=== PATIENT | male | born 1960 | race Caucasian/White ===

== ENCOUNTER 2018-07-07 14:57 | Inpatient (IN) | payer BC, OTHER ==
[2018-07-07] MEDS ORDERED: SUBLIMAZE IV PRN (15:10)
[2018-07-07] MEDS ORDERED: ARTIFICIAL TEARS OPHTH OINT OU PRN (15:10)
[2018-07-07] MEDS ORDERED: VASELINE LIP THERAPY TP PRN (15:10)
[2018-07-07] MEDS ORDERED: VERSED IV PRN (15:10)
[2018-07-07] MEDS ORDERED: NACL 0.9% 1000 ML 1,000 ML IV ONE ×2 (15:12→18:15)
[2018-07-07 15:22] LABS: Hematocrit 45.1 % (35.5-45.6); Hemoglobin 14.7 gm/dl (11.8-15.2); Mean Corpuscular HGB Conc 33 % (32-34); Mean Corpuscular Volume 91 fl (84-94); Platelet Count 214 K/mm3 (140-440); Red Blood Count 4.99 M/mm3 (3.65-5.03); Red Cell Distribution Width 14.7 % (13.2-15.2)
--- NOTE | 2018-07-07 15:24 | Emergency Department Report ---
HPI - General Time Seen by Provider: 07/07/18 15:07 - HPI HPI: 58-year-old -[place] male presents to the emergency department via EMS with the call of cardiac arrest. The patient was at [facility] and was witnessed suddenly going unconscious. He was talking and then he dropped to the ground and hit his head. EMS was called and found the patient to be pulseless in V. fib. He was given a 200 J shock and ACLS protocol was initiated. He received some epinephrine and chest compressions were done. They were unable to intubate him. At some point in route he had some return of spontaneous circulation and once again went into V. fib and received a 300 J shock and once again ACLS protocol was initiated. The patient received an amiodarone drip but no bolus. The patient once again had return of spontaneous circulation as they were pulling up to the emergency department. The patient has a pulse but is very altered and agitated. He is a poor historian secondary to his acute medical condition. In reviewing the patient's previous charts, he has a past medical history of HIV. ED Past Medical Hx - Past Medical History Hx Congestive Heart Failure: No Hx Diabetes: No Hx Renal Disease: Yes (CKD) Hx Seizures: No Hx Asthma: No Hx COPD: No Hx Dementia: No Hx HIV: Yes - Social History Smoking Status: Never Smoker - Medications Home Medications: Home Medications Medication Instructions Recorded Confirmed Last Taken Type Abacavir/Dolutegravir/Lamivudi 1 each PO DAILY 02/28/16 02/28/16 Unknown History [Triumeq Tablet] ED Review of Systems ROS: Stated complaint: TRAUMATIC ARREST Other details as noted in HPI Comment: Unobtainable due to pts medical conditions Physical Exam - Physical Exam Vital Signs: Vital Signs 07/07/18 15:08 Pulse Rate 112 H Blood Pressure 153/110 O2 Sat by Pulse 98 Oximetry Physical Exam: GENERAL: Patient is ill-appearing. HENT: Normocephalic. Atraumatic. Patient has moist mucous membranes. EYES: Pupils equal reactive to light bilaterally. NECK: Supple. Trachea is midline. CHEST/LUNGS: Clear to auscultation. There is no respiratory distress noted. HEART/CARDIOVASCULAR: Regular. There is moderate tachycardia. There is no murmur. ABDOMEN: Abdomen is soft, nontender. Patient has normal bowel sounds. There is no abdominal distention. SKIN: Skin is warm and dry. There is a posterior right scalp laceration that is about 3 cm in length. NEURO: The patient is awake but extremely confused and agitated. Unresponsive to any commands and unaware of his environment and situation. MUSCULOSKELETAL: There is no obvious deformity. There is no limitation range of motion. ED Course Vital Signs 07/07/18 15:08 Pulse Rate 112 H Blood Pressure 153/110 O2 Sat by Pulse 98 Oximetry - Consultations Consultation #1: I spoke with the day habilitation specialist, Dr Laird, who evaluated the EKGs that were sent to him and he does not feel that they represent STEMIs and does not need immediate cardiac catheterization. 07/07/18 15:22 - ABG Interpretation Ph: 7.199 PCO2: 60 PO2: 325 Bicarbonate: 23 Interpretation: respiratory acidosis - Central Line Placement Right Femoral Consent Obtained: emergent situation Time Out Performed: Yes Patient Placed on Monitor/Pulse Ox: Yes MD Prep: mask, gown, gloves Central Line Prep: Chlorhexidine scrub Ultrasound Used for Placement: Yes Central Line Lumen Inserted: triple Bloods Obtained for Lab: Yes Central Line Position: good blood return, all ports aspirated, flus, sutured in place with nyl Dressing Applied: Tegaderm, sterile gauze/tape Patient Tolerated Procedure: well Complications: none - Intubation Time Out Performed: No Sedative: Etomidate Mg Given: 20 Paralytic: Rocuronium Mg Given: 100 Laryngoscope: Dwight Size: 4 ET Tube Size: 7.5 Tube Secured Depth (cm): 24 Tube Secured Location: lips Tube Placement Confirmation: visualized tube passing t, equal breath sounds bilat, confirmation by capnometr Patient Tolerated Procedure: well Intubation Complications: none - Laceration /Wound Repair Posterior Head Wound Location: head (posterior scalp) Wound Length (cm): 3 Wound's Depth, Shape: superficial, linear Number of Sutures: 8 (bayron) Sterile Dressing Applied?: Yes ED Medical Decision Making - Lab Data Result diagrams: 07/07/18 14:45 07/07/18 14:45 - EKG Data -: EKG Interpreted by Me EKG shows normal: sinus rhythm, axis, intervals (prolonged QTc interval), QRS complexes, ST-T waves (T-wave inversions to the lateral leads with mild ST depression. Otherwise nonspecific ST-T waves) Rate: tachycardia (113 bpm) - EKG Data When compared to previous EKG there are: previous EKG unavailable Interpretation: other (sinus tachycardia, prolonged QTC, T-wave inversions to the lateral leads, nonspecific ST-T waves) - Radiology Data Radiology results: report reviewed, image reviewed interpreted by me: Chest x-ray does not show any acute process. There are no pleural effusions, obvious pneumonia and there is no pneumothorax.. ET tube is about 4 cm above the dany. CT of the head does not show any acute intracranial process including no ischemia, shift, mass, bleeding or skull fracture. CT of the cervical spine does not show any fracture, subluxation or any acute process. - Medical Decision Making This patient presented as a cardiac arrest which occurred twice but he also had recurrent spontaneous circulation twice. He appeared to be in V. fib, per EMS, and received 2 different defibrillations, epinephrine and amiodarone. Since being in the emergency department, he has a pulse but he is severely confused and very agitated and unable to follow any commands. With this recent history of cardiac arrest, head trauma, and his severe agitation, the patient was intubated. Chest x-ray shows appropriate placement of the ET tube but otherwise no acute process. EKG showed some ischemic changes with T-wave inversions in the lateral leads and some nonspecific ST-T waves but it was reviewed by cardiology and did not appear to meet STEMI criteria and requiring emergent cardiac catheterization. A stat CT scan of the head and cervical spine were done that did not show any bleed, shift, mass, ischemia, fracture, subluxation, or any other acute process. The patient's labs show some mild renal insufficiency, elevated troponin, lactic acidosis and elevated liver functions. After a few hours, the patient started having some hypertension despite IV fluid resuscitation so a central line was placed so pressors can be started. The posterior scalp laceration was repaired using bayron. The patient will be admitted to the ICU and was accepted for admission by the hospitalist, Dr. Walsh. Critical Care Time: Yes Critical care time in (mins) excluding proc time.: 45 Critical care attestation.: If time is entered above; I have spent that time in minutes in the direct care of this critically ill patient, excluding procedure time. Critical care time was spent on this patient and during his initial evaluation, multiple re- evaluations, ordering and interpretation of labs and imaging, discussion with the institutional nutrition consultant and hospitalist. This does not include the time spent doing the intubation, central line and stapling procedures. Critical Care Time: 45 minutes ED Disposition Clinical Impression: Cardiac arrest, Acute kidney injury, Transaminitis, Non-STEMI (non-ST elevated myocardial infarction) Hypotension Qualifiers: Hypotension type: unspecified hypotension type Qualified Code(s): I95.9 - Hypotension, unspecified Acute respiratory failure Qualifiers: Respiratory failure complication: unspecified whether with hypoxia or hypercapnia Qualified Code(s): J96.00 - Acute respiratory failure, unspecified whether with hypoxia or hypercapnia Disposition: 09 OP ADMIT IP TO THIS HOSP Is pt being admited?: Yes Condition: Serious Time of Disposition: 19:29
[2018-07-07 15:33] LABS: INR 1.16 (0.87-1.13)
[2018-07-07 15:34] LABS: Partial Thromboplastin Time 25.1 Sec. (24.2-36.6)
[2018-07-07 15:47] LABS: Albumin 3.5 g/dL (3.9-5); Calcium 8.6 mg/dL (8.4-10.2)
[2018-07-07 15:53] LABS: Smudge Cells 1+; Total Cells Counted 100
[2018-07-07 15:54] LABS: Ovalocytes 1+; Poikilocytosis Few
[2018-07-07] MEDS ORDERED: fentaNYL DRIP Premix 2,000 MCG/100 ML BAG IV SCH (16:00)
[2018-07-07] MEDS ORDERED: MIDAZOLAM 100 MG in NACL 0.9% 80 ML IV SCH (16:00)
--- NOTE | 2018-07-07 16:04 | XRay Report ---
PROCEDURE: XR CHEST 1V AP TECHNIQUE: Chest radiograph single view. HISTORY: ETT placement COMPARISONS: None . FINDINGS: Heart: Normal. Mediastinum/Vessels: Normal. Lungs/Pleural space: No infiltrate, effusion, or pneumothorax. Bony thorax: No acute osseous abnormality. Life support devices: Endotracheal tube tip projects 4.6 cm superior to the dany. IMPRESSION: Endotracheal tube tip projects 4.6 cm superior to the dany. This document is electronically signed by Ingris Tompkins MD., Jul 07 2018 04:02:43 PM ET
[2018-07-07 16:12] LABS: Chol/HDL Ratio 2.71 %
--- NOTE | 2018-07-07 16:25 | Cat Scan Report ---
PROCEDURE: CT cervical spine without contrast. TECHNIQUE: Computerized tomography of the cervical spine was performed from the skull base to T1 wit hout contrast material. CT DOSE LENGTH PRODUCT: 657.1 mGycm HISTORY: Patient fell, altered mental status. COMPARISONS: None. FINDINGS: The cervical vertebrae have normal height and alignment. There are no fractures. There is no subluxat ion. There is mild disc space narrowing at C3-4 and C6-7. The spinal canal appears widely patent. The facet joints appear satisfactory. The neural foramina are adequately patent. IMPRESSION: No evidence of acute cervical spine injury. This document is electronically signed by Ruperto Bird MD., Jul 07 2018 04:23:08 PM ET
--- NOTE | 2018-07-07 16:32 | Cat Scan Report ---
PROCEDURE: CT head without contrast. TECHNIQUE: Computerized tomography of the head was performed without contrast material. CT DOSE LENGTH PRODUCT: 996.8 mGycm HISTORY: Patient fell, altered mental status. COMPARISONS: None. FINDINGS: The ventricles are normal in size. The torres matter and white matter appear normal. There are no mass lesions. There is no intracranial hemorrhage. The calvarium appears intact. The mastoid air cells and paranasal sinuses are well aerated. IMPRESSION: Normal study. This document is electronically signed by Ruperto Bird MD., Jul 07 2018 04:30:51 PM ET
[2018-07-07] MEDS: KCL 10MEQ/100ML 10 MEQ/100 ML BAG IV SCH ×3 (16:33→20:23)
[2018-07-07] MEDS: CORDARONE 900 MG in D5W 482 ML IV SCH (16:33)
[2018-07-07] MEDS ORDERED: DIPRIVAN 10 MG/ML 1,000 MG/100 ML BOTTLE IV ONE ×2 (16:40→22:23)
[2018-07-07] MEDS ORDERED: HEPARIN 10,000 UNITS/10 ML IV ONE (16:49)
--- NOTE | 2018-07-07 16:52 | History and Physical Report ---
History of Present Illness Chief complaint: Unresponsive History of present illness: 58 YO Male with HIV complicated by Nephropathy presents to ED for evaluation. Pt experienced a sudden loss of consciousness while shopping at a local drugstore. Pt fell from a standing position and struck his head on the ground without breaking his fall. EMS was notified, and upon arrival the patient was found to have cardiac arrest. Pt treated IAW ACLS protocol with return of spontaneous circulation. Pt transported to [facility]. Pt seen and evaluated in ED and found to have Acute Hypoxemic Respiratory Failure, Acidosis, S/P Cardiac Arrest. Pt intubated and placed on vent due to inability to protect his airway. Pt hypotensive in Ed and treated with IVF resuscitation. Pt admitted to ICU. Pulmonary team consulted in ED. No further history obtainable. No prior admission for review. No medication listed at time of admission for bonilla nciliation. Past History Past Medical History: HIV/AIDS Past Surgical History: No surgical history, Other (UTO) Social history: single. denies: smoking, alcohol abuse, prescription drug abuse Family history: no significant family history (UTO) Medications and Allergies Allergies Allergy/AdvReac Type Severity Reaction Status Date / Time No Known Allergies Allergy Verified 02/28/16 21:35 Home Medications Medication Instructions Recorded Confirmed Last Taken Type Abacavir/Dolutegravir/Lamivudi 1 each PO DAILY 02/28/16 02/28/16 Unknown History [Triumeq Tablet] Active Meds: Active Medications Fentanyl (Sublimaze) 50 mcg IV Q10MIN PRN PRN Reason: ANALGESIA Hydrophilic Ointment (Vaseline Lip Therapy) 1 applic TP Q2HR PRN PRN Reason: Dry Lips Fentanyl Citrate (Fentanyl Drip Premix) 2,000 mcg in 100 mls @ 5.103 mls/hr IV TITR KATIANA; Protocol Last Admin: 07/07/18 15:55 Dose: 1 mcg/kg/hr, 5.103 mls/hr Documented by: Midazolam HCl 100 mg/ Sodium (Chloride) 100 mls @ 2 mls/hr IV TITR KATIANA; Protocol Last Titration: 07/07/18 16:34 Dose: 4 mg/hr, 4 mls/hr Documented by: Amiodarone HCl 900 mg/ (Dextrose) 500 mls @ 33.333 mls/hr IV DIRECT KATIANA; Protocol Last Admin: 07/07/18 16:33 Dose: 1 mg/min, 33.333 mls/hr Documented by: Potassium Chloride (Kcl 10meq/100ml) 10 meq in 100 mls @ 100 mls/hr IV Q1H KATIANA Stop: 07/07/18 18:59 Last Admin: 07/07/18 16:33 Dose: 100 mls/hr Documented by: Heparin Sodium/Sodium Chloride (Heparin/ 0.45% Nacl-25,000 Unit/500 Ml) 25,000 unit in 500 mls @ 30.617 mls/hr IV TITRATE KATIANA; Protocol Midazolam HCl (Versed) 2 mg IV Q10MIN PRN PRN Reason: Sedation Last Admin: 07/07/18 15:22 Dose: 2 mg Documented by: Multi-Ingred Cream/Lotion/Oil/Oint (Artificial Tears Ophth Oint) 1 applic OU Q4HR PRN PRN Reason: Dry Eye(s) Review of Systems ROS unobtainable: due to endotracheal tube, due to mental status Exam - Constitutional Vitals: Temp Pulse Resp BP Pulse Ox 112 H 153/110 98 07/07/18 15:08 07/07/18 15:08 07/07/18 15:08 General appearance: Present: severe distress - EENT Eyes: Present: miosis - Neck Neck: Present: supple, normal ROM - Respiratory Respiratory effort: labored Respiratory: bilateral: diminished, rhonchi - Cardiovascular Heart Sounds: Present: S1 & S2. Absent: rub, click - Extremities Extremities: pulses symmetrical, No edema Peripheral Pulses: abnormal (1+,=, BUE, BLE) - Abdominal General gastrointestinal: Present: soft, non-tender, non-distended, normal bowel sounds Male genitourinary: Present: normal - Integumentary Integumentary: Present: warm, dry, clammy, decreased turgor - Musculoskeletal Musculoskeletal: generalized weakness - Psychiatric Psychiatric: no appropriate mood/affect, no intact judgment & insight, no memory intact - Neurologic Neurologic: CNII-XII intact, no moves all extremities, no gait normal Results - Labs CBC & Chem 7: 07/07/18 14:45 07/07/18 14:45 Labs: Abnormal lab results 07/07/18 07/07/18 07/07/18 Range/Units 14:45 14:45 14:45 Seg Neuts % (Manual) 29.0 L (40.0-70.0) % Lymphocytes % (Manual) 66.0 H (13.4-35.0) % Lymphocytes # (Manual) 6.1 H (1.2-5.4) K/mm3 PT 15.5 H (12.2-14.9) Sec. INR 1.16 H (0.87-1.13) POC ABG pH (7.35-7.45) POC ABG pCO2 (35-45) POC ABG pO2 (80-105) Potassium 3.1 L (3.6-5.0) mmol/L Carbon Dioxide 17 L (22-30) mmol/L Creatinine 1.9 H (0.8-1.5) mg/dL Glucose 218 H (75-100) mg/dL Lactic Acid (0.7-2.0) mmol/L AST 352 H (5-40) units/L ALT 394 H (7-56) units/L Ammonia (25-60) umol/L Troponin T 0.561 H* (0.00-0.029) ng/mL Albumin 3.5 L (3.9-5) g/dL HDL Cholesterol 71 H (40-59) mg/dL TSH (0.270-4.200) mlU/mL Salicylates (2.8-20.0) mg/dL Acetaminophen (10.0-30.0) ug/mL 07/07/18 07/07/18 07/07/18 Range/Units 14:45 14:45 14:45 Seg Neuts % (Manual) (40.0-70.0) % Lymphocytes % (Manual) (13.4-35.0) % Lymphocytes # (Manual) (1.2-5.4) K/mm3 PT (12.2-14.9) Sec. INR (0.87-1.13) POC ABG pH (7.35-7.45) POC ABG pCO2 (35-45) POC ABG pO2 (80-105) Potassium (3.6-5.0) mmol/L Carbon Dioxide (22-30) mmol/L Creatinine (0.8-1.5) mg/dL Glucose (75-100) mg/dL Lactic Acid (0.7-2.0) mmol/L AST (5-40) units/L ALT (7-56) units/L Ammonia (25-60) umol/L Troponin T (0.00-0.029) ng/mL Albumin (3.9-5) g/dL HDL Cholesterol (40-59) mg/dL TSH 8.870 H (0.270-4.200) mlU/mL Salicylates < 0.3 L (2.8-20.0) mg/dL Acetaminophen < 5.0 L (10.0-30.0) ug/mL 07/07/18 07/07/18 07/07/18 Range/Units 15:15 15:15 15:30 Seg Neuts % (Manual) (40.0-70.0) % Lymphocytes % (Manual) (13.4-35.0) % Lymphocytes # (Manual) (1.2-5.4) K/mm3 PT (12.2-14.9) Sec. INR (0.87-1.13) POC ABG pH 7.199 L (7.35-7.45) POC ABG pCO2 60.0 H (35-45) POC ABG pO2 325 H (80-105) Potassium (3.6-5.0) mmol/L Carbon Dioxide (22-30) mmol/L Creatinine (0.8-1.5) mg/dL Glucose (75-100) mg/dL Lactic Acid 5.30 H* (0.7-2.0) mmol/L AST (5-40) units/L ALT (7-56) units/L Ammonia 62.0 H (25-60) umol/L Troponin T (0.00-0.029) ng/mL Albumin (3.9-5) g/dL HDL Cholesterol (40-59) mg/dL TSH (0.270-4.200) mlU/mL Salicylates (2.8-20.0) mg/dL Acetaminophen (10.0-30.0) ug/mL Assessment and Plan - Patient Problems (1) Acute respiratory failure Current Visit: Yes Status: Acute Qualifiers: Respiratory failure complication: unspecified whether with hypoxia or hypercapnia Qualified Code(s): J96.00 - Acute respiratory failure, unspecified whether with hypoxia or hypercapnia Plan to address problem: Admit to ICU, wean vent as tolerated, Daily ABG, Chest x ray, daily ABG, sedation holiday, pulmonary team consulted, nebulizer therapy. The high probability of a clinically significant, sudden or life threatening deterioration of the [Neuro, respiratory, endocrine, renal] system(s) required my full and direct attention, intervention and personal management. The [facility] critical care time was [65] minutes. This time is in addition to time spent performing reported procedures but includes the following: [x] Data Review and interpretation [x] Patient assessment and monitoring of vital signs [x] Documentation [x] Medication orders and management (2) ARF (acute renal failure) with tubular necrosis Current Visit: Yes Status: Acute Plan to address problem: IVF resuscitation therapy, monitor uop q shift, repeat bmp in am to monitor for improvement in serum creatnine, urine electrolytes. (3) Acidosis Current Visit: Yes Status: Acute Plan to address problem: IVF resuscitation therapy, repeat bmp, IV bicarbonate (4) HIV (human immunodeficiency virus infection) Current Visit: Yes Status: Acute Qualifiers: HIV symptom status: unspecified Qualified Code(s): B20 - Human immunodeficiency virus [HIV] disease Plan to address problem: continue HAAR therapy, outpatient ID F/U care. (5) Cardiac arrest Current Visit: Yes Status: Acute Plan to address problem: S/P ACLS protocol with return of perfusing cardiac rhythm, cardiology consulted, Echo, supportive care. (6) CHF (congestive heart failure) Current Visit: Yes Status: Suspected Qualifiers: Heart failure type: diastolic Plan to address problem: Admit to ICU, IV pressor support to maintain MAP above 60, cardiology consulted, monitor BP q shift, Echo, thyroid panel, daily weight, monitor I/O. (7) DVT prophylaxis Current Visit: Yes Status: Acute Plan to address problem: SCD to BLE shile in bed, prophylactic heparin
[2018-07-07] MEDS ORDERED: PROVENTIL IH PRN (16:55)
[2018-07-07] MEDS ORDERED: SODIUM CHLORIDE FLUSH SYRINGE 10 ML IV PRN (16:55)
[2018-07-07] MEDS ORDERED: HEPARIN/ 0.45% NACL-25,000 UNIT/500 ML 25,000 UNIT/500 ML BAG IV SCH (17:00)
[2018-07-07] MEDS: DIPRIVAN 10 MG/ML 1,000 MG/100 ML BOTTLE IV SCH ×2 (17:30→22:38)
[2018-07-07 18:31] LABS: Bilirubin,Urine NEG (Negative); Blood,Urine MOD (Negative); Color,Urine Yellow (Yellow); Mucus,Urine FEW /HPF; Urobilinogen,Urine < 2.0 mg/dL (<2.0)
[2018-07-07] MEDS ORDERED: NACL 0.9% 1000 ML 1,000 ML ONE ×2 (18:43→20:19)
[2018-07-07] MEDS ORDERED: KCL 10MEQ/100ML 10 MEQ/100 ML BAG IV ONE (20:19)
[2018-07-08] MEDS ORDERED: NACL 0.9% 250ML 250 ML IV ONE (03:06)
[2018-07-08] MEDS: DIPRIVAN 10 MG/ML 1,000 MG/100 ML BOTTLE IV SCH ×2 (03:11→18:27)
[2018-07-08] MEDS: LEVOPHED DRIP 4 MG/NS 250 ML 4 MG/250 ML BAG IV SCH (03:30)
[2018-07-08] MEDS: SODIUM CHLORIDE FLUSH SYRINGE 10 ML IV SCH ×2 (03:32→11:54)
[2018-07-08] MEDS: NACL 0.9% 1000 ML 1,000 ML IV SCH ×3 (05:24→21:46)
[2018-07-08] MEDS: HEPARIN SUB-Q SCH ×2 (05:26→13:26)
[2018-07-08 05:43] LABS: Basophils # (Auto) 0.1 K/mm3 (0.0-0.1); Basophils % (Auto) 0.8 % (0.0-1.8); Eosinophils # (Auto) 0.1 K/mm3 (0.0-0.4); Eosinophils % (Auto) 1.2 % (0.0-4.3); Hematocrit 43.8 % (35.5-45.6); Hemoglobin 14.1 gm/dl (11.8-15.2); Lymphocytes % (Auto) 27.4 % (13.4-35.0); Mean Corpuscular HGB Conc 32 % (32-34); Mean Corpuscular Volume 91 fl (84-94); Monocytes # (Auto) 0.9 K/mm3 (0.0-0.8); Monocytes % (Auto) 11.9 % (0.0-7.3); Platelet Count 159 K/mm3 (140-440)
[2018-07-08 06:14] LABS: Albumin 3.3 g/dL (3.9-5); Calcium 8.2 mg/dL (8.4-10.2)
--- NOTE | 2018-07-08 08:01 | XRay Report ---
PROCEDURE: XR CHEST 1V AP TECHNIQUE: Chest radiograph single view. HISTORY: follow up respiratory failure COMPARISONS: 07/07/2018 . FINDINGS: Heart: Normal. Mediastinum/Vessels: Normal. Lungs/Pleural space: No infiltrate, effusion, or pneumothorax. Bony thorax: No acute osseous abnormality. Life support devices: The endotracheal tube is in the proximal trachea 8.7 cm above the dany. IMPRESSION: Normal heart and lungs.. ET tube is in proper position. This document is electronically signed by Yovani Rojas MD., Jul 08 2018 07:59:55 AM ET
[2018-07-08] MEDS ORDERED: NON-FORMULARY (Abacavir/Dolutegravir/Lamivudi [Triumeq 600-50-300 Mg Tablet] 1 EACH) PO SCH ×2 (10:00)
--- NOTE | 2018-07-08 10:50 | Consultation ---
History of Present Illness Consult date: 07/08/18 Requesting physician: TRACY CONWAY Consult reason: cardiac arrest History of present illness: The patient is a 58-year-old -[place] male with a past medical history of HIV. He is previously unknown to our practice. He is intubated on evaluation and thus HPI obtained per the chart and per pt's brother at bedside. Pt presented to the emergency department via EMS following cardiac arrest. 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 Pt was then witnessed to suddenly go unconscious. He was talking and then he dropped to the ground and hit his head. EMS was called and found the patient to be pulseless in V. fib. He was given a 200 J shock and ACLS protocol was initiated. He received some epinephrine and chest compressions were done. They were unable to intubate him. At some point in route he had some return of spontaneous circulation and once again went into V. fib and received a 300 J shock and once again ACLS protocol was initiated. The patient received an amiodarone drip but no bolus. The patient once again had return of spontaneous circulation as they were pulling up to the emergency department. On evaluation, pt remains intubated but he is following commands appropriately. He denies any c/o pain. Past History Past Medical History: HIV/AIDS Past Surgical History: appendectomy Social history: denies: smoking, alcohol abuse, prescription drug abuse Medications and Allergies Allergies Allergy/AdvReac Type Severity Reaction Status Date / Time No Known Allergies Allergy Verified 02/28/16 21:35 Home Medications Medication Instructions Recorded Confirmed Last Taken Type Abacavir/Dolutegravir/Lamivudi 1 each PO DAILY 02/28/16 02/28/16 Unknown History [Triumeq Tablet] Active Meds: Active Medications Abacavir Sulfate (Ziagen) 300 mg PO Q12HR KATIANA Albuterol (Proventil) 2.5 mg IH Q3HRT PRN PRN Reason: Shortness Of Breath Famotidine (Pepcid) 20 mg IV BID [facility] Heparin Sodium (Porcine) (Heparin) 5,000 unit SUB-Q Q12HR [facility] Last Admin: 07/08/18 05:26 Dose: Not Given Documented by: Hydrophilic Ointment (Vaseline Lip Therapy) 1 applic TP Q2HR PRN PRN Reason: Dry Lips Amiodarone HCl 900 mg/ (Dextrose) 500 mls @ 33.333 mls/hr IV DIRECT KATIANA; Protocol Last Admin: 07/07/18 16:33 Dose: 1 mg/min, 33.333 mls/hr Documented by: Sodium Chloride (Nacl 0.9% 1000 Ml) 1,000 mls @ 100 mls/hr IV DIRECT KATIANA Last Admin: 07/08/18 05:24 Dose: 100 mls/hr Documented by: Propofol (Diprivan 10 Mg/Ml) 1,000 mg in 100 mls @ 3.062 mls/hr IV TITR KATIANA; P rotocol Last Admin: 07/08/18 03:11 Dose: 20 mcg/kg/min, 12.247 mls/hr Documented by: Norepinephrine (Levophed Drip 4 Mg/Ns 250 Ml) 4 mg in 250 mls @ 7.5 mls/hr IV TITR KATIANA; Protocol Last Admin: 07/08/18 03:30 Dose: 2 mcg/min, 7.5 mls/hr Documented by: Lamivudine (Epivir) 150 mg PO Q12HR KAT[facility]NA Multi-Ingred Cream/Lotion/Oil/Oint (Artificial Tears Ophth Oint) 1 applic OU Q4HR PRN PRN Reason: Dry Eye(s) Sodium Chloride (Sodium Chloride Flush Syringe 10 Ml) 10 ml IV BID KATIANA Last Admin: 07/08/18 03:32 Dose: Not Given Documented by: Sodium Chloride (Sodium Chloride Flush Syringe 10 Ml) 10 ml IV PRN PRN PRN Reason: LINE FLUSH Review of Systems ROS unobtainable: due to endotracheal tube, due to mental status Physical Examination Vital Signs Pulse Resp 130 H 20 07/07/18 14:46 07/07/18 14:46 General appearance: other (intubated, following commands appropriately ) HEENT: Positive: PERRL, Normocephaly, Mucus Membranes Moist Neck: Positive: neck supple, trachea midline Cardiac: Positive: Reg Rate and Rhythm, S1/S2 Lungs: Positive: Decreased Breath Sounds, Ventilated Respirations Neuro: Positive: Grossly Intact Abdomen: Negative: Tender Skin: Negative: Rash, Wound Musculoskeletal: No Pain Extremities: Absent: edema Results 07/08/18 04:09 07/08/18 04:09 Cardiac Enzymes 07/07/18 07/08/18 Range/Units 14:45 04:09 AST 352 H 321 H (5-40) units/L Coagulation 07/07/18 Range/Units 14:45 PT 15.5 H (12.2-14.9) Sec. INR 1.16 H (0.87-1.13) APTT 25.1 (24.2-36.6) Sec. Lipids 07/07/18 Range/Units 14:45 Triglycerides 101 (2-149) mg/dL Cholesterol 193 (50-199) mg/dL HDL Cholesterol 71 H (40-59) mg/dL Cholesterol/HDL Ratio 2.71 % CBC 07/07/18 07/08/18 Range/Units 14:45 04:09 WBC 9.3 7.3 (4.5-11.0) K/mm3 RBC 4.99 4.80 (3.65-5.03) M/mm3 Hgb 14.7 14.1 (11.8-15.2) gm/dl Hct 45.1 43.8 (35.5-45.6) % Plt Count 214 159 (140-440) K/mm3 Lymph # Machine Bender 2.0 [place] # 0.9 H (0.0-0.8) K/mm3 Eos # 0.1 (0.0-0.4) K/mm3 Baso # 0.1 (0.0-0.1) K/mm3 Comprehensive Metabolic Panel 07/07/18 07/08/18 Range/Units 14:45 04:09 Sodium 139 143 (137-145) mmol/L Potassium 3.1 L 4.4 D (3.6-5.0) mmol/L Chloride 101.6 106.0 (98-107) mmol/L Carbon Dioxide 17 L 21 L (22-30) mmol/L BUN 20 19 (9-20) mg/dL Creatinine 1.9 H 1.6 H (0.8-1.5) mg/dL Glucose 218 H 71 L (75-100) mg/dL Calcium 8.6 8.2 L (8.4-10.2) mg/dL AST 352 H 321 H (5-40) units/L ALT 394 H 313 H (7-56) units/L Alkaline Phosphatase 57 50 (35-129) units/L Total Protein 6.7 5.9 L (6.3-8.2) g/dL Albumin 3.5 L 3.3 L (3.9-5) g/dL - Imaging and Cardiology Echo: pending EKG: report reviewed, image reviewed EKG interpretations - Telemetry EKG Rhythm: Sinus Rhythm - EKG Sinus rhythms and dysrhythmias: sinus rhythm Repolarization changes or abnormalities: ST or T wave suggestive of ischemia Assessment and Plan Pt presented s/p reported witnessed VF arrest while at work. ECG suggestive of inferior ischemia, suspect late presentation AMI, ECG this AM with no ST elevations. Will optimize anti-ischemic regimen - initiate heparin gtt and ASA. Wean vasopressors as tolerated and consider BB and/or ACEI if BPs permit. Plan for coronary angiography once medically stabilized. No statin at this time in setting of elevated LFTs. Cont to trend Qing and repeat ECG in AM. F/u echo. Cont amio gtt for another 24Hrs and f/u CMP in AM. The patient has been seen in conjunction with Dr. CM Padilla who agrees with the assessment and plan of care. - Patient Problems (1) Cardiac arrest with successful resuscitation Current Visit: Yes Status: Acute (2) Ventricular fibrillation Current Visit: Yes Status: Acute (3) Non-STEMI (non-ST elevated myocardial infarction) Current Visit: Yes Status: Acute (4) Acute respiratory failure Current Visit: Yes Status: Acute Qualifiers: Respiratory failure complication: unspecified whether with hypoxia or hypercapnia Qualified Code(s): J96.00 - Acute respiratory failure, unspecified whether with hypoxia or hypercapnia (5) Acute kidney injury Current Visit: Yes Status: Acute (6) Hypotension Current Visit: Yes Status: Acute Qualifiers: Hypotension type: unspecified hypotension type Qualified Code(s): I95.9 - Hypotension, unspecified (7) HIV (human immunodeficiency virus infection) Current Visit: Yes Status: Chronic Qualifiers: HIV symptom status: unspecified Qualified Code(s): B20 - Human immunodeficiency virus [HIV] disease (8) Elevated TSH Current Visit: Yes Status: Chronic (9) Elevated LFTs Current Visit: Yes Status: Acute (10) Acidosis Current Visit: Yes Status: Acute
[2018-07-08] MEDS: TIVICAY PO SCH (11:54)
[2018-07-08] MEDS: EPIVIR PO SCH (11:54)
[2018-07-08] MEDS: PEPCID IV SCH ×2 (11:54→22:36)
[2018-07-08] MEDS: ZIAGEN PO SCH (11:55)
[2018-07-08] MEDS: HEPARIN/ 0.45% NACL-25,000 UNIT/500 ML 25,000 UNIT/500 ML BAG IV SCH (12:00)
--- NOTE | 2018-07-08 12:41 | XRay Report ---
Single view abdomen: History: NG tube placement. Findings: Tip of Dobbhoff feeding tube is noted in the fundus of the stomach. No bowel distention. Impression: Tip of Dobbhoff feeding tube in stomach.
[2018-07-08 13:00] LABS: INR 1.19 (0.87-1.13)
[2018-07-08] MEDS: ASPIRIN PR SCH (13:18)
[2018-07-08] MEDS: CORDARONE 900 MG in D5W 482 ML IV SCH ×2 (13:25→23:57)
[2018-07-08] MEDS: HumaLOG SUB-Q SCH ×2 (13:29→18:30)
--- NOTE | 2018-07-08 14:15 | Progress Note ---
Subjective Date of service: 07/08/18 Interval history: PULMONARY/CCM CONSULT NOTE (Full dictation # ) Please see dictated notes for full details Objective Vital Signs - 12hr 07/08/18 07/08/18 07/08/18 02:21 02:31 02:41 Temperature Pulse Rate 63 64 66 Respiratory 30 H 30 H 30 H Rate Blood Pressure 84/53 84/53 84/53 O2 Sat by Pulse 100 100 100 Oximetry 07/08/18 07/08/18 07/08/18 02:51 03:00 03:11 Temperature Pulse Rate 65 64 65 Respiratory 30 H 30 H 30 H Rate Blood Pressure 84/53 78/47 84/53 O2 Sat by Pulse 100 100 100 Oximetry 07/08/18 07/08/18 07/08/18 03:21 03:31 03:40 Temperature Pulse Rate 66 65 65 Respiratory 30 H 30 H 30 H Rate Blood Pressure 84/53 84/53 78/47 O2 Sat by Pulse 100 100 100 Oximetry 07/08/18 07/08/18 07/08/18 03:51 04:00 04:11 Temperature 97.8 F Pulse Rate 64 65 64 Respiratory 30 H 30 H 0 L Rate Blood Pressure 84/53 86/52 78/47 O2 Sat by Pulse 100 100 100 Oximetry 07/08/18 07/08/18 07/08/18 04:21 04:30 04:37 Temperature Pulse Rate 64 63 63 Respiratory 0 L 30 H Rate Blood Pressure 91/58 96/63 96/63 O2 Sat by Pulse 100 100 100 Oximetry 07/08/18 07/08/18 07/08/18 04:38 04:41 04:51 Temperature Pulse Rate 69 64 Respiratory 9 L 30 H Rate Blood Pressure 96/63 97/53 O2 Sat by Pulse 100 100 100 Oximetry 07/08/18 07/08/18 07/08/18 05:00 05:11 05:21 Temperature Pulse Rate 68 76 71 Respiratory 25 H 30 H 30 H Rate Blood Pressure 90/53 90/53 93/50 O2 Sat by Pulse 100 100 100 Oximetry 07/08/18 07/08/18 07/08/18 05:30 05:41 05:51 Temperature Pulse Rate 71 77 74 Respiratory 30 H 30 H 30 H Rate Blood Pressure 88/51 88/51 91/58 O2 Sat by Pulse 100 100 98 Oximetry 07/08/18 07/08/1807/08/19 06:00 06:11 06:21 Temperature Pulse Rate 77 77 76 Respiratory 30 H 30 H 30 H Rate Blood Pressure 79/47 79/47 80/44 O2 Sat by Pulse 98 96 98 Oximetry 07/08/18 07/08/18 07/08/18 06:30 06:41 06:51 Temperature Pulse Rate 77 73 78 Respiratory 30 H 32 H 30 H Rate Blood Pressure 82/48 82/48 92/53 O2 Sat by Pulse 98 100 100 Oximetry 07/08/18 07/08/18 07/08/18 07:00 07:10 07:21 Temperature Pulse Rate 78 80 74 Respiratory 30 H 16 15 Rate Blood Pressure 102/53 102/53 82/48 O2 Sat by Pulse 100 100 100 Oximetry 07/08/18 07/08/18 07/08/18 07:30 07:34 07:41 Temperature Pulse Rate 82 76 77 Respiratory 15 20 Rate Blood Pressure 107/60 107/60 107/60 O2 Sat by Pulse 100 100 100 Oximetry 07/08/18 07/08/18 07/08/18 07:51 08:00 08:11 Temperature 100.5 F H Pulse Rate 79 81 90 Respiratory 7 L 30 H 28 H Rate Blood Pressure 102/54 89/54 89/54 O2 Sat by Pulse 100 100 100 Oximetry 07/08/18 07/08/18 07/08/18 08:21 08:30 08:41 Temperature Pulse Rate 82 81 84 Respiratory 30 H 30 H 30 H Rate Blood Pressure 102/54 96/56 96/56 O2 Sat by Pulse 99 100 100 Oximetry 07/08/18 07/08/18 07/08/18 08:51 08:57 09:00 Temperature Pulse Rate 82 83 Respiratory 30 H 28 H 30 H Rate Blood Pressure 91/52 89/53 O2 Sat by Pulse 99 98 100 Oximetry 07/08/18 07/08/18 07/08/18 09:11 09:21 09:30 Temperature Pulse Rate 82 82 80 Respiratory 30 H 30 H 22 Rate Blood Pressure 89/53 96/54 96/52 O2 Sat by Pulse 99 99 100 Oximetry 07/08/18 07/08/18 07/08/18 09:41 09:51 10:00 Temperature Pulse Rate 79 87 82 Respiratory 26 H 28 H 30 H Rate Blood Pressure 96/52 96/52 103/52 O2 Sat by Pulse 100 100 100 Oximetry 07/08/18 07/08/18 07/08/18 10:11 10:21 10:30 Temperature Pulse Rate 86 78 76 Respiratory 28 H 30 H 30 H Rate Blood Pressure 103/52 104/55 100/53 O2 Sat by Pulse 99 100 100 Oximetry 07/08/18 07/08/18 07/08/18 10:41 10:51 11:01 Temperature Pulse Rate 78 94 H 98 H Respiratory 30 H 17 8 L Rate Blood Pressure 100/53 99/55 118/71 O2 Sat by Pulse 100 100 99 Oximetry 07/08/18 07/08/18 07/08/18 11:11 11:21 11:30 Temperature Pulse Rate 90 83 80 Respiratory 30 H 30 H 19 Rate Blood Pressure 118/71 100/53 105/65 O2 Sat by Pulse 98 100 100 Oximetry 07/08/18 07/08/18 07/08/18 11:41 11:43 11:51 Temperature Pulse Rate 81 82 82 Respiratory 7 L 10 L Rate Blood Pressure 105/65 105/65 114/68 O2 Sat by Pulse 100 100 100 Oximetry 07/08/18 07/08/18 07/08/18 12:00 12:11 12:21 Temperature Pulse Rate 77 73 79 Respiratory 30 H 30 H 22 Rate Blood Pressure 114/66 114/66 109/64 O2 Sat by Pulse 100 100 100 Oximetry 07/08/18 07/08/18 07/08/18 12:30 12:41 12:51 Temperature Pulse Rate 74 76 75 Respiratory 30 H 30 H 30 H Rate Blood Pressure 110/64 110/64 106/60 O2 Sat by Pulse 100 100 100 Oximetry 07/08/18 07/08/18 07/08/18 13:00 13:11 13:21 Temperature Pulse Rate 81 92 H 103 H Respiratory 20 12 14 Rate Blood Pressure 114/63 114/63 113/67 O2 Sat by Pulse 100 100 100 Oximetry 07/08/18 13:30 Temperature Pulse Rate 89 Respiratory 17 Rate Blood Pressure 125/73 O2 Sat by Pulse 94 Oximetry CBC and BMP: 07/08/18 Unknown 07/08/18 04:09 ABG, PT/INR, D-dimer: ABG POC ABG pH 7.423 (7.35-7.45) 07/08/18 04:41 POC ABG pCO2 37.6 (35-45) 07/07/18 20:18 POC ABG pO2 144 (80-105) H 07/08/18 04:41 POC ABG HCO3 19.6 (22-26 mml/L) 07/08/18 04:41 POC ABG Total CO2 20 (23-27mmol/L) 07/08/18 04:41 POC ABG O2 Sat 99 07/08/18 04:41 PT/INR, D-dimer PT 15.9 Sec. (12.2-14.9) H 07/08/18 Unknown INR 1.19 (0.87-1.13) H 07/08/18 Unknown Abnormal lab findings: Abnormal Labs 07/07/18 07/07/18 07/07/18 14:45 14:45 14:45 [place]osey % (Auto) Posey # Seg Neuts % (Manual) 29.0 L Lymphocytes % (Manual) 66.0 H Lymphocytes # (Manual) 6.1 H PT 15.5 H INR 1.16 H POC ABG pH POC ABG pCO2 POC ABG pO2 Potassium 3.1 L Carbon Dioxide 17 L Creatinine 1.9 H Glucose 218 H Lactic Acid Calcium AST 352 H ALT 394 H Ammonia Troponin T 0.561 H* Total Protein Albumin 3.5 L HDL Cholesterol 71 H TSH Salicylates Acetaminophen 07/07/18 07/07/18 07/07/18 14:45 14:45 14:45 [place] % (Auto) [place] # Seg Neuts % (Manual) Lymphocytes % (Manual) Lymphocytes # (Manual) PT INR POC ABG pH POC ABG pCO2 POC ABG pO2 Potassium Carbon Dioxide Creatinine Glucose Lactic Acid Calcium AST ALT Ammonia Troponin T Total Protein Albumin HDL Cholesterol TSH 8.870 H Salicylates < 0.3 L Acetaminophen < 5.0 L 07/07/18 07/07/18 07/07/18 15:15 15:15 15:30 [place] % (Auto) [place] # Seg Neuts % (Manual) Lymphocytes % (Manual) Lymphocytes # (Manual) PT INR POC ABG pH 7.199 L POC ABG pCO2 60.0 H POC ABG pO2 325 H Potassium Carbon Dioxide Creatinine Glucose Lactic Acid 5.30 H* Calcium AST ALT Ammonia 62.0 H Troponin T Total Protein Albumin HDL Cholesterol TSH Salicylates Acetaminophen 07/07/18 07/07/18 07/07/18 17:12 19:12 20:18 [place] % (Auto) [place] # Seg Neuts % (Manual) Lymphocytes % (Manual) Lymphocytes # (Manual) PT INR POC ABG pH POC ABG pCO2 POC ABG pO2 193 H Potassium Carbon Dioxide Creatinine Glucose Lactic Acid 5.30 H* 2.10 H* Calcium AST ALT Ammonia Troponin T Total Protein Albumin HDL Cholesterol TSH Salicylates Acetaminophen 07/07/18 07/07/18 07/07/18 22:56 22:56 Unknown [place] % (Auto) [place] # Seg Neuts % (Manual) Lymphocytes % (Manual) Lymphocytes # (Manual) PT INR POC ABG pH POC ABG pCO2 POC ABG pO2 Potassium Carbon Dioxide Creatinine Glucose Lactic Acid 5.00 H* Calcium AST ALT Ammonia Troponin T 1.380 H* D 1.990 H* D Total Protein Albumin HDL Cholesterol TSH Salicylates Acetaminophen 07/08/18 07/08/18 07/08/18 04:09 04:09 04:09 [place] % (Auto) 11.9 H Posey # 0.9 H Seg Neuts % (Manual) Lymphocytes % (Manual) Lymphocytes # (Manual) PT INR POC ABG pH POC ABG pCO2 POC ABG pO2 Potassium Carbon Dioxide 21 L Creatinine 1.6 H Glucose 71 L Lactic Acid 4.60 H* Calcium 8.2 L AST 321 H ALT 313 H Ammonia Troponin T Total Protein 5.9 L Albumin 3.3 L HDL Cholesterol TSH Salicylates Acetaminophen 07/08/18 07/08/18 04:41 Unknown [place] % (Auto) [place] # Seg Neuts % (Manual) Lymphocytes % (Manual) Lymphocytes # (Manual) PT 15.9 H INR 1.19 H POC ABG pH POC ABG pCO2 POC ABG pO2 144 H Potassium Carbon Dioxide Creatinine Glucose Lactic Acid Calcium AST ALT Ammonia Troponin T Total Protein Albumin HDL Cholesterol TSH Salicylates Acetaminophen
--- NOTE | 2018-07-08 14:46 | Consultation ---
History of Present Illness Consult date: 07/08/18 Requesting physician: TRACY CONWAY Reason for consult: other (Acute Hypoxemic Respiratory Failure; Acute Encephalopathy; HIV +ve) History of present illness: PULMONARY/CCM CONSULT NOTE (Full dictation # [id number]) Please see dictated notes for full details Past History Past Medical History: HIV/AIDS Past Surgical History: appendectomy Social history: denies: smoking, alcohol abuse, prescription drug abuse Family history: no significant family history (UTO) Medications and Allergies Allergies Allergy/AdvReac Type Severity Reaction Status Date / Time No Known Allergies Allergy Verified 02/28/16 21:35 Home Medications Medication Instructions Recorded Confirmed Last Taken Type Abacavir/Dolutegravir/Lamivudi 1 each PO DAILY 02/28/16 02/28/16 Unknown History [Triumeq Tablet] Active Meds: Active Medications Abacavir Sulfate (Ziagen) 300 mg PO Q12HR KATIANA Last Admin: 07/08/18 11:55 Dose: Not Given Documented by: Albuterol (Proventil) 2.5 mg IH Q3HRT PRN PRN Reason: Shortness Of Breath Aspirin (Aspirin) 300 mg [place] QDAY KATIANA Last Admin: 07/08/18 13:18 Dose: 300 mg Documented by: Famotidine (Pepcid) 20 mg IV BID [facility]NA Last Admin: 07/08/18 11:54 Dose: 20 mg Documented by: Hydrophilic Ointment (Vaseline Lip Therapy) 1 applic TP Q2HR PRN PRN Reason: Dry Lips Amiodarone HCl 900 mg/ (Dextrose) 500 mls @ 33.333 mls/hr IV DIRECT KATIANA; Protocol Last Admin: 07/08/18 13:25 Dose: 0.5 mg/min, 16.667 mls/hr Documented by: Sodium Chloride (Nacl 0.9% 1000 Ml) 1,000 mls @ 100 mls/hr IV DIRECT KATIANA Last Admin: 07/08/18 11:55 Dose: 100 mls/hr Documented by: Propofol (Diprivan 10 Mg/Ml) 1,000 mg in 100 mls @ 3.062 mls/hr IV TITR KATIANA; Protocol Last Admin: 07/08/18 03:11 Dose: 20 mcg/kg/min, 12.247 mls/hr Documented by: Norepinephrine (Levophed Drip 4 Mg/Ns 250 Ml) 4 mg in 250 mls @ 7.5 mls/hr IV TITR KATIANA; Protocol Last Titration: 07/08/18 11:27 Dose: 0 mcg/min, 0 mls/hr Documented by: Heparin Sodium/Sodium Chloride (Heparin/ 0.45% Nacl-25,000 Unit/500 Ml) 25,000 unit in 500 mls @ 20 mls/hr IV TITRATE KATIANA; Protocol Last Admin: 07/08/18 12:00 Dose: 1,000 units/hr, 20 mls/hr Documented by: Fentanyl Citrate (Fentanyl Drip Premix) 2,000 mcg in 100 mls @ 5.103 mls/hr IV TITR KATIANA; Protocol Insulin Human Lispro (Humalog) 0 unit SUB-Q Q6HR KATIANA; Protocol Last Admin: 07/08/18 13:29 Dose: Not Given Documented by: Lamivudine (Epivir) 150 mg PO Q12HR [facility]ATIANA Last Admin: 07/08/18 11:54 Dose: Not Given Documented by: Multi-Ingred Cream/Lotion/Oil/Oint (Artificial Tears Ophth Oint) 1 applic OU Q4HR PRN PRN Reason: Dry Eye(s) Sodium Chloride (Sodium Chloride Flush Syringe 10 Ml) 10 ml IV BID KATIANA Last Admin: 07/08/18 11:54 Dose: 10 ml Documented by: Sodium Chloride (Sodium Chloride Flush Syringe 10 Ml) 10 ml IV PRN PRN PRN Reason: LINE FLUSH Physical Examination Vital signs: Vital Signs Pulse Resp 130 H 20 07/07/18 14:46 07/07/18 14:46 Results - Laboratory Findings CBC and BMP: 07/08/18 Unknown 07/08/18 04:09 ABG POC ABG pH 7.423 (7.35-7.45) 07/08/18 04:41 POC ABG pCO2 37.6 (35-45) 07/07/18 20:18 POC ABG pO2 144 (80-105) H 07/08/18 04:41 POC ABG HCO3 19.6 (22-26 mml/L) 07/08/18 04:41 POC ABG Total CO2 20 (23-27mmol/L) 07/08/18 04:41 POC ABG O2 Sat 99 07/08/18 04:41 PT/INR, D-dimer PT 15.9 Sec. (12.2-14.9) H 07/08/18 Unknown INR 1.19 (0.87-1.13) H 07/08/18 Unknown Abnormal lab findings: Abnormal Labs 07/07/18 07/07/18 07/07/18 14:45 14:45 14:45 [place] % (Auto) [place] # Seg Neuts % (Manual) 29.0 L Lymphocytes % (Manual) 66.0 H Lymphocytes # (Manual) 6.1 H PT 15.5 H INR 1.16 H POC ABG pH POC ABG pCO2 POC ABG pO2 Potassium 3.1 L Carbon Dioxide 17 L Creatinine 1.9 H Glucose 218 H Lactic Acid Calcium AST 352 H ALT 394 H Ammonia Troponin T 0.561 H* Total Protein Albumin 3.5 L HDL Cholesterol 71 H TSH Salicylates Acetaminophen 07/07/18 07/07/18 07/07/18 14:45 14:45 14:45 [place] % (Auto) [place] # Seg Neuts % (Manual) Lymphocytes % (Manual) Lymphocytes # (Manual) PT INR POC ABG pH POC ABG pCO2 POC ABG pO2 Potassium Carbon Dioxide Creatinine Glucose Lactic Acid Calcium AST ALT Ammonia Troponin T Total Protein Albumin HDL Cholesterol TSH 8.870 H Salicylates < 0.3 L Acetaminophen < 5.0 L 07/07/18 07/07/18 07/07/18 15:15 15:15 15:30 [place] % (Auto) [place] # Seg Neuts % (Manual) Lymphocytes % (Manual) Lymphocytes # (Manual) PT INR POC ABG pH 7.199 L POC ABG pCO2 60.0 H POC ABG pO2 325 H Potassium Carbon Dioxide Creatinine Glucose Lactic Acid 5.30 H* Calcium AST ALT Ammonia 62.0 H Troponin T Total Protein Albumin HDL Cholesterol TSH Salicylates Acetaminophen 07/07/18 07/07/18 07/07/18 17:12 19:12 20:18 [place] % (Auto) [place] # Seg Neuts % (Manual) Lymphocytes % (Manual) Lymphocytes # (Manual) PT INR POC ABG pH POC ABG pCO2 POC ABG pO2 193 H Potassium Carbon Dioxide Creatinine Glucose Lactic Acid 5.30 H* 2.10 H* Calcium AST ALT Ammonia Troponin T Total Protein Albumin HDL Cholesterol TSH Salicylates Acetaminophen 07/07/18 07/07/18 07/07/18 22:56 22:56 Unknown [place] % (Auto) [place] # Seg Neuts % (Manual) Lymphocytes % (Manual) Lymphocytes # (Manual) PT INR POC ABG pH POC ABG pCO2 POC ABG pO2 Potassium Carbon Dioxide Creatinine Glucose Lactic Acid 5.00 H* Calcium AST ALT Ammonia Troponin T 1.380 H* D 1.990 H* D Total Protein Albumin HDL Cholesterol TSH Salicylates Acetaminophen 07/08/18 07/08/18 07/08/18 04:09 04:09 04:09 [place] % (Auto) 11.9 H [place] # 0.9 H Seg Neuts % (Manual) Lymphocytes % (Manual) Lymphocytes # (Manual) PT INR POC ABG pH POC ABG pCO2 POC ABG pO2 Potassium Carbon Dioxide 21 L Creatinine 1.6 H Glucose 71 L Lactic Acid 4.60 H* Calcium 8.2 L AST 321 H ALT 313 H Ammonia Troponin T Total Protein 5.9 L Albumin 3.3 L HDL Cholesterol TSH Salicylates Acetaminophen 07/08/18 07/08/18 04:41 Unknown [place] % (Auto) [place] # Seg Neuts % (Manual) Lymphocytes % (Manual) Lymphocytes # (Manual) PT 15.9 H INR 1.19 H POC ABG pH POC ABG pCO2 POC ABG pO2 144 H Potassium Carbon Dioxide Creatinine Glucose Lactic Acid Calcium AST ALT Ammonia Troponin T Total Protein Albumin HDL Cholesterol TSH Salicylates Acetaminophen
[2018-07-08] MEDS: fentaNYL DRIP Premix 2,000 MCG/100 ML BAG IV SCH (14:47)
[2018-07-08] MEDS ORDERED: SIMPLE SYRUP FEEDTUBE PRN ×2 (15:34)
[2018-07-08] MEDS ORDERED: SODIUM BICARBONATE FEEDTUBE PRN (15:34)
[2018-07-08] MEDS ORDERED: PANCREAZE DR 10,500 UNIT FEEDTUBE PRN (15:34)
--- NOTE | 2018-07-08 21:59 | Progress Note ---
Assessment and Plan Assessment and plan: 58 year old man who presented to the emergency room. He was at a local store when he suddenly experienced loss of consciousness. He was brought by the EMS with cardiac arrest. He received CPR, he was in pulseless v-fib. He was shocked receive chest compressions and medications. He had return of circulation. Past medical history includes HIV Labs reviewed, urine toxicology is neg for Tylenol, aspirin or alcohol, elevated creatinine and low potassium noted, lactic acidosis noted transaminitis likely due to shark liver, elevated creatinine which is expected after CPR Imaging Chest x-ray: no infiltrate CT c-spine: negative CT head negative Cardiac arrest; etiology unclear, echo shows preserved ef -obtain vq scan and LE dopplers, check d-dimer and EEG SIRS, fever, lactic acidosis, suspect septic shock ABX, ID consult, cont pressors , source unclear at this point, fup blood cx, UA and cxr neg HIV Cont retroviral, check CD4 And viral load Acute respiratory failure on mv <96 hrs Continue mechanical ventilator Hypokalemia, replaced Acute kidney injury likely due to ATN, continue IV fluids Transaminitis likely to shock liver, monitor MYOCARDIAL INFARCTION, elevated creatinine after CPR, CARDIOLOGY CONSULT, unclear if type 2 vs type 1 SC at this time SUBCLINICAL HYPOTHYROIDISM, ELEVATED TSH, NORMAL FREE T4, OBTAIN TOTAL T4. Critical Care time 35 minutes History Interval history: no seizures, no vomiting, no agitation, has been febrile remains intubated Hospitalist Physical - Physical exam Narrative exam: General.: intubated, but obeys commands HEENT: Moist mucous membranes, extraocular muscles intact, no lymphadenopathy Neck: supple Cardiac: S1-S2 heard Lungs: mech ventilated breath sounds Abdomen: soft , nontender, nondistended, bowel sounds positive Extremities: no edema clubbing or cyanosis Skin: no rash or lesions Neurologic: no gross focal deficits, non verbal due to intubation Psych: calm, and cooperative - Constitutional Vitals: Temp Pulse Resp BP Pulse Ox 100.5 F H 77 20 100/55 100 07/08/18 16:00 07/08/18 20:41 07/08/18 20:41 07/08/18 20:41 07/08/18 20:41 General appearance: Present: other (intubated, following commands appropriately ) Results - Labs CBC & Chem 7: 07/09/18 04:00 07/09/18 04:00 Labs: Laboratory Last Values WBC 7.3 K/mm3 (4.5-11.0) 07/08/18 04:09 RBC 4.80 M/mm3 (3.65-5.03) 07/08/18 04:09 Hgb 13.0 gm/dl (11.8-15.2) 07/08/18 Unknown Hct 39.0 % (35.5-45.6) 07/08/18 Unknown MCV 91 fl (84-94) 07/08/18 04:09 MCH 29 pg (28-32) 07/08/18 04:09 MCHC 32 % (32-34) 07/08/18 04:09 RDW 15.0 % (13.2-15.2) 07/08/18 04:09 Plt Count 140 K/mm3 (140-440) 07/08/18 Unknown Lymph % (Auto) 27.4 % (13.4-35.0) 07/08/18 04:09 Swift % (Auto) 11.9 % (0.0-7.3) H 07/08/18 04:09 Eos % (Auto) 1.2 % (0.0-4.3) 07/08/18 04:09 Baso % (Auto) 0.8 % (0.0-1.8) 07/08/18 04:09 Lymph # 2.0 K/mm3 (1.2-5.4) 07/08/18 04:09 Swift # 0.9 K/mm3 (0.0-0.8) H 07/08/18 04:09 Eos # 0.1 K/mm3 (0.0-0.4) 07/08/18 04:09 Baso # 0.1 K/mm3 (0.0-0.1) 07/08/18 04:09 Add Manual Diff Complete 07/07/18 14:45 Total Counted 100 07/07/18 14:45 Seg Neutrophils % 58.7 % (40.0-70.0) 07/08/18 04:09 Seg Neuts % (Manual) 29.0 % (40.0-70.0) L 07/07/18 14:45 Band Neutrophils % 0 % 07/07/18 14:45 Lymphocytes % (Manual) 66.0 % (13.4-35.0) H 07/07/18 14:45 Reactive Lymphs % (Man) 0 % 07/07/18 14:45 Monocytes % (Manual) 3.0 % (0.0-7.3) 07/07/18 14:45 Eosinophils % (Manual) 1.0 % (0.0-4.3) 07/07/18 14:45 Basophils % (Manual) 1.0 % (0.0-1.8) 07/07/18 14:45 Metamyelocytes % 0 % 07/07/18 14:45 Myelocytes % 0 % 07/07/18 14:45 Promyelocytes % 0 % 07/07/18 14:45 Blast Cells % 0 % 07/07/18 14:45 Nucleated RBC % Not Reportable 07/07/18 14:45 Seg Neutrophils # 4.3 K/mm3 (1.8-7.7) 07/08/18 04:09 Seg Neutrophils # Man 2.7 K/mm3 (1.8-7.7) 07/07/18 14:45 Band Neutrophils # 0.0 K/mm3 07/07/18 14:45 Lymphocytes # (Manual) 6.1 K/mm3 (1.2-5.4) H 07/07/18 14:45 Abs React Lymphs (Man) 0.0 K/mm3 07/07/18 14:45 Monocytes # (Manual) 0.3 K/mm3 (0.0-0.8) 07/07/18 14:45 Eosinophils # (Manual) 0.1 K/mm3 (0.0-0.4) 07/07/18 14:45 Basophils # (Manual) 0.1 K/mm3 (0.0-0.1) 07/07/18 14:45 Metamyelocytes # 0.0 K/mm3 07/07/18 14:45 Myelocytes # 0.0 K/mm3 07/07/18 14:45 Promyelocytes # 0.0 K/mm3 07/07/18 14:45 Blast Cells # 0.0 K/mm3 07/07/18 14:45 WBC Morphology Not Reportable 07/07/18 14:45 Hypersegmented Neuts Not Reportable 07/07/18 14:45 Hyposegmented Neuts Not Reportable 07/07/18 14:45 Hypogranular Neuts Not Reportable 07/07/18 14:45 Smudge Cells 1+ 07/07/18 14:45 Toxic Granulation Not Reportable 07/07/18 14:45 Toxic Vacuolation Not Reportable 07/07/18 14:45 Dohle Bodies Not Reportable 07/07/18 14:45 Pelger-Huet Anomaly Not Reportable 07/07/18 14:45 Desiree Rods Not Reportable 07/07/18 14:45 Platelet Estimate Appears normal 07/07/18 14:45 Clumped Platelets Not Reportable 07/07/18 14:45 Plt Clumps, EDTA Not Reportable 07/07/18 14:45 Large Platelets Not Reportable 07/07/18 14:45 Giant Platelets Not Reportable 07/07/18 14:45 Platelet Satelliting Not Reportable 07/07/18 14:45 Plt Morphology Comment Not Reportable 07/07/18 14:45 RBC Morphology Not Reportable 07/07/18 14:45 Dimorphic RBCs Not Reportable 07/07/18 14:45 Polychromasia Not Reportable 07/07/18 14:45 Hypochromasia Not Reportable 07/07/18 14:45 Poikilocytosis Few 07/07/18 14:45 Anisocytosis Not Reportable 07/07/18 14:45 Microcytosis Not Reportable 07/07/18 14:45 Macrocytosis Not Reportable 07/07/18 14:45 Spherocytes Not Reportable 07/07/18 14:45 Pappenheimer Bodies Not Reportable 07/07/18 14:45 Sickle Cells Not Reportable 07/07/18 14:45 Target Cells Not Reportable 07/07/18 14:45 Tear Drop Cells Not Reportable 07/07/18 14:45 Ovalocytes 1+ 07/07/18 14:45 Helmet Cells Not Reportable 07/07/18 14:45 [place] Number Two Bodies Not Reportable 07/07/18 14:45 [place] Rings Not Reportable 07/07/18 14:45 Kittrell Cells Not Reportable 07/07/18 14:45 Bite Cells Not Reportable 07/07/18 14:45 Crenated Cell Not Reportable 07/07/18 14:45 Elliptocytes Not Reportable 07/07/18 14:45 Acanthocytes (Spur) Not Reportable 07/07/18 14:45 Rouleaux Not Reportable 07/07/18 14:45 Hemoglobin C Crystals Not Reportable 07/07/18 14:45 Schistocytes Not Reportable 07/07/18 14:45 Malaria parasites Not Reportable 07/07/18 14:45 Dennis Bodies Not Reportable 07/07/18 14:45 Hem Pathologist Commnt No 07/07/18 14:45 PT 15.9 Sec. (12.2-14.9) H 07/08/18 Unknown INR 1.19 (0.87-1.13) H 07/08/18 Unknown APTT 26.0 Sec. (24.2-36.6) 07/08/18 Unknown Heparin Anti-Xa Level 0.18 U.I./ml (0.3-0.7) L 07/08/18 18:20 POC ABG pH 7.423 (7.35-7.45) 07/08/18 04:41 POC ABG pCO2 37.6 (35-45) 07/07/18 20:18 POC ABG pO2 144 (80-105) H 07/08/18 04:41 POC ABG HCO3 19.6 (22-26 mml/L) 07/08/18 04:41 POC ABG Total CO2 20 (23-27mmol/L) 07/08/18 04:41 POC ABG O2 Sat 99 07/08/18 04:41 POC ABG Base Excess -5 ((-2) - (+3)mmol/L) 07/08/18 04:41 FiO2 35 % 07/08/18 04:41 Sodium 143 mmol/L (137-145) 07/08/18 04:09 Potassium 4.4 mmol/L (3.6-5.0) D 07/08/18 04:09 Chloride 106.0 mmol/L (98-107) 07/08/18 04:09 Carbon Dioxide 21 mmol/L (22-30) L 07/08/18 04:09 Anion Gap 20 mmol/L 07/08/18 04:09 BUN 19 mg/dL (9-20) 07/08/18 04:09 Creatinine 1.6 mg/dL (0.8-1.5) H 07/08/18 04:09 Estimated GFR 45 ml/min 07/08/18 04:09 BUN/Creatinine Ratio 12 % 07/08/18 04:09 Glucose 71 mg/dL (75-100) L 07/08/18 04:09 POC Glucose 86 (70-105) 07/08/18 17:54 Lactic Acid 1.90 mmol/L (0.7-2.0) 07/08/18 06:58 Calcium 8.2 mg/dL (8.4-10.2) L 07/08/18 04:09 Total Bilirubin 0.70 mg/dL (0.1-1.2) 07/08/18 04:09 AST 321 units/L (5-40) H 07/08/18 04:09 ALT 313 units/L (7-56) H 07/08/18 04:09 Alkaline Phosphatase 50 units/L (35-129) 07/08/18 04:09 Ammonia 62.0 umol/L (25-60) H 07/07/18 15:15 Troponin T 1.990 ng/mL (0.00-0.029) H* D 07/07/18 Unknown Total Protein 5.9 g/dL (6.3-8.2) L 07/08/18 04:09 Albumin 3.3 g/dL (3.9-5) L 07/08/18 04:09 Albumin/Globulin Ratio 1.3 % 07/08/18 04:09 Triglycerides 101 mg/dL (2-149) 07/07/18 14:45 Cholesterol 193 mg/dL (50-199) 07/07/18 14:45 LDL Cholesterol Direct 127 mg/dL (50-130) 07/07/18 14:45 HDL Cholesterol 71 mg/dL (40-59) H 07/07/18 14:45 Cholesterol/HDL Ratio 2.71 % 07/07/18 14:45 TSH 8.870 mlU/mL (0.270-4.200) H 07/07/18 14:45 Free T4 0.89 ng/dL (0.76-1.46) 07/07/18 14:45 Urine Color Yellow (Yellow) 07/07/18 18:07 Urine Turbidity Clear (Clear) 07/07/18 18:07 Urine pH 6.0 (5.0-7.0) 07/07/18 18:07 Ur Specific Silva 1.010 (1.003-1.030) 07/07/18 18:07 Urine Protein 30 mg/dl mg/dL (Negative) 07/07/18 18:07 Urine Glucose (UA) 50 mg/dL (Negative) 07/07/18 18:07 Urine Ketones Neg mg/dL (Negative) 07/07/18 18:07 Urine Blood Mod (Negative) 07/07/18 18:07 Urine Nitrite Neg (Negative) 07/07/18 18:07 Urine Bilirubin Neg (Negative) 07/07/18 18:07 Urine Urobilinogen < 2.0 mg/dL (<2.0) 07/07/18 18:07 Ur Leukocyte Esterase Neg (Negative) 07/07/18 18:07 Urine WBC (Auto) 2.0 /HPF (0.0-6.0) 07/07/18 18:07 Urine RBC (Auto) 3.0 /HPF (0.0-6.0) 07/07/18 18:07 Urine Mucus Few /HPF 07/07/18 18:07 Salicylates < 0.3 mg/dL (2.8-20.0) L 07/07/18 14:45 Acetaminophen < 5.0 ug/mL (10.0-30.0) L 07/07/18 14:45 Plasma/Serum Alcohol < 0.01 % (0-0.07) 07/07/18 14:45 Blood Type O POSITIVE 07/07/18 14:45 Antibody Screen Negative 07/07/18 14:45 Active Medications - Current Medications Current Medications: Generic Name Dose Route Start Last Admin Trade Name Freq PRN Reason Stop Dose Admin Abacavir Sulfate 300 mg 07/08/18 10:00 07/08/18 11:55 Ziagen PO Not Given Q12HR KATIANA Albuterol 2.5 mg 07/07/18 16:55 Proventil IH Q3HRT PRN Shortness Of Breath Lipase/Protease/Amylase 1 each 07/08/18 15:[address] 10,500 Unit FEEDTUBE PRN PRN For Clogged Feeding Tube Aspirin 300 mg 07/08/18 12:00 07/08/18 13:18 Aspirin VT 300 mg QDAY KATIANA Administration Famotidine 20 mg 07/08/18 10:00 07/08/18 11:54 Pepcid IV 20 mg BID KATIANA Administration Hydrophilic Ointment 1 applic 07/07/18 15:10 Vaseline Lip Therapy TP Q2HR PRN Dry Lips Amiodarone HCl 900 mg/ 500 mls @ 33.333 mls/hr 07/07/18 16:00 07/08/18 13:25 Dextrose IV 0.5 mg/min DIRECT KATIANA 16.667 mls/hr Administration Protocol 1 MG/MIN Sodium Chloride 1,000 mls @ 100 mls/hr 07/07/18 17:00 07/08/18 21:46 Nacl 0.9% 1000 Ml IV 100 mls/hr DIRECT KATIANA Administration Propofol 1,000 mg in 100 mls @ 3.062 mls/hr 07/07/18 16:00 07/08/18 18:27 Diprivan 10 Mg/Ml IV 15 mcg/kg/min TITR KATIANA 9.185 mls/hr Administration Protocol 5 MCG/KG/MIN Norepinephrine 4 mg in 250 mls @ 7.5 mls/hr 07/08/18 04:00 07/08/18 18:31 Levophed Drip 4 Mg/Ns 250 Ml IV 2 mcg/min TITR KATIANA 7.5 mls/hr Titration Protocol 2 MCG/MIN Heparin Sodium/Sodium Chloride 25,000 unit in 500 mls @ 20 mls/hr 07/08/18 12:00 07/08/18 12:00 Heparin/ 0.45% Nacl-25,000 Unit/500 Ml IV 1,000 units/hr TITRATE KATIANA 20 mls/hr Administration Protocol 1,000 UNITS/HR Fentanyl Citrate 2,000 mcg in 100 mls @ 5.103 mls/hr 07/08/18 14:00 07/08/18 18:28 Fentanyl Drip Premix IV 2 mcg/kg/hr TITR KATIANA 10.205 mls/hr Titration Protocol 1 MCG/KG/HR Insulin Human Lispro 0 unit 07/08/18 14:00 07/08/18 18:30 Humalog SUB-Q Not Given Q6HR [facility] Protocol Lamivudine 150 mg 07/08/18 10:00 07/08/18 11:54 Epivir PO Not Given Q12HR [facility] Multi-Ingred Cream/Lotion/Oil/Oint 1 applic 07/07/18 15:10 Artificial Tears Ophth Oint OU Q4HR PRN Dry Eye(s) Simple Syrup 15 ml 07/08/18 15:34 Simple Syrup FEEDTUBE PRN PRN Hypoglycemia Simple Syrup 30 ml 07/08/18 15:34 Simple Syrup FEEDTUBE PRN PRN Hypoglycemia Sodium Bicarbonate 325 mg 07/08/18 15:34 Sodium Bicarbonate FEEDTUBE PRN PRN For Clogged Feeding Tube Sodium Chloride 10 ml 07/07/18 22:00 07/08/18 11:54 Sodium Chloride Flush Syringe 10 Ml IV 10 ml BID KATIANA Administration Sodium Chloride 10 ml 07/07/18 16:55 Sodium Chloride Flush Syringe 10 Ml IV PRN PRN LINE FLUSH Nutrition/Malnutrition Assess - Dietary Evaluation Nutrition/Malnutrition Findings: Nutrition Notes Start: 07/08/18 15:18 Freq: Status: Active Protocol: Document 07/08/18 15:18 RM (Rec: 07/08/18 15:34 RM [email or web address]) Nutrition Notes Need for Assessment generated from: MD Order Initial or Follow up Assessment Current Diagnosis Acute Kidney Injury,Heart Failure,Respiratory Failure Other Pertinent Diagnosis HIV, SC Current Diet NPO Labs/Tests Reviewed Pertinent Medications Propofol at 12 ml/hr (317 kcal ) Height 6 ft 2 in Weight 102.05 kg [place] Body Weight (kg) 86.36 BMI 28.8 Subjective/Other Information Consulted for TF recommendation. Pt is on vent. Burn Absent Trauma Absent #1 Nutrition Diagnosis Inadequate oral intake Etiology on vent As Evidenced by Signs and Symptoms NPO status Is patient on ventilator? Yes Is Patient Ambulatory and/or Out of Bed No REE-([facility]-confined to bed) 3968.645 Calculation Used for Recommendations [facility] Additional Notes Protein Needs: 122-204g (1.2- 2g/kg) Fluid Needs: 1 ml/kcal Nutrition Intervention Nutrition Support: Vital 1.2 at 80 ml/hr. Water flush 150 mls q 4 hrs. Kcal 2,304 Protein (gm) 144 Fluid (mL) 1,557 Goal #1 TF tolerance Goal #2 Meet at least 80% of calorie and protein needs via TF Anticipated Discharge Needs: Unable to determine at this time Follow-Up By: 07/10/18 Additional Comments Follow for new TF
[2018-07-09] MEDS: fentaNYL DRIP Premix 2,000 MCG/100 ML BAG IV SCH ×2 (00:03→21:12)
--- NOTE | 2018-07-09 01:35 | Consultation ---
PULMONARY CRITICAL CARE CONSULTING CONSULTING PHYSICIAN: Dr. Walsh. REASON FOR CONSULTATION: Acute hypoxemic respiratory failure. CHIEF COMPLAINT AND HISTORY OF PRESENT ILLNESS: The patient is a 58-year-old -[place] male with past medical history significant for being HIV positive, unclear what is compliance is. He also has a history of chronic kidney insufficiency, believed to be related to the HIV. He expressed a sudden loss of consciousness while shopping at a local drug store. He fell from a standing position and struck his head without breaking his fall. Emergency Medical Services were notified. He was found to be in cardiac arrest. He received ACLS protocol with return of spontaneous circulation. He was brought into the Emergency Room, intubated and this was mostly due to protect his airway and transferred to the Intensive Care Unit where I stopped by to see him. When I stopped by to see him, he was on the ventilator. His brother was in the room. He was able to participate in his history. He denied any prior history of chest pain. He denied any recent nausea, vomiting, or overt aspiration. He denied any new onset or recent leg pain or swelling either unilaterally or bilaterally or any suggestion of venous thromboembolic disorder. Family had denied any history of tobacco use or abuse. This really is as much of the history of presentation as I have. Also, they denied history of seizures. PAST MEDICAL HISTORY: HIV positive/AIDS. PAST SURGICAL HISTORY: Unknown. MEDICATIONS: Medications he was on at the time I stopped by to see him, according to the medication administration record, included the following: He was on Ziagen 300 mg p.o. q.12 hours, albuterol treatments 2.5 mg nebulized q.3 hours p.r.n. shortness of breath. Amiodarone drip was going at 1 mg per minute. Aspirin 300 mg per rectum schedule daily, Pepcid 20 mg IV b.i.d., fentanyl drip at 1 mcg/kg/hour. He was on IV heparin drip ACLS protocol, insulin via sliding scale was just ordered on my instructions. He is on Epivir 150 mg p.o. q.12 hours. He had been on a Levophed drip at 4 mg per minute. He also has propofol 5 mcg per kilogram per minute. ALLERGIES: No known drug allergies. DIET: Obese gentleman. Denies acute weight loss or gain in the preceding few weeks to months. FAMILY AND SOCIAL HISTORY: He apparently lives in the community. Family is in the room. It is unclear if he is . Family had denied alcohol, tobacco, or illicit drug use or abuse history at presentation. Family and social history is otherwise noncontributory. REVIEW OF SYSTEMS: Difficult to obtain secondary to the patient's medical and mental condition. Since he has been here, no gross hematochezia or melena, no gross hematuria, no hematemesis, no bloody tracheal secretions, no witnessed seizures. He denies any new onset focal weakness. Denied polydipsia, polyuria prior to this incidence. Complete 13-system review of systems obtained as best as I could. Pertinent positives and/or negatives as in body of the history above, otherwise they are noncontributory. PHYSICAL EXAMINATION: VITAL SIGNS: At presentation in the Emergency Room, he had a low-grade fever at 99.4 degrees Fahrenheit rectally, pulse was 130, respiratory rate was 20, blood pressure 125/87, oxygen sats 100%. Inspired oxygen concentration was not recorded. At the time that I stopped by to see him, his O2 sats were 98% that was on the assist control mode of ventilation, tidal volume 500, rate of 30, FiO2 28, PEEP of 6. HEAD, EYES, EARS, NOSE AND THROAT: He is anicteric. No conjunctival erythema. Oropharynx is moist. Endotracheal tube is taped at the lips around 23-24 cm. NECK: Grossly, no palpable lymph nodes in the supraclavicular or submandibular lymph node chains. No thyromegaly. He has a large neck circumference. LUNGS: Auscultation of both lung grayson actually unremarkable except for scant rhonchi in the bases. Lungs are clear bilaterally with good bilateral air movement, no wheezing. HEART: Heart sounds 1 and 2 are heard at the time of my evaluation, regular in rate and rhythm without rubs or murmurs. ABDOMEN: Soft, full, bowel sounds are positive, nontender. No palpable hepatosplenomegaly. EXTREMITIES: Without overt digital clubbing or cyanosis. He does have trace bipedal pitting edema. Pedal pulses are strong bilaterally. NEUROLOGIC: Pupils are equal, round about 3 mm, reactive to light. Extraocular muscle movements intact. He moves all 4 extremities spontaneously. SKIN: Normal turgor. No overt cellulitis or rashes. LABORATORY DATA: From my review are as follows: White cell count at presentation 9300, hemoglobin 14.7, hematocrit 45.1, platelet count 214. No band forms reported. INR 1.16. Arterial blood gas at presentation showed a pH of 7.20 with a pCO2 of 60, pO2 of 325. Most recent ABG shows a pH of 7.42, pCO2 is pending, pO2 is 144, less than 35% FiO2 in the above-mentioned vent settings. Serum sodium was 139, potassium 3.1, chloride 102, bicarbonate 17, BUN 20, creatinine 1.9, glucose 218. Lactic acid level was 5.3. It is now within normal range. AST 352, ALT 394. Troponin elevated at 0.56, now 1.99. TSH elevated at 8.87. Tylenol, aspirin, and alcohol levels were nondetectable at presentation. No microbiology studies. Chest x-ray has been reviewed. Endotracheal tube tip is at the level of the aortic knob about 4 cm above the dany. No overt cardiomegaly. Slight increase in interstitial markings. This is post-CPR at that time. No gross pneumothorax,. No gross bony fracture. ASSESSMENT: 1. Acute hypoxemic respiratory failure, on mechanical ventilatory support. 2. Acute syncopal episode/loss of consciousness, etiology unclear with a negative CT scan of the head and neck I should mention. 3. Human immunodeficiency virus positive. 4. Obesity. 5. Acute kidney injury. 6. Mixed acidosis at presentation. 7. Status post cardiac arrest with return of spontaneous circulation. 8. History of congestive heart failure according to the notes. PLAN: It does not seem to be a primary pulmonary event that put him on the mechanical ventilator. My plan will be to begin to try and wean him with a plan to extubate him if he meets criteria. Ventilator-associated pneumonia bundle has been addressed. Aspiration precautions are being maintained. We will follow him clinically off antibiotics at this time. I will go ahead and get a CRP level and using along with lactic acid levels to aid clinical decision making. Bronchodilators will continue on a p.r.n. basis. Oxygen will be weaned to keep sats greater than or equal to about 90%. He will be placed on GI and DVT prophylaxis. Cardiology evaluation is ongoing. He will continue on the amiodarone drip for now. There is a report of ventricular fibrillation in the notes, I believe, prior to the EMS services. We will continue his antiretroviral medications as ordered for now. Flu and pneumonia vaccination will be addressed per protocol. Thank you very much for the consult, Dr. Walsh. We will follow along. We will make further recommendations as picture progresses/becomes clearer. He is critically ill on life-sustaining interventions including mechanical ventilatory support at high risk for further deterioration including the risk of . At this time, I spent about 35 minutes of critical care time without overlap excluding any procedural time that may be necessary and I will be discussing with the family further. JOB# [id number] CORTNEY/AMY HARRISON
[2018-07-09] MEDS: DIPRIVAN 10 MG/ML 1,000 MG/100 ML BOTTLE IV SCH ×2 (01:56→16:28)
--- NOTE | 2018-07-09 02:49 | XRay Report ---
PROCEDURE: XR CHEST 1V AP TECHNIQUE: Chest radiograph single view. HISTORY: follow up respiratory failure COMPARISONS: 07/08/2018 . FINDINGS: Heart: Normal. Mediastinum/Vessels: Normal. Lungs/Pleural space: No infiltrate, effusion, or pneumothorax. Bony thorax: No acute osseous abnormality. Life support devices: The endotracheal tube is in proper position. NG tube is in the stomach. IMPRESSION: Normal heart and lungs.. ET tube is in proper position. NG tube is in the stomach. This document is electronically signed by Yovani Rojas MD., Jul 09 2018 02:47:42 AM ET
[2018-07-09] MEDS: HEPARIN/ 0.45% NACL-25,000 UNIT/500 ML 25,000 UNIT/500 ML BAG IV SCH (03:22)
[2018-07-09 07:24] LABS: Albumin 2.9 g/dL (3.9-5); Calcium 7.6 mg/dL (8.4-10.2); Hematocrit 38.2 % (35.5-45.6); Hemoglobin 12.6 gm/dl (11.8-15.2)
[2018-07-09] MEDS: NACL 0.9% 1000 ML 1,000 ML IV SCH ×2 (08:00→21:12)
--- NOTE | 2018-07-09 09:05 | Consultation ---
History of Present Illness - Reason for Consult Consult date: 07/09/18 acute renal failure - History of Present Illness 58-year-old -[place] male with past medical history of HIV on chronic HAART therapy for the past 15 years, presented to the emergency department status post cardiac arrest in the field. Apparently had a syncopal episode while at work in [employer]. EMS responded and found patient in V. fib and ACLS protocol was initiated. He was intubated in the emergency department for airway protection. He remains intubated at this time currently on the Levothroid drip at 4 mcg/kg/m. He is also on amiodarone drip. Nephrology was consulted secondary to an acute kidney injury. Per previous physician documentations it seems that he may have some chronic renal insufficiency. I do see a previous creatinine from February.6. Unclear etiology but one possible cause maybe his HIV and chronic HAART therapy. Brother at bedside during time of examination. Patient also remains on normal saline at 100 mL an hour. Past History Past Medical History: HIV/AIDS Past Surgical History: appendectomy Social history: denies: smoking, alcohol abuse, prescription drug abuse Family history: no significant family history (UTO) Medications and Allergies Allergies Allergy/AdvReac Type Severity Reaction Status Date / Time No Known Allergies Allergy Verified 02/28/16 21:35 Home Medications Medication Instructions Recorded Confirmed Last Taken Type Abacavir/Dolutegravir/Lamivudi 1 each PO DAILY 02/28/16 02/28/16 Unknown History [Triumeq Tablet] Active Meds: Active Medications Abacavir Sulfate (Ziagen) 300 mg PO Q12HR [facility] Last Admin: 07/08/18 11:55 Dose: Not Given Documented by: Albuterol (Proventil) 2.5 mg IH Q3HRT PRN PRN Reason: Shortness Of Breath Lipase/Protease/Amylase (Pancreaze Dr 10,500 Unit) 1 each FEEDTUBE PRN PRN PRN Reason: For Clogged Feeding Tube Aspirin (Aspirin) 300 mg ID QDAY [facility] Last Admin: 07/08/18 13:18 Dose: 300 mg Documented by: Famotidine (Pepcid) 20 mg IV BID [facility] Last Admin: 07/08/18 22:36 Dose: 20 mg Documented by: Hydrophilic Ointment (Vaseline Lip Therapy) 1 applic TP Q2HR PRN PRN Reason: Dry Lips Amiodarone HCl 900 mg/ (Dextrose) 500 mls @ 33.333 mls/hr IV DIRECT [facility]; Protocol Last Admin: 07/08/18 23:57 Dose: 0.5 mg/min, 16.667 mls/hr Documented by: Sodium Chloride (Nacl 0.9% 1000 Ml) 1,000 mls @ 100 mls/hr IV DIRECT [facility] Last Admin: 07/08/18 21:46 Dose: 100 mls/hr Documented by: Propofol (Diprivan 10 Mg/Ml) 1,000 mg in 100 mls @ 3.062 mls/hr IV TITR [facility]; Protocol Last Admin: 07/09/18 01:56 Dose: 15 mcg/kg/min, 9.185 mls/hr Documented by: Norepinephrine (Levophed Drip 4 Mg/Ns 250 Ml) 4 mg in 250 mls @ 7.5 mls/hr IV TITR [facility]; Protocol Last Titration: 07/08/18 18:31 Dose: 2 mcg/min, 7.5 mls/hr Documented by: Heparin Sodium/Sodium Chloride (Heparin/ 0.45% Nacl-25,000 Unit/500 Ml) 25,000 unit in 500 mls @ 20 mls/hr IV TITRATE [facility]; Protocol Last Admin: 07/09/18 03:22 Dose: 1,000 units/hr, 20 mls/hr Documented by: Fentanyl Citrate (Fentanyl Drip Premix) 2,000 mcg in 100 mls @ 5.103 mls/hr IV TITR [facility]; Protocol Last Admin: 07/09/18 00:03 Dose: 2 mcg/kg/hr, 10.205 mls/hr Documented by: Cefepime HCl (Maxipime/Ns 2 Gm/100 Ml) 2 gm in 100 mls @ 200 mls/hr IV Q8HR [facility]; Protocol Insulin Human Lispro (Humalog) 0 unit SUB-Q Q6HR [facility]; Protocol Last Admin: 07/08/18 18:30 Dose: Not Given Documented by: Lamivudine (Epivir) 150 mg PO Q12HR [facility] Last Admin: 07/08/18 11:54 Dose: Not Given Documented by: Multi-Ingred Cream/Lotion/Oil/Oint (Artificial Tears Ophth Oint) 1 applic OU Q4HR PRN PRN Reason: Dry Eye(s) Simple Syrup (Simple Syrup) 15 ml FEEDTUBE PRN PRN PRN Reason: Hypoglycemia Simple Syrup (Simple Syrup) 30 ml FEEDTUBE PRN PRN PRN Reason: Hypoglycemia Sodium Bicarbonate (Sodium Bicarbonate) 325 mg FEEDTUBE PRN PRN PRN Reason: For Clogged Feeding Tube Sodium Chloride (Sodium Chloride Flush Syringe 10 Ml) 10 ml IV BID [facility] Last Admin: 07/08/18 11:54 Dose: 10 ml Documented by: Sodium Chloride (Sodium Chloride Flush Syringe 10 Ml) 10 ml IV PRN PRN PRN Reason: LINE FLUSH Review of Systems ROS unobtainable: due to endotracheal tube Exam - Vital Signs Vital signs: Vital Signs Pulse Resp 130 H 20 07/07/18 14:46 07/07/18 14:46 - General Appearance General appearance: well-developed, well-nourished, appears stated age EENT: ATNC, PERRL Neck: Present: neck supple, trachea midline Respiratory: Clear to Ascultation Heart: regular, S1S2 Gastrointestinal: Present: normal, normoactive bowel sounds Integumentary: no rash, warm and dry Neurologic: no focal deficit Musculoskeletal: Present: other (-edema) Psychiatric: mood/affect appropriate, other Results - Lab Results 07/09/18 04:00 07/08/18 04:09 Most recent lab results Calcium 8.2 mg/dL (8.4-10.2) L 07/08/18 04:09 Assessment and Plan - Patient Problems (1) Acute kidney injury Current Visit: Yes Status: Acute Plan to address problem: Likely in the setting of ischemic prerenal injury in the setting of aforementioned cardiac arrest and hypotension. Renal function is stabilizing at this time. Maintain maps above 65mmHg with appropriate pressor therapy. Continuing on IV fluids at 100 mL per hour. We'll also obtain renal ultrasound as well as urine analysis and urine electrolytes for further evaluation of the aforementioned acute kidney injury. Avoid nephrotoxins at this time. We'll monitor renal function daily. (2) Cardiac arrest with successful resuscitation Current Visit: Yes Status: Acute Plan to address problem: Echocardiogram findings noted. Cardiac enzymes are being tended. Cardiology evaluation noted with plan for coronary angiography when medically stable. (3) CKD (chronic kidney disease) stage 3, GFR 30-59 ml/min Current Visit: Yes Status: Chronic Plan to address problem: Patient likely has chronic kidney disease possibly in the setting of HIV, and chronic HAART therapy. Overall renal function seems stable and essentially at baseline. We'll continue to monitor closely. (4) HIV (human immunodeficiency virus infection) Current Visit: Yes Status: Chronic Qualifiers: HIV symptom status: unspecified Qualified Code(s): B20 - Human immunodeficiency virus [HIV] disease Plan to address problem: Would recommend infectious disease consult for management at this time.
[2018-07-09] MEDS: ASPIRIN PR SCH (09:13)
[2018-07-09] MEDS: LEVOPHED DRIP 4 MG/NS 250 ML 4 MG/250 ML BAG IV SCH (09:15)
[2018-07-09] MEDS: ZIAGEN PO SCH ×2 (09:17→21:22)
[2018-07-09] MEDS: TIVICAY PO SCH (09:18)
[2018-07-09] MEDS: EPIVIR PO SCH ×2 (09:19→21:22)
--- NOTE | 2018-07-09 09:36 | Progress Note ---
Assessment and Plan Echo reviewed - EF 50-55%, mod LVH, mild MR, trivial pericardial effusion. D/c amio gtt. Cont heparin gtt and ASA. Wean vasopressors as tolerated and consider BB and/or ACEI if BPs permit. Plan for coronary angiography once medically stabilized. No statin at this time in setting of elevated LFTs. Vent weaning per pulmonary. Pt appears alert and is following commands appropriately. The patient has been seen in conjunction with Dr. Heladio Padilla who agrees with the assessment and plan of care. - Patient Problems (1) Cardiac arrest with successful resuscitation Current Visit: Yes Status: Acute (2) Ventricular fibrillation Current Visit: Yes Status: Acute (3) Non-STEMI (non-ST elevated myocardial infarction) Current Visit: Yes Status: Acute (4) Acute respiratory failure Current Visit: Yes Status: Acute Qualifiers: Respiratory failure complication: unspecified whether with hypoxia or hypercapnia Qualified Code(s): J96.00 - Acute respiratory failure, unspecified whether with hypoxia or hypercapnia (5) Acute kidney injury Current Visit: Yes Status: Acute (6) Hypotension Current Visit: Yes Status: Acute Qualifiers: Hypotension type: unspecified hypotension type Qualified Code(s): I95.9 - Hypotension, unspecified (7) HIV (human immunodeficiency virus infection) Current Visit: Yes Status: Chronic Qualifiers: HIV symptom status: unspecified Qualified Code(s): B20 - Human immunodeficiency virus [HIV] disease (8) Elevated TSH Current Visit: Yes Status: Chronic (9) Elevated LFTs Current Visit: Yes Status: Acute (10) Acidosis Current Visit: Yes Status: Acute Subjective Date of service: 07/09/18 Principal diagnosis: cardiac arrest Interval history: pt remains intubated, pt easily awakened and following commands appropriately although sedation is infusing. in SR on tele. Objective Vital Signs Temp Pulse Resp BP Pulse Ox 07/09/18 08:21 66 20 102/55 100 07/09/18 08:11 68 20 106/61 100 07/09/18 08:00 99.8 F H 70 20 106/61 100 07/09/18 07:50 66 20 81/43 100 07/09/18 07:41 63 20 103/57 100 07/09/18 07:30 64 20 103/57 100 07/09/18 07:21 65 24 81/43 100 07/09/18 07:11 65 20 89/49 99 05/07/19 07:00 75 20 89/49 99 05/07/19 06:51 72 20 81/43 99 05/07/19 06:41 73 20 98/52 99 05/07/19 06:30 67 20 98/52 100 05/07/19 06:21 69 20 102/54 100 05/07/19 06:11 67 20 98/54 100 05/07/ 06:00 68 21 98/54 99 05/07/ 05:51 67 20 96/52 99 05/07/19 05:41 67 20 96/52 99 05/07/ 05:30 69 20 96/52 99 05/07/19 05:21 67 20 102/55 99 05/07/ 05:11 68 20 93/51 98 05/07/ 05:00 75 20 88/48 99 05/07/ 04:51 72 20 103/53 99 05/07/ 04:41 70 20 103/53 98 05/07/ 04:30 70 20 103/53 100 05/07/ 04:21 70 20 97/52 100 05/07/ 04:11 69 20 97/52 100 05/07/ 04:00 68 20 97/52 99 05/07/ 03:51 71 20 97/54 99 05/07/ 03:41 71 20 99/53 98 05/07/ 03:30 78 19 99/53 100 05// 03:21 73 20 99/55 99 05/07/ 03:11 73 21 102/55 99 05/07/ 03:00 73 20 102/55 99 05/07/ 02:59 73 110/59 99 05/07/19 02:51 71 20 102/59 99 05/07/ 02:41 73 20 105/59 99 05/07/19 02:30 74 20 105/59 99 05/07/19 02:21 74 20 108/57 99 05/07/ 02:11 74 20 117/69 99 05/07/19 02:00 73 20 117/69 100 05/07/ 01:51 76 17 101/55 98 05/07/ 01:41 74 17 102/57 99 05/07/19 01:30 73 20 102/57 100 05/07/ 01:21 72 20 99/56 99 07/09/18 01:11 73 20 103/57 99 07/09/18 01:00 72 20 103/57 100 07/09/18 00:51 72 20 99/53 99 07/09/18 00:41 73 20 103/56 99 07/09/18 00:30 72 20 103/56 99 07/09/18 00:21 72 20 100/55 99 07/09/18 00:11 72 19 97/54 99 07/09/18 00:00 71 20 97/54 100 07/08/18 23:51 72 20 97/52 100 07/08/18 23:41 72 20 97/52 99 07/08/18 23:30 72 20 97/52 99 07/08/18 23:29 73 20 98/51 99 07/08/18 23:21 74 20 98/51 99 07/08/18 23:11 75 20 96/53 99 07/08/18 23:00 76 20 96/53 100 07/08/18 22:51 78 20 100/55 100 07/08/18 22:41 73 20 96/52 100 07/08/18 22:30 74 20 96/52 99 07/08/18 22:21 73 20 98/52 99 07/08/18 22:11 77 20 99/53 99 07/08/18 22:00 75 20 99/51 99 07/08/18 21:51 75 20 99/53 99 07/08/18 21:41 74 21 98/51 99 07/08/18 21:30 75 20 100/53 99 07/08/18 21:21 75 20 98/51 99 07/08/18 21:11 76 20 99/54 99 07/08/18 21:00 79 20 95/53 100 07/08/18 20:51 78 20 99/54 100 07/08/18 20:41 77 20 100/55 100 07/08/18 20:40 79 20 100/55 99 07/08/18 20:30 77 20 100/55 100 07/08/18 20:21 76 20 103/53 100 07/08/18 20:11 78 20 105/54 100 07/08/18 20:00 76 20 105/54 100 07/08/18 19:51 75 20 109/61 100 05/06/19 19:41 74 20 110/58 98 05/06/19 19:30 76 20 110/58 100 05/06/19 19:21 74 20 97/55 100 05/06/19 19:11 73 20 89/50 100 05/06/19 19:00 75 20 89/50 100 05/06/19 18:51 74 20 88/48 100 05/06/19 18:41 75 20 87/43 100 05/06/19 18:30 79 20 87/43 100 05/06/19 18:21 79 20 95/50 100 05/06/19 18:11 79 20 93/51 100 05/06/19 18:00 82 20 89/48 99 05/06/19 17:51 81 20 93/50 100 05/06/19 17:41 79 12 93/51 100 05/06/19 17:30 79 20 93/51 100 05/06/19 17:21 78 17 98/52 100 05/06/ 17:11 78 20 100/53 100 05/06 17:01 91 H 16 91/48 05/06 16:51 79 20 91/48 05/06 16:41 84 19 94/53 05/06/19 16:30 81 20 94/53 98 05/06/ 16:21 81 19 97/49 100 05/06 16:11 83 20 97/49 05/06/ 16:00 100.5 F H 86 19 97/49 100 05/06/19 15:51 82 20 91/50 05/06/19 15:41 83 21 100/54 05/06/19 15:30 85 15 100/54 05/06/19 15:21 83 20 106/56 05/06/19 15:11 83 21 110/61 05/06/19 15:00 85 21 110/61 05/06/19 14:51 85 18 113/63 99 05/06/19 14:41 87 20 121/69 99 05/06/19 14:30 90 14 121/69 99 05/06/19 14:21 88 18 115/62 100 05/06/19 14:11 83 19 113/65 100 05/06/19 14:00 83 20 113/65 100 05/06/19 13:51 82 20 136/66 100 05/06/19 13:41 81 20 125/73 100 07/08/18 13:30 89 17 125/73 94 07/08/18 13:21 103 H 14 113/67 100 07/08/18 13:11 92 H 12 114/63 100 07/08/18 13:00 81 20 114/63 100 07/08/18 12:51 75 30 H 106/60 100 07/08/18 12:41 76 30 H 110/64 100 07/08/18 12:30 74 30 H 110/64 100 07/08/18 12:21 79 22 109/64 100 07/08/18 12:11 73 30 H 114/66 100 07/08/18 12:00 99.9 F H 77 30 H 114/66 100 07/08/18 11:51 82 10 L 114/68 100 07/08/18 11:43 82 105/65 100 07/08/18 11:41 81 7 L 105/65 100 07/08/18 11:30 80 19 105/65 100 07/08/18 11:21 83 30 H 100/53 100 07/08/18 11:11 90 30 H 118/71 98 07/08/18 11:01 98 H 8 L 118/71 99 07/08/18 10:51 94 H 17 99/55 100 07/08/18 10:41 78 30 H 100/53 100 07/08/18 10:30 76 30 H 100/53 100 07/08/18 10:21 78 30 H 104/55 100 07/08/18 10:11 86 28 H 103/52 99 07/08/18 10:00 82 30 H 103/52 100 07/08/18 09:51 87 28 H 96/52 100 07/08/18 09:41 79 26 H 96/52 100 - Physical Examination General: Other (intubated, alert) HEENT: Positive: PERRL, Normocephaly, Mucus Membranes Moist Neck: Positive: neck supple, trachea midline Cardiac: Positive: Reg Rate and Rhythm, S1/S2 Lungs: Positive: Decreased Breath Sounds Neuro: Positive: Grossly Intact Abdomen: Negative: Tender Skin: Negative: Rash, Wound Musculoskeletal: No Pain Extremities: Absent: edema - Labs and Meds Coagulation 07/08/18 Range/Units Unknown PT 15.9 H (12.2-14.9) Sec. INR 1.19 H (0.87-1.13) APTT 26.0 (24.2-36.6) Sec. CBC 07/08/18 07/09/18 Range/Units Unknown 04:00 Hgb 13.0 12.6 (11.8-15.2) gm/dl Hct 39.0 38.2 (35.5-45.6) % Plt Count 140 144 (140-440) K/mm3 - Imaging and Cardiology EKG: report reviewed, image reviewed Echo: report reviewed - Telemetry EKG Rhythm: Sinus Rhythm - EKG Sinus rhythms and dysrhythmias: sinus rhythm Repolarization changes or abnormalities: ST or T wave suggestive of ischemia
[2018-07-09] MEDS ORDERED: ASPIRIN PO SCH (10:00)
[2018-07-09] MEDS ORDERED: VANCOMYCIN 1,500 MG in NACL 0.9% 500 ML 500 ML IV SCH (12:00)
[2018-07-09] MEDS ORDERED: VANCOMYCIN PHARMACY TO DOSE IV SCH (12:00)
--- NOTE | 2018-07-09 12:19 | Vascular Lab Report ---
PROCEDURE: VL VENOUS DUPLEX LE BILAT TECHNIQUE: Velez scale, color and pulsed Doppler ultrasound with color flow and spectral analysis eval uation of both lower extremities were performed to assess for deep vein thrombosis. HISTORY: LE edema COMPARISONS: None currently available. FINDINGS: RIGHT extremity: Noncompressibility noted in the right posterior tibial vein. Otherwise, there is normal grayscale appearance and compressibility. Normal phasic pulsed Doppler and normal color Doppler flow are visualized. The interrogated vessels show normal augmentation. LEFT extremity: Noncompressibility in the left posterior tibial and peroneal veins. Also noncompressibility in the le ft mid calf soleal vein. Otherwise, there is normal grayscale appearance and compressibility. Normal phasic pulsed Doppler and normal color Doppler flow are visualized. The interrogated vessels show normal augmentation. IMPRESSION: * Occlusive thrombus in the right posterior tibial vein. * Occlusive thrombus in the left posterior tibial and peroneal veins. * Also occlusive thrombus in the left mid calf soleal vein. This document is electronically signed by Montez Tripp MD., Jul 09 2018 12:17:41 PM ET
[2018-07-09] MEDS: HumaLOG SUB-Q SCH ×2 (12:29→18:29)
[2018-07-09] MEDS: PEPCID IV SCH ×2 (12:39→21:19)
--- NOTE | 2018-07-09 13:32 | Progress Note ---
Assessment and Plan Acute hypoxemic respiratory failure, on mechanical ventilatory support. Acute syncopal episode/loss of consciousness, etiology unclear with a negative CT scan of the head and neck I should mention. Human immunodeficiency virus positive. Obesity. Acute kidney injury. Mixed acidosis at presentation. Status post cardiac arrest with return of spontaneous circulation. History of congestive heart failure according to the notes. - begin stress steroids (Solucortef 100 mg IV q8h) - get CRP level - continue full anticoagulation for VTE - discontinue Ativan (avoid benzodiazepine's) - continue bronchodilators with pulmonary hygiene per RT - continue to wean supplemental oxygen to keep O2 sats 88-90% - daily SAT's & SBT assessment as tolerated - sedation target for RASS 0 to -1 - continue GI & VTE prophylaxis - Lung protective strategies - Daily ABGs/CXR for now - VAP bundle addressed - continue Anti-infectives per ID rec's - continue ART per ID precription - Monitor renal indices closely - Avoid nephrotoxic agents, adjust all medications for CrCL - Strict intake and output monitoring - Accuchecks with glycemic control. Target glucose of 140-180 mg/dL - Maintenance of sleep -wake cycle - Mobility as tolerated by hemodynamics - Influenza and pneumonia vaccination per protocol ..care plan discussed at length with patient's family at bedside ..discussed in ICU-IDT rounds PROGNOSIS: GUARDED CONDITION: CRITICAL CODE STATUS: FULL CODE The high probability of a clinically significant, sudden or life-threatening deterioration of the [respiratory] system(s) required my full and direct attention, intervention and personal management. The aggregate critical care time was [35] minutes without overlap. Time includes spent on; [x] Data Review and interpretation [x] Patient assessment and monitoring of vital signs [x] Documentation [x] Medication orders and management Subjective Date of service: 07/09/18 Principal diagnosis: Acute hypoxemic Resp failure; Syncope; HIV +ve; Obesity; DARCY. Interval history: Patient is seen today for: Acute hypoxemic respiratory failure, on mechanical ventilatory support; Acute syncopal episode/loss of consciousness, etiology unclear with a negative CT scan of the head; Human immunodeficiency virus posi tive; Obesity; Acute kidney injury. Seen and examined at bedside; 24hour events reviewed; nursing and respiratory care staff consulted; no adverse overnight events reported to me; remains on MVS; dopplers reveal bilateral DVT's; he is back on levophed at 4 mics/min; tolerating tube feeds; no emesis or overt aspiration; denies acute chest pains or palpitations; no gross bleeding Objective Vital Signs - 12hr 07/09/18 07/09/18 07/09/18 01:41 01:51 02:00 Temperature Pulse Rate 74 76 73 Respiratory 17 17 20 Rate Blood Pressure 102/57 101/55 117/69 O2 Sat by Pulse 99 98 100 Oximetry 07/09/18 07/09/18 07/09/18 02:11 02:21 02:30 Temperature Pulse Rate 74 74 74 Respiratory 20 20 20 Rate Blood Pressure 117/69 108/57 105/59 O2 Sat by Pulse 99 99 99 Oximetry 07/09/18 07/09/18 07/09/18 02:41 02:51 02:59 Temperature Pulse Rate 73 71 73 Respiratory 20 20 Rate Blood Pressure 105/59 102/59 110/59 O2 Sat by Pulse 99 99 99 Oximetry 07/09/18 07/09/18 07/09/18 03:00 03:11 03:21 Temperature Pulse Rate 73 73 73 Respiratory 20 21 20 Rate Blood Pressure 102/55 102/55 99/55 O2 Sat by Pulse 99 99 99 Oximetry 07/09/18 07/09/18 07/09/18 03:30 03:41 03:51 Temperature Pulse Rate 78 71 71 Respiratory 19 20 20 Rate Blood Pressure 99/53 99/53 97/54 O2 Sat by Pulse 100 98 99 Oximetry 07/09/18 07/09/18 07/09/18 04:00 04:11 04:21 Temperature Pulse Rate 68 69 70 Respiratory 20 20 20 Rate Blood Pressure 97/52 97/52 97/52 O2 Sat by Pulse 99 100 100 Oximetry 07/09/18 07/09/18 07/09/18 04:30 04:41 04:51 Temperature Pulse Rate 70 70 72 Respiratory 20 20 20 Rate Blood Pressure 103/53 103/53 103/53 O2 Sat by Pulse 100 98 99 Oximetry 07/09/18 07/09/18 07/09/18 05:00 05:11 05:21 Temperature Pulse Rate 75 68 67 Respiratory 20 20 20 Rate Blood Pressure 88/48 93/51 102/55 O2 Sat by Pulse 99 98 99 Oximetry 07/09/18 07/09/18 07/09/18 05:30 05:41 05:51 Temperature Pulse Rate 69 67 67 Respiratory 20 20 20 Rate Blood Pressure 96/52 96/52 96/52 O2 Sat by Pulse 99 99 99 Oximetry 07/09/18 07/09/18 07/09/18 06:00 06:11 06:21 Temperature Pulse Rate 68 67 69 Respiratory 21 20 20 Rate Blood Pressure 98/54 98/54 102/54 O2 Sat by Pulse 99 100 100 Oximetry 07/09/18 07/09/18 07/09/18 06:30 06:41 06:51 Temperature Pulse Rate 67 73 72 Respiratory 20 20 20 Rate Blood Pressure 98/52 98/52 81/43 O2 Sat by Pulse 100 99 99 Oximetry 07/09/18 07/09/18 07/09/18 07:00 07:11 07:21 Temperature Pulse Rate 75 65 65 Respiratory 20 20 24 Rate Blood Pressure 89/49 89/49 81/43 O2 Sat by Pulse 99 99 100 Oximetry 07/09/18 07/09/18 07/09/18 07:30 07:41 07:50 Temperature Pulse Rate 64 63 66 Respiratory 20 20 20 Rate Blood Pressure 103/57 103/57 81/43 O2 Sat by Pulse 100 100 100 Oximetry 07/09/18 07/09/18 07/09/18 08:00 08:11 08:21 Temperature 99.8 F H Pulse Rate 70 68 66 Respiratory 20 20 20 Rate Blood Pressure 106/61 106/61 102/55 O2 Sat by Pulse 100 100 100 Oximetry 07/09/18 12:00 Temperature 100.6 F H Pulse Rate Respiratory Rate Blood Pressure O2 Sat by Pulse Oximetry Constitutional: no acute distress, other (middle aged, obese AAM , normocephalic and atraumatic) Eyes: non-icteric ENT: oropharynx moist, other (ETT 23 cm ARIEL) Neck: supple, no lymphadenopathy, no JVD Effort: mildly labored Ascultation: Bilateral: diminished breath sounds, rhonchi Percussion: Bilateral: not dull Cardiovascular: regular rate and rhythm, other (No R/M) Gastrointestinal: normoactive bowel sounds, soft, non-tender, non-distended Integumentary: normal Extremities: no cyanosis, pulses normal, no ischemia or petechiae, edema (trace to 1+) Neurologic: non-focal exam (grossly), pupils equal and round, CN II-XII normal, motor strength normal and Psychiatric: mood appropriate, affect normal CBC and BMP: 07/10/18 09:00 07/10/18 09:00 ABG, PT/INR, D-dimer: ABG POC ABG pH 7.331 (7.35-7.45) L 07/09/18 03:43 POC ABG pCO2 40.8 (35-45) 07/09/18 03:43 POC ABG pO2 101 (80-105) 07/09/18 03:43 POC ABG HCO3 21.6 (22-26 mml/L) 07/09/18 03:43 POC ABG Total CO2 23 (23-27mmol/L) 07/09/18 03:43 POC ABG O2 Sat 97 07/09/18 03:43 PT/INR, D-dimer PT 15.9 Sec. (12.2-14.9) H 07/08/18 Unknown INR 1.19 (0.87-1.13) H 07/08/18 Unknown 3341.55 ng/mlDDU (0-234) H 07/09/18 10:16 Abnormal lab findings: Abnormal Labs 07/07/18 07/07/18 07/07/18 14:45 14:45 14:45 [place] % (Auto) Gates # Seg Neuts % (Manual) 29.0 L Lymphocytes % (Manual) 66.0 H Lymphocytes # (Manual) 6.1 H PT 15.5 H INR 1.16 H D-Dimer Heparin Anti-Xa Level POC ABG pH POC ABG pCO2 POC ABG pO2 Potassium 3.1 L Carbon Dioxide 17 L Creatinine 1.9 H Glucose 218 H POC Glucose Lactic Acid Calcium AST 352 H ALT 394 H Ammonia Total Creatine Kinase CK-MB (CK-2) Troponin T 0.561 H* Total Protein Albumin 3.5 L HDL Cholesterol 71 H TSH Salicylates Acetaminophen 07/07/18 07/07/18 07/07/18 14:45 14:45 14:45 [place] % (Auto) [place] # Seg Neuts % (Manual) Lymphocytes % (Manual) Lymphocytes # (Manual) PT INR D-Dimer Heparin Anti-Xa Level POC ABG pH POC ABG pCO2 POC ABG pO2 Potassium Carbon Dioxide Creatinine Glucose POC Glucose Lactic Acid Calcium AST ALT Ammonia Total Creatine Kinase CK-MB (CK-2) Troponin T Total Protein Albumin HDL Cholesterol TSH 8.870 H Salicylates < 0.3 L Acetaminophen < 5.0 L 07/07/18 07/07/18 07/07/18 15:15 15:15 15:30 [place] % (Auto) [place] # Seg Neuts % (Manual) Lymphocytes % (Manual) Lymphocytes # (Manual) PT INR D-Dimer Heparin Anti-Xa Level POC ABG pH 7.199 L POC ABG pCO2 60.0 H POC ABG pO2 325 H Potassium Carbon Dioxide Creatinine Glucose POC Glucose Lactic Acid 5.30 H* Calcium AST ALT Ammonia 62.0 H Total Creatine Kinase CK-MB (CK-2) Troponin T Total Protein Albumin HDL Cholesterol TSH Salicylates Acetaminophen 07/07/18 07/07/18 07/07/18 17:12 19:12 20:18 [place] % (Auto) [place] # Seg Neuts % (Manual) Lymphocytes % (Manual) Lymphocytes # (Manual) PT INR D-Dimer Heparin Anti-Xa Level POC ABG pH POC ABG pCO2 POC ABG pO2 193 H Potassium Carbon Dioxide Creatinine Glucose POC Glucose Lactic Acid 5.30 H* 2.10 H* Calcium AST ALT Ammonia Total Creatine Kinase CK-MB (CK-2) Troponin T Total Protein Albumin HDL Cholesterol TSH Salicylates Acetaminophen 07/07/18 07/07/18 07/07/18 22:56 22:56 Unknown [place] % (Auto) [place] # Seg Neuts % (Manual) Lymphocytes % (Manual) Lymphocytes # (Manual) PT INR D-Dimer Heparin Anti-Xa Level POC ABG pH POC ABG pCO2 POC ABG pO2 Potassium Carbon Dioxide Creatinine Glucose POC Glucose Lactic Acid 5.00 H* Calcium AST ALT Ammonia Total Creatine Kinase CK-MB (CK-2) Troponin T 1.380 H* D 1.990 H* D Total Protein Albumin HDL Cholesterol TSH Salicylates Acetaminophen 07/08/18 07/08/18 07/08/18 04:09 04:09 04:09 [place] % (Auto) 11.9 H Gates # 0.9 H Seg Neuts % (Manual) Lymphocytes % (Manual) Lymphocytes # (Manual) PT INR D-Dimer Heparin Anti-Xa Level POC ABG pH POC ABG pCO2 POC ABG pO2 Potassium Carbon Dioxide 21 L Creatinine 1.6 H Glucose 71 L POC Glucose Lactic Acid 4.60 H* Calcium 8.2 L AST 321 H ALT 313 H Ammonia Total Creatine Kinase CK-MB (CK-2) Troponin T Total Protein 5.9 L Albumin 3.3 L HDL Cholesterol TSH Salicylates Acetaminophen 07/08/18 07/08/18 07/08/18 04:41 18:20 Unknown [place] % (Auto) [place] # Seg Neuts % (Manual) Lymphocytes % (Manual) Lymphocytes # (Manual) PT 15.9 H INR 1.19 H D-Dimer Heparin Anti-Xa Level 0.18 L POC ABG pH POC ABG pCO2 POC ABG pO2 144 H Potassium Carbon Dioxide Creatinine Glucose POC Glucose Lactic Acid Calcium AST ALT Ammonia Total Creatine Kinase CK-MB (CK-2) Troponin T Total Protein Albumin HDL Cholesterol TSH Salicylates Acetaminophen 07/09/18 07/09/18 07/09/18 03:43 04:00 04:30 [place] % (Auto) [place] # Seg Neuts % (Manual) Lymphocytes % (Manual) Lymphocytes # (Manual) PT INR D-Dimer Heparin Anti-Xa Level 0.26 L POC ABG pH 7.331 L POC ABG pCO2 POC ABG pO2 Potassium Carbon Dioxide Creatinine Glucose 105 H POC Glucose Lactic Acid Calcium 7.6 L AST 151 H ALT 192 H Ammonia Total Creatine Kinase 952 H CK-MB (CK-2) 13.0 H Troponin T 1.430 H* Total Protein 5.6 L Albumin 2.9 L HDL Cholesterol TSH Salicylates Acetaminophen 07/09/18 07/09/18 05:53 10:16 [place] % (Auto) [place] # Seg Neuts % (Manual) Lymphocytes % (Manual) Lymphocytes # (Manual) PT INR D-Dimer 3341.55 H Heparin Anti-Xa Level POC ABG pH POC ABG pCO2 POC ABG pO2 Potassium Carbon Dioxide Creatinine Glucose POC Glucose 106 H Lactic Acid Calcium AST ALT Ammonia Total Creatine Kinase CK-MB (CK-2) Troponin T Total Protein Albumin HDL Cholesterol TSH Salicylates Acetaminophen Chest x-ray: image reviewed (mild interstitial edema pattern; ETT a little high but at clavicular head) Allied health notes reviewed: nursing
--- NOTE | 2018-07-09 13:38 | Progress Note ---
Assessment and Plan Assessment and plan: 58 year old man who presented to the emergency room. He was at a local store when he suddenly experienced loss of consciousness. He was brought by the EMS with cardiac arrest. He received CPR, he was in pulseless v-fib. He was shocked receive chest compressions and medications. He had return of circulation. Past medical history includes HIV Labs reviewed, urine toxicology is neg for Tylenol, aspirin or alcohol, elevated creatinine and low potassium noted, lactic acidosis noted transaminitis likely due to shock liver, elevated creatinine which is expected after CPR Imaging Chest x-ray: no infiltrate CT c-spine: negative CT head negative Cardiac arrest; etiology unclear, echo shows preserved ef -obtain vq scan and LE dopplers, check d-dimer and EEG SIRS, fever, lactic acidosis, suspect septic shock ABX, ID consult, cont pressors , source unclear at this point, fup blood cx, UA and cxr neg HIV Cont retroviral, check CD4 And viral load Acute respiratory failure on mv <96 hrs Continue mechanical ventilator Hypokalemia, replaced Acute kidney injury likely due to ATN, continue IV fluids Transaminitis likely to shock liver, monitor MYOCARDIAL INFARCTION, elevated creatinine after CPR, CARDIOLOGY CONSULT, unclear if type 2 vs type 1 MO at this time SUBCLINICAL HYPOTHYROIDISM, ELEVATED TSH, NORMAL FREE T4, OBTAIN TOTAL T4. The high probability of a clinically significant, sudden or life threatening deterioration of the [cv, Nurology] system(s) required my full and direct at tention, intervention and personal management. The aggregate critical care time was [35] minutes. This time is in addition to time spent performing reported procedures but includes the following: [x] Data Review and interpretation [x] Patient assessment and monitoring of vital signs [x] Documentation [x] Medication orders and management History Interval history: Patient was seen and this morning, patient was on mechanical ventilation. Hospitalist Physical - Physical exam Narrative exam: Patient is intubated on mechanical ventilation. The patient appeared well nourished and normally developed. Vital signs as documented. Head exam is unremarkable. No scleral icterus . Neck is without jugular venous distension, thyromegaly, or carotid bruits. Lungs are clear to auscultation. Cardiac exam reveals regular rate and Rhythm. Abdominal exam reveals normal bowel sounds, no masses, no organomegaly and no aortic enlargement. Extremities are nonedematous and both femoral and pedal pulses are normal. [place] OF ESTATE: Sedated. Open his eyes. - Constitutional Vitals: Temp Pulse Resp BP Pulse Ox 100.6 F H 66 20 102/55 100 07/09/18 12:00 07/09/18 08:21 07/09/18 08:21 07/09/18 08:21 07/09/18 08:21 General appearance: Present: other (intubated, following commands appropriately ) Results - Labs CBC & Chem 7: 07/09/18 04:00 07/09/18 04:00 Labs: Laboratory Last Values WBC 7.3 K/mm3 (4.5-11.0) 07/08/18 04:09 RBC 4.80 M/mm3 (3.65-5.03) 07/08/18 04:09 Hgb 12.6 gm/dl (11.8-15.2) 07/09/18 04:00 Hct 38.2 % (35.5-45.6) 07/09/18 04:00 MCV 91 fl (84-94) 07/08/18 04:09 MCH 29 pg (28-32) 07/08/18 04:09 MCHC 32 % (32-34) 07/08/18 04:09 RDW 15.0 % (13.2-15.2) 07/08/18 04:09 Plt Count 144 K/mm3 (140-440) 07/09/18 04:00 Lymph % (Auto) 27.4 % (13.4-35.0) 07/08/18 04:09 [place] % (Auto) 11.9 % (0.0-7.3) H 07/08/18 04:09 Eos % (Auto) 1.2 % (0.0-4.3) 07/08/18 04:09 Baso % (Auto) 0.8 % (0.0-1.8) 07/08/18 04:09 Lymph # 2.0 K/mm3 (1.2-5.4) 07/08/18 04:09 [place] # 0.9 K/mm3 (0.0-0.8) H 07/08/18 04:09 Eos # 0.1 K/mm3 (0.0-0.4) 07/08/18 04:09 Baso # 0.1 K/mm3 (0.0-0.1) 07/08/18 04:09 Add Manual Diff Complete 07/07/18 14:45 Total Counted 100 07/07/18 14:45 Seg Neutrophils % 58.7 % (40.0-70.0) 07/08/18 04:09 Seg Neuts % (Manual) 29.0 % (40.0-70.0) L 07/07/18 14:45 0 % 07/07/18 14:45 66.0 % (13.4-35.0) H 07/07/18 14:45 Reactive Lymphs % (Man) 0 % 07/07/18 14:45 3.0 % (0.0-7.3) 07/07/18 14:45 1.0 % (0.0-4.3) 07/07/18 14:45 1.0 % (0.0-1.8) 07/07/18 14:45 0 % 07/07/18 14:45 0 % 07/07/18 14:45 0 % 07/07/18 14:45 0 % 07/07/18 14:45 Nucleated RBC % Not Reportable 07/07/18 14:45 Seg Neutrophils # 4.3 K/mm3 (1.8-7.7) 07/08/18 04:09 Seg Neutrophils # Man 2.7 K/mm3 (1.8-7.7) 07/07/18 14:45 Band Neutrophils # 0.0 K/mm3 07/07/18 14:45 6.1 K/mm3 (1.2-5.4) H 07/07/18 14:45 Abs React Lymphs (Man) 0.0 K/mm3 07/07/18 14:45 0.3 K/mm3 (0.0-0.8) 07/07/18 14:45 0.1 K/mm3 (0.0-0.4) 07/07/18 14:45 0.1 K/mm3 (0.0-0.1) 07/07/18 14:45 0.0 K/mm3 07/07/18 14:45 0.0 K/mm3 07/07/18 14:45 0.0 K/mm3 07/07/18 14:45 Blast Cells # 0.0 K/mm3 07/07/18 14:45 WBC Morphology Not Reportable 07/07/18 14:45 Hypersegmented Neuts Not Reportable 07/07/18 14:45 Hyposegmented Neuts Not Reportable 07/07/18 14:45 Hypogranular Neuts Not Reportable 07/07/18 14:45 1+ 07/07/18 14:45 Not Reportable 07/07/18 14:45 Not Reportable 07/07/18 14:45 Not Reportable 07/07/18 14:45 Not Reportable 07/07/18 14:45 Not Reportable 07/07/18 14:45 Appears normal 07/07/18 14:45 Not Reportable 07/07/18 14:45 Plt Clumps, EDTA Not Reportable 07/07/18 14:45 Not Reportable 07/07/18 14:45 Not Reportable 07/07/18 14:45 Not Reportable 07/07/18 14:45 Plt Morphology Comment Not Reportable 07/07/18 14:45 RBC Morphology Not Reportable 07/07/18 14:45 Dimorphic RBCs Not Reportable 07/07/18 14:45 Not Reportable 07/07/18 14:45 Not Reportable 07/07/18 14:45 Few 07/07/18 14:45 Not Reportable 07/07/18 14:45 Not Reportable 07/07/18 14:45 Not Reportable 07/07/18 14:45 Not Reportable 07/07/18 14:45 Not Reportable 07/07/18 14:45 Not Reportable 07/07/18 14:45 Not Reportable 07/07/18 14:45 Not Reportable 07/07/18 14:45 1+ 07/07/18 14:45 Not Reportable 07/07/18 14:45 Not Reportable 07/07/18 14:45 Not Reportable 07/07/18 14:45 Not Reportable 07/07/18 14:45 Not Reportable 07/07/18 14:45 Not Reportable 07/07/18 14:45 Not Reportable 07/07/18 14:45 Acanthocytes (Spur) Not Reportable 07/07/18 14:45 Rouleaux Not Reportable 07/07/18 14:45 Not Reportable 07/07/18 14:45 Not Reportable 07/07/18 14:45 Not Reportable 07/07/18 14:45 Not Reportable 07/07/18 14:45 Hem Pathologist Commnt No 07/07/18 14:45 PT 15.9 Sec. (12.2-14.9) H 07/08/18 Unknown INR 1.19 (0.87-1.13) H 07/08/18 Unknown APTT 26.0 Sec. (24.2-36.6) 07/08/18 Unknown 3341.55 ng/mlDDU (0-234) H 07/09/18 10:16 Heparin Anti-Xa Level 0.26 U.I./ml (0.3-0.7) L 07/09/18 04:30 POC ABG pH 7.331 (7.35-7.45) L 07/09/18 03:43 POC ABG pCO2 40.8 (35-45) 07/09/18 03:43 POC ABG pO2 101 (80-105) 07/09/18 03:43 POC ABG HCO3 21.6 (22-26 mml/L) 07/09/18 03:43 POC ABG Total CO2 23 (23-27mmol/L) 07/09/18 03:43 POC ABG O2 Sat 97 07/09/18 03:43 POC ABG Base Excess -4 ((-2) - (+3)mmol/L) 07/09/18 03:43 28 % 07/09/18 03:43 Sodium 139 mmol/L (137-145) 07/09/18 04:00 Potassium 3.8 mmol/L (3.6-5.0) 07/09/18 04:00 Chloride 107.0 mmol/L (98-107) 07/09/18 04:00 Carbon Dioxide 23 mmol/L (22-30) 07/09/18 04:00 13 mmol/L 07/09/18 04:00 BUN 18 mg/dL (9-20) 07/09/18 04:00 1.5 mg/dL (0.8-1.5) 07/09/18 04:00 Estimated GFR 48 ml/min 07/09/18 04:00 12 % 07/09/18 04:00 Glucose 105 mg/dL (75-100) H 07/09/18 04:00 POC Glucose 100 (70-105) 07/09/18 13:17 Lactic Acid 1.90 mmol/L (0.7-2.0) 07/08/18 06:58 Calcium 7.6 mg/dL (8.4-10.2) L 07/09/18 04:00 0.70 mg/dL (0.1-1.2) 07/09/18 04:00 AST 151 units/L (5-40) H 07/09/18 04:00 ALT 192 units/L (7-56) H 07/09/18 04:00 46 units/L (35-129) 07/09/18 04:00 62.0 umol/L (25-60) H 07/07/18 15:15 952 units/L (55-170) H 07/09/18 04:00 CK-MB (CK-2) 13.0 ng/mL (0.0-4.0) H 07/09/18 04:00 CK-MB (CK-2) Rel Index 1.3 (0-4) 07/09/18 04:00 1.430 ng/mL (0.00-0.029) H* 07/09/18 04:00 5.6 g/dL (6.3-8.2) L 07/09/18 04:00 2.9 g/dL (3.9-5) L 07/09/18 04:00 1.1 % 07/09/18 04:00 Triglycerides 101 mg/dL (2-149) 07/07/18 14:45 Cholesterol 193 mg/dL (50-199) 07/07/18 14:45 127 mg/dL (50-130) 07/07/18 14:45 71 mg/dL (40-59) H 07/07/18 14:45 2.71 % 07/07/18 14:45 TSH 8.870 mlU/mL (0.270-4.200) H 07/07/18 14:45 Free T4 0.89 ng/dL (0.76-1.46) 07/07/18 14:45 4.2 ug/dL (4.0-12.0) 07/09/18 10:16 Yellow (Yellow) 07/07/18 18:07 Clear (Clear) 07/07/18 18:07 6.0 (5.0-7.0) 07/07/18 18:07 Ur Specific [place] 1.010 (1.003-1.030) 07/07/18 18:07 30 mg/dl mg/dL (Negative) 07/07/18 18:07 50 mg/dL (Negative) 07/07/18 18:07 Neg mg/dL (Negative) 07/07/18 18:07 Mod (Negative) 07/07/18 18:07 Neg (Negative) 07/07/18 18:07 Neg (Negative) 07/07/18 18:07 < 2.0 mg/dL (<2.0) 07/07/18 18:07 Ur Leukocyte Esterase Neg (Negative) 07/07/18 18:07 2.0 /HPF (0.0-6.0) 07/07/18 18:07 3.0 /HPF (0.0-6.0) 07/07/18 18:07 Few /HPF 07/07/18 18:07 Salicylates < 0.3 mg/dL (2.8-20.0) L 07/07/18 14:45 Acetaminophen < 5.0 ug/mL (10.0-30.0) L 07/07/18 14:45 Plasma/Serum Alcohol < 0.01 % (0-0.07) 07/07/18 14:45 Blood Type O POSITIVE 07/07/18 14:45 Antibody Screen Negative 07/07/18 14:45 Active Medications - Current Medications Current Medications: Generic Name Dose Route Start Last Admin Trade Name Freq PRN Reason Stop Dose Admin Abacavir Sulfate 300 mg 07/08/18 10:00 07/09/18 09:17 Ziagen PO 300 mg Q12HR KATIANA Administration Albuterol 2.5 mg 07/07/18 16:55 Proventil IH Q3HRT PRN Shortness Of Breath Lipase/Protease/Amylase 1 each 07/08/18 15:[address] 10,500 Unit FEEDTUBE PRN PRN For Clogged Feeding Tube Aspirin 300 mg 07/08/18 12:00 07/09/18 09:13 Aspirin MD 300 mg QDAY KATIANA Administration Famotidine 20 mg 07/08/18 10:00 07/09/18 12:39 Pepcid IV 20 mg BID KATIANA Administration Hydrocortisone Sodium Succinate 100 mg 07/09/18 14:00 Solu-Cortef IV Q8HR KATIANA Hydrophilic Ointment 1 applic 07/07/18 15:10 Vaseline Lip Therapy TP Q2HR PRN Dry Lips Sodium Chloride 1,000 mls @ 100 mls/hr 07/07/18 17:00 07/09/18 08:00 Nacl 0.9% 1000 Ml IV 100 mls/hr DIRECT KATIANA Administration Propofol 1,000 mg in 100 mls @ 3.062 mls/hr 07/07/18 16:00 07/09/18 01:56 Diprivan 10 Mg/Ml IV 15 mcg/kg/min TITR KATIANA 9.185 mls/hr Administration Protocol 5 MCG/KG/MIN Norepinephrine 4 mg in 250 mls @ 7.5 mls/hr 07/08/18 04:00 07/09/18 09:15 Levophed Drip 4 Mg/Ns 250 Ml IV 4 mcg/min TITR KATIANA 15 mls/hr Administration Protocol 2 MCG/MIN Heparin Sodium/Sodium Chloride 25,000 unit in 500 mls @ 20 mls/hr 07/08/18 12:00 07/09/18 13:15 Heparin/ 0.45% Nacl-25,000 Unit/500 Ml IV 1,200 units/hr TITRATE KATIANA 24 mls/hr Titration Protocol 1,000 UNITS/HR Fentanyl Citrate 2,000 mcg in 100 mls @ 5.103 mls/hr 07/08/18 14:00 07/09/18 00:03 Fentanyl Drip Premix IV 2 mcg/kg/hr TITR KATIANA 10.205 mls/hr Administration Protocol 1 MCG/KG/HR Cefepime HCl 2 gm in 100 mls @ 200 mls/hr 07/09/18 14:00 Maxipime/Ns 2 Gm/100 Ml IV Q8HR [facility] Protocol Vancomycin HCl 1,500 mg/ 530 mls @ 333.333 mls/hr 07/09/18 12:00 07/09/18 12:39 Sodium Chloride IV 333.333 mls/hr Q24HR KATIANA Administration Insulin Human Lispro 0 unit 07/08/18 14:00 07/08/18 18:30 Humalog SUB-Q Not Given Q6HR KATIANA Protocol Lamivudine 150 mg 07/08/18 10:00 07/09/18 09:19 Epivir PO 150 mg Q12HR KATIANA Administration Multi-Ingred Cream/Lotion/Oil/Oint 1 applic 07/07/18 15:10 Artificial Tears Ophth Oint OU Q4HR PRN Dry Eye(s) Simple Syrup 15 ml 07/08/18 15:34 Simple Syrup FEEDTUBE PRN PRN Hypoglycemia Simple Syrup 30 ml 07/08/18 15:34 Simple Syrup FEEDTUBE PRN PRN Hypoglycemia Sodium Bicarbonate 325 mg 07/08/18 15:34 Sodium Bicarbonate FEEDTUBE PRN PRN For Clogged Feeding Tube Sodium Chloride 10 ml 07/07/18 22:00 07/08/18 11:54 Sodium Chloride Flush Syringe 10 Ml IV 10 ml BID KATIANA Administration Sodium Chloride 10 ml 07/07/18 16:55 Sodium Chloride Flush Syringe 10 Ml IV PRN PRN LINE FLUSH Nutrition/Malnutrition Assess - Dietary Evaluation Nutrition/Malnutrition Findings: Nutrition Notes Start: 07/08/18 15:18 Freq: Status: Active Protocol: Document 07/09/18 09:30 CP (Rec: 07/09/18 09:33 CP [id number]) Co-Sign 07/09/18 09:30 LP Nutrition Notes Initial or Follow up Brief Note Current Diagnosis Acute Kidney Injury,Heart Failure,Respiratory Failure Other Pertinent Diagnosis HIV, MO Current Diet Vital AF 1.2 at 80 mL/hr Subjective/Other Information MD consult for TF. Vital AF 1. [address] Per RN, pt is tolerating TF. Noted Vital AF 1.2 infusing at 20 mL/hr during time of visit. Nutrition Intervention Follow-Up By: 07/11/18 Additional Comments F/U: TF tolerance/TF to goal rate
[2018-07-09] MEDS: MAXIPIME/NS 2 GM/100 ML 2 GM/100 ML BAG IV SCH ×2 (14:29→21:18)
--- NOTE | 2018-07-09 15:37 | Consultation ---
History of Present Illness - Reason for Consult Consult date: 07/09/18 HIV, fever Requesting physician: GEOVANNA VIRAMONTES - History of Present Illness 58 y/o male with history of HIV on triumeq, unknown CD4/VL, admitted on 07/07/2018 after cardiac arrest at work. 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 Coworker witnessed to suddenly go unconscious. EMS was called and found the patient to be pulseless in V. fib. ACLS protocol was initiated including shock and chest compressions, unable to intubate. In route, he had some return of spontaneous circulation and once again went into V. fib and received another shock and ACLS protocol. Patient is currently intubated and alert and follows commands, unable to provide a history, brother at bedside. Patient reports he was taking his ART. Brother reports he has been working out harder some new core exercising, he works out frequently. The brother reports he told him he was feeling unwell 3 days before incident. The brother cannot especify the symptoms but includes bilateral eye redness and discharge. In the ED, temp 99.4 then 100.5, HR 130, BP 125/87. WBC 9.3. Hg 14.. Plat 214. Creat 1.9. Lactate 5.3. AST 352. ALT 394. Ammonia 62. T4 0.8 TSH 8.8. ETOH level neg. UA neg. CT head neg. CT cervical spine neg. CXR neg. US venous +bilateral DVTs. Blood culture 07/09/2018 no growth today. ECG suggestive of inferior ischemia, suspect late presentation AMI started on heparin gtt, pressors and amiodarone gtt. ROS unable to obtain Past History Past Medical History: HIV/AIDS Past Surgical History: appendectomy Social history: denies: smoking, alcohol abuse, prescription drug abuse Family history: no significant family history (UTO) Medications and Allergies Allergies Allergy/AdvReac Type Severity Reaction Status Date / Time No Known Allergies Allergy Verified 02/28/16 21:35 Home Medications Medication Instructions Recorded Confirmed Last Taken Type Abacavir/Dolutegravir/Lamivudi 1 each PO DAILY 02/28/16 02/28/16 Unknown History [Triumeq Tablet] Active Meds: Active Medications Abacavir Sulfate (Ziagen) 300 mg PO Q12HR KATIANA Last Admin: 07/09/18 09:17 Dose: 300 mg Documented by: Albuterol (Proventil) 2.5 mg IH Q3HRT PRN PRN Reason: Shortness Of Breath Lipase/Protease/Amylase (Pancreaze Dr 10,500 Unit) 1 each FEEDTUBE PRN PRN PRN Reason: For Clogged Feeding Tube Aspirin (Aspirin) 300 mg AK QDAY KATIANA Last Admin: 07/09/18 09:13 Dose: 300 mg Documented by: Famotidine (Pepcid) 20 mg IV BID KATIANA Last Admin: 07/09/18 12:39 Dose: 20 mg Documented by: Hydrocortisone Sodium Succinate (Solu-Cortef) 100 mg IV Q8HR KATIANA Hydrophilic Ointment (Vaseline Lip Therapy) 1 applic TP Q2HR PRN PRN Reason: Dry Lips Sodium Chloride (Nacl 0.9% 1000 Ml) 1,000 mls @ 100 mls/hr IV DIRECT KATIANA Last Admin: 07/09/18 08:00 Dose: 100 mls/hr Documented by: Propofol (Diprivan 10 Mg/Ml) 1,000 mg in 100 mls @ 3.062 mls/hr IV TITR KATIANA; Protocol Last Admin: 07/09/18 01:56 Dose: 15 mcg/kg/min, 9.185 mls/hr Documented by: Norepinephrine (Levophed Drip 4 Mg/Ns 250 Ml) 4 mg in 250 mls @ 7.5 mls/hr IV T ITR KATIANA; Protocol Last Admin: 07/09/18 09:15 Dose: 4 mcg/min, 15 mls/hr Documented by: Heparin Sodium/Sodium Chloride (Heparin/ 0.45% Nacl-25,000 Unit/500 Ml) 25,000 unit in 500 mls @ 20 mls/hr IV TITRATE KATIANA; Protocol Last Titration: 07/09/18 13:15 Dose: 1,200 units/hr, 24 mls/hr Documented by: Fentanyl Citrate (Fentanyl Drip Premix) 2,000 mcg in 100 mls @ 5.103 mls/hr IV TITR KATIANA; Protocol Last Admin: 07/09/18 00:03 Dose: 2 mcg/kg/hr, 10.205 mls/hr Documented by: Cefepime HCl (Maxipime/Ns 2 Gm/100 Ml) 2 gm in 100 mls @ 200 mls/hr IV Q8HR KATIANA; Protocol Vancomycin HCl 1,500 mg/ (Sodium Chloride) 530 mls @ 333.333 mls/hr IV Q24HR KATIANA Last Admin: 07/09/18 12:39 Dose: 333.333 mls/hr Documented by: Insulin Human Lispro (Humalog) 0 unit SUB-Q Q6HR KATIANA; Protocol Last Admin: 07/08/18 18:30 Dose: Not Given Documented by: Lamivudine (Epivir) 150 mg PO Q12HR KATIANA Last Admin: 07/09/18 09:19 Dose: 150 mg Documented by: Multi-Ingred Cream/Lotion/Oil/Oint (Artificial Tears Ophth Oint) 1 applic OU Q4HR PRN PRN Reason: Dry Eye(s) Simple Syrup (Simple Syrup) 15 ml FEEDTUBE PRN PRN PRN Reason: Hypoglycemia Simple Syrup (Simple Syrup) 30 ml FEEDTUBE PRN PRN PRN Reason: Hypoglycemia Sodium Bicarbonate (Sodium Bicarbonate) 325 mg FEEDTUBE PRN PRN PRN Reason: For Clogged Feeding Tube Sodium Chloride (Sodium Chloride Flush Syringe 10 Ml) 10 ml IV BID KATIANA Last Admin: 07/08/18 11:54 Dose: 10 ml Documented by: Sodium Chloride (Sodium Chloride Flush Syringe 10 Ml) 10 ml IV PRN PRN PRN Reason: LINE FLUSH Physical Examination - Physical Exam Narrative exam: General appearance: alert follows commands intubated in NAD Eyes: bilateral clear discharge and mild sclerae erythema, moist conjunctivae; no lid-lag; PERRLA HENT: Atraumatic; oropharynx +ETT Neck: Trachea midline; supple, no thyromegaly or lymphadenopathy Lungs: sammy coarse BS CV: tachycardic Abdomen: Soft, NT Extremities: No peripheral edema or extremity lymphadenopathy Skin: Normal temperature, turgor and texture; no rash, ulcers or subcutaneous nodules Psych: no agitated. Neuro: follows commands - Constitutional Vitals: Vital Signs Temp Pulse Resp BP Pulse Ox 100.6 F H 81 20 122/71 97 07/09/18 12:00 07/09/18 15:21 07/09/18 15:21 07/09/18 15:21 07/09/18 15:21 Temperature -Last 24 Hours Temperature 100.6 F Temperature 99.8 F Temperature 100.5 F Results - Labs CBC & Chem 7: 07/09/18 04:00 07/09/18 04:00 Labs: Abnormal lab results 07/08/18 07/09/18 07/09/18 Range/Units 18:20 03:43 04:00 D-Dimer (0-234) ng/mlDDU Heparin Anti-Xa Level 0.18 L (0.3-0.7) U.I./ml POC ABG pH 7.331 L (7.35-7.45) Glucose 105 H (75-100) mg/dL POC Glucose (70-105) Calcium 7.6 L (8.4-10.2) mg/dL AST 151 H (5-40) units/L ALT 192 H (7-56) units/L Total Creatine Kinase 952 H (55-170) units/L CK-MB (CK-2) 13.0 H (0.0-4.0) ng/mL Troponin T 1.430 H* (0.00-0.029) ng/mL Total Protein 5.6 L (6.3-8.2) g/dL Albumin 2.9 L (3.9-5) g/dL 07/09/18 07/09/18 07/09/18 Range/Units 04:30 05:53 10:16 D-Dimer 3341.55 H (0-234) ng/mlDDU Heparin Anti-Xa Level 0.26 L (0.3-0.7) U.I./ml POC ABG pH (7.35-7.45) Glucose (75-100) mg/dL POC Glucose 106 H (70-105) Calcium (8.4-10.2) mg/dL AST (5-40) units/L ALT (7-56) units/L Total Creatine Kinase (55-170) units/L CK-MB (CK-2) (0.0-4.0) ng/mL Troponin T (0.00-0.029) ng/mL Total Protein (6.3-8.2) g/dL Albumin (3.9-5) g/dL Assessment and Plan Cultures: Blood culture 07/09/2018 no growth today. Assessment: 58 y/o male with history of HIV compliant on triumeq, unknown CD4/VL, admitted on 07/07/2018 after cardiac arrest at work: 1) SIRS with shock ? cardiogenic ? septic: Present on admission, manifested by tachycardia, increased lactate and DARCY. Then fever. Etiology unclear. Possible from acute OR +/- viral infection. Blood culture 07/09/2018 no growth today. 2) [id number] cardiac arrest 3) ? presumed viral infection: patient feeling unwell for 3 days before event, on admission increased lymphocytes and bilateral conjunctivitis ? viral myositis/rhabdo DDx: adenovirus, Enterovirus, HIV, HCV 4) Acute OR in the setting of possible viral infection: ECG suggestive of inferior ischemia, suspect late presentation AMI started on heparin gtt, pressors and amiodarone gtt. 5) Elevated LFTs: from cardiac arrest / viral infection, AST 352. ALT 394. Ammonia 62. 6) DARCY 7) Acute encephalopathy: multifactorial. OR, hypothyroidism, viral infection. CT head neg. CT cervical spine neg. CXR neg. 8) Bilateral leg DVTs: US venous +bilateral DVTs. Recommendations: - follow-up blood cultures - stop vancomycin - no evidence of pneumonia - stop cefepime - start ceftriaxone and flagyl for now until asp pneumonia r/o, will stop soon - continue ART renally adjusted - CD4/VL - check CK Will follow. Tresa Navarro MD Infectious Diseases [employer] [facility] ([facility] M [phone] O [phone]
--- NOTE | 2018-07-09 17:37 | XRay Report ---
PROCEDURE: XR CHEST 1V AP TECHNIQUE: Frontal portable view of the chest HISTORY: PICC line placement COMPARISONS: Chest x-ray performed earlier today at 1:57 AM FINDINGS: A right-sided PICC line is demonstrated with the tip projected in the region of superior vena cava. A Dobbhoff type catheter is demonstrated with the tip projected in the region of the stomach. There appear to be patchy areas of pulmonary consolidation in both lung bases. Atelectasis versus inf iltrates. The cardiac silhouette is enlarged. This may be exaggerated by portable technique. The thoracic aorta and bony structures are unremarkable. IMPRESSION: 1. PICC line catheter tip projected in the region of the superior vena cava. 2. Patchy areas of atelectasis or infiltrate both lung bases. 3. Enlarged cardiac silhouette. This may be exaggerated by portable technique. This document is electronically signed by Hawa Mathias MD., Jul 09 2018 05:35:16 PM ET
[2018-07-09] MEDS: SODIUM CHLORIDE FLUSH SYRINGE 10 ML IV SCH ×2 (18:28→21:23)
[2018-07-09] MEDS ORDERED: IBUPROFEN PO PRN (20:32)
[2018-07-10] MEDS: HumaLOG SUB-Q SCH ×4 (00:38→18:00)
[2018-07-10] MEDS: DIPRIVAN 10 MG/ML 1,000 MG/100 ML BOTTLE IV SCH (00:45)
[2018-07-10] MEDS: HEPARIN/ 0.45% NACL-25,000 UNIT/500 ML 25,000 UNIT/500 ML BAG IV SCH ×2 (02:27→22:10)
--- NOTE | 2018-07-10 03:23 | XRay Report ---
PROCEDURE: XR CHEST 1V AP TECHNIQUE: A portable upright view the chest was obtained. HISTORY: follow up respiratory failure COMPARISONS: 07/09/2018 FINDINGS: The heart is mildly enlarged. Lungs appear mildly congested. There is stable airspace disease in lung bases. Small effusions cannot be excluded. The right-sided PICC line is in good position in the dist al SVC. The tip of the Dobbhoff tube is in the upper stomach. The tip of the ET tube is 5.8 cm above the dany. IMPRESSION: Stable cardiomegaly with mild congestion and bilateral airspace disease. Small effusions cannot be ex cluded. This document is electronically signed by Calos Felton MD., Jul 10 2018 03:21:23 AM ET
[2018-07-10] MEDS: MAXIPIME/NS 2 GM/100 ML 2 GM/100 ML BAG IV SCH (05:34)
[2018-07-10 09:36] LABS: Basophils % (Auto) 0.1 % (0.0-1.8); Eosinophils % (Auto) 0.1 % (0.0-4.3); Hematocrit 36.1 % (35.5-45.6); Hemoglobin 11.8 gm/dl (11.8-15.2); Lymphocytes # (Auto) 0.8 K/mm3 (1.2-5.4); Lymphocytes % (Auto) 6.8 % (13.4-35.0); Mean Corpuscular HGB Conc 33 % (32-34); Mean Corpuscular Volume 89 fl (84-94); Monocytes # (Auto) 0.5 K/mm3 (0.0-0.8); Monocytes % (Auto) 4.7 % (0.0-7.3); Platelet Count 115 K/mm3 (140-440); Red Blood Count 4.07 M/mm3 (3.65-5.03)
[2018-07-10 10:00] LABS: Albumin 2.5 g/dL (3.9-5); Calcium 7.8 mg/dL (8.4-10.2)
--- NOTE | 2018-07-10 10:32 | Progress Note ---
Assessment and Plan Acute hypoxemic respiratory failure, on mechanical ventilatory support. Acute syncopal episode/loss of consciousness, etiology unclear with a negative CT scan of the head and neck I should mention. Human immunodeficiency virus positive. Obesity. Acute kidney injury. Mixed acidosis at presentation. Status post cardiac arrest with return of spontaneous circulation. History of congestive heart failure according to the notes. - Lasix daily dosing (20mg IV x 1 now) as now off vasopressors - Extubate direct to BIPAP if pH acceptable on SBT - continue stress steroids (Solucortef 100 mg IV q8h) - CRP level elevated; will trend prn - continue full anticoagulation for VTE - discontinued Ativan (avoid benzodiazepine's) - continue bronchodilators with pulmonary hygiene per RT - continue to wean supplemental oxygen to keep O2 sats 88-90% - daily SAT's & SBT assessment as tolerated - sedation target for RASS 0 to -1 - continue GI & VTE prophylaxis - Lung protective strategies - Daily ABGs/CXR for now - VAP bundle addressed - continue Anti-infectives per ID rec's - continue ART per ID precription - Monitor renal indices closely - Avoid nephrotoxic agents, adjust all medications for CrCL - Strict intake and output monitoring - Accuchecks with glycemic control. Target glucose of 140-180 mg/dL - Maintenance of sleep -wake cycle - Mobility as tolerated by hemodynamics - Influenza and pneumonia vaccination per protocol ..care plan discussed at length with patient's family at bedside ..discussed in ICU-IDT rounds PROGNOSIS: GUARDED CONDITION: CRITICAL CODE STATUS: FULL CODE The high probability of a clinically significant, sudden or life-threatening deterioration of the [respiratory] system(s) required my full and direct attention, intervention and personal management. The aggregate critical care time was [31] minutes without overlap. Time includes spent on; [x] Data Review and interpretation [x] Patient assessment and monitoring of vital signs [x] Documentation [x] Medication orders and management Subjective Date of service: 07/10/18 Principal diagnosis: Acute hypoxemic Resp failure; Syncope; HIV +ve; Obesity; DARCY. Interval history: Patient is seen today for: Acute hypoxemic respiratory failure, on mechanical ventilatory support; Acute syncopal episode/loss of consciousness, etiology unclear with a negative CT scan of the head; Human immunodeficiency virus positive; Obesity; Acute kidney injury. Seen and examined at bedside; 24hour events reviewed; nursing and respiratory care staff consulted; no adverse overnight events reported to me; remains on MVS; tolerating SBT well so far; AM ABG revealed hypercapnia but he was sedated then; A&O x 3 now No N/V/F/C; denies acute chest pains or palpitations Objective Vital Signs - 12hr 07/09/18 07/09/18 07/09/18 22:41 22:51 23:00 Temperature Pulse Rate 77 88 84 Pulse Rate [ From Monitor] Respiratory 17 13 16 Rate Blood Pressure 118/65 111/64 108/59 O2 Sat by Pulse 96 97 97 Oximetry 07/09/18 07/09/18 07/09/18 23:11 23:15 23:20 Temperature Pulse Rate 78 80 80 Pulse Rate [ From Monitor] Respiratory 20 16 16 Rate Blood Pressure 108/59 104/59 111/64 O2 Sat by Pulse 95 96 96 Oximetry 07/09/18 07/09/18 07/09/18 23:26 23:30 23:41 Temperature Pulse Rate 77 74 78 Pulse Rate [ From Monitor] Respiratory 13 13 Rate Blood Pressure 104/59 99/53 99/53 O2 Sat by Pulse 96 96 97 Oximetry 07/09/18 07/10/18 07/10/18 23:51 00:00 00:11 Temperature 99.9 F H Pulse Rate 73 74 78 Pulse Rate [ 70 From Monitor] Respiratory 22 14 16 Rate Blood Pressure 102/60 99/59 99/59 O2 Sat by Pulse 96 97 97 Oximetry 07/10/18 07/10/18 07/10/18 00:21 00:30 00:41 Temperature Pulse Rate 78 71 82 Pulse Rate [ From Monitor] Respiratory 20 15 17 Rate Blood Pressure 104/61 98/57 98/57 O2 Sat by Pulse 98 95 96 Oximetry 07/10/18 07/10/18 07/10/18 00:51 01:00 01:11 Temperature Pulse Rate 92 H 77 79 Pulse Rate [ From Monitor] Respiratory 12 18 13 Rate Blood Pressure 118/74 125/66 125/66 O2 Sat by Pulse 95 95 96 Oximetry 07/10/18 07/10/18 07/10/18 01:21 01:30 01:41 Temperature Pulse Rate 89 76 80 Pulse Rate [ From Monitor] Respiratory 18 14 14 Rate Blood Pressure 118/74 114/60 114/60 O2 Sat by Pulse 96 96 96 Oximetry 07/10/18 07/10/18 07/10/18 01:51 02:00 02:11 Temperature Pulse Rate 79 72 72 Pulse Rate [ From Monitor] Respiratory 9 L 11 L 17 Rate Blood Pressure 115/66 95/50 95/50 O2 Sat by Pulse 96 95 96 Oximetry 07/10/18 07/10/18 07/10/18 02:21 02:30 02:41 Temperature Pulse Rate 80 71 70 Pulse Rate [ From Monitor] Respiratory 11 L 16 16 Rate Blood Pressure 96/52 104/55 104/55 O2 Sat by Pulse 96 93 95 Oximetry 07/10/18 07/10/18 07/10/18 02:51 03:00 03:11 Temperature Pulse Rate 69 67 70 Pulse Rate [ From Monitor] Respiratory 16 14 16 Rate Blood Pressure 96/52 98/54 98/54 O2 Sat by Pulse 95 95 96 Oximetry 07/10/18 07/10/18 07/10/18 03:21 03:30 03:41 Temperature Pulse Rate 71 69 66 Pulse Rate [ From Monitor] Respiratory 15 18 18 Rate Blood Pressure 97/59 94/54 94/54 O2 Sat by Pulse 96 95 96 Oximetry 07/10/18 07/10/18 07/10/18 03:51 04:00 04:11 Temperature 97.8 F Pulse Rate 66 68 66 Pulse Rate [ 65 From Monitor] Respiratory 17 17 17 Rate Blood Pressure 93/55 91/52 91/52 O2 Sat by Pulse 95 95 96 Oximetry 07/10/18 07/10/18 07/10/18 04:21 04:30 04:41 Temperature Pulse Rate 66 66 64 Pulse Rate [ From Monitor] Respiratory 17 17 18 Rate Blood Pressure 92/44 88/52 88/52 O2 Sat by Pulse 95 96 97 Oximetry 07/10/18 07/10/18 07/10/18 04:51 05:01 05:11 Temperature Pulse Rate 63 68 57 L Pulse Rate [ From Monitor] Respiratory 18 16 10 L Rate Blood Pressure 92/44 92/44 92/44 O2 Sat by Pulse 96 95 Oximetry 07/10/18 07/10/18 07/10/18 05:21 05:30 05:41 Temperature Pulse Rate 63 62 59 L Pulse Rate [ From Monitor] Respiratory 16 12 18 Rate Blood Pressure 98/61 90/57 90/57 O2 Sat by Pulse 95 97 98 Oximetry 07/10/18 07/10/18 07/10/18 05:51 06:00 09:00 Temperature Pulse Rate 64 64 63 Pulse Rate [ From Monitor] Respiratory 18 18 Rate Blood Pressure 90/57 89/55 90/56 O2 Sat by Pulse 96 97 98 Oximetry 07/10/18 09:17 Temperature Pulse Rate 72 Pulse Rate [ From Monitor] Respiratory 20 Rate Blood Pressure 119/76 O2 Sat by Pulse 100 Oximetry Constitutional: no acute distress, other (middle aged, obese AAM , normocephalic and atraumatic) Eyes: non-icteric ENT: oropharynx moist, other (ETT 23 cm ARIEL) Neck: supple, no lymphadenopathy, no JVD Effort: mildly labored Ascultation: Bilateral: diminished breath sounds, rhonchi Percussion: Bilateral: not dull Cardiovascular: regular rate and rhythm, other (No R/M) Gastrointestinal: normoactive bowel sounds, soft, non-tender, non-distended Integumentary: normal Extremities: no cyanosis, pulses normal, no ischemia or petechiae, edema (trace to 1+) Neurologic: non-focal exam (grossly), pupils equal and round, CN II-XII normal, motor strength normal and Psychiatric: mood appropriate, affect normal CBC and BMP: 07/10/18 09:00 07/10/18 09:00 ABG, PT/INR, D-dimer: ABG POC ABG pH 7.270 (7.35-7.45) L 07/10/18 04:42 POC ABG pCO2 44.9 (35-45) 07/10/18 04:42 POC ABG pO2 78 (80-105) L 07/10/18 04:42 POC ABG HCO3 20.6 (22-26 mml/L) 07/10/18 04:42 POC ABG Total CO2 22 (23-27mmol/L) 07/10/18 04:42 POC ABG O2 Sat 93 07/10/18 04:42 PT/INR, D-dimer PT 15.9 Sec. (12.2-14.9) H 07/08/18 Unknown INR 1.19 (0.87-1.13) H 07/08/18 Unknown 3341.55 ng/mlDDU (0-234) H 07/09/18 10:16 Abnormal lab findings: Abnormal Labs 07/07/18 07/07/18 07/07/18 14:45 14:45 14:45 WBC Plt Count Lymph % (Auto) [place] % (Auto) Lymph # [place] # Seg Neutrophils % Seg Neuts % (Manual) 29.0 L Lymphocytes % (Manual) 66.0 H Seg Neutrophils # Lymphocytes # (Manual) 6.1 H PT 15.5 H INR 1.16 H D-Dimer Heparin Anti-Xa Level POC ABG pH POC ABG pCO2 POC ABG pO2 Sodium Potassium 3.1 L Chloride Carbon Dioxide 17 L BUN Creatinine 1.9 H Glucose 218 H POC Glucose Lactic Acid Calcium AST 352 H ALT 394 H Ammonia Total Creatine Kinase CK-MB (CK-2) Troponin T 0.561 H* C-Reactive Protein Total Protein Albumin 3.5 L HDL Cholesterol 71 H TSH Salicylates Acetaminophen 07/07/18 07/07/18 07/07/18 14:45 14:45 14:45 WBC Plt Count Lymph % (Auto) [place] % (Auto) Lymph # [place] # Seg Neutrophils % Seg Neuts % (Manual) Lymphocytes % (Manual) Seg Neutrophils # Lymphocytes # (Manual) PT INR D-Dimer Heparin Anti-Xa Level POC ABG pH POC ABG pCO2 POC ABG pO2 Sodium Potassium Chloride Carbon Dioxide BUN Creatinine Glucose POC Glucose Lactic Acid Calcium AST ALT Ammonia Total Creatine Kinase CK-MB (CK-2) Troponin T C-Reactive Protein Total Protein Albumin HDL Cholesterol TSH 8.870 H Salicylates < 0.3 L Acetaminophen < 5.0 L 07/07/18 07/07/18 07/07/18 15:15 15:15 15:30 WBC Plt Count Lymph % (Auto) [place] % (Auto) Lymph # [place] # Seg Neutrophils % Seg Neuts % (Manual) Lymphocytes % (Manual) Seg Neutrophils # Lymphocytes # (Manual) PT INR D-Dimer Heparin Anti-Xa Level POC ABG pH 7.199 L POC ABG pCO2 60.0 H POC ABG pO2 325 H Sodium Potassium Chloride Carbon Dioxide BUN Creatinine Glucose POC Glucose Lactic Acid 5.30 H* Calcium AST ALT Ammonia 62.0 H Total Creatine Kinase CK-MB (CK-2) Troponin T C-Reactive Protein Total Protein Albumin HDL Cholesterol TSH Salicylates Acetaminophen 07/07/18 07/07/18 07/07/18 17:12 19:12 20:18 WBC Plt Count Lymph % (Auto) [place] % (Auto) Lymph # [place] # Seg Neutrophils % Seg Neuts % (Manual) Lymphocytes % (Manual) Seg Neutrophils # Lymphocytes # (Manual) PT INR D-Dimer Heparin Anti-Xa Level POC ABG pH POC ABG pCO2 POC ABG pO2 193 H Sodium Potassium Chloride Carbon Dioxide BUN Creatinine Glucose POC Glucose Lactic Acid 5.30 H* 2.10 H* Calcium AST ALT Ammonia Total Creatine Kinase CK-MB (CK-2) Troponin T C-Reactive Protein Total Protein Albumin HDL Cholesterol TSH Salicylates Acetaminophen 07/07/18 07/07/18 07/07/18 22:56 22:56 Unknown WBC Plt Count Lymph % (Auto) [place] % (Auto) Lymph # [place] # Seg Neutrophils % Seg Neuts % (Manual) Lymphocytes % (Manual) Seg Neutrophils # Lymphocytes # (Manual) PT INR D-Dimer Heparin Anti-Xa Level POC ABG pH POC ABG pCO2 POC ABG pO2 Sodium Potassium Chloride Carbon Dioxide BUN Creatinine Glucose POC Glucose Lactic Acid 5.00 H* Calcium AST ALT Ammonia Total Creatine Kinase CK-MB (CK-2) Troponin T 1.380 H* D 1.990 H* D C-Reactive Protein Total Protein Albumin HDL Cholesterol TSH Salicylates Acetaminophen 07/08/18 07/08/18 07/08/18 04:09 04:09 04:09 WBC Plt Count Lymph % (Auto) [place] % (Auto) 11.9 H Lymph # [place] # 0.9 H Seg Neutrophils % Seg Neuts % (Manual) Lymphocytes % (Manual) Seg Neutrophils # Lymphocytes # (Manual) PT INR D-Dimer Heparin Anti-Xa Level POC ABG pH POC ABG pCO2 POC ABG pO2 Sodium Potassium Chloride Carbon Dioxide 21 L BUN Creatinine 1.6 H Glucose 71 L POC Glucose Lactic Acid 4.60 H* Calcium 8.2 L AST 321 H ALT 313 H Ammonia Total Creatine Kinase CK-MB (CK-2) Troponin T C-Reactive Protein Total Protein 5.9 L Albumin 3.3 L HDL Cholesterol TSH Salicylates Acetaminophen 07/08/18 07/08/18 07/08/18 04:41 18:20 Unknown WBC Plt Count Lymph % (Auto) [place] % (Auto) Lymph # [place] # Seg Neutrophils % Seg Neuts % (Manual) Lymphocytes % (Manual) Seg Neutrophils # Lymphocytes # (Manual) PT 15.9 H INR 1.19 H D-Dimer Heparin Anti-Xa Level 0.18 L POC ABG pH POC ABG pCO2 POC ABG pO2 144 H Sodium Potassium Chloride Carbon Dioxide BUN Creatinine Glucose POC Glucose Lactic Acid Calcium AST ALT Ammonia Total Creatine Kinase CK-MB (CK-2) Troponin T C-Reactive Protein Total Protein Albumin HDL Cholesterol TSH Salicylates Acetaminophen 07/09/18 07/09/18 07/09/18 03:43 04:00 04:30 WBC Plt Count Lymph % (Auto) [place] % (Auto) Lymph # [place] # Seg Neutrophils % Seg Neuts % (Manual) Lymphocytes % (Manual) Seg Neutrophils # Lymphocytes # (Manual) PT INR D-Dimer Heparin Anti-Xa Level 0.26 L POC ABG pH 7.331 L POC ABG pCO2 POC ABG pO2 Sodium Potassium Chloride Carbon Dioxide BUN Creatinine Glucose 105 H POC Glucose Lactic Acid Calcium 7.6 L AST 151 H ALT 192 H Ammonia Total Creatine Kinase 952 H CK-MB (CK-2) 13.0 H Troponin T 1.430 H* C-Reactive Protein Total Protein 5.6 L Albumin 2.9 L HDL Cholesterol TSH Salicylates Acetaminophen 07/09/18 07/09/18 07/09/18 05:53 10:16 16:12 WBC Plt Count Lymph % (Auto) [place] % (Auto) Lymph # [place] # Seg Neutrophils % Seg Neuts % (Manual) Lymphocytes % (Manual) Seg Neutrophils # Lymphocytes # (Manual) PT INR D-Dimer 3341.55 H Heparin Anti-Xa Level POC ABG pH POC ABG pCO2 POC ABG pO2 Sodium Potassium Chloride Carbon Dioxide BUN Creatinine Glucose POC Glucose 106 H Lactic Acid Calcium AST ALT Ammonia Total Creatine Kinase CK-MB (CK-2) Troponin T C-Reactive Protein 12.60 H Total Protein Albumin HDL Cholesterol TSH Salicylates Acetaminophen 07/09/18 07/09/18 07/09/18 16:12 16:38 18:24 WBC Plt Count Lymph % (Auto) [place] % (Auto) Lymph # [place] # Seg Neutrophils % Seg Neuts % (Manual) Lymphocytes % (Manual) Seg Neutrophils # Lymphocytes # (Manual) PT INR D-Dimer Heparin Anti-Xa Level POC ABG pH 7.335 L POC ABG pCO2 POC ABG pO2 69 L Sodium Potassium Chloride Carbon Dioxide BUN Creatinine Glucose POC Glucose 126 H Lactic Acid Calcium AST ALT Ammonia Total Creatine Kinase 734 H CK-MB (CK-2) Troponin T C-Reactive Protein Total Protein Albumin HDL Cholesterol TSH Salicylates Acetaminophen 07/09/18 07/10/18 07/10/18 18:59 00:15 04:33 WBC Plt Count Lymph % (Auto) [place] % (Auto) Lymph # [place] # Seg Neutrophils % Seg Neuts % (Manual) Lymphocytes % (Manual) Seg Neutrophils # Lymphocytes # (Manual) PT INR D-Dimer Heparin Anti-Xa Level 0.23 L POC ABG pH 7.325 L POC ABG pCO2 POC ABG pO2 56 L Sodium Potassium Chloride Carbon Dioxide BUN Creatinine Glucose POC Glucose 129 H Lactic Acid Calcium AST ALT Ammonia Total Creatine Kinase CK-MB (CK-2) Troponin T C-Reactive Protein Total Protein Albumin HDL Cholesterol TSH Salicylates Acetaminophen 07/10/18 07/10/18 07/10/18 04:42 05:41 09:00 WBC 11.3 H Plt Count 115 L Lymph % (Auto) 6.8 L [place] % (Auto) Lymph # 0.8 L [place] # Seg Neutrophils % 88.3 H Seg Neuts % (Manual) Lymphocytes % (Manual) Seg Neutrophils # 10.0 H Lymphocytes # (Manual) PT INR D-Dimer Heparin Anti-Xa Level POC ABG pH 7.270 L POC ABG pCO2 POC ABG pO2 78 L Sodium Potassium Chloride Carbon Dioxide BUN Creatinine Glucose POC Glucose 147 H Lactic Acid Calcium AST ALT Ammonia Total Creatine Kinase CK-MB (CK-2) Troponin T C-Reactive Protein Total Protein Albumin HDL Cholesterol TSH Salicylates Acetaminophen 07/10/18 09:00 WBC Plt Count Lymph % (Auto) [place] % (Auto) Lymph # [place] # Seg Neutrophils % Seg Neuts % (Manual) Lymphocytes % (Manual) Seg Neutrophils # Lymphocytes # (Manual) PT INR D-Dimer Heparin Anti-Xa Level POC ABG pH POC ABG pCO2 POC ABG pO2 Sodium 133 L Potassium Chloride 107.2 H Carbon Dioxide 18 L BUN 24 H Creatinine 1.7 H Glucose 138 H POC Glucose Lactic Acid Calcium 7.8 L AST 76 H ALT 128 H Ammonia Total Creatine Kinase CK-MB (CK-2) Troponin T C-Reactive Protein Total Protein 6.0 L Albumin 2.5 L HDL Cholesterol TSH Salicylates Acetaminophen Chest x-ray: image reviewed (mild interstitial edema) Allied health notes reviewed: nursing
[2018-07-10] MEDS: EPIVIR PO SCH ×2 (10:36→21:16)
[2018-07-10] MEDS: ZIAGEN PO SCH ×2 (10:36→21:15)
[2018-07-10] MEDS: ASPIRIN PR SCH (10:36)
[2018-07-10] MEDS: TIVICAY PO SCH (10:36)
[2018-07-10] MEDS: NACL 0.9% 1000 ML 1,000 ML IV SCH (10:37)
[2018-07-10] MEDS: ROCEPHIN/NS 2 GM/100 ML 2 GM/100 ML BAG IV SCH (10:37)
[2018-07-10] MEDS: SODIUM CHLORIDE FLUSH SYRINGE 10 ML IV SCH ×2 (10:37→21:29)
[2018-07-10] MEDS: PEPCID IV SCH ×2 (10:38→21:16)
--- NOTE | 2018-07-10 11:31 | Progress Note ---
Assessment and Plan Initiate PO amio 200mg BID. Cont heparin gtt and ASA. Vasopressors weaned - initiate lopressor. LFTs improving - initiate low dose lipitor and monitor LFTs. Plan for coronary angiography once medically stabilized - likely on Wednesday 07/12. Vent weaning per pulmonary. Pt appears alert and is following commands appropriately. For possible extubation today. The patient has been seen in conjunction with Dr. Heladio Padilla who agrees with the assessment and plan of care. - Patient Problems (1) Cardiac arrest with successful resuscitation Current Visit: Yes Status: Acute (2) Ventricular fibrillation Current Visit: Yes Status: Acute (3) Non-STEMI (non-ST elevated myocardial infarction) Current Visit: Yes Status: Acute (4) Acute respiratory failure Current Visit: Yes Status: Acute Qualifiers: Respiratory failure complication: unspecified whether with hypoxia or hypercapnia Qualified Code(s): J96.00 - Acute respiratory failure, unspecified whether with hypoxia or hypercapnia (5) Acute kidney injury Current Visit: Yes Status: Acute (6) Hypotension Current Visit: Yes Status: Acute Qualifiers: Hypotension type: unspecified hypotension type Qualified Code(s): I95.9 - Hypotension, unspecified (7) HIV (human immunodeficiency virus infection) Current Visit: Yes Status: Chronic Qualifiers: HIV symptom status: unspecified Qualified Code(s): B20 - Human immunodeficiency virus [HIV] disease (8) Elevated TSH Current Visit: Yes Status: Chronic (9) Elevated LFTs Current Visit: Yes Status: Acute (10) Acidosis Current Visit: Yes Status: Acute Subjective Date of service: 07/10/18 Principal diagnosis: Acute hypoxemic Resp failure; Syncope; HIV +ve; Obesity; DARCY. Interval history: pt remains intubated, on SBT, alert and following commands appropriately. pt denies any occurrence of chest pain or other cardiac complaints. in SR on tele. Objective Last Vital Signs Temp 97.8 F 07/10/18 04:00 Pulse 81 07/10/18 11:00 Resp 9 L 07/10/18 11:00 BP 136/84 07/10/18 11:00 Pulse Ox 100 07/10/18 11:00 - Physical Examination General: Other (intubated, alert) HEENT: Positive: PERRL, Normocephaly, Mucus Membranes Moist Neck: Positive: neck supple, trachea midline Cardiac: Positive: Reg Rate and Rhythm, S1/S2 Lungs: Positive: Decreased Breath Sounds Neuro: Positive: Grossly Intact Abdomen: Negative: Tender Skin: Negative: Rash, Wound Musculoskeletal: No Pain Extremities: Absent: edema - Labs and Meds Cardiac Enzymes 07/10/18 Range/Units 09:00 AST 76 H (5-40) units/L Lipids 07/10/18 Range/Units 04:23 Triglycerides 42 (2-149) mg/dL CBC 07/10/18 Range/Units 09:00 WBC 11.3 H (4.5-11.0) K/mm3 RBC 4.07 (3.65-5.03) M/mm3 Hgb 11.8 (11.8-15.2) gm/dl Hct 36.1 (35.5-45.6) % Plt Count 115 L (140-440) K/mm3 Lymph # 0.8 L (1.2-5.4) K/mm3 [place] # 0.5 (0.0-0.8) K/mm3 Eos # 0.0 (0.0-0.4) K/mm3 Baso # 0.0 (0.0-0.1) K/mm3 Comprehensive Metabolic Panel 07/10/18 Range/Units 09:00 Sodium 133 L (137-145) mmol/L Potassium 4.9 D (3.6-5.0) mmol/L Chloride 107.2 H (98-107) mmol/L Carbon Dioxide 18 L (22-30) mmol/L BUN 24 H (9-20) mg/dL Creatinine 1.7 H (0.8-1.5) mg/dL Glucose 138 H (75-100) mg/dL Calcium 7.8 L (8.4-10.2) mg/dL AST 76 H (5-40) units/L ALT 128 H (7-56) units/L Alkaline Phosphatase 50 (35-129) units/L Total Protein 6.0 L (6.3-8.2) g/dL Albumin 2.5 L (3.9-5) g/dL - Imaging and Cardiology EKG: report reviewed, image reviewed Echo: report reviewed (EF 50-55%, mod LVH, mild MR, trivial pericardial effusion. ) - Telemetry EKG Rhythm: Sinus Rhythm - EKG Sinus rhythms and dysrhythmias: sinus rhythm Repolarization changes or abnormalities: ST or T wave suggestive of ischemia - Allied health notes Allied health notes reviewed: nursing
[2018-07-10] MEDS: FLAGYL 500 MG/100 ML 500 MG/100 ML BAG IV SCH ×2 (14:52→21:16)
[2018-07-10] MEDS ORDERED: ZOFRAN IV PRN (14:54)
--- NOTE | 2018-07-10 15:15 | Progress Note ---
Assessment and Plan Assessment and plan: 58 year old man who presented to the emergency room. He was at a local store when he suddenly experienced loss of consciousness. He was brought by the EMS with cardiac arrest. He received CPR, he was in pulseless v-fib. He was shocked receive chest compressions and medications. He had return of circulation. Past medical history includes HIV Labs reviewed, urine toxicology is neg for Tylenol, aspirin or alcohol, elevated creatinine and low potassium noted, lactic acidosis noted transaminitis likely due to shock liver, elevated creatinine which is expected after CPR Imaging Chest x-ray: no infiltrate CT c-spine: negative CT head negative Cardiac arrest; etiology unclear, echo shows preserved ef -obtain vq scan and LE dopplers, check d-dimer and EEG SIRS, fever, lactic acidosis, suspect septic shock ABX, ID consult, cont pressors , source unclear at this point, fup blood cx, UA and cxr neg HIV Cont retroviral, check CD4 And viral load Acute respiratory failure on mv <96 hrs Continue mechanical ventilator Patient is on SBT, most likely will be extubated today Hypokalemia, replaced Acute kidney injury likely due to ATN, continue IV fluids Transaminitis likely to shock liver, monitor MYOCARDIAL INFARCTION, elevated creatinine after CPR, CARDIOLOGY CONSULT, unclear if type 2 vs type 1 MS at this time SUBCLINICAL HYPOTHYROIDISM, ELEVATED TSH, NORMAL FREE T4, OBTAIN TOTAL T4. The high probability of a clinically significant, sudden or life threatening deterioration of the [cv, Nurology] system(s) required my full and direct attention, intervention and personal management. The aggregate critical care time was [35] minutes. This time is in addition to time spent performing reported procedures but includes the following: [x] Data Review and interpretation [x] Patient assessment and monitoring of vital signs [x] Documentation [x] Medication orders and management History Interval history: Patient was seen and this morning, patient was on mechanical ventilation. patient was alert and on SBT. Hospitalist Physical - Physical exam Narrative exam: Patient is intubated on mechanical ventilation. patient is on SBT. The patient appeared well nourished and normally developed. Vital signs as documented. Head exam is unremarkable. No scleral icterus . Neck is without jugular venous distension, thyromegaly, or carotid bruits. Lungs are clear to auscultation. Cardiac exam reveals regular rate and Rhythm. Abdominal exam reveals normal bowel sounds, no masses, no organomegaly and no aortic enlargement. Extremities are nonedematous and both femoral and pedal pulses are normal. 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 Open his eyes. - Constitutional Vitals: Temp Pulse Resp BP Pulse Ox 97.8 F 82 14 137/79 100 07/10/18 04:00 07/10/18 12:31 07/10/18 12:31 07/10/18 12:31 07/10/18 12:31 General appearance: Present: other (intubated, following commands appropriately ) Results - Labs CBC & Chem 7: 07/10/18 09:00 07/10/18 09:00 Labs: Laboratory Last Values WBC 11.3 K/mm3 (4.5-11.0) H 07/10/18 09:00 RBC 4.07 M/mm3 (3.65-5.03) 07/10/18 09:00 Hgb 11.8 gm/dl (11.8-15.2) 07/10/18 09:00 Hct 36.1 % (35.5-45.6) 07/10/18 09:00 MCV 89 fl (84-94) 07/10/18 09:00 MCH 29 pg (28-32) 07/10/18 09:00 MCHC 33 % (32-34) 07/10/18 09:00 RDW 15.0 % (13.2-15.2) 07/10/18 09:00 Plt Count 115 K/mm3 (140-440) L 07/10/18 09:00 Lymph % (Auto) 6.8 % (13.4-35.0) L 07/10/18 09:00 [place] % (Auto) 4.7 % (0.0-7.3) 07/10/18 09:00 Eos % (Auto) 0.1 % (0.0-4.3) 07/10/18 09:00 Baso % (Auto) 0.1 % (0.0-1.8) 07/10/18 09:00 Lymph # 0.8 K/mm3 (1.2-5.4) L 07/10/18 09:00 [place] # 0.5 K/mm3 (0.0-0.8) 07/10/18 09:00 Eos # 0.0 K/mm3 (0.0-0.4) 07/10/18 09:00 Baso # 0.0 K/mm3 (0.0-0.1) 07/10/18 09:00 Add Manual Diff Complete 07/07/18 14:45 Total Counted 100 07/07/18 14:45 Seg Neutrophils % 88.3 % (40.0-70.0) H 07/10/18 09:00 Seg Neuts % (Manual) 29.0 % (40.0-70.0) L 07/07/18 14:45 0 % 07/07/18 14:45 66.0 % (13.4-35.0) H 07/07/18 14:45 Reactive Lymphs % (Man) 0 % 07/07/18 14:45 3.0 % (0.0-7.3) 07/07/18 14:45 1.0 % (0.0-4.3) 07/07/18 14:45 1.0 % (0.0-1.8) 07/07/18 14:45 0 % 07/07/18 14:45 0 % 07/07/18 14:45 0 % 07/07/18 14:45 0 % 07/07/18 14:45 Nucleated RBC % Not Reportable 07/07/18 14:45 Seg Neutrophils # 10.0 K/mm3 (1.8-7.7) H 07/10/18 09:00 Seg Neutrophils # Man 2.7 K/mm3 (1.8-7.7) 07/07/18 14:45 Band Neutrophils # 0.0 K/mm3 07/07/18 14:45 6.1 K/mm3 (1.2-5.4) H 07/07/18 14:45 Abs React Lymphs (Man) 0.0 K/mm3 07/07/18 14:45 0.3 K/mm3 (0.0-0.8) 07/07/18 14:45 0.1 K/mm3 (0.0-0.4) 07/07/18 14:45 0.1 K/mm3 (0.0-0.1) 07/07/18 14:45 0.0 K/mm3 07/07/18 14:45 0.0 K/mm3 07/07/18 14:45 0.0 K/mm3 07/07/18 14:45 Blast Cells # 0.0 K/mm3 07/07/18 14:45 WBC Morphology Not Reportable 07/07/18 14:45 Hypersegmented Neuts Not Reportable 07/07/18 14:45 Hyposegmented Neuts Not Reportable 07/07/18 14:45 Hypogranular Neuts Not Reportable 07/07/18 14:45 1+ 07/07/18 14:45 Not Reportable 07/07/18 14:45 Not Reportable 07/07/18 14:45 Not Reportable 07/07/18 14:45 Not Reportable 07/07/18 14:45 Not Reportable 07/07/18 14:45 Appears normal 07/07/18 14:45 Not Reportable 07/07/18 14:45 Plt Clumps, EDTA Not Reportable 07/07/18 14:45 Not Reportable 07/07/18 14:45 Not Reportable 07/07/18 14:45 Not Reportable 07/07/18 14:45 Plt Morphology Comment Not Reportable 07/07/18 14:45 RBC Morphology Not Reportable 07/07/18 14:45 Dimorphic RBCs Not Reportable 07/07/18 14:45 Not Reportable 07/07/18 14:45 Not Reportable 07/07/18 14:45 Few 07/07/18 14:45 Not Reportable 07/07/18 14:45 Not Reportable 07/07/18 14:45 Not Reportable 07/07/18 14:45 Not Reportable 07/07/18 14:45 Not Reportable 07/07/18 14:45 Not Reportable 07/07/18 14:45 Not Reportable 07/07/18 14:45 Not Reportable 07/07/18 14:45 1+ 07/07/18 14:45 Not Reportable 07/07/18 14:45 Not Reportable 07/07/18 14:45 Not Reportable 07/07/18 14:45 Not Reportable 07/07/18 14:45 Not Reportable 07/07/18 14:45 Not Reportable 07/07/18 14:45 Not Reportable 07/07/18 14:45 Acanthocytes (Spur) Not Reportable 07/07/18 14:45 Rouleaux Not Reportable 07/07/18 14:45 Not Reportable 07/07/18 14:45 Not Reportable 07/07/18 14:45 Not Reportable 07/07/18 14:45 Not Reportable 07/07/18 14:45 Hem Pathologist Commnt No 07/07/18 14:45 PT 15.9 Sec. (12.2-14.9) H 07/08/18 Unknown INR 1.19 (0.87-1.13) H 07/08/18 Unknown APTT 26.0 Sec. (24.2-36.6) 07/08/18 Unknown 3341.55 ng/mlDDU (0-234) H 07/09/18 10:16 Heparin Anti-Xa Level 0.39 U.I./ml (0.3-0.7) 07/10/18 01:24 POC ABG pH 7.321 (7.35-7.45) L 07/10/18 12:05 POC ABG pCO2 38.6 (35-45) 07/10/18 12:05 POC ABG pO2 89 (80-105) 07/10/18 12:05 POC ABG HCO3 19.9 (22-26 mml/L) 07/10/18 12:05 POC ABG Total CO2 21 (23-27mmol/L) 07/10/18 12:05 POC ABG O2 Sat 96 07/10/18 12:05 POC ABG Base Excess -6 ((-2) - (+3)mmol/L) 07/10/18 12:05 28 % 07/10/18 12:05 Sodium 133 mmol/L (137-145) L 07/10/18 09:00 Potassium 4.9 mmol/L (3.6-5.0) D 07/10/18 09:00 Chloride 107.2 mmol/L (98-107) H 07/10/18 09:00 Carbon Dioxide 18 mmol/L (22-30) L 07/10/18 09:00 13 mmol/L 07/10/18 09:00 BUN 24 mg/dL (9-20) H 07/10/18 09:00 1.7 mg/dL (0.8-1.5) H 07/10/18 09:00 Estimated GFR 42 ml/min 07/10/18 09:00 14 % 07/10/18 09:00 Glucose 138 mg/dL (75-100) H 07/10/18 09:00 POC Glucose 157 (70-105) H 07/10/18 12:49 Lactic Acid 1.90 mmol/L (0.7-2.0) 07/08/18 06:58 Calcium 7.8 mg/dL (8.4-10.2) L 07/10/18 09:00 0.50 mg/dL (0.1-1.2) 07/10/18 09:00 AST 76 units/L (5-40) H 07/10/18 09:00 ALT 128 units/L (7-56) H 07/10/18 09:00 50 units/L (35-129) 07/10/18 09:00 62.0 umol/L (25-60) H 07/07/18 15:15 734 units/L (55-170) H 07/09/18 16:12 CK-MB (CK-2) 13.0 ng/mL (0.0-4.0) H 07/09/18 04:00 CK-MB (CK-2) Rel Index 1.3 (0-4) 07/09/18 04:00 1.430 ng/mL (0.00-0.029) H* 07/09/18 04:00 12.60 mg/dL (0.00-1.30) H 07/09/18 16:12 6.0 g/dL (6.3-8.2) L 07/10/18 09:00 2.5 g/dL (3.9-5) L 07/10/18 09:00 0.7 % 07/10/18 09:00 Triglycerides 42 mg/dL (2-149) 07/10/18 04:23 Cholesterol 193 mg/dL (50-199) 07/07/18 14:45 127 mg/dL (50-130) 07/07/18 14:45 71 mg/dL (40-59) H 07/07/18 14:45 2.71 % 07/07/18 14:45 TSH 8.870 mlU/mL (0.270-4.200) H 07/07/18 14:45 Free T4 0.89 ng/dL (0.76-1.46) 07/07/18 14:45 4.2 ug/dL (4.0-12.0) 07/09/18 10:16 Yellow (Yellow) 07/07/18 18:07 Clear (Clear) 07/07/18 18:07 6.0 (5.0-7.0) 07/07/18 18:07 Ur Specific [place] 1.010 (1.003-1.030) 07/07/18 18:07 30 mg/dl mg/dL (Negative) 07/07/18 18:07 50 mg/dL (Negative) 07/07/18 18:07 Neg mg/dL (Negative) 07/07/18 18:07 Mod (Negative) 07/07/18 18:07 Neg (Negative) 07/07/18 18:07 Neg (Negative) 07/07/18 18:07 < 2.0 mg/dL (<2.0) 07/07/18 18:07 Ur Leukocyte Esterase Neg (Negative) 07/07/18 18:07 2.0 /HPF (0.0-6.0) 07/07/18 18:07 3.0 /HPF (0.0-6.0) 07/07/18 18:07 Few /HPF 07/07/18 18:07 Salicylates < 0.3 mg/dL (2.8-20.0) L 07/07/18 14:45 Acetaminophen < 5.0 ug/mL (10.0-30.0) L 07/07/18 14:45 Plasma/Serum Alcohol < 0.01 % (0-0.07) 07/07/18 14:45 Influenza A (Rapid) Negative (Negative) 07/09/18 18:59 Influenza A (RT-PCR) Negative (Negative) 07/09/18 Unknown Influenza B (Rapid) Negative (Negative) 07/09/18 18:59 Influenza B (RT-PCR) Negative (Negative) 07/09/18 Unknown Blood Type O POSITIVE 07/07/18 14:45 Antibody Screen Negative 07/07/18 14:45 Active Medications - Current Medications Current Medications: Generic Name Dose Route Start Last Admin Trade Name Freq PRN Reason Stop Dose Admin Abacavir Sulfate 300 mg 07/08/18 10:00 07/10/18 10:36 Ziagen PO 300 mg Q12HR KATIANA Administration Albuterol 2.5 mg 07/07/18 16:55 Proventil IH Q3HRT PRN Shortness Of Breath Amiodarone HCl 200 mg 07/10/18 22:00 Cordarone PO BID KATIANA Lipase/Protease/Amylase 1 each 07/08/18 15:[address] 10,500 Unit FEEDTUBE PRN PRN For Clogged Feeding Tube Aspirin 325 mg 07/11/18 10:00 Aspirin PO QDAY KATIANA Atorvastatin Calcium 20 mg 07/10/18 22:00 Lipitor PO QHS KATIANA Famotidine 20 mg 07/08/18 10:00 07/10/18 10:38 Pepcid IV 20 mg BID KATIANA Administration Hydrocortisone Sodium Succinate 100 mg 07/09/18 14:00 07/10/18 14:52 Solu-Cortef IV 100 mg Q8HR KATIANA Administration Hydrophilic Ointment 1 applic 07/07/18 15:10 Vaseline Lip Therapy TP Q2HR PRN Dry Lips Sodium Chloride 1,000 mls @ 75 mls/hr 07/07/18 17:00 07/10/18 10:37 Nacl 0.9% 1000 Ml IV 07/10/18 23:59 100 mls/hr DIRECT KATIANA Administration Propofol 1,000 mg in 100 mls @ 3.062 mls/hr 07/07/18 16:00 07/10/18 09:15 Diprivan 10 Mg/Ml IV 0 mcg/kg/min TITR KATIANA 0 mls/hr Titration Protocol 5 MCG/KG/MIN Norepinephrine 4 mg in 250 mls @ 7.5 mls/hr 07/08/18 04:00 07/09/18 14:00 Levophed Drip 4 Mg/Ns 250 Ml IV 0 mcg/min TITR KATIANA 0 mls/hr Titration Protocol 2 MCG/MIN Heparin Sodium/Sodium Chloride 25,000 unit in 500 mls @ 20 mls/hr 07/08/18 12:00 07/10/18 02:27 Heparin/ 0.45% Nacl-25,000 Unit/500 Ml IV 1,300 units/hr TITRATE KATIANA 26 mls/hr Administration Protocol 1,000 UNITS/HR Fentanyl Citrate 2,000 mcg in 100 mls @ 5.103 mls/hr 07/08/18 14:00 07/10/18 09:15 Fentanyl Drip Premix IV 1 mcg/kg/hr TITR KATIANA 5.103 mls/hr Titration Protocol 1 MCG/KG/HR Metronidazole 500 mg in 100 mls @ 100 mls/hr 07/10/18 14:00 07/10/18 15:03 Flagyl 500 Mg/100 Ml IV 100 mls/hr Q8HR KATIANA Infusion Ceftriaxone Sodium 2 gm in 100 mls @ 200 mls/hr 07/10/18 10:00 07/10/18 10:37 Rocephin/Ns 2 Gm/100 Ml IV 200 mls/hr Q24HR KATIANA Administration Ibuprofen 400 mg 07/09/18 20:32 07/09/18 21:04 Motrin PO 400 mg Q6H PRN Administration Fever >101 Insulin Human Lispro 0 unit 07/08/18 14:00 07/10/18 12:00 Humalog SUB-Q Not Given Q6HR KATIANA Protocol Lamivudine 150 mg 07/08/18 10:00 07/10/18 10:36 Epivir PO 150 mg Q12HR KATIANA Administration Metoprolol Tartrate 25 mg 07/10/18 22:00 Lopressor PO BID KATIANA Multi-Ingred Cream/Lotion/Oil/Oint 1 applic 07/07/18 15:10 Artificial Tears Ophth Oint OU Q4HR PRN Dry Eye(s) Ondansetron HCl 4 mg 07/10/18 14:54 07/10/18 15:12 Zofran IV 4 mg Q8H PRN Administration Nausea And Vomiting Simple Syrup 15 ml 07/08/18 15:34 Simple Syrup FEEDTUBE PRN PRN Hypoglycemia Simple Syrup 30 ml 07/08/18 15:34 Simple Syrup FEEDTUBE PRN PRN Hypoglycemia Sodium Bicarbonate 325 mg 07/08/18 15:34 Sodium Bicarbonate FEEDTUBE PRN PRN For Clogged Feeding Tube Sodium Chloride 10 ml 07/07/18 22:00 07/10/18 10:37 Sodium Chloride Flush Syringe 10 Ml IV 10 ml BID KATIANA Administration Sodium Chloride 10 ml 07/07/18 16:55 Sodium Chloride Flush Syringe 10 Ml IV PRN PRN LINE FLUSH Nutrition/Malnutrition Assess - Dietary Evaluation Nutrition/Malnutrition Findings: Nutrition Notes Start: 07/08/18 15:18 Freq: Status: Active Protocol: Document 07/09/18 09:30 CP (Rec: 07/09/18 09:33 CP [id number]) Co-Sign 07/09/18 09:30 LP Nutrition Notes Initial or Follow up Brief Note Current Diagnosis Acute Kidney Injury,Heart Failure,Respiratory Failure Other Pertinent Diagnosis HIV, MS Current Diet Vital AF 1.2 at 80 mL/hr Subjective/Other Information MD consult for TF. Vital AF 1. [address] Per RN, pt is tolerating TF. Noted Vital AF 1.2 infusing at 20 mL/hr during time of visit. Nutrition Intervention Follow-Up By: 07/11/18 Additional Comments F/U: TF tolerance/TF to goal rate
--- NOTE | 2018-07-10 16:12 | Progress Note ---
Assessment and Plan Cultures: Blood culture 07/09/2018 no growth today. Tracheal asp 07/09/2018 no growth today. Assessment: 58 y/o male with history of HIV compliant on triumeq, unknown CD4/VL, admitted on 07/07/2018 after cardiac arrest at work: 1) SIRS with shock ? cardiogenic ? septic: better off pressors. Still fever . Etiology unclear. Possible from acute IL +/- aspiration pneumonitis. Blood culture 07/09/2018 no growth today. Influenza PCR neg. 2) [id number] cardiac arrest 3) Presumed viral infection ? 4) Acute IL in the setting of possible viral infection: ECG suggestive of inferior ischemia, suspect late presentation AMI started on heparin gtt, pressors and amiodarone gtt. 5) Elevated LFTs: from cardiac arrest / viral infection, AST 352. ALT 394. Ammonia 62. 6) DARCY: not better 7) Acute encephalopathy: better; multifactorial. IL, hypothyroidism, viral infection. CT head neg. CT cervical spine neg. CXR neg. 8) Bilateral leg DVTs: US venous +bilateral DVTs. Recommendations: - follow-up blood cultures - continue ceftriaxone and flagyl D2 of 5 - continue ART renally adjusted - CD4/VL - per cards - PO amio 200mg BID, heparin gtt, ASA, coronary angiography once medically stabilized Will follow. Tresa Navarro MD Infectious Diseases Sheet [facility] M [phone] O [phone] Subjective Date of service: 07/10/18 Principal diagnosis: Acute hypoxemic Resp failure; Syncope; HIV +ve; Obesity; DARCY. Interval history: Alert, temp 101.6, extubated on CPAP, follows commands, no complaints. Objective - Exam Narrative Exam: General appearance: alert follows commands on CPAP Eyes: bilateral clear discharge and mild sclerae erythema, moist conjunctivae; no lid-lag; PERRLA HENT: Atraumatic; oropharynx Neck: Trachea midline; supple, no thyromegaly or lymphadenopathy Lungs: sammy coarse BS CV: tachycardic Abdomen: Soft, NT Extremities: No peripheral edema or extremity lymphadenopathy Skin: Normal temperature, turgor and texture; no rash, ulcers or subcutaneous nodules Psych: no agitated. Neuro: alert follows commands - Constitutional Vitals: Vital Signs Temp Pulse Resp BP Pulse Ox 97.8 F 82 14 137/79 100 05/08/19 04:00 07/10/18 12:31 07/10/18 12:31 07/10/18 12:31 07/10/18 12:31 Temperature -Last 24 Hours Temperature 97.8 F Temperature 99.9 F Temperature 101.6 F - Labs CBC & Chem 7: 07/10/18 09:00 07/10/18 09:00 Labs: Abnormal lab results 07/09/18 07/09/18 07/09/18 Range/Units 16:12 16:12 16:38 WBC (4.5-11.0) K/mm3 Plt Count (140-440) K/mm3 Lymph % (Auto) (13.4-35.0) % Lymph # (1.2-5.4) K/mm3 Seg Neutrophils % (40.0-70.0) % Seg Neutrophils # (1.8-7.7) K/mm3 Heparin Anti-Xa Level (0.3-0.7) U.I./ml POC ABG pH 7.335 L (7.35-7.45) POC ABG pO2 69 L (80-105) Sodium (137-145) mmol/L Chloride (98-107) mmol/L Carbon Dioxide (22-30) mmol/L BUN (9-20) mg/dL Creatinine (0.8-1.5) mg/dL Glucose (75-100) mg/dL POC Glucose (70-105) Calcium (8.4-10.2) mg/dL AST (5-40) units/L ALT (7-56) units/L Total Creatine Kinase 734 H (55-170) units/L C-Reactive Protein 12.60 H (0.00-1.30) mg/dL Total Protein (6.3-8.2) g/dL Albumin (3.9-5) g/dL 07/09/18 07/09/18 07/10/18 Range/Units 18:24 18:59 00:15 WBC (4.5-11.0) K/mm3 Plt Count (140-440) K/mm3 Lymph % (Auto) (13.4-35.0) % Lymph # (1.2-5.4) K/mm3 Seg Neutrophils % (40.0-70.0) % Seg Neutrophils # (1.8-7.7) K/mm3 Heparin Anti-Xa Level 0.23 L (0.3-0.7) U.I./ml POC ABG pH (7.35-7.45) POC ABG pO2 (80-105) Sodium (137-145) mmol/L Chloride (98-107) mmol/L Carbon Dioxide (22-30) mmol/L BUN (9-20) mg/dL Creatinine (0.8-1.5) mg/dL Glucose (75-100) mg/dL POC Glucose 126 H 129 H (70-105) Calcium (8.4-10.2) mg/dL AST (5-40) units/L ALT (7-56) units/L Total Creatine Kinase (55-170) units/L C-Reactive Protein (0.00-1.30) mg/dL Total Protein (6.3-8.2) g/dL Albumin (3.9-5) g/dL 07/10/18 07/10/18 07/10/18 Range/Units 04:33 04:42 05:41 WBC (4.5-11.0) K/mm3 Plt Count (140-440) K/mm3 Lymph % (Auto) (13.4-35.0) % Lymph # (1.2-5.4) K/mm3 Seg Neutrophils % (40.0-70.0) % Seg Neutrophils # (1.8-7.7) K/mm3 Heparin Anti-Xa Level (0.3-0.7) U.I./ml POC ABG pH 7.325 L 7.270 L (7.35-7.45) POC ABG pO2 56 L 78 L (80-105) Sodium (137-145) mmol/L Chloride (98-107) mmol/L Carbon Dioxide (22-30) mmol/L BUN (9-20) mg/dL Creatinine (0.8-1.5) mg/dL Glucose (75-100) mg/dL POC Glucose 147 H (70-105) Calcium (8.4-10.2) mg/dL AST (5-40) units/L ALT (7-56) units/L Total Creatine Kinase (55-170) units/L C-Reactive Protein (0.00-1.30) mg/dL Total Protein (6.3-8.2) g/dL Albumin (3.9-5) g/dL 07/10/18 07/10/18 07/10/18 Range/Units 09:00 09:00 12:05 WBC 11.3 H (4.5-11.0) K/mm3 Plt Count 115 L (140-440) K/mm3 Lymph % (Auto) 6.8 L (13.4-35.0) % Lymph # 0.8 L (1.2-5.4) K/mm3 Seg Neutrophils % 88.3 H (40.0-70.0) % Seg Neutrophils # 10.0 H (1.8-7.7) K/mm3 Heparin Anti-Xa Level (0.3-0.7) U.I./ml POC ABG pH 7.321 L (7.35-7.45) POC ABG pO2 (80-105) Sodium 133 L (137-145) mmol/L Chloride 107.2 H (98-107) mmol/L Carbon Dioxide 18 L (22-30) mmol/L BUN 24 H (9-20) mg/dL Creatinine 1.7 H (0.8-1.5) mg/dL Glucose 138 H (75-100) mg/dL POC Glucose (70-105) Calcium 7.8 L (8.4-10.2) mg/dL AST 76 H (5-40) units/L ALT 128 H (7-56) units/L Total Creatine Kinase (55-170) units/L C-Reactive Protein (0.00-1.30) mg/dL Total Protein 6.0 L (6.3-8.2) g/dL Albumin 2.5 L (3.9-5) g/dL 07/10/18 Range/Units 12:49 WBC (4.5-11.0) K/mm3 Plt Count (140-440) K/mm3 Lymph % (Auto) (13.4-35.0) % Lymph # (1.2-5.4) K/mm3 Seg Neutrophils % (40.0-70.0) % Seg Neutrophils # (1.8-7.7) K/mm3 Heparin Anti-Xa Level (0.3-0.7) U.I./ml POC ABG pH (7.35-7.45) POC ABG pO2 (80-105) Sodium (137-145) mmol/L Chloride (98-107) mmol/L Carbon Dioxide (22-30) mmol/L BUN (9-20) mg/dL Creatinine (0.8-1.5) mg/dL Glucose (75-100) mg/dL POC Glucose 157 H (70-105) Calcium (8.4-10.2) mg/dL AST (5-40) units/L ALT (7-56) units/L Total Creatine Kinase (55-170) units/L C-Reactive Protein (0.00-1.30) mg/dL Total Protein (6.3-8.2) g/dL Albumin (3.9-5) g/dL
--- NOTE | 2018-07-10 16:46 | Progress Note ---
Assessment and Plan - Patient Problems (1) Acute kidney injury Current Visit: Yes Status: Acute Plan to address problem: Acute kidney injury status post cardiac arrest is probably acute tubular necrosis. Labs not done this morning. Follow-up electrolytes and renal function in the morning. (2) Cardiac arrest with successful resuscitation Current Visit: Yes Status: Acute Plan to address problem: Status post V. fib arrest. Continue management by imaging aide (3) CKD (chronic kidney disease) stage 3, GFR 30-59 ml/min Current Visit: Yes Status: Chronic Plan to address problem: Presumed baseline chronic kidney disease. (4) HIV (human immunodeficiency virus infection) Current Visit: Yes Status: Chronic Qualifiers: HIV symptom status: unspecified Qualified Code(s): B20 - Human immunodeficiency virus [HIV] disease Plan to address problem: Being followed by infectious disease specialist Subjective Date of service: 07/10/18 Principal diagnosis: Acute hypoxemic Resp failure; Syncope; HIV +ve; Obesity; DARCY. Interval history: Patient seen sitting up in bed. On BiPAP. Family at bedside. Shortness of breath improving. Denies any pain. Had nausea earlier resolving. Objective - Exam Narrative Exam: Middle-age, male sitting up in bed on BiPAP HEENT: NCAT, pink oral mucous membrane Neck: Supple, no venous distention CVS: S1S2 RRR with no murmur, rub or gallop Chest: Diminished breath sounds in the lower zones Abdomen: Protuberant, soft, nontender, no organomegaly, bowel sounds are present Extremities: No edema Neuro: Awake, alert no focal deficits - Vital Signs Vital signs: Vital Signs - 12hr 07/10/18 07/10/18 07/10/18 04:51 05:01 05:11 Pulse Rate 63 68 57 L Respiratory 18 16 10 L Rate Blood Pressure 92/44 92/44 92/44 O2 Sat by Pulse 96 95 Oximetry 07/10/18 07/10/18 07/10/18 05:21 05:30 05:41 Pulse Rate 63 62 59 L Respiratory 16 12 18 Rate Blood Pressure 98/61 90/57 90/57 O2 Sat by Pulse 95 97 98 Oximetry 07/10/18 07/10/18 07/10/18 05:51 06:00 06:15 Pulse Rate 64 64 61 Respiratory 18 18 19 Rate Blood Pressure 90/57 89/55 89/55 O2 Sat by Pulse 96 97 96 Oximetry 07/10/18 07/10/18 07/10/18 06:30 06:45 07:00 Pulse Rate 61 61 58 L Respiratory 18 10 L 18 Rate Blood Pressure 88/53 88/53 91/52 O2 Sat by Pulse 96 97 98 Oximetry 07/10/18 07/10/18 07/10/18 07:15 07:30 07:45 Pulse Rate 55 L 59 L 61 Respiratory 18 18 18 Rate Blood Pressure 91/52 87/55 87/55 O2 Sat by Pulse 97 97 97 Oximetry 07/10/18 07/10/18 07/10/18 08:00 08:15 08:30 Pulse Rate 65 59 L 59 L Respiratory 14 18 18 Rate Blood Pressure 99/58 99/58 93/53 O2 Sat by Pulse 99 98 Oximetry 07/10/18 07/10/18 07/10/18 08:45 09:00 09:15 Pulse Rate 62 62 52 L Respiratory 18 18 18 Rate Blood Pressure 93/53 90/56 90/56 O2 Sat by Pulse 99 99 99 Oximetry 07/10/18 07/10/18 07/10/18 09:17 09:30 09:45 Pulse Rate 72 71 78 Respiratory 20 12 11 L Rate Blood Pressure 119/76 116/83 116/83 O2 Sat by Pulse 100 100 99 Oximetry 07/10/18 07/10/18 07/10/18 10:00 10:15 10:30 Pulse Rate 74 71 74 Respiratory 9 L 6 L 8 L Rate Blood Pressure 122/82 122/82 115/77 O2 Sat by Pulse 99 100 98 Oximetry 07/10/18 07/10/18 07/10/18 10:45 11:00 11:15 Pulse Rate 81 81 89 Respiratory 7 L 9 L 8 L Rate Blood Pressure 115/77 136/84 136/84 O2 Sat by Pulse 98 100 100 Oximetry 07/10/18 07/10/18 07/10/18 11:30 11:45 11:52 Pulse Rate 88 78 74 Respiratory 12 10 L 10 L Rate Blood Pressure 138/83 115/77 138/83 O2 Sat by Pulse 99 100 100 Oximetry 07/10/18 07/10/18 07/10/18 12:00 12:15 12:28 Pulse Rate 80 71 85 Respiratory 10 L 8 L Rate Blood Pressure 135/81 135/81 O2 Sat by Pulse 98 Oximetry 07/10/18 07/10/18 07/10/18 12:31 12:45 13:00 Pulse Rate 81 87 80 Respiratory 13 14 13 Rate Blood Pressure 137/79 138/83 137/84 O2 Sat by Pulse 100 100 98 Oximetry 07/10/18 07/10/18 07/10/18 13:15 13:30 13:45 Pulse Rate 82 80 75 Respiratory 14 14 12 Rate Blood Pressure 137/84 134/75 137/84 O2 Sat by Pulse 100 99 99 Oximetry 07/10/18 07/10/18 07/10/18 14:00 14:15 14:31 Pulse Rate 82 82 78 Respiratory 12 15 11 L Rate Blood Pressure 139/81 134/75 114/69 O2 Sat by Pulse 98 96 Oximetry 07/10/18 07/10/18 07/10/18 14:45 15:00 15:15 Pulse Rate 81 77 88 Respiratory 14 11 L 15 Rate Blood Pressure 114/69 120/67 120/67 O2 Sat by Pulse 96 97 Oximetry 07/10/18 07/10/18 07/10/18 15:31 15:45 16:01 Pulse Rate 81 74 78 Respiratory 10 L 13 12 Rate Blood Pressure 128/76 120/67 102/70 O2 Sat by Pulse Oximetry 07/10/18 16:15 Pulse Rate 74 Respiratory 14 Rate Blood Pressure 102/70 O2 Sat by Pulse Oximetry - Lab 07/10/18 09:00 07/10/18 09:00 Most recent lab results Calcium 7.8 mg/dL (8.4-10.2) L 07/10/18 09:00 Medications & Allergies - Medications Allergies/Adverse Reactions: Allergies No Known Allergies Allergy (Verified 02/28/16 21:35) Home Medications: Home Medications Medication Instructions Recorded Confirmed Last Taken Type Abacavir/Dolutegravir/Lamivudi 1 each PO DAILY 02/28/16 02/28/16 Unknown History [Triumeq Tablet] Active Medications: Generic Name Dose Route Start Last Admin Trade Name Freq PRN Reason Stop Dose Admin Abacavir Sulfate 300 mg 07/08/18 10:00 07/10/18 10:36 Ziagen PO 300 mg Q12HR KATIANA Administration Albuterol 2.5 mg 07/07/18 16:55 Proventil IH Q3HRT PRN Shortness Of Breath Amiodarone HCl 200 mg 07/10/18 22:00 Cordarone PO BID KATIANA Lipase/Protease/Amylase 1 each 07/08/18 15:[address] 10,500 Unit FEEDTUBE PRN PRN For Clogged Feeding Tube Aspirin 325 mg 07/11/18 10:00 Aspirin PO QDAY KATIANA Atorvastatin Calcium 20 mg 07/10/18 22:00 Lipitor PO QHS KATIANA Famotidine 20 mg 07/08/18 10:00 07/10/18 10:38 Pepcid IV 20 mg BID KATIANA Administration Hydrocortisone Sodium Succinate 100 mg 07/09/18 14:00 07/10/18 14:52 Solu-Cortef IV 100 mg Q8HR KATIANA Administration Hydrophilic Ointment 1 applic 07/07/18 15:10 Vaseline Lip Therapy TP Q2HR PRN Dry Lips Sodium Chloride 1,000 mls @ 75 mls/hr 07/07/18 17:00 07/10/18 10:37 Nacl 0.9% 1000 Ml IV 07/10/18 23:59 100 mls/hr DIRECT KATIANA Administration Propofol 1,000 mg in 100 mls @ 3.062 mls/hr 07/07/18 16:00 07/10/18 09:15 Diprivan 10 Mg/Ml IV 0 mcg/kg/min TITR KATIANA 0 mls/hr Titration Protocol 5 MCG/KG/MIN Norepinephrine 4 mg in 250 mls @ 7.5 mls/hr 07/08/18 04:00 07/09/18 14:00 Levophed Drip 4 Mg/Ns 250 Ml IV 0 mcg/min TITR KATIANA 0 mls/hr Titration Protocol 2 MCG/MIN Heparin Sodium/Sodium Chloride 25,000 unit in 500 mls @ 20 mls/hr 07/08/18 12:00 07/10/18 02:27 Heparin/ 0.45% Nacl-25,000 Unit/500 Ml IV 1,300 units/hr TITRATE KATIANA 26 mls/hr Administration Protocol 1,000 UNITS/HR Fentanyl Citrate 2,000 mcg in 100 mls @ 5.103 mls/hr 07/08/18 14:00 07/10/18 09:15 Fentanyl Drip Premix IV 1 mcg/kg/hr TITR KATIANA 5.103 mls/hr Titration Protocol 1 MCG/KG/HR Metronidazole 500 mg in 100 mls @ 100 mls/hr 07/10/18 14:00 07/10/18 15:03 Flagyl 500 Mg/100 Ml IV 100 mls/hr Q8HR KATIANA Infusion Ceftriaxone Sodium 2 gm in 100 mls @ 200 mls/hr 07/10/18 10:00 07/10/18 10:37 Rocephin/Ns 2 Gm/100 Ml IV 200 mls/hr Q24HR KATIANA Administration Ibuprofen 400 mg 07/09/18 20:32 07/09/18 21:04 Motrin PO 400 mg Q6H PRN Administration Fever >101 Insulin Human Lispro 0 unit 07/08/18 14:00 07/10/18 12:00 Humalog SUB-Q Not Given Q6HR [facility] Protocol Lamivudine 150 mg 07/08/18 10:00 07/10/18 10:36 Epivir PO 150 mg Q12HR KATIANA Administration Metoprolol Tartrate 25 mg 07/10/18 22:00 Lopressor PO BID [facility] Multi-Ingred Cream/Lotion/Oil/Oint 1 applic 07/07/18 15:10 Artificial Tears Ophth Oint OU Q4HR PRN Dry Eye(s) Ondansetron HCl 4 mg 07/10/18 14:54 07/10/18 15:12 Zofran IV 4 mg Q8H PRN Administration Nausea And Vomiting Simple Syrup 15 ml 07/08/18 15:34 Simple Syrup FEEDTUBE PRN PRN Hypoglycemia Simple Syrup 30 ml 07/08/18 15:34 Simple Syrup FEEDTUBE PRN PRN Hypoglycemia Sodium Bicarbonate 325 mg 07/08/18 15:34 Sodium Bicarbonate FEEDTUBE PRN PRN For Clogged Feeding Tube Sodium Chloride 10 ml 07/07/18 22:00 07/10/18 10:37 Sodium Chloride Flush Syringe 10 Ml IV 10 ml BID KATIANA Administration Sodium Chloride 10 ml 07/07/18 16:55 Sodium Chloride Flush Syringe 10 Ml IV PRN PRN LINE FLUSH
[2018-07-10] MEDS: CORDARONE PO SCH (21:15)
[2018-07-10] MEDS: LOPRESSOR PO SCH (23:28)
[2018-07-11] MEDS: LOPRESSOR PO SCH ×2 (00:31→10:53)
[2018-07-11] MEDS: HumaLOG SUB-Q SCH ×4 (01:14→18:00)
[2018-07-11] MEDS: NACL 0.9% 1000 ML 1,000 ML IV SCH ×2 (01:15→15:13)
[2018-07-11 05:18] LABS: Basophils % (Auto) 0.1 % (0.0-1.8); Hematocrit 37.3 % (35.5-45.6); Hemoglobin 12.3 gm/dl (11.8-15.2); Lymphocytes % (Auto) 7.6 % (13.4-35.0); Mean Corpuscular HGB Conc 33 % (32-34); Mean Corpuscular Volume 89 fl (84-94); Monocytes # (Auto) 0.7 K/mm3 (0.0-0.8); Monocytes % (Auto) 5.2 % (0.0-7.3); Platelet Count 123 K/mm3 (140-440); Red Blood Count 4.17 M/mm3 (3.65-5.03); Red Cell Distribution Width 14.6 % (13.2-15.2)
[2018-07-11 05:39] LABS: Calcium 8.6 mg/dL (8.4-10.2)
[2018-07-11] MEDS: FLAGYL 500 MG/100 ML 500 MG/100 ML BAG IV SCH ×2 (06:04→15:13)
--- NOTE | 2018-07-11 09:11 | Progress Note ---
Assessment and Plan Acute hypoxemic respiratory failure, s/p mechanical ventilatory support. Acute syncopal episode/loss of consciousness Human immunodeficiency virus positive. Obesity. Acute kidney injury. Mixed acidosis at presentation. Status post cardiac arrest with return of spontaneous circulation. History of congestive heart failure according to the notes. - stop stress dose sterods - continue full anticoagulation for VTE, until VQ scan results are available - continue bronchodilators with pulmonary hygiene per RT - continue to wean supplemental oxygen to keep O2 sats 88-90% - continue Anti-infectives per ID rec's - continue ART per ID precription - Monitor renal indices closely - Avoid nephrotoxic agents, adjust all medications for CrCL - Strict intake and output monitoring - Accuchecks with glycemic control. Target glucose of 140-180 mg/dL - Maintenance of sleep -wake cycle - Mobility as tolerated by hemodynamics - Influenza and pneumonia vaccination per protocol ..care plan discussed at length with patient's family at bedside ..discussed in ICU-IDT rounds Subjective Date of service: 07/11/18 Principal diagnosis: Acute hypoxemic Resp failure; Syncope; HIV +ve; Obesity; DARCY. Interval history: Patient is seen today for: Acute hypoxemic respiratory failure, on mechanical ve ntilatory support; Acute syncopal episode/loss of consciousness; Human immunodeficiency virus positive; Obesity; Acute kidney injury. Seen and examined at bedside; 24hour events reviewed; nursing and respiratory care staff consulted; no adverse overnight events reported to me;extubated to BIPAP yesterday, now on oxygen via NC. Sates he feels ok, denies any chest pain, no shortness of breath, no fevers or chills. ON heparin infusion Awaiting VQ scan Objective Vital Signs - 12hr 07/10/18 07/10/18 07/10/18 21:15 21:26 21:30 Temperature Pulse Rate 83 90 Pulse Rate [ From Monitor] Respiratory 22 13 Rate Blood Pressure 119/68 138/66 O2 Sat by Pulse 96 95 97 Oximetry 07/10/18 07/10/18 07/10/18 21:45 22:00 22:15 Temperature Pulse Rate 90 92 H 98 H Pulse Rate [ From Monitor] Respiratory 24 25 H 14 Rate Blood Pressure 138/66 148/63 148/63 O2 Sat by Pulse 93 94 Oximetry 07/10/18 07/10/18 07/10/18 22:31 22:45 23:01 Temperature Pulse Rate 85 90 89 Pulse Rate [ From Monitor] Respiratory 13 13 18 Rate Blood Pressure 128/49 128/49 147/82 O2 Sat by Pulse 96 92 96 Oximetry 07/10/18 07/10/18 07/10/18 23:15 23:28 23:31 Temperature Pulse Rate 88 85 87 Pulse Rate [ From Monitor] Respiratory 14 18 Rate Blood Pressure 147/82 140/37 140/37 O2 Sat by Pulse 93 95 Oximetry 07/10/18 07/10/18 07/10/18 23:34 23:45 23:55 Temperature Pulse Rate 91 H 89 90 Pulse Rate [ From Monitor] Respiratory 15 24 19 Rate Blood Pressure 147/82 140/37 147/82 O2 Sat by Pulse 96 97 Oximetry 07/11/18 07/11/18 07/11/18 00:00 00:15 00:31 Temperature 99.1 F Pulse Rate 88 82 88 Pulse Rate [ 94 H From Monitor] Respiratory 22 18 9 L Rate Blood Pressure 132/76 140/37 140/37 O2 Sat by Pulse 97 94 94 Oximetry 07/11/18 07/11/18 07/11/18 00:45 01:00 01:31 Temperature Pulse Rate 82 80 84 Pulse Rate [ From Monitor] Respiratory 23 20 16 Rate Blood Pressure 132/76 135/80 135/80 O2 Sat by Pulse 95 92 93 Oximetry 07/11/18 07/11/18 07/11/18 02:00 02:31 03:01 Temperature Pulse Rate 80 74 89 Pulse Rate [ From Monitor] Respiratory 20 6 L 17 Rate Blood Pressure 119/58 119/58 119/58 O2 Sat by Pulse 94 92 97 Oximetry 07/11/18 07/11/18 07/11/18 03:31 04:00 04:01 Temperature Pulse Rate 76 78 Pulse Rate [ 81 From Monitor] Respiratory 14 18 15 Rate Blood Pressure 138/76 120/75 O2 Sat by Pulse 94 95 92 Oximetry 07/11/18 07/11/18 07/11/18 04:31 05:00 05:31 Temperature Pulse Rate 74 80 81 Pulse Rate [ From Monitor] Respiratory 16 12 22 Rate Blood Pressure 120/75 127/73 127/73 O2 Sat by Pulse 91 93 91 Oximetry 07/11/18 07/11/18 07/11/18 06:00 06:31 07:01 Temperature Pulse Rate 78 80 81 Pulse Rate [ From Monitor] Respiratory 21 21 25 H Rate Blood Pressure 111/91 111/91 151/93 O2 Sat by Pulse 92 95 88 Oximetry 07/11/18 07/11/18 07:34 08:09 Temperature 98.9 F Pulse Rate Pulse Rate [ From Monitor] Respiratory Rate Blood Pressure O2 Sat by Pulse 94 Oximetry Constitutional: no acute distress, other (middle aged, obese AAM , normocephalic and atraumatic) Eyes: non-icteric ENT: oropharynx moist Neck: supple, no lymphadenopathy, no JVD Effort: normal Ascultation: Bilateral: diminished breath sounds, rhonchi Percussion: Bilateral: not dull Cardiovascular: regular rate and rhythm, other (No R/M) Gastrointestinal: normoactive bowel sounds, soft, non-tender, non-distended Integumentary: normal Extremities: no cyanosis, pulses normal, no ischemia or petechiae, edema (trace to 1+) Neurologic: non-focal exam (grossly), pupils equal and round, CN II-XII normal, motor strength normal and Psychiatric: mood appropriate, affect normal CBC and BMP: 07/11/18 04:54 07/11/18 04:54 ABG, PT/INR, D-dimer: ABG POC ABG pH 7.321 (7.35-7.45) L 07/10/18 12:05 POC ABG pCO2 38.6 (35-45) 07/10/18 12:05 POC ABG pO2 89 (80-105) 07/10/18 12:05 POC ABG HCO3 19.9 (22-26 mml/L) 07/10/18 12:05 POC ABG Total CO2 21 (23-27mmol/L) 07/10/18 12:05 POC ABG O2 Sat 96 07/10/18 12:05 PT/INR, D-dimer PT 15.9 Sec. (12.2-14.9) H 07/08/18 Unknown INR 1.19 (0.87-1.13) H 07/08/18 Unknown 3341.55 ng/mlDDU (0-234) H 07/09/18 10:16 Abnormal lab findings: Abnormal Labs 07/07/18 07/07/18 07/07/18 14:45 14:45 14:45 WBC Plt Count Lymph % (Auto) Harvey % (Auto) Lymph # Harvey # Seg Neutrophils % Seg Neuts % (Manual) 29.0 L Lymphocytes % (Manual) 66.0 H Seg Neutrophils # Lymphocytes # (Manual) 6.1 H PT 15.5 H INR 1.16 H D-Dimer Heparin Anti-Xa Level POC ABG pH POC ABG pCO2 POC ABG pO2 Sodium Potassium 3.1 L Chloride Carbon Dioxide 17 L BUN Creatinine 1.9 H Glucose 218 H POC Glucose Lactic Acid Calcium AST 352 H ALT 394 H Ammonia Total Creatine Kinase CK-MB (CK-2) Troponin T 0.561 H* C-Reactive Protein Total Protein Albumin 3.5 L HDL Cholesterol 71 H TSH Salicylates Acetaminophen 07/07/18 07/07/18 07/07/18 14:45 14:45 14:45 WBC Plt Count Lymph % (Auto) Harvey % (Auto) Lymph # Harvey # Seg Neutrophils % Seg Neuts % (Manual) Lymphocytes % (Manual) Seg Neutrophils # Lymphocytes # (Manual) PT INR D-Dimer Heparin Anti-Xa Level POC ABG pH POC ABG pCO2 POC ABG pO2 Sodium Potassium Chloride Carbon Dioxide BUN Creatinine Glucose POC Glucose Lactic Acid Calcium AST ALT Ammonia Total Creatine Kinase CK-MB (CK-2) Troponin T C-Reactive Protein Total Protein Albumin HDL Cholesterol TSH 8.870 H Salicylates < 0.3 L Acetaminophen < 5.0 L 07/07/18 07/07/18 07/07/18 15:15 15:15 15:30 WBC Plt Count Lymph % (Auto) Harvey % (Auto) Lymph # Harvey # Seg Neutrophils % Seg Neuts % (Manual) Lymphocytes % (Manual) Seg Neutrophils # Lymphocytes # (Manual) PT INR D-Dimer Heparin Anti-Xa Level POC ABG pH 7.199 L POC ABG pCO2 60.0 H POC ABG pO2 325 H Sodium Potassium Chloride Carbon Dioxide BUN Creatinine Glucose POC Glucose Lactic Acid 5.30 H* Calcium AST ALT Ammonia 62.0 H Total Creatine Kinase CK-MB (CK-2) Troponin T C-Reactive Protein Total Protein Albumin HDL Cholesterol TSH Salicylates Acetaminophen 07/07/18 07/07/18 07/07/18 17:12 19:12 20:18 WBC Plt Count Lymph % (Auto) Harvey % (Auto) Lymph # Harvey # Seg Neutrophils % Seg Neuts % (Manual) Lymphocytes % (Manual) Seg Neutrophils # Lymphocytes # (Manual) PT INR D-Dimer Heparin Anti-Xa Level POC ABG pH POC ABG pCO2 POC ABG pO2 193 H Sodium Potassium Chloride Carbon Dioxide BUN Creatinine Glucose POC Glucose Lactic Acid 5.30 H* 2.10 H* Calcium AST ALT Ammonia Total Creatine Kinase CK-MB (CK-2) Troponin T C-Reactive Protein Total Protein Albumin HDL Cholesterol TSH Salicylates Acetaminophen 07/07/18 07/07/18 07/07/18 22:56 22:56 Unknown WBC Plt Count Lymph % (Auto) Harvey % (Auto) Lymph # Harvey # Seg Neutrophils % Seg Neuts % (Manual) Lymphocytes % (Manual) Seg Neutrophils # Lymphocytes # (Manual) PT INR D-Dimer Heparin Anti-Xa Level POC ABG pH POC ABG pCO2 POC ABG pO2 Sodium Potassium Chloride Carbon Dioxide BUN Creatinine Glucose POC Glucose Lactic Acid 5.00 H* Calcium AST ALT Ammonia Total Creatine Kinase CK-MB (CK-2) Troponin T 1.380 H* D 1.990 H* D C-Reactive Protein Total Protein Albumin HDL Cholesterol TSH Salicylates Acetaminophen 07/08/18 07/08/18 07/08/18 04:09 04:09 04:09 WBC Plt Count Lymph % (Auto) Harvey % (Auto) 11.9 H Lymph # Harvey # 0.9 H Seg Neutrophils % Seg Neuts % (Manual) Lymphocytes % (Manual) Seg Neutrophils # Lymphocytes # (Manual) PT INR D-Dimer Heparin Anti-Xa Level POC ABG pH POC ABG pCO2 POC ABG pO2 Sodium Potassium Chloride Carbon Dioxide 21 L BUN Creatinine 1.6 H Glucose 71 L POC Glucose Lactic Acid 4.60 H* Calcium 8.2 L AST 321 H ALT 313 H Ammonia Total Creatine Kinase CK-MB (CK-2) Troponin T C-Reactive Protein Total Protein 5.9 L Albumin 3.3 L HDL Cholesterol TSH Salicylates Acetaminophen 07/08/18 07/08/18 07/08/18 04:41 18:20 Unknown WBC Plt Count Lymph % (Auto) Harvey % (Auto) Lymph # Harvey # Seg Neutrophils % Seg Neuts % (Manual) Lymphocytes % (Manual) Seg Neutrophils # Lymphocytes # (Manual) PT 15.9 H INR 1.19 H D-Dimer Heparin Anti-Xa Level 0.18 L POC ABG pH POC ABG pCO2 POC ABG pO2 144 H Sodium Potassium Chloride Carbon Dioxide BUN Creatinine Glucose POC Glucose Lactic Acid Calcium AST ALT Ammonia Total Creatine Kinase CK-MB (CK-2) Troponin T C-Reactive Protein Total Protein Albumin HDL Cholesterol TSH Salicylates Acetaminophen 07/09/18 07/09/18 07/09/18 03:43 04:00 04:30 WBC Plt Count Lymph % (Auto) Harvey % (Auto) Lymph # Harvey # Seg Neutrophils % Seg Neuts % (Manual) Lymphocytes % (Manual) Seg Neutrophils # Lymphocytes # (Manual) PT INR D-Dimer Heparin Anti-Xa Level 0.26 L POC ABG pH 7.331 L POC ABG pCO2 POC ABG pO2 Sodium Potassium Chloride Carbon Dioxide BUN Creatinine Glucose 105 H POC Glucose Lactic Acid Calcium 7.6 L AST 151 H ALT 192 H Ammonia Total Creatine Kinase 952 H CK-MB (CK-2) 13.0 H Troponin T 1.430 H* C-Reactive Protein Total Protein 5.6 L Albumin 2.9 L HDL Cholesterol TSH Salicylates Acetaminophen 07/09/18 07/09/18 07/09/18 05:53 10:16 16:12 WBC Plt Count Lymph % (Auto) Harvey % (Auto) Lymph # Harvey # Seg Neutrophils % Seg Neuts % (Manual) Lymphocytes % (Manual) Seg Neutrophils # Lymphocytes # (Manual) PT INR D-Dimer 3341.55 H Heparin Anti-Xa Level POC ABG pH POC ABG pCO2 POC ABG pO2 Sodium Potassium Chloride Carbon Dioxide BUN Creatinine Glucose POC Glucose 106 H Lactic Acid Calcium AST ALT Ammonia Total Creatine Kinase CK-MB (CK-2) Troponin T C-Reactive Protein 12.60 H Total Protein Albumin HDL Cholesterol TSH Salicylates Acetaminophen 07/09/18 07/09/18 07/09/18 16:12 16:38 18:24 WBC Plt Count Lymph % (Auto) Harvey % (Auto) Lymph # Harvey # Seg Neutrophils % Seg Neuts % (Manual) Lymphocytes % (Manual) Seg Neutrophils # Lymphocytes # (Manual) PT INR D-Dimer Heparin Anti-Xa Level POC ABG pH 7.335 L POC ABG pCO2 POC ABG pO2 69 L Sodium Potassium Chloride Carbon Dioxide BUN Creatinine Glucose POC Glucose 126 H Lactic Acid Calcium AST ALT Ammonia Total Creatine Kinase 734 H CK-MB (CK-2) Troponin T C-Reactive Protein Total Protein Albumin HDL Cholesterol TSH Salicylates Acetaminophen 07/09/18 07/10/18 07/10/18 18:59 00:15 04:33 WBC Plt Count Lymph % (Auto) Harvey % (Auto) Lymph # Harvey # Seg Neutrophils % Seg Neuts % (Manual) Lymphocytes % (Manual) Seg Neutrophils # Lymphocytes # (Manual) PT INR D-Dimer Heparin Anti-Xa Level 0.23 L POC ABG pH 7.325 L POC ABG pCO2 POC ABG pO2 56 L Sodium Potassium Chloride Carbon Dioxide BUN Creatinine Glucose POC Glucose 129 H Lactic Acid Calcium AST ALT Ammonia Total Creatine Kinase CK-MB (CK-2) Troponin T C-Reactive Protein Total Protein Albumin HDL Cholesterol TSH Salicylates Acetaminophen 07/10/18 07/10/18 07/10/18 04:42 05:41 09:00 WBC 11.3 H Plt Count 115 L Lymph % (Auto) 6.8 L Harvey % (Auto) Lymph # 0.8 L Harvey # Seg Neutrophils % 88.3 H Seg Neuts % (Manual) Lymphocytes % (Manual) Seg Neutrophils # 10.0 H Lymphocytes # (Manual) PT INR D-Dimer Heparin Anti-Xa Level POC ABG pH 7.270 L POC ABG pCO2 POC ABG pO2 78 L Sodium Potassium Chloride Carbon Dioxide BUN Creatinine Glucose POC Glucose 147 H Lactic Acid Calcium AST ALT Ammonia Total Creatine Kinase CK-MB (CK-2) Troponin T C-Reactive Protein Total Protein Albumin HDL Cholesterol TSH Salicylates Acetaminophen 07/10/18 07/10/18 07/10/18 09:00 12:05 12:49 WBC Plt Count Lymph % (Auto) Harvey % (Auto) Lymph # Harvey # Seg Neutrophils % Seg Neuts % (Manual) Lymphocytes % (Manual) Seg Neutrophils # Lymphocytes # (Manual) PT INR D-Dimer Heparin Anti-Xa Level POC ABG pH 7.321 L POC ABG pCO2 POC ABG pO2 Sodium 133 L Potassium Chloride 107.2 H Carbon Dioxide 18 L BUN 24 H Creatinine 1.7 H Glucose 138 H POC Glucose 157 H Lactic Acid Calcium 7.8 L AST 76 H ALT 128 H Ammonia Total Creatine Kinase CK-MB (CK-2) Troponin T C-Reactive Protein Total Protein 6.0 L Albumin 2.5 L HDL Cholesterol TSH Salicylates Acetaminophen 07/10/18 07/10/18 07/11/18 17:07 23:37 04:54 WBC 12.9 H Plt Count 123 L Lymph % (Auto) 7.6 L Harvey % (Auto) Lymph # 1.0 L Harvey # Seg Neutrophils % 87.1 H Seg Neuts % (Manual) Lymphocytes % (Manual) Seg Neutrophils # 11.3 H Lymphocytes # (Manual) PT INR D-Dimer Heparin Anti-Xa Level POC ABG pH POC ABG pCO2 POC ABG pO2 Sodium Potassium Chloride Carbon Dioxide BUN Creatinine Glucose POC Glucose 138 H 120 H Lactic Acid Calcium AST ALT Ammonia Total Creatine Kinase CK-MB (CK-2) Troponin T C-Reactive Protein Total Protein Albumin HDL Cholesterol TSH Salicylates Acetaminophen 07/11/18 07/11/18 07/11/18 04:54 04:54 05:42 WBC Plt Count Lymph % (Auto) Harvey % (Auto) Lymph # Harvey # Seg Neutrophils % Seg Neuts % (Manual) Lymphocytes % (Manual) Seg Neutrophils # Lymphocytes # (Manual) PT INR D-Dimer Heparin Anti-Xa Level 0.22 L POC ABG pH POC ABG pCO2 POC ABG pO2 Sodium Potassium Chloride Carbon Dioxide 20 L BUN 25 H Creatinine Glucose 113 H POC Glucose 108 H Lactic Acid Calcium AST ALT Ammonia Total Creatine Kinase CK-MB (CK-2) Troponin T C-Reactive Protein Total Protein Albumin HDL Cholesterol TSH Salicylates Acetaminophen Chest x-ray: image reviewed Allied health notes reviewed: nursing
--- NOTE | 2018-07-11 10:44 | Progress Note ---
Assessment and Plan - Patient Problems (1) Acute kidney injury Current Visit: Yes Status: Acute Plan to address problem: Likely in the setting of ischemic prerenal injury in the setting of aforementioned cardiac arrest and hypotension. Renal function is stabilizing at this time. Maintain maps above 65mmHg with appropriate pressor therapy. Continuing on IV fluids at 75 mL per hour. We'll also obtain renal ultrasound as well as urine analysis and urine electrolytes for further evaluation of the aforementioned acute kidney injury. Avoid nephrotoxins at this time. We'll monitor renal function daily. (2) Cardiac arrest with successful resuscitation Current Visit: Yes Status: Acute Plan to address problem: Echocardiogram findings noted. Cardiac enzymes are being tended. Cardiology evaluation noted with plan for coronary angiography when medically stable. (3) CKD (chronic kidney disease) stage 3, GFR 30-59 ml/min Current Visit: Yes Status: Chronic Plan to address problem: Patient likely has chronic kidney disease possibly in the setting of HIV, and chronic HAART therapy. Overall renal function seems stable and essentially at baseline. We'll continue to monitor closely. (4) HIV (human immunodeficiency virus infection) Current Visit: Yes Status: Chronic Qualifiers: HIV symptom status: unspecified Qualified Code(s): B20 - Human immunodeficiency virus [HIV] disease Plan to address problem: Would recommend infectious disease consult for management at this time. Subjective Date of service: 07/11/18 Principal diagnosis: Acute hypoxemic Resp failure; Syncope; HIV +ve; Obesity; DARCY. Interval history: No acute issues at this time. Seen in the ICU, now extubated, awake, off pressors, remaining on gentle IVF hydration. Objective - Vital Signs Vital signs: Vital Signs - 12hr 07/10/18 07/10/18 07/10/18 22:45 23:01 23:15 Temperature Pulse Rate 90 89 88 Pulse Rate [ From Monitor] Respiratory 13 18 14 Rate Blood Pressure 128/49 147/82 147/82 O2 Sat by Pulse 92 96 93 Oximetry 07/10/18 07/10/18 07/10/18 23:28 23:31 23:34 Temperature Pulse Rate 85 87 91 H Pulse Rate [ From Monitor] Respiratory 18 15 Rate Blood Pressure 140/37 140/37 147/82 O2 Sat by Pulse 95 Oximetry 07/10/18 07/10/18 07/11/18 23:45 23:55 00:00 Temperature 99.1 F Pulse Rate 89 90 88 Pulse Rate [ 94 H From Monitor] Respiratory 24 19 22 Rate Blood Pressure 140/37 147/82 132/76 O2 Sat by Pulse 96 97 97 Oximetry 07/11/18 07/11/18 07/11/18 00:15 00:31 00:45 Temperature Pulse Rate 82 88 82 Pulse Rate [ From Monitor] Respiratory 18 9 L 23 Rate Blood Pressure 140/37 140/37 132/76 O2 Sat by Pulse 94 94 95 Oximetry 07/11/18 07/11/18 07/11/18 01:00 01:31 02:00 Temperature Pulse Rate 80 84 80 Pulse Rate [ From Monitor] Respiratory 20 16 20 Rate Blood Pressure 135/80 135/80 119/58 O2 Sat by Pulse 92 93 94 Oximetry 07/11/18 07/11/18 07/11/18 02:31 03:01 03:31 Temperature Pulse Rate 74 89 76 Pulse Rate [ From Monitor] Respiratory 6 L 17 14 Rate Blood Pressure 119/58 119/58 138/76 O2 Sat by Pulse 92 97 94 Oximetry 07/11/18 07/11/18 07/11/18 04:00 04:01 04:31 Temperature Pulse Rate 78 74 Pulse Rate [ 81 From Monitor] Respiratory 18 15 16 Rate Blood Pressure 120/75 120/75 O2 Sat by Pulse 95 92 91 Oximetry 07/11/18 07/11/18 07/11/18 05:00 05:31 06:00 Temperature Pulse Rate 80 81 78 Pulse Rate [ From Monitor] Respiratory 12 22 21 Rate Blood Pressure 127/73 127/73 111/91 O2 Sat by Pulse 93 91 92 Oximetry 07/11/18 07/11/18 07/11/18 06:31 07:01 07:34 Temperature 98.9 F Pulse Rate 80 81 Pulse Rate [ From Monitor] Respiratory 21 25 H Rate Blood Pressure 111/91 151/93 O2 Sat by Pulse 95 88 Oximetry 07/11/18 08:09 Temperature Pulse Rate Pulse Rate [ From Monitor] Respiratory Rate Blood Pressure O2 Sat by Pulse 94 Oximetry - General Appearance General appearance: well-developed, well-nourished, appears stated age EENT: ATNC, PERRL Neck: no JVD, no thyromegaly Respiratory: Present: Clear to Ascultation, Normal Exam Cardiology: regular, S1S2 Gastrointestinal: normal, normoactive bowel sounds Integumentary: no rash, warm and dry Neurologic: no focal deficit, no asterixis, alert and oriented x3 Musculoskeletal: deferred Psychiatric: mood/affect appropriate, cooperative - Lab 07/11/18 04:54 07/11/18 04:54 Most recent lab results Calcium 8.6 mg/dL (8.4-10.2) 07/11/18 04:54 Magnesium 1.80 mg/dL (1.7-2.3) 07/11/18 04:54 - Imaging Chest x-ray: report reviewed - Allied health notes Allied health notes reviewed: nursing Medications & Allergies - Medications Allergies/Adverse Reactions: Allergies No Known Allergies Allergy (Verified 02/28/16 21:35) Home Medications: Home Medications Medication Instructions Recorded Confirmed Last Taken Type Abacavir/Dolutegravir/Lamivudi 1 each PO DAILY 02/28/16 02/28/16 Unknown History [Triumeq Tablet] Active Medications: Generic Name Dose Route Start Last Admin Trade Name Freq PRN Reason Stop Dose Admin Abacavir Sulfate 300 mg 07/08/18 10:00 07/10/18 21:15 Ziagen PO 300 mg Q12HR KATIANA Administration Albuterol 2.5 mg 07/07/18 16:55 Proventil IH Q3HRT PRN Shortness Of Breath Amiodarone HCl 200 mg 07/10/18 22:00 07/10/18 21:15 Cordarone PO 200 mg BID KATIANA Administration Lipase/Protease/Amylase 1 each 07/08/18 15:[address] 10,500 Unit FEEDTUBE PRN PRN For Clogged Feeding Tube Aspirin 325 mg 07/11/18 10:00 Aspirin PO QDAY KATIANA Atorvastatin Calcium 20 mg 07/10/18 22:00 07/10/18 21:15 Lipitor PO 20 mg QHS KATIANA Administration Famotidine 20 mg 07/08/18 10:00 07/10/18 21:16 Pepcid IV 20 mg BID KATIANA Administration Hydrocortisone Sodium Succinate 100 mg 07/09/18 14:00 07/11/18 06:04 Solu-Cortef IV 100 mg Q8HR KATIANA Administration Hydrophilic Ointment 1 applic 07/07/18 15:10 Vaseline Lip Therapy TP Q2HR PRN Dry Lips Heparin Sodium/Sodium Chloride 25,000 unit in 500 mls @ 20 mls/hr 07/08/18 12:00 07/11/18 06:03 Heparin/ 0.45% Nacl-25,000 Unit/500 Ml IV 1,400 units/hr TITRATE KATIANA 28 mls/hr Titration Protocol 1,000 UNITS/HR Metronidazole 500 mg in 100 mls @ 100 mls/hr 07/10/18 14:00 07/11/18 06:04 Flagyl 500 Mg/100 Ml IV 100 mls/hr Q8HR KATIANA Administration Ceftriaxone Sodium 2 gm in 100 mls @ 200 mls/hr 07/10/18 10:00 07/10/18 10:37 Rocephin/Ns 2 Gm/100 Ml IV 200 mls/hr Q24HR KATIANA Administration Ibuprofen 400 mg 07/09/18 20:32 07/09/18 21:04 Motrin PO 400 mg Q6H PRN Administration Fever >101 Insulin Human Lispro 0 unit 07/08/18 14:00 07/11/18 06:50 Humalog SUB-Q Not Given Q6HR KATIANA Protocol Lamivudine 150 mg 07/08/18 10:00 07/10/18 21:16 Epivir PO 150 mg Q12HR KATIANA Administration Metoprolol Tartrate 25 mg 07/10/18 22:00 07/10/18 23:28 Lopressor PO 25 mg BID KATIANA Administration Multi-Ingred Cream/Lotion/Oil/Oint 1 applic 07/07/18 15:10 Artificial Tears Ophth Oint OU Q4HR PRN Dry Eye(s) Ondansetron HCl 4 mg 07/10/18 14:54 07/10/18 15:12 Zofran IV 4 mg Q8H PRN Administration Nausea And Vomiting Simple Syrup 15 ml 07/08/18 15:34 Simple Syrup FEEDTUBE PRN PRN Hypoglycemia Simple Syrup 30 ml 07/08/18 15:34 Simple Syrup FEEDTUBE PRN PRN Hypoglycemia Sodium Bicarbonate 325 mg 07/08/18 15:34 Sodium Bicarbonate FEEDTUBE PRN PRN For Clogged Feeding Tube Sodium Chloride 10 ml 07/07/18 22:00 07/10/18 21:29 Sodium Chloride Flush Syringe 10 Ml IV 10 ml BID KATIANA Administration Sodium Chloride 10 ml 07/07/18 16:55 Sodium Chloride Flush Syringe 10 Ml IV PRN PRN LINE FLUSH
[2018-07-11] MEDS: PEPCID IV SCH ×2 (10:52→21:06)
[2018-07-11] MEDS: ASPIRIN PO SCH (10:53)
[2018-07-11] MEDS: EPIVIR PO SCH ×3 (10:55→21:02)
[2018-07-11] MEDS: ZIAGEN PO SCH ×3 (10:57→21:01)
--- NOTE | 2018-07-11 10:57 | Progress Note ---
Assessment and Plan Cont present cardiac management, including heparin gtt, ASA 325, lipitor, lopressor, PO amiodarone. Pt was found to have BLE DVT. He is pending V/Q scan today. Will tentatively plan for coronary angiography tomorrow AM pending results of V/Q scan. Indications, potential risks and benefits of LHC reviewed with pt and he is agreeable to proceed. The patient has been seen in conjunction with Dr. Heladio Padilla who agrees with the assessment and plan of care. - Patient Problems (1) Cardiac arrest with successful resuscitation Current Visit: Yes Status: Acute (2) Ventricular fibrillation Current Visit: Yes Status: Acute (3) Non-STEMI (non-ST elevated myocardial infarction) Current Visit: Yes Status: Acute (4) Acute respiratory failure Current Visit: Yes Status: Acute Qualifiers: Respiratory failure complication: unspecified whether with hypoxia or hypercapnia Qualified Code(s): J96.00 - Acute respiratory failure, unspecified whether with hypoxia or hypercapnia (5) Acute kidney injury Current Visit: Yes Status: Acute (6) Hypotension Current Visit: Yes Status: Acute Qualifiers: Hypotension type: unspecified hypotension type Qualified Code(s): I95.9 - Hypotension, unspecified (7) HIV (human immunodeficiency virus infection) Current Visit: Yes Status: Chronic Qualifiers: HIV symptom status: unspecified Qualified Code(s): B20 - Human immunodeficiency virus [HIV] disease (8) Elevated TSH Current Visit: Yes Status: Chronic (9) Elevated LFTs Current Visit: Yes Status: Acute (10) Acidosis Current Visit: Yes Status: Acute (11) DVT (deep venous thrombosis) Current Visit: Yes Status: Acute Subjective Date of service: 07/11/18 Principal diagnosis: Acute hypoxemic Resp failure; Syncope; HIV +ve; Obesity; DARCY. Interval history: pt resting comfortably in bed, he was extubated yesterday, alert and oriented. no current complaints. Objective Last Vital Signs Temp 98.9 F 07/11/18 07:34 Pulse 81 07/11/18 07:01 Resp 25 H 07/11/18 07:01 BP 151/93 07/11/18 07:01 Pulse Ox 94 07/11/18 08:09 - Physical Examination General: Appears Well, No Apparent Distress HEENT: Positive: PERRL, Normocephaly, Mucus Membranes Moist Neck: Positive: neck supple, trachea midline Cardiac: Positive: Reg Rate and Rhythm, S1/S2 Lungs: Positive: clear to auscultation Neuro: Positive: Grossly Intact, Cranial Nerve 2-12 Intact Abdomen: Negative: Tender Skin: Negative: Rash, Wound Musculoskeletal: No Pain Extremities: Absent: edema - Labs and Meds CBC 07/11/18 Range/Units 04:54 WBC 12.9 H (4.5-11.0) K/mm3 RBC 4.17 (3.65-5.03) M/mm3 Hgb 12.3 (11.8-15.2) gm/dl Hct 37.3 (35.5-45.6) % Plt Count 123 L (140-440) K/mm3 Lymph # 1.0 L (1.2-5.4) K/mm3 [place] # 0.7 (0.0-0.8) K/mm3 Eos # 0.0 (0.0-0.4) K/mm3 Baso # 0.0 (0.0-0.1) K/mm3 Comprehensive Metabolic Panel 07/11/18 Range/Units 04:54 Sodium 140 D (137-145) mmol/L Potassium 4.3 (3.6-5.0) mmol/L Chloride 106.7 (98-107) mmol/L Carbon Dioxide 20 L (22-30) mmol/L BUN 25 H (9-20) mg/dL Creatinine 1.4 (0.8-1.5) mg/dL Glucose 113 H (75-100) mg/dL Calcium 8.6 (8.4-10.2) mg/dL - Imaging and Cardiology EKG: report reviewed, image reviewed Echo: report reviewed (EF 50-55%, mod LVH, mild MR, trivial pericardial effusion. ) - Telemetry EKG Rhythm: Sinus Rhythm - EKG Sinus rhythms and dysrhythmias: sinus rhythm Repolarization changes or abnormalities: ST or T wave suggestive of ischemia - Allied health notes Allied health notes reviewed: nursing
[2018-07-11] MEDS: CORDARONE PO SCH ×2 (10:58→21:02)
[2018-07-11] MEDS: ROCEPHIN/NS 2 GM/100 ML 2 GM/100 ML BAG IV SCH (10:58)
[2018-07-11] MEDS: TIVICAY PO SCH (10:59)
[2018-07-11] MEDS ORDERED: NACL 0.9% 500 ML 500 ML IV SCH (11:00)
[2018-07-11] MEDS: SODIUM CHLORIDE FLUSH SYRINGE 10 ML IV SCH ×2 (11:14→23:07)
[2018-07-11 12:16] LABS: CD4/CD8 Ratio 0.88 (0.86-5.00)
[2018-07-11] MEDS: COLACE PO SCH ×2 (12:17→21:03)
--- NOTE | 2018-07-11 14:13 | XRay Report ---
PORTABLE CHEST INDICATION: Shortness of breath. COMPARISON: Yesterday. FINDINGS: Portable, frontal chest radiograph, 1:52 PM, 07/11/2018 demonstrates better inspiration with clearing of slight pulmonary haziness. No significant pleural effusions or CHF. Stable cardiomediastinal silhouette/possible cardiomegaly. Interval extubation and Dobbhoff tube removal. Stable right upper extremity PICC tip along the distal SVC. EKG leads. Intact bones. CONCLUSION: No acute significant chest radiographic abnormality at this time, as detailed above. Thank you for the opportunity to participate in this patient's care.
--- NOTE | 2018-07-11 14:25 | Nuclear Medicine Report ---
VENTILATION PERFUSION SCAN INDICATION: Shortness of breath. COMPARISON: None similar. FINDINGS: VQ scan performed in anterior, posterior, lateral and oblique projections. 5 mCi of technetium 99m MAA was used for the perfusion assessment while 15 millicuries of Xenon 133 was utilized for the ventilation portion of the study. Ventilation images demonstrate fairly homogenous radiotracer distribution throughout both lungs, though mild retention towards the bases noted. The perfusion however is mismatched with the ventilation with at least 2 moderate to large wedge-shaped segmental filling defects noted, one about the left lung apex possibly involving the apicoposterior segment while the other noted in the peripheral right midlung zone. Accompanying chest radiograph suggests mild cardiomegaly with grossly clear lungs. CONCLUSION: High probability exam for pulmonary embolism. Please correlate. I phoned the above results to Ms. Lao, 2:15 PM, 07/11/2018. Thank you for the opportunity to participate in this patient's care.
--- NOTE | 2018-07-11 14:38 | Event Note ---
Date: 07/11/18 V/Q scan high prob for PE. Will order chest CTA for further eval and initiate IVF. Monitor renal indices. Cont heparin gtt. Will cancel coronary angiography at this time. Pt would benefit from hematology evaluation as his DVTs and PE appear unprovoked, also consider vascular consultation. D/w Dr. Kelly. Karan [place], PLATING INSPECTOR / DR. Heladio FREDERICK
--- NOTE | 2018-07-11 14:51 | Event Note ---
Date: 07/11/18 58 year old male with cardiac arrest with presentation to the hospital with hypotension and tachycardia with resolution of tachycardia after 2 hrs. Echocardiogram demonstrates no right sided heart dysfunction. VQ scan high probability. Bilateral lower extremity DVTs. CTA pending. Given lack of right heart strain on echocardiogram and resolution of tachycardia and hypotension, no urgent vascular procedures anticipated. May be candidate for IVC filter to prevent additional thrombotic load to lungs. Recommend anticoagulation for now. Will evaluate tomorrow once CTA completed.
--- NOTE | 2018-07-11 15:04 | Progress Note ---
Assessment and Plan Assessment and plan: 58 year old man who presented to the emergency room. He was at a local store when he suddenly experienced loss of consciousness. He was brought by the EMS with cardiac arrest. He received CPR, he was in pulseless v-fib. He was shocked receive chest compressions and medications. He had return of circulation. Past medical history includes HIV Cardiac heart is secondary to V. fib - Patient was shocked and chest compression was done and resuscitated successfully - Cardiology consulted and patient is on heparin, metoprolol, amiodarone and aspirin PE - VQ scan was done and showed high probability PE - Continue heparin, will check CTA - Hematology and vascular consulted - Discussed with Dr. Freed and said his patient didn't have any tachycardia, echo didn't show any right heart strain; no emergent vascular intervention needed and will see the patient tomorrow. SIRS, fever, lactic acidosis, suspect septic shock - ABX, ID consult, cont pressors. Blood cultures are negative so far - UA and cxr neg HIV - Resume his HIV medications Acute respiratory failure on mv <96 hrs - Patient extubated on 07/10 Hypokalemia, repleted Acute kidney injury likely due to ATN - Resolved with IV fluids Transaminitis likely to shock liver - Improving MYOCARDIAL INFARCTION, elevated troponin after CPR - Cardiology is following SUBCLINICAL HYPOTHYROIDISM, ELEVATED TSH, NORMAL FREE T4 - No treatment needed Disposition; transferred to telemetry floor History Interval history: Patient was seen and this morning, patient was extubated on 07/10. On intranasal oxygen, saturating well. Hospitalist Physical - Physical exam Narrative exam: Patient was saturating well on intranasal oxygen. The patient appeared well nourished and normally developed. Vital signs as documented. Head exam is unremarkable. No scleral icterus . Neck is without jugular venous distension, thyromegaly, or carotid bruits. Lungs are clear to auscultation. Cardiac exam reveals regular rate and Rhythm. Abdominal exam reveals normal bowel sounds. Extremities are nonedematous and both femoral and pedal pulses are normal. [facility] HEAD: Patient was alert and oriented. No focal neurologic deficits. - Constitutional Vitals: Temp Pulse Resp BP Pulse Ox 98.6 F 64 16 146/80 94 07/11/18 11:25 07/11/18 14:19 07/11/18 14:19 07/11/18 13:01 07/11/18 13:01 General appearance: Present: other (intubated, following commands appropriately ) Results - Labs CBC & Chem 7: 07/11/18 04:54 07/11/18 04:54 Labs: Laboratory Last Values WBC 12.9 K/mm3 (4.5-11.0) H 07/11/18 04:54 RBC 4.17 M/mm3 (3.65-5.03) 07/11/18 04:54 Hgb 12.3 gm/dl (11.8-15.2) 07/11/18 04:54 Hct 37.3 % (35.5-45.6) 07/11/18 04:54 MCV 89 fl (84-94) 07/11/18 04:54 MCH 30 pg (28-32) 07/11/18 04:54 MCHC 33 % (32-34) 07/11/18 04:54 RDW 14.6 % (13.2-15.2) 07/11/18 04:54 Plt Count 123 K/mm3 (140-440) L 07/11/18 04:54 Lymph % (Auto) 7.6 % (13.4-35.0) L 07/11/18 04:54 [place] % (Auto) 5.2 % (0.0-7.3) 07/11/18 04:54 Eos % (Auto) 0.0 % (0.0-4.3) 07/11/18 04:54 Baso % (Auto) 0.1 % (0.0-1.8) 07/11/18 04:54 Lymph # 1.0 K/mm3 (1.2-5.4) L 07/11/18 04:54 Kidder # 0.7 K/mm3 (0.0-0.8) 07/11/18 04:54 Eos # 0.0 K/mm3 (0.0-0.4) 07/11/18 04:54 Baso # 0.0 K/mm3 (0.0-0.1) 07/11/18 04:54 Add Manual Diff Complete 07/07/18 14:45 Total Counted 100 07/07/18 14:45 Seg Neutrophils % 87.1 % (40.0-70.0) H 07/11/18 04:54 Seg Neuts % (Manual) 29.0 % (40.0-70.0) L 07/07/18 14:45 0 % 07/07/18 14:45 66.0 % (13.4-35.0) H 07/07/18 14:45 Reactive Lymphs % (Man) 0 % 07/07/18 14:45 3.0 % (0.0-7.3) 07/07/18 14:45 1.0 % (0.0-4.3) 07/07/18 14:45 1.0 % (0.0-1.8) 07/07/18 14:45 0 % 07/07/18 14:45 0 % 07/07/18 14:45 0 % 07/07/18 14:45 0 % 07/07/18 14:45 Nucleated RBC % Not Reportable 07/07/18 14:45 Seg Neutrophils # 11.3 K/mm3 (1.8-7.7) H 07/11/18 04:54 Seg Neutrophils # Man 2.7 K/mm3 (1.8-7.7) 07/07/18 14:45 Band Neutrophils # 0.0 K/mm3 07/07/18 14:45 Abs Lymphs (Manual) 1817 cells/uL (850-3900) 07/09/18 10:16 6.1 K/mm3 (1.2-5.4) H 07/07/18 14:45 Abs React Lymphs (Man) 0.0 K/mm3 07/07/18 14:45 0.3 K/mm3 (0.0-0.8) 07/07/18 14:45 0.1 K/mm3 (0.0-0.4) 07/07/18 14:45 0.1 K/mm3 (0.0-0.1) 07/07/18 14:45 0.0 K/mm3 07/07/18 14:45 0.0 K/mm3 07/07/18 14:45 0.0 K/mm3 07/07/18 14:45 Blast Cells # 0.0 K/mm3 07/07/18 14:45 WBC Morphology Not Reportable 07/07/18 14:45 Hypersegmented Neuts Not Reportable 07/07/18 14:45 Hyposegmented Neuts Not Reportable 07/07/18 14:45 Hypogranular Neuts Not Reportable 07/07/18 14:45 1+ 07/07/18 14:45 Not Reportable 07/07/18 14:45 Not Reportable 07/07/18 14:45 Not Reportable 07/07/18 14:45 Not Reportable 07/07/18 14:45 Not Reportable 07/07/18 14:45 Appears normal 07/07/18 14:45 Not Reportable 07/07/18 14:45 Plt Clumps, EDTA Not Reportable 07/07/18 14:45 Not Reportable 07/07/18 14:45 Not Reportable 07/07/18 14:45 Not Reportable 07/07/18 14:45 Plt Morphology Comment Not Reportable 07/07/18 14:45 RBC Morphology Not Reportable 07/07/18 14:45 Dimorphic RBCs Not Reportable 07/07/18 14:45 Not Reportable 07/07/18 14:45 Not Reportable 07/07/18 14:45 Few 07/07/18 14:45 Not Reportable 07/07/18 14:45 Not Reportable 07/07/18 14:45 Not Reportable 07/07/18 14:45 Not Reportable 07/07/18 14:45 Not Reportable 07/07/18 14:45 Not Reportable 07/07/18 14:45 Not Reportable 07/07/18 14:45 Not Reportable 07/07/18 14:45 1+ 07/07/18 14:45 Not Reportable 07/07/18 14:45 Not Reportable 07/07/18 14:45 Not Reportable 07/07/18 14:45 Not Reportable 07/07/18 14:45 Not Reportable 07/07/18 14:45 Not Reportable 07/07/18 14:45 Not Reportable 07/07/18 14:45 Acanthocytes (Spur) Not Reportable 07/07/18 14:45 Rouleaux Not Reportable 07/07/18 14:45 Not Reportable 07/07/18 14:45 Not Reportable 07/07/18 14:45 Not Reportable 07/07/18 14:45 Not Reportable 07/07/18 14:45 Hem Pathologist Commnt No 07/07/18 14:45 PT 15.9 Sec. (12.2-14.9) H 07/08/18 Unknown INR 1.19 (0.87-1.13) H 07/08/18 Unknown APTT 26.0 Sec. (24.2-36.6) 07/08/18 Unknown 3341.55 ng/mlDDU (0-234) H 07/09/18 10:16 Heparin Anti-Xa Level 0.17 U.I./ml (0.3-0.7) L 07/11/18 12:32 POC ABG pH 7.321 (7.35-7.45) L 07/10/18 12:05 POC ABG pCO2 38.6 (35-45) 07/10/18 12:05 POC ABG pO2 89 (80-105) 07/10/18 12:05 POC ABG HCO3 19.9 (22-26 mml/L) 07/10/18 12:05 POC ABG Total CO2 21 (23-27mmol/L) 07/10/18 12:05 POC ABG O2 Sat 96 07/10/18 12:05 POC ABG Base Excess -6 ((-2) - (+3)mmol/L) 07/10/18 12:05 28 % 07/10/18 12:05 Sodium 140 mmol/L (137-145) D 07/11/18 04:54 Potassium 4.3 mmol/L (3.6-5.0) 07/11/18 04:54 Chloride 106.7 mmol/L (98-107) 07/11/18 04:54 Carbon Dioxide 20 mmol/L (22-30) L 07/11/18 04:54 18 mmol/L 07/11/18 04:54 BUN 25 mg/dL (9-20) H 07/11/18 04:54 1.4 mg/dL (0.8-1.5) 07/11/18 04:54 Estimated GFR 52 ml/min 07/11/18 04:54 18 % 07/11/18 04:54 Glucose 113 mg/dL (75-100) H 07/11/18 04:54 POC Glucose 108 (70-105) H 07/11/18 10:43 Lactic Acid 1.90 mmol/L (0.7-2.0) 07/08/18 06:58 Calcium 8.6 mg/dL (8.4-10.2) 07/11/18 04:54 Magnesium 1.80 mg/dL (1.7-2.3) 07/11/18 04:54 0.50 mg/dL (0.1-1.2) 07/10/18 09:00 AST 76 units/L (5-40) H 07/10/18 09:00 ALT 128 units/L (7-56) H 07/10/18 09:00 50 units/L (35-129) 07/10/18 09:00 62.0 umol/L (25-60) H 07/07/18 15:15 734 units/L (55-170) H 07/09/18 16:12 CK-MB (CK-2) 13.0 ng/mL (0.0-4.0) H 07/09/18 04:00 CK-MB (CK-2) Rel Index 1.3 (0-4) 07/09/18 04:00 1.430 ng/mL (0.00-0.029) H* 07/09/18 04:00 12.60 mg/dL (0.00-1.30) H 07/09/18 16:12 6.0 g/dL (6.3-8.2) L 07/10/18 09:00 2.5 g/dL (3.9-5) L 07/10/18 09:00 0.7 % 07/10/18 09:00 Triglycerides 42 mg/dL (2-149) 07/10/18 04:23 Cholesterol 193 mg/dL (50-199) 07/07/18 14:45 127 mg/dL (50-130) 07/07/18 14:45 71 mg/dL (40-59) H 07/07/18 14:45 2.71 % 07/07/18 14:45 TSH 8.870 mlU/mL (0.270-4.200) H 07/07/18 14:45 Free T4 0.89 ng/dL (0.76-1.46) 07/07/18 14:45 4.2 ug/dL (4.0-12.0) 07/09/18 10:16 Yellow (Yellow) 07/07/18 18:07 Clear (Clear) 07/07/18 18:07 6.0 (5.0-7.0) 07/07/18 18:07 Ur Specific [place] 1.010 (1.003-1.030) 07/07/18 18:07 30 mg/dl mg/dL (Negative) 07/07/18 18:07 50 mg/dL (Negative) 07/07/18 18:07 Neg mg/dL (Negative) 07/07/18 18:07 Mod (Negative) 07/07/18 18:07 Neg (Negative) 07/07/18 18:07 Neg (Negative) 07/07/18 18:07 < 2.0 mg/dL (<2.0) 07/07/18 18:07 Ur Leukocyte Esterase Neg (Negative) 07/07/18 18:07 2.0 /HPF (0.0-6.0) 07/07/18 18:07 3.0 /HPF (0.0-6.0) 07/07/18 18:07 Few /HPF 07/07/18 18:07 Salicylates < 0.3 mg/dL (2.8-20.0) L 07/07/18 14:45 Acetaminophen < 5.0 ug/mL (10.0-30.0) L 07/07/18 14:45 Plasma/Serum Alcohol < 0.01 % (0-0.07) 07/07/18 14:45 Lymph Enumerat CD4/CD8 0.88 (0.86-5.00) 07/09/18 10:16 % CD3 Cells 70 % (57-85) 07/09/18 10:16 1266 cells/uL (840-3060) 07/09/18 10:16 % CD4 Cells 33 % (30-61) 07/09/18 10:16 612 cells/uL (490-1740) 07/09/18 10:16 % CD8 Cells 38 % (12-42) 07/09/18 10:16 696 cells/uL (180-1170) 07/09/18 10:16 % CD19 Cells 12 % (6-29) 07/09/18 10:16 216 cells/uL (110-660) 07/09/18 10:16 Influenza A (Rapid) Negative (Negative) 07/09/18 18:59 Influenza A (RT-PCR) Negative (Negative) 07/09/18 Unknown Influenza B (Rapid) Negative (Negative) 07/09/18 18:59 Influenza B (RT-PCR) Negative (Negative) 07/09/18 Unknown Blood Type O POSITIVE 07/07/18 14:45 Antibody Screen Negative 07/07/18 14:45 Active Medications - Current Medications Current Medications: Generic Name Dose Route Start Last Admin Trade Name Freq PRN Reason Stop Dose Admin Abacavir Sulfate 300 mg 07/08/18 10:00 07/11/18 10:58 Ziagen PO 300 mg Q12HR KATIANA Administration Albuterol 2.5 mg 07/07/18 16:55 Proventil IH Q3HRT PRN Shortness Of Breath Amiodarone HCl 200 mg 07/10/18 22:00 07/11/18 10:58 Cordarone PO 200 mg BID KATIANA Administration Lipase/Protease/Amylase 1 each 07/08/18 15:[address] 10,500 Unit FEEDTUBE PRN PRN For Clogged Feeding Tube Aspirin 325 mg 07/11/18 10:00 07/11/18 10:53 Aspirin PO 325 mg QDAY KATIANA Administration Atorvastatin Calcium 20 mg 07/10/18 22:00 07/10/18 21:15 Lipitor PO 20 mg QHS KATIANA Administration Docusate Sodium 100 mg 07/11/18 12:00 07/11/18 12:17 Colace PO 100 mg BID KATIANA Administration Famotidine 20 mg 07/08/18 10:00 07/11/18 10:52 Pepcid IV 20 mg BID KATIANA Administration Hydrocortisone Sodium Succinate 100 mg 07/09/18 14:00 07/11/18 06:04 Solu-Cortef IV 100 mg Q8HR KATIANA Administration Hydrophilic Ointment 1 applic 07/07/18 15:10 Vaseline Lip Therapy TP Q2HR PRN Dry Lips Heparin Sodium/Sodium Chloride 25,000 unit in 500 mls @ 20 mls/hr 07/08/18 12:00 07/11/18 12:50 Heparin/ 0.45% Nacl-25,000 Unit/500 Ml IV 1,500 units/hr TITRATE KATIANA 30 mls/hr Titration Protocol 1,000 UNITS/HR Metronidazole 500 mg in 100 mls @ 100 mls/hr 07/10/18 14:00 07/11/18 06:04 Flagyl 500 Mg/100 Ml IV 100 mls/hr Q8HR KATIANA Administration Ceftriaxone Sodium 2 gm in 100 mls @ 200 mls/hr 07/10/18 10:00 07/11/18 10:58 Rocephin/Ns 2 Gm/100 Ml IV 200 mls/hr Q24HR KATIANA Administration Sodium Chloride 500 mls @ 50 mls/hr 07/11/18 11:00 Nacl 0.9% 500 Ml IV 07/11/18 20:59 DIRECT KATIANA Sodium Chloride 1,000 mls @ 75 mls/hr 07/11/18 15:00 Nacl 0.9% 1000 Ml IV DIRECT KATIANA Ibuprofen 400 mg 07/09/18 20:32 07/09/18 21:04 Motrin PO 400 mg Q6H PRN Administration Fever >101 Insulin Human Lispro 0 unit 07/08/18 14:00 07/11/18 12:00 Humalog SUB-Q Not Given Q6HR [facility] Protocol Lamivudine 150 mg 07/08/18 10:00 07/11/18 10:56 Epivir PO 150 mg Q12HR KATIANA Administration Metoprolol Tartrate 25 mg 07/10/18 22:00 07/11/18 10:53 Lopressor PO 25 mg BID [facility] Administration Multi-Ingred Cream/Lotion/Oil/Oint 1 applic 07/07/18 15:10 Artificial Tears Ophth Oint OU Q4HR PRN Dry Eye(s) Ondansetron HCl 4 mg 07/10/18 14:54 07/10/18 15:12 Zofran IV 4 mg Q8H PRN Administration Nausea And Vomiting Simple Syrup 15 ml 07/08/18 15:34 Simple Syrup FEEDTUBE PRN PRN Hypoglycemia Simple Syrup 30 ml 07/08/18 15:34 Simple Syrup FEEDTUBE PRN PRN Hypoglycemia Sodium Bicarbonate 325 mg 07/08/18 15:34 Sodium Bicarbonate FEEDTUBE PRN PRN For Clogged Feeding Tube Sodium Chloride 10 ml 07/07/18 22:00 07/11/18 11:14 Sodium Chloride Flush Syringe 10 Ml IV 10 ml BID KATIANA Administration Sodium Chloride 10 ml 07/07/18 16:55 Sodium Chloride Flush Syringe 10 Ml IV PRN PRN LINE FLUSH Nutrition/Malnutrition Assess - Dietary Evaluation Nutrition/Malnutrition Findings: Nutrition Notes Start: 07/08/18 15:18 Freq: Status: Active Protocol: Document 07/11/18 10:38 CP (Rec: 07/11/18 10:40 CP [id number]) Co-Sign 07/11/18 10:38 LP Nutrition Notes Initial or Follow up Brief Note Current Diagnosis Acute Kidney Injury,Heart Failure,Respiratory Failure Other Pertinent Diagnosis HIV, MA Current Diet NPO Subjective/Other Information Pt is being extubated today as discussed in rounds. RN stated that she will order a cardiac diet for the pt. Nutrition Intervention Follow-Up By: 07/16/18 Additional Comments F/U: Diet advancement/PO intake
[2018-07-11 16:51] LABS: HIV-1 RNA QN PCR <1.30 Log cps/mL; HIV-1 RNA QN PCR <20 Copies/mL
--- NOTE | 2018-07-11 17:40 | Cat Scan Report ---
PROCEDURE: CT ANGIO CHEST TECHNIQUE: CT examination of the chest after IV contrast. Multiplanar angiographic image post processing. HISTORY: s/p cardiac arrest; V/Q scan high prob PE COMPARISONS: Lung bases scan 07/11/2018 FINDINGS: Slight cardiomegaly without pericardial effusion. Intact normal caliber thoracic aorta. Normal-appear ing esophagus. No hilar mass or mediastinal adenopathy. Moderate bilateral pleural effusions layer posteriorly. Pulmonary artery filling defects suggestive of nonocclusive emboli to the following distribution: Right upper lobe subsegmental branches Right lower lobe segmental and subsegmental branches Left upper lobe subsegmental branch Lingula segmental branch Left lower lobe subsegmental branches Nonspecific consolidation in both lower lobes posteriorly, right more the left. This may be atelectas is or pneumonia. Differential includes ischemia from pulmonary emboli. A smoothly marginated hypodense right hepatic lobe lesion is nonspecific and statistically most likel y reflects a cyst or hemangioma. 2 mm nonobstructing right renal calculus. No acute fracture. No pneumothorax. Nonspecific patchy opacity scattered throughout both lungs diffusely. This may be edema and/or pneumo nitis. A right venous catheter is in place with distal tip near the cavoatrial junction region. IMPRESSION: Bilateral pulmonary artery filling defects suggestive multifocal nonocclusive emboli Slight cardiomegaly Moderate bilateral pleural effusions layer posteriorly. Bilateral lower lobe consolidation may be com pressive atelectasis or pneumonitis. Differential includes ischemia focal pulmonary Nonspecific patchy opacity scattered throughout the lung parenchyma diffusely may be edema and/or pne umonitis 2 mm nonobstructing right renal calculus 07/11/2018 At 5:32 PM EST: I discussed the findings over the phone with patient's nurse, STEFFEN eagle. She said she would call the results to the patient's healthcare provider This document is electronically signed by Robby Moore MD., Jul 11 2018 05:37:48 PM ET
--- NOTE | 2018-07-11 17:51 | Progress Note ---
Assessment and Plan Cultures: Blood culture 07/09/2018 no growth today. Tracheal asp 07/09/2018 no growth today. Assessment: 58 y/o male with history of HIV compliant on triumeq, unknown CD4/VL, admitted on 07/07/2018 after cardiac arrest at work: 1) SIRS with shock ? cardiogenic ? septic: off pressors. Fever resolved Etiology unclear. ?asp pneumonaitis +/- DVT +/- Possible from acute PA. Blood culture 07/09/2018 no growth today. Influenza PCR neg. 2) Kyn-yl-aiiircte cardiac arrest 3) Presumed pneumonitis v/s Staph sputum colonization 4) Acute PA in the setting of possible viral infection: ECG suggestive of inferior ischemia, suspect late presentation AMI started on heparin gtt, pressors and amiodarone gtt. 5) Elevated LFTs: from cardiac arrest / viral infection, AST 352. ALT 394. Ammonia 62. 6) DARCY: not better 7) Acute encephalopathy: better; multifactorial. PA, hypothyroidism, viral infection. CT head neg. CT cervical spine neg. CXR neg. 8) Bilateral leg DVTs: US venous +bilateral DVTs. Recommendations: - follow-up tracheal asp - stop ceftriaxone and flagyl D2 of 5 - add po zyvox for now - continue ART renally adjusted - CD4/VL Will follow. Tresa Navarro MD Infectious Diseases [employer] [facility] [phone] O [phone] Subjective Date of service: 07/11/18 Principal diagnosis: Acute hypoxemic Resp failure; Syncope; HIV +ve; Obesity; DARCY. Interval history: Alert, no fever x 24h, talking, follows commands, no complaints. Objective - Exam Narrative Exam: General appearance: alert follows commands on NC O2 Eyes: bilateral clear discharge and mild sclerae erythema, moist conjunctivae; no lid-lag; PERRLA HENT: Atraumatic; oropharynx Neck: Trachea midline; supple, no thyromegaly or lymphadenopathy Lungs: sammy coarse BS CV: tachycardic Abdomen: Soft, NT Extremities: No peripheral edema or extremity lymphadenopathy Skin: Normal temperature, turgor and texture; no rash, ulcers or subcutaneous nodules Psych: no agitated. Neuro: alert follows commands - Constitutional Vitals: Vital Signs Temp Pulse Resp BP Pulse Ox 98.5 F 74 23 147/77 95 07/11/18 16:10 07/11/18 17:03 07/11/18 17:03 07/11/18 17:03 07/11/18 17:03 Temperature -Last 24 Hours Temperature 98.5 F Temperature 98.6 F Temperature 98.9 F Temperature 99.1 F Temperature 98.8 F - Labs CBC & Chem 7: 07/11/18 04:54 07/11/18 04:54 Labs: Abnormal lab results 07/10/18 07/10/18 07/11/18 Range/Units 17:07 23:37 04:54 WBC 12.9 H (4.5-11.0) K/mm3 Plt Count 123 L (140-440) K/mm3 Lymph % (Auto) 7.6 L (13.4-35.0) % Lymph # 1.0 L (1.2-5.4) K/mm3 Seg Neutrophils % 87.1 H (40.0-70.0) % Seg Neutrophils # 11.3 H (1.8-7.7) K/mm3 Heparin Anti-Xa Level (0.3-0.7) U.I./ml Carbon Dioxide (22-30) mmol/L BUN (9-20) mg/dL Glucose (75-100) mg/dL POC Glucose 138 H 120 H (70-105) 07/11/18 07/11/18 07/11/18 Range/Units 04:54 04:54 05:42 WBC (4.5-11.0) K/mm3 Plt Count (140-440) K/mm3 Lymph % (Auto) (13.4-35.0) % Lymph # (1.2-5.4) K/mm3 Seg Neutrophils % (40.0-70.0) % Seg Neutrophils # (1.8-7.7) K/mm3 Heparin Anti-Xa Level 0.22 L (0.3-0.7) U.I./ml Carbon Dioxide 20 L (22-30) mmol/L BUN 25 H (9-20) mg/dL Glucose 113 H (75-100) mg/dL POC Glucose 108 H (70-105) 07/11/18 07/11/18 Range/Units 10:43 12:32 WBC (4.5-11.0) K/mm3 Plt Count (140-440) K/mm3 Lymph % (Auto) (13.4-35.0) % Lymph # (1.2-5.4) K/mm3 Seg Neutrophils % (40.0-70.0) % Seg Neutrophils # (1.8-7.7) K/mm3 Heparin Anti-Xa Level 0.17 L (0.3-0.7) U.I./ml Carbon Dioxide (22-30) mmol/L BUN (9-20) mg/dL Glucose (75-100) mg/dL POC Glucose 108 H (70-105)
[2018-07-11] MEDS: HEPARIN/ 0.45% NACL-25,000 UNIT/500 ML 25,000 UNIT/500 ML BAG IV SCH (18:49)
[2018-07-11] MEDS: ZYVOX PO SCH (21:01)
[2018-07-12] MEDS: HumaLOG SUB-Q SCH ×4 (03:31→20:13)
[2018-07-12] MEDS: NACL 0.9% 1000 ML 1,000 ML IV SCH ×3 (05:15→20:20)
[2018-07-12 05:35] LABS: Hematocrit 34.7 % (35.5-45.6); Hemoglobin 11.6 gm/dl (11.8-15.2); Lymphocytes # (Auto) 1.1 K/mm3 (1.2-5.4); Mean Corpuscular HGB Conc 34 % (32-34); Mean Corpuscular Volume 89 fl (84-94); Monocytes # (Auto) 0.7 K/mm3 (0.0-0.8); Monocytes % (Auto) 6.4 % (0.0-7.3); Platelet Count 133 K/mm3 (140-440); Red Blood Count 3.92 M/mm3 (3.65-5.03); Red Cell Distribution Width 14.8 % (13.2-15.2)
[2018-07-12 05:48] LABS: INR 1.23 (0.87-1.13)
[2018-07-12 06:02] LABS: Albumin 2.7 g/dL (3.9-5); Calcium 8.1 mg/dL (8.4-10.2)
[2018-07-12] MEDS: ZYVOX PO SCH (09:00)
[2018-07-12] MEDS: CORDARONE PO SCH (09:00)
[2018-07-12] MEDS: TIVICAY PO SCH (09:00)
[2018-07-12] MEDS: ASPIRIN PO SCH (09:00)
[2018-07-12] MEDS: ZIAGEN PO SCH ×2 (09:00→22:36)
[2018-07-12] MEDS: EPIVIR PO SCH ×2 (09:00→22:38)
[2018-07-12] MEDS: PEPCID IV SCH ×2 (09:00→22:38)
[2018-07-12] MEDS: COLACE PO SCH ×2 (09:01→22:36)
[2018-07-12] MEDS: LOPRESSOR PO SCH ×2 (09:01→22:37)
[2018-07-12] MEDS: SODIUM CHLORIDE FLUSH SYRINGE 10 ML IV SCH ×2 (09:01→22:39)
--- NOTE | 2018-07-12 09:08 | Progress Note ---
Assessment and Plan Acute hypoxemic respiratory failure, s/p mechanical ventilatory support. Acute syncopal episode/loss of consciousness Pulmonary embolism Human immunodeficiency virus positive. Obesity. Acute kidney injury. Mixed acidosis at presentation. Status post cardiac arrest with return of spontaneous circulation. History of congestive heart failure according to the notes. - continue full anticoagulation for VTE, transition to oral anticoagulant - continue bronchodilators with pulmonary hygiene per RT - continue to wean supplemental oxygen to keep O2 sats 88-90% - continue Anti-infectives per ID rec's - continue ART per ID precription - Monitor renal indices closely - Avoid nephrotoxic agents, adjust all medications for CrCL - Strict intake and output monitoring - Accuchecks with glycemic control. Target glucose of 140-180 mg/dL - Maintenance of sleep -wake cycle - Influenza and pneumonia vaccination per protocol ..care plan discussed at length with patient and family at bedside Discussed the need for anticoagulation for at least 6 months Also discussed the side effects and bleeding risk associated with anticoagulation Answered his questions about dietary restrictions-- with the NOACS, no restrictions. Stable for transfer to telemetry floor. ..discussed in ICU-IDT rounds Subjective Date of service: 07/12/18 Principal diagnosis: Acute hypoxemic Resp failure; Syncope; HIV +ve; Obesity; DARCY. Interval history: Patient is seen today for: Acute hypoxemic respiratory failure, s/p mechanical ventilatory support; Acute syncopal episode/loss of consciousness; Human immuno deficiency virus positive; Obesity; Acute kidney injury. Seen and examined at bedside; 24hour events reviewed; nursing and respiratory care staff consulted; no adverse overnight events reported to me;extubated, now on oxygen via NC. Sates he feels ok, denies any chest pain, no shortness of breath, no fevers or chills. ON heparin infusion, VQ postive for PE. Objective Vital Signs - 12hr 07/11/18 07/11/18 07/11/18 21:19 22:00 23:00 Temperature Pulse Rate 73 84 89 Pulse Rate [ From Monitor] Respiratory 20 16 22 Rate Blood Pressure 132/77 136/81 124/76 O2 Sat by Pulse 97 95 94 Oximetry 07/11/18 07/11/18 07/12/18 23:01 23:03 00:00 Temperature 97.9 F Pulse Rate 80 66 Pulse Rate [ From Monitor] Respiratory 23 17 Rate Blood Pressure 124/76 128/73 O2 Sat by Pulse 97 94 Oximetry 07/12/18 07/12/18 07/12/18 01:00 02:00 03:00 Temperature 98.9 F Pulse Rate 66 71 64 Pulse Rate [ 78 From Monitor] Respiratory 17 22 17 Rate Blood Pressure 129/73 129/73 128/72 O2 Sat by Pulse 94 93 91 Oximetry 07/12/18 07/12/18 07/12/18 03:34 04:00 05:00 Temperature Pulse Rate 66 64 Pulse Rate [ 64 From Monitor] Respiratory 23 19 18 Rate Blood Pressure 125/71 132/77 O2 Sat by Pulse 94 90 89 Oximetry 07/12/18 07/12/18 07/12/18 06:00 07:01 08:00 Temperature 98.8 F Pulse Rate 78 67 Pulse Rate [ From Monitor] Respiratory 11 L 12 Rate Blood Pressure 122/80 122/80 O2 Sat by Pulse 92 98 Oximetry 07/12/18 07/12/18 08:25 09:01 Temperature Pulse Rate 59 L Pulse Rate [ From Monitor] Respiratory Rate Blood Pressure 128/80 O2 Sat by Pulse 96 Oximetry Constitutional: no acute distress, other (middle aged, obese AAM , normocephalic and atraumatic) Eyes: non-icteric ENT: oropharynx moist Neck: supple, no lymphadenopathy, no JVD Effort: normal Ascultation: Bilateral: diminished breath sounds, rhonchi Percussion: Bilateral: not dull Cardiovascular: regular rate and rhythm, other (No R/M) Gastrointestinal: normoactive bowel sounds, soft, non-tender, non-distended Integumentary: normal Extremities: no cyanosis, pulses normal, no ischemia or petechiae, edema (trace to 1+) Neurologic: non-focal exam, pupils equal and round, CN II-XII normal, motor strength normal and Psychiatric: mood appropriate, affect normal CBC and BMP: 07/15/18 04:39 07/15/18 09:56 ABG, PT/INR, D-dimer: ABG POC ABG pH 7.321 (7.35-7.45) L 07/10/18 12:05 POC ABG pCO2 38.6 (35-45) 07/10/18 12:05 POC ABG pO2 89 (80-105) 07/10/18 12:05 POC ABG HCO3 19.9 (22-26 mml/L) 07/10/18 12:05 POC ABG Total CO2 21 (23-27mmol/L) 07/10/18 12:05 POC ABG O2 Sat 96 07/10/18 12:05 PT/INR, D-dimer PT 16.3 Sec. (12.2-14.9) H 07/12/18 05:15 INR 1.23 (0.87-1.13) H 07/12/18 05:15 3341.55 ng/mlDDU (0-234) H 07/09/18 10:16 Abnormal lab findings: Abnormal Labs 07/07/18 07/07/18 07/07/18 14:45 14:45 14:45 WBC Hgb Hct Plt Count Lymph % (Auto) [place] % (Auto) Lymph # [place] # Seg Neutrophils % Seg Neuts % (Manual) 29.0 L Lymphocytes % (Manual) 66.0 H Seg Neutrophils # Lymphocytes # (Manual) 6.1 H PT 15.5 H INR 1.16 H D-Dimer Heparin Anti-Xa Level POC ABG pH POC ABG pCO2 POC ABG pO2 Sodium Potassium 3.1 L Chloride Carbon Dioxide 17 L BUN Creatinine 1.9 H Glucose 218 H POC Glucose Lactic Acid Calcium AST 352 H ALT 394 H Ammonia Total Creatine Kinase CK-MB (CK-2) Troponin T 0.561 H* C-Reactive Protein Total Protein Albumin 3.5 L HDL Cholesterol 71 H TSH Salicylates Acetaminophen 07/07/18 07/07/18 07/07/18 14:45 14:45 14:45 WBC Hgb Hct Plt Count Lymph % (Auto) [place] % (Auto) Lymph # [place] # Seg Neutrophils % Seg Neuts % (Manual) Lymphocytes % (Manual) Seg Neutrophils # Lymphocytes # (Manual) PT INR D-Dimer Heparin Anti-Xa Level POC ABG pH POC ABG pCO2 POC ABG pO2 Sodium Potassium Chloride Carbon Dioxide BUN Creatinine Glucose POC Glucose Lactic Acid Calcium AST ALT Ammonia Total Creatine Kinase CK-MB (CK-2) Troponin T C-Reactive Protein Total Protein Albumin HDL Cholesterol TSH 8.870 H Salicylates < 0.3 L Acetaminophen < 5.0 L 07/07/18 07/07/18 07/07/18 15:15 15:15 15:30 WBC Hgb Hct Plt Count Lymph % (Auto) [place] % (Auto) Lymph # [place] # Seg Neutrophils % Seg Neuts % (Manual) Lymphocytes % (Manual) Seg Neutrophils # Lymphocytes # (Manual) PT INR D-Dimer Heparin Anti-Xa Level POC ABG pH 7.199 L POC ABG pCO2 60.0 H POC ABG pO2 325 H Sodium Potassium Chloride Carbon Dioxide BUN Creatinine Glucose POC Glucose Lactic Acid 5.30 H* Calcium AST ALT Ammonia 62.0 H Total Creatine Kinase CK-MB (CK-2) Troponin T C-Reactive Protein Total Protein Albumin HDL Cholesterol TSH Salicylates Acetaminophen 07/07/18 07/07/18 07/07/18 17:12 19:12 20:18 WBC Hgb Hct Plt Count Lymph % (Auto) [place] % (Auto) Lymph # [place] # Seg Neutrophils % Seg Neuts % (Manual) Lymphocytes % (Manual) Seg Neutrophils # Lymphocytes # (Manual) PT INR D-Dimer Heparin Anti-Xa Level POC ABG pH POC ABG pCO2 POC ABG pO2 193 H Sodium Potassium Chloride Carbon Dioxide BUN Creatinine Glucose POC Glucose Lactic Acid 5.30 H* 2.10 H* Calcium AST ALT Ammonia Total Creatine Kinase CK-MB (CK-2) Troponin T C-Reactive Protein Total Protein Albumin HDL Cholesterol TSH Salicylates Acetaminophen 07/07/18 07/07/18 07/07/18 22:56 22:56 Unknown WBC Hgb Hct Plt Count Lymph % (Auto) [place] % (Auto) Lymph # [place] # Seg Neutrophils % Seg Neuts % (Manual) Lymphocytes % (Manual) Seg Neutrophils # Lymphocytes # (Manual) PT INR D-Dimer Heparin Anti-Xa Level POC ABG pH POC ABG pCO2 POC ABG pO2 Sodium Potassium Chloride Carbon Dioxide BUN Creatinine Glucose POC Glucose Lactic Acid 5.00 H* Calcium AST ALT Ammonia Total Creatine Kinase CK-MB (CK-2) Troponin T 1.380 H* D 1.990 H* D C-Reactive Protein Total Protein Albumin HDL Cholesterol TSH Salicylates Acetaminophen 07/08/18 07/08/18 07/08/18 04:09 04:09 04:09 WBC Hgb Hct Plt Count Lymph % (Auto) [place] % (Auto) 11.9 H Lymph # [place] # 0.9 H Seg Neutrophils % Seg Neuts % (Manual) Lymphocytes % (Manual) Seg Neutrophils # Lymphocytes # (Manual) PT INR D-Dimer Heparin Anti-Xa Level POC ABG pH POC ABG pCO2 POC ABG pO2 Sodium Potassium Chloride Carbon Dioxide 21 L BUN Creatinine 1.6 H Glucose 71 L POC Glucose Lactic Acid 4.60 H* Calcium 8.2 L AST 321 H ALT 313 H Ammonia Total Creatine Kinase CK-MB (CK-2) Troponin T C-Reactive Protein Total Protein 5.9 L Albumin 3.3 L HDL Cholesterol TSH Salicylates Acetaminophen 07/08/18 07/08/18 07/08/18 04:41 18:20 Unknown WBC Hgb Hct Plt Count Lymph % (Auto) [place] % (Auto) Lymph # [place] # Seg Neutrophils % Seg Neuts % (Manual) Lymphocytes % (Manual) Seg Neutrophils # Lymphocytes # (Manual) PT 15.9 H INR 1.19 H D-Dimer Heparin Anti-Xa Level 0.18 L POC ABG pH POC ABG pCO2 POC ABG pO2 144 H Sodium Potassium Chloride Carbon Dioxide BUN Creatinine Glucose POC Glucose Lactic Acid Calcium AST ALT Ammonia Total Creatine Kinase CK-MB (CK-2) Troponin T C-Reactive Protein Total Protein Albumin HDL Cholesterol TSH Salicylates Acetaminophen 07/09/18 07/09/18 07/09/18 03:43 04:00 04:30 WBC Hgb Hct Plt Count Lymph % (Auto) [place] % (Auto) Lymph # [place] # Seg Neutrophils % Seg Neuts % (Manual) Lymphocytes % (Manual) Seg Neutrophils # Lymphocytes # (Manual) PT INR D-Dimer Heparin Anti-Xa Level 0.26 L POC ABG pH 7.331 L POC ABG pCO2 POC ABG pO2 Sodium Potassium Chloride Carbon Dioxide BUN Creatinine Glucose 105 H POC Glucose Lactic Acid Calcium 7.6 L AST 151 H ALT 192 H Ammonia Total Creatine Kinase 952 H CK-MB (CK-2) 13.0 H Troponin T 1.430 H* C-Reactive Protein Total Protein 5.6 L Albumin 2.9 L HDL Cholesterol TSH Salicylates Acetaminophen 07/09/18 07/09/18 07/09/18 05:53 10:16 16:12 WBC Hgb Hct Plt Count Lymph % (Auto) [place] % (Auto) Lymph # [place] # Seg Neutrophils % Seg Neuts % (Manual) Lymphocytes % (Manual) Seg Neutrophils # Lymphocytes # (Manual) PT INR D-Dimer 3341.55 H Heparin Anti-Xa Level POC ABG pH POC ABG pCO2 POC ABG pO2 Sodium Potassium Chloride Carbon Dioxide BUN Creatinine Glucose POC Glucose 106 H Lactic Acid Calcium AST ALT Ammonia Total Creatine Kinase CK-MB (CK-2) Troponin T C-Reactive Protein 12.60 H Total Protein Albumin HDL Cholesterol TSH Salicylates Acetaminophen 07/09/18 07/09/18 07/09/18 16:12 16:38 18:24 WBC Hgb Hct Plt Count Lymph % (Auto) [place] % (Auto) Lymph # [place] # Seg Neutrophils % Seg Neuts % (Manual) Lymphocytes % (Manual) Seg Neutrophils # Lymphocytes # (Manual) PT INR D-Dimer Heparin Anti-Xa Level POC ABG pH 7.335 L POC ABG pCO2 POC ABG pO2 69 L Sodium Potassium Chloride Carbon Dioxide BUN Creatinine Glucose POC Glucose 126 H Lactic Acid Calcium AST ALT Ammonia Total Creatine Kinase 734 H CK-MB (CK-2) Troponin T C-Reactive Protein Total Protein Albumin HDL Cholesterol TSH Salicylates Acetaminophen 07/09/18 07/10/18 07/10/18 18:59 00:15 04:33 WBC Hgb Hct Plt Count Lymph % (Auto) [place] % (Auto) Lymph # [place] # Seg Neutrophils % Seg Neuts % (Manual) Lymphocytes % (Manual) Seg Neutrophils # Lymphocytes # (Manual) PT INR D-Dimer Heparin Anti-Xa Level 0.23 L POC ABG pH 7.325 L POC ABG pCO2 POC ABG pO2 56 L Sodium Potassium Chloride Carbon Dioxide BUN Creatinine Glucose POC Glucose 129 H Lactic Acid Calcium AST ALT Ammonia Total Creatine Kinase CK-MB (CK-2) Troponin T C-Reactive Protein Total Protein Albumin HDL Cholesterol TSH Salicylates Acetaminophen 07/10/18 07/10/18 07/10/18 04:42 05:41 09:00 WBC 11.3 H Hgb Hct Plt Count 115 L Lymph % (Auto) 6.8 L [place] % (Auto) Lymph # 0.8 L [place] # Seg Neutrophils % 88.3 H Seg Neuts % (Manual) Lymphocytes % (Manual) Seg Neutrophils # 10.0 H Lymphocytes # (Manual) PT INR D-Dimer Heparin Anti-Xa Level POC ABG pH 7.270 L POC ABG pCO2 POC ABG pO2 78 L Sodium Potassium Chloride Carbon Dioxide BUN Creatinine Glucose POC Glucose 147 H Lactic Acid Calcium AST ALT Ammonia Total Creatine Kinase CK-MB (CK-2) Troponin T C-Reactive Protein Total Protein Albumin HDL Cholesterol TSH Salicylates Acetaminophen 07/10/18 07/10/18 07/10/18 09:00 12:05 12:49 WBC Hgb Hct Plt Count Lymph % (Auto) [place] % (Auto) Lymph # [place] # Seg Neutrophils % Seg Neuts % (Manual) Lymphocytes % (Manual) Seg Neutrophils # Lymphocytes # (Manual) PT INR D-Dimer Heparin Anti-Xa Level POC ABG pH 7.321 L POC ABG pCO2 POC ABG pO2 Sodium 133 L Potassium Chloride 107.2 H Carbon Dioxide 18 L BUN 24 H Creatinine 1.7 H Glucose 138 H POC Glucose 157 H Lactic Acid Calcium 7.8 L AST 76 H ALT 128 H Ammonia Total Creatine Kinase CK-MB (CK-2) Troponin T C-Reactive Protein Total Protein 6.0 L Albumin 2.5 L HDL Cholesterol TSH Salicylates Acetaminophen 07/10/18 07/10/18 07/11/18 17:07 23:37 04:54 WBC 12.9 H Hgb Hct Plt Count 123 L Lymph % (Auto) 7.6 L [place] % (Auto) Lymph # 1.0 L [place] # Seg Neutrophils % 87.1 H Seg Neuts % (Manual) Lymphocytes % (Manual) Seg Neutrophils # 11.3 H Lymphocytes # (Manual) PT INR D-Dimer Heparin Anti-Xa Level POC ABG pH POC ABG pCO2 POC ABG pO2 Sodium Potassium Chloride Carbon Dioxide BUN Creatinine Glucose POC Glucose 138 H 120 H Lactic Acid Calcium AST ALT Ammonia Total Creatine Kinase CK-MB (CK-2) Troponin T C-Reactive Protein Total Protein Albumin HDL Cholesterol TSH Salicylates Acetaminophen 07/11/18 07/11/18 07/11/18 04:54 04:54 05:42 WBC Hgb Hct Plt Count Lymph % (Auto) [place] % (Auto) Lymph # [place] # Seg Neutrophils % Seg Neuts % (Manual) Lymphocytes % (Manual) Seg Neutrophils # Lymphocytes # (Manual) PT INR D-Dimer Heparin Anti-Xa Level 0.22 L POC ABG pH POC ABG pCO2 POC ABG pO2 Sodium Potassium Chloride Carbon Dioxide 20 L BUN 25 H Creatinine Glucose 113 H POC Glucose 108 H Lactic Acid Calcium AST ALT Ammonia Total Creatine Kinase CK-MB (CK-2) Troponin T C-Reactive Protein Total Protein Albumin HDL Cholesterol TSH Salicylates Acetaminophen 07/11/18 07/11/18 07/11/18 10:43 12:32 19:57 WBC Hgb Hct Plt Count Lymph % (Auto) [place] % (Auto) Lymph # [place] # Seg Neutrophils % Seg Neuts % (Manual) Lymphocytes % (Manual) Seg Neutrophils # Lymphocytes # (Manual) PT INR D-Dimer Heparin Anti-Xa Level 0.17 L 0.18 L POC ABG pH POC ABG pCO2 POC ABG pO2 Sodium Potassium Chloride Carbon Dioxide BUN Creatinine Glucose POC Glucose 108 H Lactic Acid Calcium AST ALT Ammonia Total Creatine Kinase CK-MB (CK-2) Troponin T C-Reactive Protein Total Protein Albumin HDL Cholesterol TSH Salicylates Acetaminophen 07/12/18 07/12/18 07/12/18 05:15 05:15 05:15 WBC Hgb 11.6 L Hct 34.7 L Plt Count 133 L Lymph % (Auto) 11.0 L [place] % (Auto) Lymph # 1.1 L [place] # Seg Neutrophils % 82.6 H Seg Neuts % (Manual) Lymphocytes % (Manual) Seg Neutrophils # 8.5 H Lymphocytes # (Manual) PT 16.3 H INR 1.23 H D-Dimer Heparin Anti-Xa Level 0.29 L POC ABG pH POC ABG pCO2 POC ABG pO2 Sodium Potassium Chloride 109.3 H Carbon Dioxide BUN 27 H Creatinine 1.6 H Glucose 114 H POC Glucose Lactic Acid Calcium 8.1 L AST ALT 77 H Ammonia Total Creatine Kinase CK-MB (CK-2) Troponin T C-Reactive Protein Total Protein 5.8 L Albumin 2.7 L HDL Cholesterol TSH Salicylates Acetaminophen Chest x-ray: image reviewed Allied health notes reviewed: nursing
--- NOTE | 2018-07-12 09:35 | Progress Note ---
Assessment and Plan The patient is doing well following his DVT and small pulmonary embolism predominantly to the right lower lobe. Currently anticoagulated on heparin. Would recommend that the patient be transitioned to Eliquis or Xarelto. He will need to be on anticoagulation for at least 6 months. He may follow up with us in 1 month as an outpatient. Subjective Date of service: 07/12/18 Principal diagnosis: Acute hypoxemic Resp failure; Syncope; HIV +ve; Obesity; DARCY. Interval history: CTA were reviewed. Lower extremity ultrasound reviewed. Patient with small pulmonary embolism burden of predominantly in the right lower lobe. He has left calf posterior tibial vein DVT. Currently satting 97% on oxygen 2 L by nasal cannula. No difficulty breathing. The patient is not complaining of any pain. Objective - Constitutional Vitals: Vital Signs - 12hr 07/11/18 07/11/18 07/11/18 22:00 23:00 23:01 Temperature Pulse Rate 84 89 80 Pulse Rate [ From Monitor] Respiratory 16 22 23 Rate Blood Pressure 136/81 124/76 124/76 O2 Sat by Pulse 95 94 97 Oximetry 07/11/18 07/12/18 07/12/18 23:03 00:00 01:00 Temperature 97.9 F Pulse Rate 66 66 Pulse Rate [ 78 From Monitor] Respiratory 17 17 Rate Blood Pressure 128/73 129/73 O2 Sat by Pulse 94 94 Oximetry 07/12/18 07/12/18 07/12/18 02:00 03:00 03:34 Temperature 98.9 F Pulse Rate 71 64 Pulse Rate [ 64 From Monitor] Respiratory 22 17 23 Rate Blood Pressure 129/73 128/72 O2 Sat by Pulse 93 91 94 Oximetry 07/12/18 07/12/18 07/12/18 04:00 05:00 06:00 Temperature Pulse Rate 66 64 78 Pulse Rate [ From Monitor] Respiratory 19 18 11 L Rate Blood Pressure 125/71 132/77 122/80 O2 Sat by Pulse 90 89 92 Oximetry 07/12/18 07/12/18 07/12/18 07:01 08:00 08:25 Temperature 98.8 F Pulse Rate 67 Pulse Rate [ From Monitor] Respiratory 12 Rate Blood Pressure 122/80 O2 Sat by Pulse 98 96 Oximetry 07/12/18 09:01 Temperature Pulse Rate 59 L Pulse Rate [ From Monitor] Respiratory Rate Blood Pressure 128/80 O2 Sat by Pulse Oximetry General appearance: Present: no acute distress - EENT Eyes: EOM intact ENT: hearing intact - Neck Neck: supple - Respiratory Respiratory effort: normal - Breasts Breasts: deferred - Cardiovascular Rhythm: regular Extremities: no ischemia, No edema - Gastrointestinal General gastrointestinal: Present: deferred Rectal Exam: deferred - Genitourinary Male genitourinary: deferred - Integumentary Integumentary: clear, warm - Musculoskeletal Musculoskeletal: no generalized weakness - Neurologic Neurologic: no focal deficits, moves all extremities - Psychiatric Psychiatric: appropriate mood/affect, cooperative - Labs CBC & Chem 7: 07/12/18 05:15 07/12/18 05:15 Labs: Abnormal lab results 07/11/18 07/11/18 07/11/18 Range/Units 10:43 12:32 19:57 Hgb (11.8-15.2) gm/dl Hct (35.5-45.6) % Plt Count (140-440) K/mm3 Lymph % (Auto) (13.4-35.0) % Lymph # (1.2-5.4) K/mm3 Seg Neutrophils % (40.0-70.0) % Seg Neutrophils # (1.8-7.7) K/mm3 PT (12.2-14.9) Sec. INR (0.87-1.13) Heparin Anti-Xa Level 0.17 L 0.18 L (0.3-0.7) U.I./ml Chloride (98-107) mmol/L BUN (9-20) mg/dL Creatinine (0.8-1.5) mg/dL Glucose (75-100) mg/dL POC Glucose 108 H (70-105) Calcium (8.4-10.2) mg/dL ALT (7-56) units/L Total Protein (6.3-8.2) g/dL Albumin (3.9-5) g/dL 07/12/18 07/12/18 07/12/18 Range/Units 05:15 05:15 05:15 Hgb 11.6 L (11.8-15.2) gm/dl Hct 34.7 L (35.5-45.6) % Plt Count 133 L (140-440) K/mm3 Lymph % (Auto) 11.0 L (13.4-35.0) % Lymph # 1.1 L (1.2-5.4) K/mm3 Seg Neutrophils % 82.6 H (40.0-70.0) % Seg Neutrophils # 8.5 H (1.8-7.7) K/mm3 PT 16.3 H (12.2-14.9) Sec. INR 1.23 H (0.87-1.13) Heparin Anti-Xa Level 0.29 L (0.3-0.7) U.I./ml Chloride 109.3 H (98-107) mmol/L BUN 27 H (9-20) mg/dL Creatinine 1.6 H (0.8-1.5) mg/dL Glucose 114 H (75-100) mg/dL POC Glucose (70-105) Calcium 8.1 L (8.4-10.2) mg/dL ALT 77 H (7-56) units/L Total Protein 5.8 L (6.3-8.2) g/dL Albumin 2.7 L (3.9-5) g/dL Medications & Allergies - Medications Allergies/Adverse Reactions: Allergies No Known Allergies Allergy (Verified 02/28/16 21:35) Home Medications: Home Medications Medication Instructions Recorded Confirmed Last Taken Type Abacavir/Dolutegravir/Lamivudi 1 each PO DAILY 02/28/16 02/28/16 Unknown History [Triumeq Tablet] Active Medications: Generic Name Dose Route Start Last Admin Trade Name Freq PRN Reason Stop Dose Admin Abacavir Sulfate 300 mg 07/08/18 10:00 07/12/18 09:00 Ziagen PO 300 mg Q12HR KATIANA Administration Albuterol 2.5 mg 07/07/18 16:55 Proventil IH Q3HRT PRN Shortness Of Breath Amiodarone HCl 200 mg 07/10/18 22:00 07/12/18 09:00 Cordarone PO 200 mg BID KATIANA Administration Lipase/Protease/Amylase 1 each 07/08/18 15:34 Pancreaztere Ritchie 10,500 Unit FEEDTUBE PRN PRN For Clogged Feeding Tube Aspirin 325 mg 07/11/18 10:00 07/12/18 09:00 Aspirin PO 325 mg QDAY KATIANA Administration Atorvastatin Calcium 20 mg 07/10/18 22:00 07/11/18 21:02 Lipitor PO 20 mg QHS KATIANA Administration Docusate Sodium 100 mg 07/11/18 12:00 07/12/18 09:01 Colace PO 100 mg BID KATIANA Administration Famotidine 20 mg 07/08/18 10:00 07/12/18 09:00 Pepcid IV 20 mg BID KATIANA Administration Hydrocortisone Sodium Succinate 100 mg 07/09/18 14:00 07/12/18 06:49 Solu-Cortef IV 100 mg Q8HR KATIANA Administration Hydrophilic Ointment 1 applic 07/07/18 15:10 Vaseline Lip Therapy TP Q2HR PRN Dry Lips Heparin Sodium/Sodium Chloride 25,000 unit in 500 mls @ 20 mls/hr 07/08/18 12:00 07/12/18 06:42 Heparin/ 0.45% Nacl-25,000 Unit/500 Ml IV 1,700 units/hr TITRATE KATIANA 34 mls/hr Titration Protocol 1,000 UNITS/HR Sodium Chloride 1,000 mls @ 75 mls/hr 07/11/18 15:00 07/12/18 05:15 Nacl 0.9% 1000 Ml IV 75 mls/hr DIRECT KATIANA Administration Ibuprofen 400 mg 07/09/18 20:32 07/09/18 21:04 Motrin PO 400 mg Q6H PRN Administration Fever >101 Insulin Human Lispro 0 unit 07/08/18 14:00 07/12/18 06:50 Humalog SUB-Q Not Given Q6HR [facility] Protocol Lamivudine 150 mg 07/08/18 10:00 07/12/18 09:00 Epivir PO 150 mg Q12HR KATIANA Administration Linezolid 600 mg 07/11/18 22:00 07/12/18 09:00 Zyvox PO 600 mg Q12HR KATIANA Administration Protocol Metoprolol Tartrate 25 mg 07/10/18 22:00 07/12/18 09:01 Lopressor PO Not Given BID KATIANA Multi-Ingred Cream/Lotion/Oil/Oint 1 applic 07/07/18 15:10 Artificial Tears Ophth Oint OU Q4HR PRN Dry Eye(s) Ondansetron HCl 4 mg 07/10/18 14:54 07/10/18 15:12 Zofran IV 4 mg Q8H PRN Administration Nausea And Vomiting Simple Syrup 15 ml 07/08/18 15:34 Simple Syrup FEEDTUBE PRN PRN Hypoglycemia Simple Syrup 30 ml 07/08/18 15:34 Simple Syrup FEEDTUBE PRN PRN Hypoglycemia Sodium Bicarbonate 325 mg 07/08/18 15:34 Sodium Bicarbonate FEEDTUBE PRN PRN For Clogged Feeding Tube Sodium Chloride 10 ml 07/07/18 22:00 07/12/18 09:01 Sodium Chloride Flush Syringe 10 Ml IV 10 ml BID KATIANA Administration Sodium Chloride 10 ml 07/07/18 16:55 Sodium Chloride Flush Syringe 10 Ml IV PRN PRN LINE FLUSH
--- NOTE | 2018-07-12 11:03 | Progress Note ---
Assessment and Plan Chest CTA positive for bilateral PE, vascular recommendations noted - pt on heparin gtt, they recommend that the patient be transitioned to Eliquis or Xarelto, will need to be on anticoagulation for at least 6 months. Hematology consultation pending. Suspect pt's cardiac arrest was secondary to PE. Will d/c PO amio as it is unclear whether VF actually occurred (no strips provided from cardiac arrest), suspect PEA. Decrease lopressor dosage in setting of sinus bradycardia noted this AM. Decrease ASA to 81mg daily and cont lipitor. Will plan for ischemic evaluation as OP. Currently stable cardiac status. Will sign off. Recommend pt follow up in our office with Dr. CM Padilla within 1-2 weeks of hospital discharge ([phone]). The patient has been seen in conjunction with Dr. Heladio Padilla who agrees with the assessment and plan of care. - Patient Problems (1) Cardiac arrest with successful resuscitation Current Visit: Yes Status: Acute (2) Acute pulmonary embolism Current Visit: Yes Status: Acute (3) DVT (deep venous thrombosis) Current Visit: Yes Status: Acute (4) Non-STEMI (non-ST elevated myocardial infarction) Current Visit: Yes Status: Acute (5) Acute respiratory failure Current Visit: Yes Status: Acute Qualifiers: Respiratory failure complication: unspecified whether with hypoxia or hypercapnia Qualified Code(s): J96.00 - Acute respiratory failure, unspecified whether with hypoxia or hypercapnia (6) Acute kidney injury Current Visit: Yes Status: Acute (7) Hypotension Current Visit: Yes Status: Resolved Qualifiers: Hypotension type: unspecified hypotension type Qualified Code(s): I95.9 - Hypotension, unspecified (8) HIV (human immunodeficiency virus infection) Current Visit: Yes Status: Chronic Qualifiers: HIV symptom status: unspecified Qualified Code(s): B20 - Human immunodeficiency virus [HIV] disease (9) Elevated TSH Current Visit: Yes Status: Chronic (10) Elevated LFTs Current Visit: Yes Status: Acute (11) Acidosis Current Visit: Yes Status: Acute Subjective Date of service: 07/12/18 Principal diagnosis: Acute hypoxemic Resp failure; Syncope; HIV +ve; Obesity; DARCY. Interval history: pt resting comfortably in bed, no current complaints. heparin gtt infusing. in SR with some sinus bradycardia this AM while asleep. Objective Last Vital Signs Temp 98.8 F 07/12/18 08:00 Pulse 77 07/12/18 10:01 Resp 19 07/12/18 10:01 BP 142/76 07/12/18 10:01 Pulse Ox 97 07/12/18 10:01 - Physical Examination General: Appears Well, No Apparent Distress HEENT: Positive: PERRL, Normocephaly, Mucus Membranes Moist Neck: Positive: neck supple, trachea midline Cardiac: Positive: Reg Rate and Rhythm, S1/S2 Lungs: Positive: clear to auscultation Neuro: Positive: Grossly Intact, Cranial Nerve 2-12 Intact Abdomen: Negative: Tender Skin: Negative: Rash, Wound Musculoskeletal: No Pain Extremities: Absent: edema - Labs and Meds Cardiac Enzymes 07/12/18 Range/Units 05:15 AST 40 (5-40) units/L Coagulation 07/12/18 Range/Units 05:15 PT 16.3 H (12.2-14.9) Sec. INR 1.23 H (0.87-1.13) CBC 07/12/18 Range/Units 05:15 WBC 10.3 (4.5-11.0) K/mm3 RBC 3.92 (3.65-5.03) M/mm3 Hgb 11.6 L (11.8-15.2) gm/dl Hct 34.7 L (35.5-45.6) % Plt Count 133 L (140-440) K/mm3 Lymph # 1.1 L (1.2-5.4) K/mm3 [place] # 0.7 (0.0-0.8) K/mm3 Eos # 0.0 (0.0-0.4) K/mm3 Baso # 0.0 (0.0-0.1) K/mm3 Comprehensive Metabolic Panel 07/12/18 Range/Units 05:15 Sodium 141 (137-145) mmol/L Potassium 4.1 (3.6-5.0) mmol/L Chloride 109.3 H (98-107) mmol/L Carbon Dioxide 22 (22-30) mmol/L BUN 27 H (9-20) mg/dL Creatinine 1.6 H (0.8-1.5) mg/dL Glucose 114 H (75-100) mg/dL Calcium 8.1 L (8.4-10.2) mg/dL AST 40 (5-40) units/L ALT 77 H (7-56) units/L Alkaline Phosphatase 44 (35-129) units/L Total Protein 5.8 L (6.3-8.2) g/dL Albumin 2.7 L (3.9-5) g/dL - Imaging and Cardiology EKG: report reviewed, image reviewed Echo: report reviewed (EF 50-55%, mod LVH, mild MR, trivial pericardial effusion. ) - Telemetry EKG Rhythm: Sinus Rhythm - EKG Sinus rhythms and dysrhythmias: sinus rhythm Repolarization changes or abnormalities: ST or T wave suggestive of ischemia - Allied health notes Allied health notes reviewed: nursing
[2018-07-12] MEDS: HEPARIN/ 0.45% NACL-25,000 UNIT/500 ML 25,000 UNIT/500 ML BAG IV SCH (12:47)
--- NOTE | 2018-07-12 13:20 | Progress Note ---
Assessment and Plan Cultures: Blood culture 07/09/2018 no growth today. Tracheal asp 07/09/2018 MSSA. Assessment: 58 y/o male with history of HIV compliant on triumeq, unknown CD4/VL, admitted on 07/07/2018 after cardiac arrest at work: 1) SIRS with shock ? cardiogenic ? septic: off pressors. Fever resolved Etiology unclear. ?asp pneumonaitis +/- DVT +/- Possible from acute AZ. Blood culture 07/09/2018 no growth today. Influenza PCR neg. 2) [id number] cardiac arrest 3) Presumed pneumonitis v/s Staph sputum colonization: MSSA 4) Acute AZ in the setting of possible viral infection: ECG suggestive of inferior ischemia, suspect late presentation AMI started on heparin gtt, pressors and amiodarone gtt. 5) Elevated LFTs: from cardiac arrest / viral infection, AST 352. ALT 394. Ammonia 62. 6) DARCY: not better 7) Acute encephalopathy: better; multifactorial. AZ, hypothyroidism, viral infec tion. CT head neg. CT cervical spine neg. CXR neg. 8) Bilateral leg DVTs: US venous +bilateral DVTs. 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 Interval history: Alert, no fever x 48h, talking, follows commands, no complaints. Objective - Exam Narrative Exam: General appearance: alert follows commands on NC O2 Eyes: bilateral clear discharge and mild sclerae erythema, moist conjunctivae; no lid-lag; PERRLA HENT: Atraumatic; oropharynx Neck: Trachea midline; supple, no thyromegaly or lymphadenopathy Lungs: sammy coarse BS CV: tachycardic Abdomen: Soft, NT Extremities: No peripheral edema or extremity lymphadenopathy Skin: Normal temperature, turgor and texture; no rash, ulcers or subcutaneous nodules Psych: no agitated. Neuro: alert follows commands - Constitutional Vitals: Vital Signs Temp Pulse Resp BP Pulse Ox 98.8 F 77 19 142/76 97 07/12/18 08:00 07/12/18 10:01 07/12/18 10:01 07/12/18 10:01 07/12/18 10:01 Temperature -Last 24 Hours Temperature 98.8 F Temperature 98.9 F Temperature 97.9 F Temperature 98.2 F Temperature 98.5 F - Labs CBC & Chem 7: 07/12/18 05:15 07/12/18 05:15 Labs: Abnormal lab results 07/11/18 07/12/18 07/12/18 Range/Units 19:57 05:15 05:15 Hgb 11.6 L (11.8-15.2) gm/dl Hct 34.7 L (35.5-45.6) % Plt Count 133 L (140-440) K/mm3 Lymph % (Auto) 11.0 L (13.4-35.0) % Lymph # 1.1 L (1.2-5.4) K/mm3 Seg Neutrophils % 82.6 H (40.0-70.0) % Seg Neutrophils # 8.5 H (1.8-7.7) K/mm3 PT 16.3 H (12.2-14.9) Sec. INR 1.23 H (0.87-1.13) Heparin Anti-Xa Level 0.18 L 0.29 L (0.3-0.7) U.I./ml Chloride (98-107) mmol/L BUN (9-20) mg/dL Creatinine (0.8-1.5) mg/dL Glucose (75-100) mg/dL Calcium (8.4-10.2) mg/dL ALT (7-56) units/L Total Protein (6.3-8.2) g/dL Albumin (3.9-5) g/dL 07/12/18 Range/Units 05:15 Hgb (11.8-15.2) gm/dl Hct (35.5-45.6) % Plt Count (140-440) K/mm3 Lymph % (Auto) (13.4-35.0) % Lymph # (1.2-5.4) K/mm3 Seg Neutrophils % (40.0-70.0) % Seg Neutrophils # (1.8-7.7) K/mm3 PT (12.2-14.9) Sec. INR (0.87-1.13) Heparin Anti-Xa Level (0.3-0.7) U.I./ml Chloride 109.3 H (98-107) mmol/L BUN 27 H (9-20) mg/dL Creatinine 1.6 H (0.8-1.5) mg/dL Glucose 114 H (75-100) mg/dL Calcium 8.1 L (8.4-10.2) mg/dL ALT 77 H (7-56) units/L Total Protein 5.8 L (6.3-8.2) g/dL Albumin 2.7 L (3.9-5) g/dL
--- NOTE | 2018-07-12 14:11 | Progress Note ---
Assessment and Plan Assessment and plan: 58 year old man who presented to the emergency room. He was at a local store when he suddenly experienced loss of consciousness. He was brought by the EMS with cardiac arrest. He received CPR, he was in pulseless v-fib. He was shocked receive chest compressions and medications. He had return of circulation. Past medical history includes HIV Cardiac heart is secondary to V. fib - Patient was shocked and chest compression was done and resuscitated successfully - Cardiology consulted and patient is on heparin, metoprolol, amiodarone and aspirin PE - VQ scan was done and showed high probability PE, CTA showed multiple non occlusive PE - Continue heparin - Hematology and vascular consulted - IR recommend no intervention SIRS, fever, lactic acidosis, suspect septic shock, Bacteremia MSSA - blood culture showed MSSA and patient is on PO ceftin per ID - UA and cxr neg HIV - Resume his HIV medications Acute respiratory failure on mv <96 hrs - Patient extubated on 07/10 Hypokalemia, repleted Acute kidney injury likely due to ATN - Cr this morning was 1.6 - Resolved with IV fluids Transaminitis likely to shock liver - Improving MYOCARDIAL INFARCTION, elevated troponin after CPR - Cardiology is following SUBCLINICAL HYPOTHYROIDISM, ELEVATED TSH, NORMAL FREE T4 - No treatment needed Disposition; transferred to telemetry floor History Interval history: Patient was seen and this morning, patient was extubated on 07/10. Patient was saturating well on room air. Hospitalist Physical - Physical exam Narrative exam: Patient was saturating well on intranasal oxygen. The patient appeared well nourished and normally developed. Vital signs as documented. Head exam is unremarkable. No scleral icterus . Neck is without jugular venous distension, thyromegaly, or carotid bruits. Lungs are clear to auscultation. Cardiac exam reveals regular rate and Rhythm. Abdominal exam reveals normal bowel sounds. Extremities are nonedematous and both femoral and pedal pulses are normal. 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 No focal neurologic deficits. - Constitutional Vitals: Temp Pulse Resp BP Pulse Ox 98.9 F 77 19 142/76 97 07/12/18 12:00 07/12/18 10:01 07/12/18 10:01 07/12/18 10:01 07/12/18 10:01 General appearance: Present: no acute distress Results - Labs CBC & Chem 7: 07/12/18 05:15 07/12/18 05:15 Labs: Laboratory Last Values WBC 10.3 K/mm3 (4.5-11.0) 07/12/18 05:15 RBC 3.92 M/mm3 (3.65-5.03) 07/12/18 05:15 Hgb 11.6 gm/dl (11.8-15.2) L 07/12/18 05:15 Hct 34.7 % (35.5-45.6) L 07/12/18 05:15 MCV 89 fl (84-94) 07/12/18 05:15 MCH 30 pg (28-32) 07/12/18 05:15 MCHC 34 % (32-34) 07/12/18 05:15 RDW 14.8 % (13.2-15.2) 07/12/18 05:15 Plt Count 133 K/mm3 (140-440) L 07/12/18 05:15 Lymph % (Auto) 11.0 % (13.4-35.0) L 07/12/18 05:15 [place] % (Auto) 6.4 % (0.0-7.3) 07/12/18 05:15 Eos % (Auto) 0.0 % (0.0-4.3) 07/12/18 05:15 Baso % (Auto) 0.0 % (0.0-1.8) 07/12/18 05:15 Lymph # 1.1 K/mm3 (1.2-5.4) L 07/12/18 05:15 [place] # 0.7 K/mm3 (0.0-0.8) 07/12/18 05:15 Eos # 0.0 K/mm3 (0.0-0.4) 07/12/18 05:15 Baso # 0.0 K/mm3 (0.0-0.1) 07/12/18 05:15 Add Manual Diff Complete 07/07/18 14:45 Total Counted 100 07/07/18 14:45 Seg Neutrophils % 82.6 % (40.0-70.0) H 07/12/18 05:15 Seg Neuts % (Manual) 29.0 % (40.0-70.0) L 07/07/18 14:45 0 % 07/07/18 14:45 66.0 % (13.4-35.0) H 07/07/18 14:45 Reactive Lymphs % (Man) 0 % 07/07/18 14:45 3.0 % (0.0-7.3) 07/07/18 14:45 1.0 % (0.0-4.3) 07/07/18 14:45 1.0 % (0.0-1.8) 07/07/18 14:45 0 % 07/07/18 14:45 0 % 07/07/18 14:45 0 % 07/07/18 14:45 0 % 07/07/18 14:45 Nucleated RBC % Not Reportable 07/07/18 14:45 Seg Neutrophils # 8.5 K/mm3 (1.8-7.7) H 07/12/18 05:15 Seg Neutrophils # Man 2.7 K/mm3 (1.8-7.7) 07/07/18 14:45 Band Neutrophils # 0.0 K/mm3 07/07/18 14:45 Abs Lymphs (Manual) 1817 cells/uL (850-3900) 07/09/18 10:16 6.1 K/mm3 (1.2-5.4) H 07/07/18 14:45 Abs React Lymphs (Man) 0.0 K/mm3 07/07/18 14:45 0.3 K/mm3 (0.0-0.8) 07/07/18 14:45 0.1 K/mm3 (0.0-0.4) 07/07/18 14:45 0.1 K/mm3 (0.0-0.1) 07/07/18 14:45 0.0 K/mm3 07/07/18 14:45 0.0 K/mm3 07/07/18 14:45 0.0 K/mm3 07/07/18 14:45 Blast Cells # 0.0 K/mm3 07/07/18 14:45 WBC Morphology Not Reportable 07/07/18 14:45 Hypersegmented Neuts Not Reportable 07/07/18 14:45 Hyposegmented Neuts Not Reportable 07/07/18 14:45 Hypogranular Neuts Not Reportable 07/07/18 14:45 1+ 07/07/18 14:45 Not Reportable 07/07/18 14:45 Not Reportable 07/07/18 14:45 Not Reportable 07/07/18 14:45 Not Reportable 07/07/18 14:45 Not Reportable 07/07/18 14:45 Appears normal 07/07/18 14:45 Not Reportable 07/07/18 14:45 Plt Clumps, EDTA Not Reportable 07/07/18 14:45 Not Reportable 07/07/18 14:45 Not Reportable 07/07/18 14:45 Not Reportable 07/07/18 14:45 Plt Morphology Comment Not Reportable 07/07/18 14:45 RBC Morphology Not Reportable 07/07/18 14:45 Dimorphic RBCs Not Reportable 07/07/18 14:45 Not Reportable 07/07/18 14:45 Not Reportable 07/07/18 14:45 Few 07/07/18 14:45 Not Reportable 07/07/18 14:45 Not Reportable 07/07/18 14:45 Not Reportable 07/07/18 14:45 Not Reportable 07/07/18 14:45 Not Reportable 07/07/18 14:45 Not Reportable 07/07/18 14:45 Not Reportable 07/07/18 14:45 Not Reportable 07/07/18 14:45 1+ 07/07/18 14:45 Not Reportable 07/07/18 14:45 Not Reportable 07/07/18 14:45 Not Reportable 07/07/18 14:45 Not Reportable 07/07/18 14:45 Not Reportable 07/07/18 14:45 Not Reportable 07/07/18 14:45 Not Reportable 07/07/18 14:45 Acanthocytes (Spur) Not Reportable 07/07/18 14:45 Rouleaux Not Reportable 07/07/18 14:45 Not Reportable 07/07/18 14:45 Not Reportable 07/07/18 14:45 Not Reportable 07/07/18 14:45 Not Reportable 07/07/18 14:45 Hem Pathologist Commnt No 07/07/18 14:45 PT 16.3 Sec. (12.2-14.9) H 07/12/18 05:15 INR 1.23 (0.87-1.13) H 07/12/18 05:15 APTT 26.0 Sec. (24.2-36.6) 07/08/18 Unknown 3341.55 ng/mlDDU (0-234) H 07/09/18 10:16 Heparin Anti-Xa Level 0.30 U.I./ml (0.3-0.7) 07/12/18 13:09 POC ABG pH 7.321 (7.35-7.45) L 07/10/18 12:05 POC ABG pCO2 38.6 (35-45) 07/10/18 12:05 POC ABG pO2 89 (80-105) 07/10/18 12:05 POC ABG HCO3 19.9 (22-26 mml/L) 07/10/18 12:05 POC ABG Total CO2 21 (23-27mmol/L) 07/10/18 12:05 POC ABG O2 Sat 96 07/10/18 12:05 POC ABG Base Excess -6 ((-2) - (+3)mmol/L) 07/10/18 12:05 28 % 07/10/18 12:05 Sodium 141 mmol/L (137-145) 07/12/18 05:15 Potassium 4.1 mmol/L (3.6-5.0) 07/12/18 05:15 Chloride 109.3 mmol/L (98-107) H 07/12/18 05:15 Carbon Dioxide 22 mmol/L (22-30) 07/12/18 05:15 14 mmol/L 07/12/18 05:15 BUN 27 mg/dL (9-20) H 07/12/18 05:15 1.6 mg/dL (0.8-1.5) H 07/12/18 05:15 Estimated GFR 45 ml/min 07/12/18 05:15 17 % 07/12/18 05:15 Glucose 114 mg/dL (75-100) H 07/12/18 05:15 POC Glucose 98 (70-105) 07/11/18 17:30 Lactic Acid 1.90 mmol/L (0.7-2.0) 07/08/18 06:58 Calcium 8.1 mg/dL (8.4-10.2) L 07/12/18 05:15 Magnesium 1.80 mg/dL (1.7-2.3) 07/11/18 04:54 0.40 mg/dL (0.1-1.2) 07/12/18 05:15 AST 40 units/L (5-40) 07/12/18 05:15 ALT 77 units/L (7-56) H 07/12/18 05:15 44 units/L (35-129) 07/12/18 05:15 62.0 umol/L (25-60) H 07/07/18 15:15 734 units/L (55-170) H 07/09/18 16:12 CK-MB (CK-2) 13.0 ng/mL (0.0-4.0) H 07/09/18 04:00 CK-MB (CK-2) Rel Index 1.3 (0-4) 07/09/18 04:00 1.430 ng/mL (0.00-0.029) H* 07/09/18 04:00 12.60 mg/dL (0.00-1.30) H 07/09/18 16:12 5.8 g/dL (6.3-8.2) L 07/12/18 05:15 2.7 g/dL (3.9-5) L 07/12/18 05:15 0.9 % 07/12/18 05:15 Triglycerides 42 mg/dL (2-149) 07/10/18 04:23 Cholesterol 193 mg/dL (50-199) 07/07/18 14:45 127 mg/dL (50-130) 07/07/18 14:45 71 mg/dL (40-59) H 07/07/18 14:45 2.71 % 07/07/18 14:45 TSH 8.870 mlU/mL (0.270-4.200) H 07/07/18 14:45 Free T4 0.89 ng/dL (0.76-1.46) 07/07/18 14:45 4.2 ug/dL (4.0-12.0) 07/09/18 10:16 Yellow (Yellow) 07/07/18 18:07 Clear (Clear) 07/07/18 18:07 6.0 (5.0-7.0) 07/07/18 18:07 Ur Specific [place] 1.010 (1.003-1.030) 07/07/18 18:07 30 mg/dl mg/dL (Negative) 07/07/18 18:07 50 mg/dL (Negative) 07/07/18 18:07 Neg mg/dL (Negative) 07/07/18 18:07 Mod (Negative) 07/07/18 18:07 Neg (Negative) 07/07/18 18:07 Neg (Negative) 07/07/18 18:07 < 2.0 mg/dL (<2.0) 07/07/18 18:07 Ur Leukocyte Esterase Neg (Negative) 07/07/18 18:07 2.0 /HPF (0.0-6.0) 07/07/18 18:07 3.0 /HPF (0.0-6.0) 07/07/18 18:07 Few /HPF 07/07/18 18:07 Salicylates < 0.3 mg/dL (2.8-20.0) L 07/07/18 14:45 Acetaminophen < 5.0 ug/mL (10.0-30.0) L 07/07/18 14:45 Plasma/Serum Alcohol < 0.01 % (0-0.07) 07/07/18 14:45 Lymph Enumerat CD4/CD8 0.88 (0.86-5.00) 07/09/18 10:16 % CD3 Cells 70 % (57-85) 07/09/18 10:16 1266 cells/uL (840-3060) 07/09/18 10:16 % CD4 Cells 33 % (30-61) 07/09/18 10:16 612 cells/uL (490-1740) 07/09/18 10:16 % CD8 Cells 38 % (12-42) 07/09/18 10:16 696 cells/uL (180-1170) 07/09/18 10:16 % CD19 Cells 12 % (6-29) 07/09/18 10:16 216 cells/uL (110-660) 07/09/18 10:16 HIV-1 RNA PCR copies/ml <20 Copies/mL 07/09/18 10:16 <1.30 Log cps/mL 07/09/18 10:16 Influenza A (Rapid) Negative (Negative) 07/09/18 18:59 Influenza A (RT-PCR) Negative (Negative) 07/09/18 Unknown Influenza B (Rapid) Negative (Negative) 07/09/18 18:59 Influenza B (RT-PCR) Negative (Negative) 07/09/18 Unknown Blood Type O POSITIVE 07/07/18 14:45 Antibody Screen Negative 07/07/18 14:45 Active Medications - Current Medications Current Medications: Generic Name Dose Route Start Last Admin Trade Name Freq PRN Reason Stop Dose Admin Abacavir Sulfate 300 mg 07/08/18 10:00 07/12/18 09:00 Ziagen PO 300 mg Q12HR KATIANA Administration Albuterol 2.5 mg 07/07/18 16:55 Proventil IH Q3HRT PRN Shortness Of Breath Lipase/Protease/Amylase 1 each 07/08/18 15:[address] 10,500 Unit FEEDTUBE PRN PRN For Clogged Feeding Tube Aspirin 81 mg 07/13/18 10:00 Baby Aspirin PO QDAY KATIANA Atorvastatin Calcium 20 mg 07/10/18 22:00 07/11/18 21:02 Lipitor PO 20 mg QHS KATIANA Administration Cefuroxime Axetil 500 mg 07/12/18 14:00 Ceftin PO Q12HR KATIANA Docusate Sodium 100 mg 07/11/18 12:00 07/12/18 09:01 Colace PO 100 mg BID KATIANA Administration Famotidine 20 mg 07/08/18 10:00 07/12/18 09:00 Pepcid IV 20 mg BID KATIANA Administration Hydrophilic Ointment 1 applic 07/07/18 15:10 Vaseline Lip Therapy TP Q2HR PRN Dry Lips Heparin Sodium/Sodium Chloride 25,000 unit in 500 mls @ 20 mls/hr 07/08/18 12:00 07/12/18 12:47 Heparin/ 0.45% Nacl-25,000 Unit/500 Ml IV 1,700 units/hr TITRATE KATIANA 34 mls/hr Administration Protocol 1,000 UNITS/HR Sodium Chloride 1,000 mls @ 75 mls/hr 07/11/18 15:00 07/12/18 05:15 Nacl 0.9% 1000 Ml IV 75 mls/hr DIRECT KATIANA Administration Ibuprofen 400 mg 07/09/18 20:32 07/09/18 21:04 Motrin PO 400 mg Q6H PRN Administration Fever >101 Insulin Human Lispro 0 unit 05/06/19 14:00 07/12/18 06:50 Humalog SUB-Q Not Given Q6HR [facility] Protocol Lamivudine 150 mg 07/08/18 10:00 07/12/18 09:00 Epivir PO 150 mg Q12HR KATIANA Administration Metoprolol Tartrate 12.5 mg 07/12/18 11:49 Lopressor PO BID KATIANA Multi-Ingred Cream/Lotion/Oil/Oint 1 applic 07/07/18 15:10 Artificial Tears Ophth Oint OU Q4HR PRN Dry Eye(s) Ondansetron HCl 4 mg 07/10/18 14:54 07/10/18 15:12 Zofran IV 4 mg Q8H PRN Administration Nausea And Vomiting Simple Syrup 15 ml 07/08/18 15:34 Simple Syrup FEEDTUBE PRN PRN Hypoglycemia Simple Syrup 30 ml 07/08/18 15:34 Simple Syrup FEEDTUBE PRN PRN Hypoglycemia Sodium Bicarbonate 325 mg 07/08/18 15:34 Sodium Bicarbonate FEEDTUBE PRN PRN For Clogged Feeding Tube Sodium Chloride 10 ml 07/07/18 22:00 07/12/18 09:01 Sodium Chloride Flush Syringe 10 Ml IV 10 ml BID KATIANA Administration Sodium Chloride 10 ml 07/07/18 16:55 Sodium Chloride Flush Syringe 10 Ml IV PRN PRN LINE FLUSH Nutrition/Malnutrition Assess - Dietary Evaluation Nutrition/Malnutrition Findings: Nutrition Notes Start: 07/08/18 15:18 Freq: Status: Active Protocol: Document 07/11/18 10:38 CP (Rec: 07/11/18 10:40 CP [id number]) Co-Sign 07/11/18 10:38 LP Nutrition Notes Initial or Follow up Brief Note Current Diagnosis Acute Kidney Injury,Heart Failure,Respiratory Failure Other Pertinent Diagnosis HIV, KS Current Diet NPO Subjective/Other Information Pt is being extubated today as discussed in rounds. RN stated that she will order a cardiac diet for the pt. Nutrition Intervention Follow-Up By: 07/16/18 Additional Comments F/U: Diet advancement/PO intake
[2018-07-12] MEDS: CEFTIN PO SCH ×2 (14:39→22:37)
--- NOTE | 2018-07-12 15:40 | Progress Note ---
Assessment and Plan - Patient Problems (1) Acute kidney injury Current Visit: Yes Status: Acute Plan to address problem: Acute kidney injury status post cardiac arrest is probably acute tubular necrosis. Kidney function improving. Follow-up electrolytes and renal function in the morning. (2) Cardiac arrest with successful resuscitation Current Visit: Yes Status: Acute Plan to address problem: Status post V. fib arrest. Continue management by any commodity sales deliverer (3) CKD (chronic kidney disease) stage 3, GFR 30-59 ml/min Current Visit: Yes Status: Chronic Plan to address problem: Presumed baseline chronic kidney disease. (4) HIV (human immunodeficiency virus infection) Current Visit: Yes Status: Chronic Qualifiers: HIV symptom status: unspecified Qualified Code(s): B20 - Human immunodeficiency virus [HIV] disease Plan to address problem: Being followed by infectious disease specialist. Continue antiretroviral medications doses renally adjusted Subjective Date of service: 07/12/18 Principal diagnosis: Acute hypoxemic Resp failure; Syncope; HIV +ve; Obesity; DARCY. Interval history: Patient seen sitting up in bed. On oxygen via nasal cannula. Feels better. Just had breakfast. Family at bedside. Shortness of breath improving. Denies any pain. Objective - Exam Narrative Exam: Middle-age, male sitting up in bed on BiPAP HEENT: NCAT, pink oral mucous membrane Neck: Supple, no venous distention CVS: S1S2 RRR with no murmur, rub or gallop Chest: Diminished breath sounds in the lower zones Abdomen: Protuberant, soft, nontender, no organomegaly, bowel sounds are present Extremities: No edema Neuro: Awake, alert no focal deficits - Vital Signs Vital signs: Vital Signs - 12hr 07/12/18 07/12/18 07/12/18 04:00 05:00 06:00 Temperature Pulse Rate 66 64 78 Pulse Rate [ From Monitor] Respiratory 19 18 11 L Rate Blood Pressure 125/71 132/77 122/80 O2 Sat by Pulse 90 89 92 Oximetry 07/12/18 07/12/18 07/12/18 07:01 08:00 08:25 Temperature 98.8 F Pulse Rate 67 59 L Pulse Rate [ 59 L From Monitor] Respiratory 12 22 Rate Blood Pressure 122/80 141/81 O2 Sat by Pulse 98 98 96 Oximetry 07/12/18 07/12/18 07/12/18 09:00 09:01 10:01 Temperature Pulse Rate 77 59 L 77 Pulse Rate [ From Monitor] Respiratory 23 19 Rate Blood Pressure 128/80 128/80 142/76 O2 Sat by Pulse 96 97 Oximetry 07/12/18 12:00 Temperature 98.9 F Pulse Rate Pulse Rate [ From Monitor] Respiratory Rate Blood Pressure O2 Sat by Pulse Oximetry - Lab 07/12/18 05:15 07/12/18 05:15 Most recent lab results Calcium 8.1 mg/dL (8.4-10.2) L 07/12/18 05:15 Magnesium 1.80 mg/dL (1.7-2.3) 07/11/18 04:54 Medications & Allergies - Medications Allergies/Adverse Reactions: Allergies lactose Adverse Reaction (Verified 07/12/18 11:52) Unknown Home Medications: Home Medications Medication Instructions Recorded Confirmed Last Taken Type Abacavir/Dolutegravir/Lamivudi 1 each PO DAILY 02/28/16 02/28/16 Unknown History [Triumeq Tablet] Active Medications: Generic Name Dose Route Start Last Admin Trade Name Freq PRN Reason Stop Dose Admin Abacavir Sulfate 300 mg 07/08/18 10:00 07/12/18 09:00 Ziagen PO 300 mg Q12HR KATIANA Administration Albuterol 2.5 mg 07/07/18 16:55 Proventil IH Q3HRT PRN Shortness Of Breath Lipase/Protease/Amylase 1 each 07/08/18 15:[address] 10,500 Unit FEEDTUBE PRN PRN For Clogged Feeding Tube Aspirin 81 mg 07/13/18 10:00 Baby Aspirin PO QDAY KATIANA Atorvastatin Calcium 20 mg 07/10/18 22:00 07/11/18 21:02 Lipitor PO 20 mg QHS KATIANA Administration Cefuroxime Axetil 500 mg 07/12/18 14:00 07/12/18 14:39 Ceftin PO 500 mg Q12HR KATIANA Administration Docusate Sodium 100 mg 07/11/18 12:00 07/12/18 09:01 Colace PO 100 mg BID KATIANA Administration Famotidine 20 mg 07/08/18 10:00 07/12/18 09:00 Pepcid IV 20 mg BID KATIANA Administration Hydrophilic Ointment 1 applic 07/07/18 15:10 Vaseline Lip Therapy TP Q2HR PRN Dry Lips Heparin Sodium/Sodium Chloride 25,000 unit in 500 mls @ 20 mls/hr 07/08/18 12:00 07/12/18 14:38 Heparin/ 0.45% Nacl-25,000 Unit/500 Ml IV 1,800 units/hr TITRATE KATIANA 36 mls/hr Titration Protocol 1,000 UNITS/HR Sodium Chloride 1,000 mls @ 75 mls/hr 07/11/18 15:00 07/12/18 05:15 Nacl 0.9% 1000 Ml IV 75 mls/hr DIRECT KATIANA Administration Ibuprofen 400 mg 07/09/18 20:32 07/09/18 21:04 Motrin PO 400 mg Q6H PRN Administration Fever >101 Insulin Human Lispro 0 unit 07/08/18 14:00 07/12/18 13:00 Humalog SUB-Q Not Given Q6HR [facility] Protocol Lamivudine 150 mg 07/08/18 10:00 07/12/18 09:00 Epivir PO 150 mg Q12HR KATIANA Administration Metoprolol Tartrate 12.5 mg 07/12/18 11:49 Lopressor PO BID [facility] Multi-Ingred Cream/Lotion/Oil/Oint 1 applic 07/07/18 15:10 Artificial Tears Ophth Oint OU Q4HR PRN Dry Eye(s) Ondansetron HCl 4 mg 07/10/18 14:54 07/10/18 15:12 Zofran IV 4 mg Q8H PRN Administration Nausea And Vomiting Simple Syrup 15 ml 07/08/18 15:34 Simple Syrup FEEDTUBE PRN PRN Hypoglycemia Simple Syrup 30 ml 07/08/18 15:34 Simple Syrup FEEDTUBE PRN PRN Hypoglycemia Sodium Bicarbonate 325 mg 07/08/18 15:34 Sodium Bicarbonate FEEDTUBE PRN PRN For Clogged Feeding Tube Sodium Chloride 10 ml 07/07/18 22:00 07/12/18 09:01 Sodium Chloride Flush Syringe 10 Ml IV 10 ml BID KATIANA Administration Sodium Chloride 10 ml 07/07/18 16:55 Sodium Chloride Flush Syringe 10 Ml IV PRN PRN LINE FLUSH
--- NOTE | 2018-07-12 18:26 | Event Note ---
Date: 07/12/18 [id number]
[2018-07-13] MEDS: HumaLOG SUB-Q SCH ×4 (00:33→20:09)
--- NOTE | 2018-07-13 00:47 | Consultation ---
REFERRING PHYSICIAN: Dr. Kelly. REASON FOR CONSULTATION: Pulmonary embolism. HISTORY OF PRESENT ILLNESS: I saw the patient, a 58-year-old male, in the medical floor. The patient has a history of HIV complicated by nephropathy. He came to the hospital because of sudden onset of loss of consciousness while at a local drugstore. He fell down and struck his head on the ground. The patient was in cardiac arrest then transferred to [facility]. He was in respiratory failure. He was intubated, managed for hypotension. During this admission stay, the patient has been seen by Cardiology team, ID team, Nephrology team and Pulmonary team. CT scan done on 07/11/2018 shows pulmonary embolism, nonocclusive emboli in the right upper lobe, right lower lobe, left upper lobe, left lower lobe and lingular segment. I have been consulted for this. The patient had been placed on heparin drip and later plan to change to Eliquis. At this time, no headache, no visual disturbances, no ear discharge, no chest pain, no palpitation, no abdominal pain, no vomiting, no diarrhea, no dysuria. PAST MEDICAL HISTORY: HIV, CT, history of elevated LFTs, renal impairment, encephalopathy, and bilateral leg DVT. PAST SURGICAL HISTORY: Appendix surgery. SOCIAL HISTORY: No history of tobacco or alcohol usage. FAMILY HISTORY: Not contributory. ALLERGIES: Mention of LACTOSE. MEDICATIONS: Includes lipase, Eliquis, aspirin, atorvastatin, Abacavir, cefuroxime, Pepcid, insulin, metoprolol. PHYSICAL EXAMINATION: VITAL SIGNS: Temperature 98.9, pulse 80, respirations 17, BP 126/81. HEENT: No pallor, no icterus. NECK: No neck lymph nodes. HEART: S1, S2. LUNGS: Clear to auscultation. ABDOMEN: Soft. EXTREMITIES: No calf tenderness. NEUROLOGIC: Alert, awake, oriented. LABORATORY DATA: White cell 10, hemoglobin 11, MCV 89, platelet 133. INR 1.2, potassium 4.1, creatinine 1.6, calcium 8.1, bilirubin 0.4. At admission, platelet was 214. Creatinine 1.9. AST and ALT was elevated. RADIOLOGY: Leg Doppler, right posterior tibial vein DVT. Left posterior tibial and peroneal vein DVT. ASSESSMENT AND PLAN: 1. Bilateral leg deep vein thrombosis. 2. Pulmonary embolism based on CTA. 3. The patient was on heparin. This has been changed to Eliquis. 4. HIV, on medication. 5. History of cardiac arrest. 6. History of respiratory failure. 7. Renal impairment. 8. Liver function abnormality. 9. Bacteremia, status post treatment. I will follow the patient during inpatient stay and then in the clinic setting. JOB# [id number] NM/NTS
[2018-07-13 06:06] LABS: Hematocrit 36.8 % (35.5-45.6); Hemoglobin 12.2 gm/dl (11.8-15.2)
--- NOTE | 2018-07-13 08:38 | Progress Note ---
Assessment and Plan - Patient Problems (1) ARF (acute renal failure) with tubular necrosis Current Visit: Yes Status: Acute Plan to address problem: Acute kidney injury status post cardiac arrest is probably acute tubular necrosis. Kidney function improving. Follow-up electrolytes and renal function in the morning. (2) Cardiac arrest with successful resuscitation Current Visit: Yes Status: Acute Plan to address problem: Status post V. fib arrest. Continue management by speech language pathologist (3) CKD (chronic kidney disease) stage 3, GFR 30-59 ml/min Current Visit: Yes Status: Chronic Plan to address problem: Presumed baseline chronic kidney disease. (4) HIV (human immunodeficiency virus infection) Current Visit: Yes Status: Chronic Qualifiers: HIV symptom status: unspecified Qualified Code(s): B20 - Human immunodeficiency virus [HIV] disease Plan to address problem: Being followed by infectious disease specialist. Continue antiretroviral medications adjusted to current eGFR Subjective Date of service: 07/13/18 Principal diagnosis: Acute hypoxemic Resp failure; Syncope; HIV +ve; Obesity; DARCY. Interval history: Pt awake, alert in NAD Objective - Vital Signs Vital signs: Vital Signs - 12hr 07/12/18 07/12/18 07/12/18 22:30 22:37 22:58 Temperature Pulse Rate 72 Pulse Rate [ 72 Apical] Respiratory 18 Rate Blood Pressure 155/100 O2 Sat by Pulse 96 98 Oximetry 07/12/18 07/12/18 07/13/18 22:59 23:31 03:52 Temperature 98.2 F 98.9 F Pulse Rate 66 68 Pulse Rate [ Apical] Respiratory 18 19 Rate Blood Pressure 116/68 126/70 O2 Sat by Pulse 99 96 96 Oximetry 07/13/18 07:50 Temperature 98.7 F Pulse Rate 78 Pulse Rate [ Apical] Respiratory 18 Rate Blood Pressure 140/88 O2 Sat by Pulse 92 Oximetry - General Appearance General appearance: well-developed, well-nourished, appears stated age EENT: ATNC, PERRL, mucous membranes moist Neck: no JVD Respiratory: Present: Clear to Ascultation Cardiology: regular, S1S2 Gastrointestinal: normoactive bowel sounds Integumentary: no rash Neurologic: no focal deficit, alert and oriented x3, strength 5/5, CN 3-12 intact Psychiatric: mood/affect appropriate, cooperative - Lab 07/13/18 04:25 07/12/18 05:15 Most recent lab results Calcium 8.1 mg/dL (8.4-10.2) L 07/12/18 05:15 Magnesium 1.80 mg/dL (1.7-2.3) 07/11/18 04:54 Medications & Allergies - Medications Allergies/Adverse Reactions: Allergies lactose Adverse Reaction (Verified 07/12/18 11:52) Unknown Home Medications: Home Medications Medication Instructions Recorded Confirmed Last Taken Type Abacavir/Dolutegravir/Lamivudi 1 each PO DAILY 02/28/16 02/28/16 Unknown History [Triumeq Tablet] Active Medications: Generic Name Dose Route Start Last Admin Trade Name Freq PRN Reason Stop Dose Admin Abacavir Sulfate 300 mg 07/08/18 10:00 07/12/18 22:36 Ziagen PO 300 mg Q12HR KATIANA Administration Albuterol 2.5 mg 07/07/18 16:55 Proventil IH Q3HRT PRN Shortness Of Breath Lipase/Protease/Amylase 1 each 07/08/18 15:[address] 10,500 Unit FEEDTUBE PRN PRN For Clogged Feeding Tube Apixaban 10 mg 07/21/18 00:01 Eliquis PO Q12HR KATIANA Protocol Atorvastatin Calcium 20 mg 07/10/18 22:00 07/12/18 22:37 Lipitor PO 20 mg QHS KATIANA Administration Cefuroxime Axetil 500 mg 07/12/18 14:00 07/12/18 22:37 Ceftin PO 500 mg Q12HR KATIANA Administration Docusate Sodium 100 mg 07/11/18 12:00 07/12/18 22:36 Colace PO 100 mg BID KATIANA Administration Famotidine 20 mg 07/08/18 10:00 07/12/18 22:38 Pepcid IV 20 mg BID KATIANA Administration Hydrophilic Ointment 1 applic 07/07/18 15:10 Vaseline Lip Therapy TP Q2HR PRN Dry Lips Sodium Chloride 1,000 mls @ 75 mls/hr 07/11/18 15:00 07/12/18 20:20 Nacl 0.9% 1000 Ml IV 75 mls/hr DIRECT KATIANA Administration Ibuprofen 400 mg 07/09/18 20:32 07/09/18 21:04 Motrin PO 400 mg Q6H PRN Administration Fever >101 Insulin Human Lispro 0 unit 07/08/18 14:00 07/13/18 08:17 Humalog SUB-Q Not Given Q6HR [facility] Protocol Lamivudine 150 mg 07/08/18 10:00 07/12/18 22:38 Epivir PO 150 mg Q12HR KATIANA Administration Metoprolol Tartrate 12.5 mg 07/12/18 11:49 07/12/18 22:37 Lopressor PO 12.5 mg BID KATIANA Administration Multi-Ingred Cream/Lotion/Oil/Oint 1 applic 07/07/18 15:10 Artificial Tears Ophth Oint OU Q4HR PRN Dry Eye(s) Ondansetron HCl 4 mg 07/10/18 14:54 07/10/18 15:12 Zofran IV 4 mg Q8H PRN Administration Nausea And Vomiting Simple Syrup 15 ml 07/08/18 15:34 Simple Syrup FEEDTUBE PRN PRN Hypoglycemia Simple Syrup 30 ml 07/08/18 15:34 Simple Syrup FEEDTUBE PRN PRN Hypoglycemia Sodium Bicarbonate 325 mg 07/08/18 15:34 Sodium Bicarbonate FEEDTUBE PRN PRN For Clogged Feeding Tube Sodium Chloride 10 ml 07/07/18 22:00 07/12/18 22:39 Sodium Chloride Flush Syringe 10 Ml IV 10 ml BID KATIANA Administration Sodium Chloride 10 ml 07/07/18 16:55 Sodium Chloride Flush Syringe 10 Ml IV PRN PRN LINE FLUSH
[2018-07-13] MEDS: NACL 0.9% 1000 ML 1,000 ML IV SCH ×2 (09:20→23:27)
[2018-07-13] MEDS: EPIVIR PO SCH ×2 (09:23→23:03)
[2018-07-13] MEDS: TIVICAY PO SCH (09:23)
[2018-07-13] MEDS: LOPRESSOR PO SCH ×2 (09:24→23:02)
[2018-07-13] MEDS: CEFTIN PO SCH ×2 (09:24→23:03)
[2018-07-13] MEDS: COLACE PO SCH ×2 (09:25→23:31)
[2018-07-13] MEDS: PEPCID IV SCH ×2 (09:25→23:04)
[2018-07-13] MEDS: SODIUM CHLORIDE FLUSH SYRINGE 10 ML IV SCH ×2 (09:26→23:04)
[2018-07-13] MEDS: ZIAGEN PO SCH ×2 (09:50→23:03)
[2018-07-13] MEDS ORDERED: BABY ASPIRIN PO SCH (10:00)
--- NOTE | 2018-07-13 10:00 | Progress Note ---
Assessment and Plan Acute hypoxemic respiratory failure, on mechanical ventilatory support. Acute syncopal episode/loss of consciousness, etiology unclear with a negative CT scan of the head and neck I should mention. Human immunodeficiency virus positive. Obesity. Acute kidney injury. Mixed acidosis at presentation. Status post cardiac arrest with return of spontaneous circulation. History of congestive heart failure according to the notes. - weaned off stress steroids and BP holding - continue full anticoagulation for VTE - continue bronchodilators per protocol with pulmonary hygiene per RT - prn supplemental oxygen to keep O2 sats > 90% - continue GI prophylaxis - complete Anti-infectives per ID rec's - continue ART per ID prescription - Monitor renal indices closely - Avoid nephrotoxic agents, adjust all medications for CrCL - Strict intake and output monitoring - Accuchecks with glycemic control. Target glucose of 140-180 mg/dL - Maintenance of sleep -wake cycle - PT/OT/increase ambulation as tolerated - Influenza and pneumonia vaccination per protocol ..care plan discussed at length with patient's family at bedside CODE STATUS: FULL CODE Subjective Date of service: 07/13/18 Principal diagnosis: Acute hypoxemic Resp failure; Syncope; HIV +ve; Obesity; DARCY. Interval history: Patient is seen today for: Acute hypoxemic respiratory failure, on mechanical ventilatory support; Acute syncopal episode/loss of consciousness, etiology unclear with a negative CT scan of the head; Human immunodeficiency virus positive; Obesity; Acute kidney injury. Seen and examined at bedside; 24hour events reviewed; nursing and respiratory care staff consulted; no adverse overnight events reported to me; resting peacefully in bed; tenuously tolerated BIPAP overnight; No emesis or overt aspiration Objective Vital Signs - 12hr 07/12/18 07/12/18 07/12/18 22:30 22:37 22:58 Temperature Pulse Rate 72 Pulse Rate [ 72 Apical] Respiratory 18 Rate Blood Pressure 155/100 O2 Sat by Pulse 96 98 Oximetry 07/12/18 07/12/18 07/13/18 22:59 23:31 03:52 Temperature 98.2 F 98.9 F Pulse Rate 66 68 Pulse Rate [ Apical] Respiratory 18 19 Rate Blood Pressure 116/68 126/70 O2 Sat by Pulse 99 96 96 Oximetry 07/13/18 07/13/18 07:50 09:24 Temperature 98.7 F Pulse Rate 78 70 Pulse Rate [ Apical] Respiratory 18 Rate Blood Pressure 140/88 148/82 O2 Sat by Pulse 92 Oximetry Constitutional: no acute distress, other (middle aged, obese AAM , normocephalic and atraumatic) Eyes: non-icteric ENT: oropharynx moist, other (mallampati 3) Neck: supple, no lymphadenopathy, no JVD, other (no thyromegaly) Effort: normal Ascultation: Bilateral: diminished breath sounds, rhonchi Percussion: Bilateral: not dull Cardiovascular: regular rate and rhythm, other (No R/M) Gastrointestinal: normoactive bowel sounds, soft, non-tender, non-distended Integumentary: normal Extremities: no cyanosis, pulses normal, no ischemia or petechiae, edema (trace to 1+) Neurologic: non-focal exam (grossly), pupils equal and round, CN II-XII normal, motor strength normal and Psychiatric: mood appropriate, affect normal CBC and BMP: 07/13/18 04:25 07/14/18 04:15 ABG, PT/INR, D-dimer: ABG POC ABG pH 7.321 (7.35-7.45) L 07/10/18 12:05 POC ABG pCO2 38.6 (35-45) 07/10/18 12:05 POC ABG pO2 89 (80-105) 07/10/18 12:05 POC ABG HCO3 19.9 (22-26 mml/L) 07/10/18 12:05 POC ABG Total CO2 21 (23-27mmol/L) 07/10/18 12:05 POC ABG O2 Sat 96 07/10/18 12:05 PT/INR, D-dimer PT 16.3 Sec. (12.2-14.9) H 07/12/18 05:15 INR 1.23 (0.87-1.13) H 07/12/18 05:15 3341.55 ng/mlDDU (0-234) H 07/09/18 10:16 Abnormal lab findings: Abnormal Labs 07/07/18 07/07/18 07/07/18 14:45 14:45 14:45 WBC Hgb Hct Plt Count Lymph % (Auto) [place] % (Auto) Lymph # [place] # Seg Neutrophils % Seg Neuts % (Manual) 29.0 L Lymphocytes % (Manual) 66.0 H Seg Neutrophils # Lymphocytes # (Manual) 6.1 H PT 15.5 H INR 1.16 H D-Dimer Heparin Anti-Xa Level POC ABG pH POC ABG pCO2 POC ABG pO2 Sodium Potassium 3.1 L Chloride Carbon Dioxide 17 L BUN Creatinine 1.9 H Glucose 218 H POC Glucose Lactic Acid Calcium AST 352 H ALT 394 H Ammonia Total Creatine Kinase CK-MB (CK-2) Troponin T 0.561 H* C-Reactive Protein Total Protein Albumin 3.5 L HDL Cholesterol 71 H TSH Salicylates Acetaminophen 07/07/18 07/07/18 07/07/18 14:45 14:45 14:45 WBC Hgb Hct Plt Count Lymph % (Auto) [place] % (Auto) Lymph # [place] # Seg Neutrophils % Seg Neuts % (Manual) Lymphocytes % (Manual) Seg Neutrophils # Lymphocytes # (Manual) PT INR D-Dimer Heparin Anti-Xa Level POC ABG pH POC ABG pCO2 POC ABG pO2 Sodium Potassium Chloride Carbon Dioxide BUN Creatinine Glucose POC Glucose Lactic Acid Calcium AST ALT Ammonia Total Creatine Kinase CK-MB (CK-2) Troponin T C-Reactive Protein Total Protein Albumin HDL Cholesterol TSH 8.870 H Salicylates < 0.3 L Acetaminophen < 5.0 L 07/07/18 07/07/18 07/07/18 15:15 15:15 15:30 WBC Hgb Hct Plt Count Lymph % (Auto) [place] % (Auto) Lymph # [place] # Seg Neutrophils % Seg Neuts % (Manual) Lymphocytes % (Manual) Seg Neutrophils # Lymphocytes # (Manual) PT INR D-Dimer Heparin Anti-Xa Level POC ABG pH 7.199 L POC ABG pCO2 60.0 H POC ABG pO2 325 H Sodium Potassium Chloride Carbon Dioxide BUN Creatinine Glucose POC Glucose Lactic Acid 5.30 H* Calcium AST ALT Ammonia 62.0 H Total Creatine Kinase CK-MB (CK-2) Troponin T C-Reactive Protein Total Protein Albumin HDL Cholesterol TSH Salicylates Acetaminophen 07/07/18 07/07/18 07/07/18 17:12 19:12 20:18 WBC Hgb Hct Plt Count Lymph % (Auto) [place] % (Auto) Lymph # [place] # Seg Neutrophils % Seg Neuts % (Manual) Lymphocytes % (Manual) Seg Neutrophils # Lymphocytes # (Manual) PT INR D-Dimer Heparin Anti-Xa Level POC ABG pH POC ABG pCO2 POC ABG pO2 193 H Sodium Potassium Chloride Carbon Dioxide BUN Creatinine Glucose POC Glucose Lactic Acid 5.30 H* 2.10 H* Calcium AST ALT Ammonia Total Creatine Kinase CK-MB (CK-2) Troponin T C-Reactive Protein Total Protein Albumin HDL Cholesterol TSH Salicylates Acetaminophen 07/07/18 07/07/18 07/07/18 22:56 22:56 Unknown WBC Hgb Hct Plt Count Lymph % (Auto) [place] % (Auto) Lymph # [place] # Seg Neutrophils % Seg Neuts % (Manual) Lymphocytes % (Manual) Seg Neutrophils # Lymphocytes # (Manual) PT INR D-Dimer Heparin Anti-Xa Level POC ABG pH POC ABG pCO2 POC ABG pO2 Sodium Potassium Chloride Carbon Dioxide BUN Creatinine Glucose POC Glucose Lactic Acid 5.00 H* Calcium AST ALT Ammonia Total Creatine Kinase CK-MB (CK-2) Troponin T 1.380 H* D 1.990 H* D C-Reactive Protein Total Protein Albumin HDL Cholesterol TSH Salicylates Acetaminophen 07/08/18 07/08/18 07/08/18 04:09 04:09 04:09 WBC Hgb Hct Plt Count Lymph % (Auto) [place] % (Auto) 11.9 H Lymph # [place] # 0.9 H Seg Neutrophils % Seg Neuts % (Manual) Lymphocytes % (Manual) Seg Neutrophils # Lymphocytes # (Manual) PT INR D-Dimer Heparin Anti-Xa Level POC ABG pH POC ABG pCO2 POC ABG pO2 Sodium Potassium Chloride Carbon Dioxide 21 L BUN Creatinine 1.6 H Glucose 71 L POC Glucose Lactic Acid 4.60 H* Calcium 8.2 L AST 321 H ALT 313 H Ammonia Total Creatine Kinase CK-MB (CK-2) Troponin T C-Reactive Protein Total Protein 5.9 L Albumin 3.3 L HDL Cholesterol TSH Salicylates Acetaminophen 07/08/18 07/08/18 07/08/18 04:41 18:20 Unknown WBC Hgb Hct Plt Count Lymph % (Auto) [place] % (Auto) Lymph # [place] # Seg Neutrophils % Seg Neuts % (Manual) Lymphocytes % (Manual) Seg Neutrophils # Lymphocytes # (Manual) PT 15.9 H INR 1.19 H D-Dimer Heparin Anti-Xa Level 0.18 L POC ABG pH POC ABG pCO2 POC ABG pO2 144 H Sodium Potassium Chloride Carbon Dioxide BUN Creatinine Glucose POC Glucose Lactic Acid Calcium AST ALT Ammonia Total Creatine Kinase CK-MB (CK-2) Troponin T C-Reactive Protein Total Protein Albumin HDL Cholesterol TSH Salicylates Acetaminophen 07/09/18 07/09/18 07/09/18 03:43 04:00 04:30 WBC Hgb Hct Plt Count Lymph % (Auto) [place] % (Auto) Lymph # [place] # Seg Neutrophils % Seg Neuts % (Manual) Lymphocytes % (Manual) Seg Neutrophils # Lymphocytes # (Manual) PT INR D-Dimer Heparin Anti-Xa Level 0.26 L POC ABG pH 7.331 L POC ABG pCO2 POC ABG pO2 Sodium Potassium Chloride Carbon Dioxide BUN Creatinine Glucose 105 H POC Glucose Lactic Acid Calcium 7.6 L AST 151 H ALT 192 H Ammonia Total Creatine Kinase 952 H CK-MB (CK-2) 13.0 H Troponin T 1.430 H* C-Reactive Protein Total Protein 5.6 L Albumin 2.9 L HDL Cholesterol TSH Salicylates Acetaminophen 07/09/18 07/09/18 07/09/18 05:53 10:16 16:12 WBC Hgb Hct Plt Count Lymph % (Auto) [place] % (Auto) Lymph # [place] # Seg Neutrophils % Seg Neuts % (Manual) Lymphocytes % (Manual) Seg Neutrophils # Lymphocytes # (Manual) PT INR D-Dimer 3341.55 H Heparin Anti-Xa Level POC ABG pH POC ABG pCO2 POC ABG pO2 Sodium Potassium Chloride Carbon Dioxide BUN Creatinine Glucose POC Glucose 106 H Lactic Acid Calcium AST ALT Ammonia Total Creatine Kinase CK-MB (CK-2) Troponin T C-Reactive Protein 12.60 H Total Protein Albumin HDL Cholesterol TSH Salicylates Acetaminophen 07/09/18 07/09/18 07/09/18 16:12 16:38 18:24 WBC Hgb Hct Plt Count Lymph % (Auto) [place] % (Auto) Lymph # [place] # Seg Neutrophils % Seg Neuts % (Manual) Lymphocytes % (Manual) Seg Neutrophils # Lymphocytes # (Manual) PT INR D-Dimer Heparin Anti-Xa Level POC ABG pH 7.335 L POC ABG pCO2 POC ABG pO2 69 L Sodium Potassium Chloride Carbon Dioxide BUN Creatinine Glucose POC Glucose 126 H Lactic Acid Calcium AST ALT Ammonia Total Creatine Kinase 734 H CK-MB (CK-2) Troponin T C-Reactive Protein Total Protein Albumin HDL Cholesterol TSH Salicylates Acetaminophen 07/09/18 07/10/18 07/10/18 18:59 00:15 04:42 WBC Hgb Hct Plt Count Lymph % (Auto) [place] % (Auto) Lymph # [place] # Seg Neutrophils % Seg Neuts % (Manual) Lymphocytes % (Manual) Seg Neutrophils # Lymphocytes # (Manual) PT INR D-Dimer Heparin Anti-Xa Level 0.23 L POC ABG pH 7.270 L POC ABG pCO2 POC ABG pO2 78 L Sodium Potassium Chloride Carbon Dioxide BUN Creatinine Glucose POC Glucose 129 H Lactic Acid Calcium AST ALT Ammonia Total Creatine Kinase CK-MB (CK-2) Troponin T C-Reactive Protein Total Protein Albumin HDL Cholesterol TSH Salicylates Acetaminophen 07/10/18 07/10/18 07/10/18 05:41 09:00 09:00 WBC 11.3 H Hgb Hct Plt Count 115 L Lymph % (Auto) 6.8 L [place] % (Auto) Lymph # 0.8 L [place] # Seg Neutrophils % 88.3 H Seg Neuts % (Manual) Lymphocytes % (Manual) Seg Neutrophils # 10.0 H Lymphocytes # (Manual) PT INR D-Dimer Heparin Anti-Xa Level POC ABG pH POC ABG pCO2 POC ABG pO2 Sodium 133 L Potassium Chloride 107.2 H Carbon Dioxide 18 L BUN 24 H Creatinine 1.7 H Glucose 138 H POC Glucose 147 H Lactic Acid Calcium 7.8 L AST 76 H ALT 128 H Ammonia Total Creatine Kinase CK-MB (CK-2) Troponin T C-Reactive Protein Total Protein 6.0 L Albumin 2.5 L HDL Cholesterol TSH Salicylates Acetaminophen 07/10/18 07/10/18 07/10/18 12:05 12:49 17:07 WBC Hgb Hct Plt Count Lymph % (Auto) [place] % (Auto) Lymph # [place] # Seg Neutrophils % Seg Neuts % (Manual) Lymphocytes % (Manual) Seg Neutrophils # Lymphocytes # (Manual) PT INR D-Dimer Heparin Anti-Xa Level POC ABG pH 7.321 L POC ABG pCO2 POC ABG pO2 Sodium Potassium Chloride Carbon Dioxide BUN Creatinine Glucose POC Glucose 157 H 138 H Lactic Acid Calcium AST ALT Ammonia Total Creatine Kinase CK-MB (CK-2) Troponin T C-Reactive Protein Total Protein Albumin HDL Cholesterol TSH Salicylates Acetaminophen 07/10/18 07/11/18 07/11/18 23:37 04:54 04:54 WBC 12.9 H Hgb Hct Plt Count 123 L Lymph % (Auto) 7.6 L [place] % (Auto) Lymph # 1.0 L [place] # Seg Neutrophils % 87.1 H Seg Neuts % (Manual) Lymphocytes % (Manual) Seg Neutrophils # 11.3 H Lymphocytes # (Manual) PT INR D-Dimer Heparin Anti-Xa Level POC ABG pH POC ABG pCO2 POC ABG pO2 Sodium Potassium Chloride Carbon Dioxide 20 L BUN 25 H Creatinine Glucose 113 H POC Glucose 120 H Lactic Acid Calcium AST ALT Ammonia Total Creatine Kinase CK-MB (CK-2) Troponin T C-Reactive Protein Total Protein Albumin HDL Cholesterol TSH Salicylates Acetaminophen 07/11/18 07/11/18 07/11/18 04:54 05:42 10:43 WBC Hgb Hct Plt Count Lymph % (Auto) [place] % (Auto) Lymph # [place] # Seg Neutrophils % Seg Neuts % (Manual) Lymphocytes % (Manual) Seg Neutrophils # Lymphocytes # (Manual) PT INR D-Dimer Heparin Anti-Xa Level 0.22 L POC ABG pH POC ABG pCO2 POC ABG pO2 Sodium Potassium Chloride Carbon Dioxide BUN Creatinine Glucose POC Glucose 108 H 108 H Lactic Acid Calcium AST ALT Ammonia Total Creatine Kinase CK-MB (CK-2) Troponin T C-Reactive Protein Total Protein Albumin HDL Cholesterol TSH Salicylates Acetaminophen 07/11/18 07/11/18 07/12/18 12:32 19:57 05:15 WBC Hgb 11.6 L Hct 34.7 L Plt Count 133 L Lymph % (Auto) 11.0 L [place] % (Auto) Lymph # 1.1 L [place] # Seg Neutrophils % 82.6 H Seg Neuts % (Manual) Lymphocytes % (Manual) Seg Neutrophils # 8.5 H Lymphocytes # (Manual) PT INR D-Dimer Heparin Anti-Xa Level 0.17 L 0.18 L POC ABG pH POC ABG pCO2 POC ABG pO2 Sodium Potassium Chloride Carbon Dioxide BUN Creatinine Glucose POC Glucose Lactic Acid Calcium AST ALT Ammonia Total Creatine Kinase CK-MB (CK-2) Troponin T C-Reactive Protein Total Protein Albumin HDL Cholesterol TSH Salicylates Acetaminophen 07/12/18 07/12/18 07/12/18 05:15 05:15 20:16 WBC Hgb Hct Plt Count Lymph % (Auto) [place] % (Auto) Lymph # [place] # Seg Neutrophils % Seg Neuts % (Manual) Lymphocytes % (Manual) Seg Neutrophils # Lymphocytes # (Manual) PT 16.3 H INR 1.23 H D-Dimer Heparin Anti-Xa Level 0.29 L 0.28 L POC ABG pH POC ABG pCO2 POC ABG pO2 Sodium Potassium Chloride 109.3 H Carbon Dioxide BUN 27 H Creatinine 1.6 H Glucose 114 H POC Glucose Lactic Acid Calcium 8.1 L AST ALT 77 H Ammonia Total Creatine Kinase CK-MB (CK-2) Troponin T C-Reactive Protein Total Protein 5.8 L Albumin 2.7 L HDL Cholesterol TSH Salicylates Acetaminophen Allied health notes reviewed: nursing
--- NOTE | 2018-07-13 11:18 | XRay Report ---
PROCEDURE: XR HIP 2-3V RT TECHNIQUE: Pelvis, one view and right hip, 2 views HISTORY: right hip pain COMPARISONS: None FINDINGS: Nonspecific calcification in right scrotal region. Multifocal degenerative change in the pelvis, right hip, left hip, and included lumbar spine. Degenerative enthesopathy present bilaterally at the lateral iliac crest and right greater trochanter . No definite hip joint space narrowing. There is no radiographic evidence of definite acute fracture or dislocation. No evidence of osseous lesion. IMPRESSION: No definite radiographically visible acute skeletal pathology in the pelvis and right hip This document is electronically signed by Robby Moore MD., Jul 13 2018 11:16:00 AM ET
--- NOTE | 2018-07-13 11:19 | Progress Note ---
Assessment and Plan 58yo AAM: 1. Acute cardiopulmonary arrest most likely secondary to high volume burden bilateral PE * Unlikely primary cardiac etiology * tte revealed nl lv fxn w/o sig valvular pathology * no objective evidence of VF on chart from ER, ? PEA arrest * cont sytemic anticoagulation, baby asa * consider cardiac ischemic w/u once he convalesces from this acute episode (in office) * clinically vastly improved * d/w pt and family at length 2. DARCY/CKD 3. HIV - Patient Problems (1) ARF (acute renal failure) with tubular necrosis Current Visit: Yes Status: Acute (2) Acute pulmonary embolism Current Visit: Yes Status: Acute (3) Acute respiratory failure Current Visit: Yes Status: Acute Qualifiers: Respiratory failure complication: unspecified whether with hypoxia or hypercapnia Qualified Code(s): J96.00 - Acute respiratory failure, unspecified whether with hypoxia or hypercapnia (4) DVT (deep venous thrombosis) Current Visit: Yes Status: Acute (5) HIV (human immunodeficiency virus infection) Current Visit: Yes Status: Chronic Qualifiers: HIV symptom status: unspecified Qualified Code(s): B20 - Human immunodeficiency virus [HIV] disease Subjective Date of service: 07/13/18 Principal diagnosis: Acute hypoxemic Resp failure; Syncope; HIV +ve; Obesity; DARCY. Interval history: feels well Objective Vital Signs Temp Pulse Pulse Pulse Resp BP Pulse Ox 07/13/18 09:24 70 148/82 07/13/18 07:50 98.7 F 78 18 140/88 92 07/13/18 03:52 98.9 F 68 19 126/70 96 07/12/18 23:31 98.2 F 66 18 116/68 96 07/12/18 22:59 99 07/12/18 22:58 98 07/12/18 22:37 72 155/100 07/12/18 22:30 72 18 96 07/12/18 19:17 98.5 F 72 18 155/100 89 07/12/18 19:00 93 07/12/18 18:57 62 07/12/18 16:00 62 80 20 139/83 93 07/12/18 15:50 54 L 15 134/77 98 07/12/18 15:00 60 19 126/81 99 07/12/18 14:00 74 13 120/70 100 07/12/18 13:00 85 19 126/81 96 07/12/18 12:00 98.9 F 80 80 17 126/81 98 - Physical Examination General: Appears Well, No Apparent Distress HEENT: Positive: PERRL, Normocephaly, Mucus Membranes Moist Neck: Positive: neck supple, trachea midline Neuro: Positive: Grossly Intact, Cranial Nerve 2-12 Intact Abdomen: Negative: Tender Skin: Negative: Rash, Wound Musculoskeletal: No Pain Extremities: Absent: edema - Labs and Meds CBC 07/13/18 Range/Units 04:25 Hgb 12.2 (11.8-15.2) gm/dl Hct 36.8 (35.5-45.6) % Plt Count 141 (140-440) K/mm3 - Imaging and Cardiology EKG: report reviewed, image reviewed Echo: report reviewed (EF 50-55%, mod LVH, mild MR, trivial pericardial effusion. ) - EKG Sinus rhythms and dysrhythmias: sinus rhythm Repolarization changes or abnormalities: ST or T wave suggestive of ischemia - Allied health notes Allied health notes reviewed: nursing
--- NOTE | 2018-07-13 12:20 | Progress Note ---
Assessment and Plan Assessment and plan: 58 year old man who presented to the emergency room. He was at a local store when he suddenly experienced loss of consciousness. He was brought by the EMS with cardiac arrest. He received CPR, he was in pulseless v-fib. He was shocked receive chest compressions and medications. He had return of circulation. Past medical history includes HIV Cardiac heart is secondary to V.fib - Patient was shocked and chest compression was done and resuscitated successfully - Cardiology consulted and patient is on heparin, metoprolol, amiodarone and aspirin PE - VQ scan was done and showed high probability PE, CTA showed multiple non occlusive PE - Patient was on heparin, now on eliquis - Hematology and vascular consulted - IR recommend no intervention SIRS, fever, lactic acidosis, suspect septic shock, Bacteremia MSSA - blood culture showed MSSA and patient is on PO ceftin per ID - UA and cxr neg HIV - Resume his HIV medications Acute respiratory failure on mv <96 hrs - Patient extubated on 07/10 Hypokalemia, repleted Acute kidney injury likely due to ATN - Cr this morning was 1.7 - Resolved with IV fluids Transaminitis likely to shock liver - Improving MYOCARDIAL INFARCTION, elevated troponin after CPR - Cardiology is following SUBCLINICAL HYPOTHYROIDISM, ELEVATED TSH, NORMAL FREE T4 - No treatment needed Right hip pain; x-ray of the hip was negative PT/OT Disposition; possible DC after PT recommendations. History Interval history: Patient was seen and this morning, patient was extubated on 07/10. Patient was saturating well on room air. Patient is complaining pain in the right hip. Was not able to move when PTT tries to walk him around. Hospitalist Physical - Physical exam Narrative exam: Patient was saturating well on intranasal oxygen. The patient appeared well nourished and normally developed. Vital signs as documented. Head exam is unremarkable. No scleral icterus . Neck is without jugular venous distension, thyromegaly, or carotid bruits. Lungs are clear to auscultation. Cardiac exam reveals regular rate and Rhythm. Abdominal exam reveals normal bowel sounds. Extremities are nonedematous and both femoral and pedal pulses are normal. MASTER ESTHETICIAN: Patient was alert and oriented. No focal neurologic deficits. - Constitutional Vitals: Temp Pulse Resp BP Pulse Ox 98.7 F 70 19 148/82 99 07/13/18 07:50 07/13/18 10:00 07/13/18 10:00 07/13/18 09:24 07/13/18 10:00 General appearance: Present: no acute distress Results - Labs CBC & Chem 7: 07/13/18 04:25 07/12/18 05:15 Labs: Laboratory Last Values WBC 10.3 K/mm3 (4.5-11.0) 07/12/18 05:15 RBC 3.92 M/mm3 (3.65-5.03) 07/12/18 05:15 Hgb 12.2 gm/dl (11.8-15.2) 07/13/18 04:25 Hct 36.8 % (35.5-45.6) 07/13/18 04:25 MCV 89 fl (84-94) 07/12/18 05:15 MCH 30 pg (28-32) 07/12/18 05:15 MCHC 34 % (32-34) 07/12/18 05:15 RDW 14.8 % (13.2-15.2) 07/12/18 05:15 Plt Count 141 K/mm3 (140-440) 07/13/18 04:25 Lymph % (Auto) 11.0 % (13.4-35.0) L 07/12/18 05:15 [place] % (Auto) 6.4 % (0.0-7.3) 07/12/18 05:15 Eos % (Auto) 0.0 % (0.0-4.3) 07/12/18 05:15 Baso % (Auto) 0.0 % (0.0-1.8) 07/12/18 05:15 Lymph # 1.1 K/mm3 (1.2-5.4) L 07/12/18 05:15 [place] # 0.7 K/mm3 (0.0-0.8) 07/12/18 05:15 Eos # 0.0 K/mm3 (0.0-0.4) 07/12/18 05:15 Baso # 0.0 K/mm3 (0.0-0.1) 07/12/18 05:15 Add Manual Diff Complete 07/07/18 14:45 Total Counted 100 07/07/18 14:45 Seg Neutrophils % 82.6 % (40.0-70.0) H 07/12/18 05:15 Seg Neuts % (Manual) 29.0 % (40.0-70.0) L 07/07/18 14:45 0 % 07/07/18 14:45 66.0 % (13.4-35.0) H 07/07/18 14:45 Reactive Lymphs % (Man) 0 % 07/07/18 14:45 3.0 % (0.0-7.3) 07/07/18 14:45 1.0 % (0.0-4.3) 07/07/18 14:45 1.0 % (0.0-1.8) 07/07/18 14:45 0 % 07/07/18 14:45 0 % 07/07/18 14:45 0 % 07/07/18 14:45 0 % 07/07/18 14:45 Nucleated RBC % Not Reportable 07/07/18 14:45 Seg Neutrophils # 8.5 K/mm3 (1.8-7.7) H 07/12/18 05:15 Seg Neutrophils # Man 2.7 K/mm3 (1.8-7.7) 07/07/18 14:45 Band Neutrophils # 0.0 K/mm3 07/07/18 14:45 Abs Lymphs (Manual) 1817 cells/uL (850-3900) 07/09/18 10:16 6.1 K/mm3 (1.2-5.4) H 07/07/18 14:45 Abs React Lymphs (Man) 0.0 K/mm3 07/07/18 14:45 0.3 K/mm3 (0.0-0.8) 07/07/18 14:45 0.1 K/mm3 (0.0-0.4) 07/07/18 14:45 0.1 K/mm3 (0.0-0.1) 07/07/18 14:45 0.0 K/mm3 07/07/18 14:45 0.0 K/mm3 07/07/18 14:45 0.0 K/mm3 07/07/18 14:45 Blast Cells # 0.0 K/mm3 07/07/18 14:45 WBC Morphology Not Reportable 07/07/18 14:45 Hypersegmented Neuts Not Reportable 07/07/18 14:45 Hyposegmented Neuts Not Reportable 07/07/18 14:45 Hypogranular Neuts Not Reportable 07/07/18 14:45 1+ 07/07/18 14:45 Not Reportable 07/07/18 14:45 Not Reportable 07/07/18 14:45 Not Reportable 07/07/18 14:45 Not Reportable 07/07/18 14:45 Not Reportable 07/07/18 14:45 Appears normal 07/07/18 14:45 Not Reportable 07/07/18 14:45 Plt Clumps, EDTA Not Reportable 07/07/18 14:45 Not Reportable 07/07/18 14:45 Not Reportable 07/07/18 14:45 Not Reportable 07/07/18 14:45 Plt Morphology Comment Not Reportable 07/07/18 14:45 RBC Morphology Not Reportable 07/07/18 14:45 Dimorphic RBCs Not Reportable 07/07/18 14:45 Not Reportable 07/07/18 14:45 Not Reportable 07/07/18 14:45 Few 07/07/18 14:45 Not Reportable 07/07/18 14:45 Not Reportable 07/07/18 14:45 Not Reportable 07/07/18 14:45 Not Reportable 07/07/18 14:45 Not Reportable 07/07/18 14:45 Not Reportable 07/07/18 14:45 Not Reportable 07/07/18 14:45 Not Reportable 07/07/18 14:45 1+ 07/07/18 14:45 Not Reportable 07/07/18 14:45 Not Reportable 07/07/18 14:45 Not Reportable 07/07/18 14:45 Not Reportable 07/07/18 14:45 Not Reportable 07/07/18 14:45 Not Reportable 07/07/18 14:45 Not Reportable 07/07/18 14:45 Acanthocytes (Spur) Not Reportable 07/07/18 14:45 Rouleaux Not Reportable 07/07/18 14:45 Not Reportable 07/07/18 14:45 Not Reportable 07/07/18 14:45 Not Reportable 07/07/18 14:45 Not Reportable 07/07/18 14:45 Hem Pathologist Commnt No 07/07/18 14:45 PT 16.3 Sec. (12.2-14.9) H 07/12/18 05:15 INR 1.23 (0.87-1.13) H 07/12/18 05:15 APTT 26.0 Sec. (24.2-36.6) 07/08/18 Unknown 3341.55 ng/mlDDU (0-234) H 07/09/18 10:16 Heparin Anti-Xa Level 0.28 U.I./ml (0.3-0.7) L 07/12/18 20:16 POC ABG pH 7.321 (7.35-7.45) L 07/10/18 12:05 POC ABG pCO2 38.6 (35-45) 07/10/18 12:05 POC ABG pO2 89 (80-105) 07/10/18 12:05 POC ABG HCO3 19.9 (22-26 mml/L) 07/10/18 12:05 POC ABG Total CO2 21 (23-27mmol/L) 07/10/18 12:05 POC ABG O2 Sat 96 07/10/18 12:05 POC ABG Base Excess -6 ((-2) - (+3)mmol/L) 07/10/18 12:05 28 % 07/10/18 12:05 Sodium 141 mmol/L (137-145) 07/12/18 05:15 Potassium 4.1 mmol/L (3.6-5.0) 07/12/18 05:15 Chloride 109.3 mmol/L (98-107) H 07/12/18 05:15 Carbon Dioxide 22 mmol/L (22-30) 07/12/18 05:15 14 mmol/L 07/12/18 05:15 BUN 27 mg/dL (9-20) H 07/12/18 05:15 1.6 mg/dL (0.8-1.5) H 07/12/18 05:15 Estimated GFR 45 ml/min 07/12/18 05:15 17 % 07/12/18 05:15 Glucose 114 mg/dL (75-100) H 07/12/18 05:15 POC Glucose 72 (70-105) 07/13/18 06:50 Lactic Acid 1.90 mmol/L (0.7-2.0) 07/08/18 06:58 Calcium 8.1 mg/dL (8.4-10.2) L 07/12/18 05:15 Magnesium 1.80 mg/dL (1.7-2.3) 07/11/18 04:54 0.40 mg/dL (0.1-1.2) 07/12/18 05:15 AST 40 units/L (5-40) 07/12/18 05:15 ALT 77 units/L (7-56) H 07/12/18 05:15 44 units/L (35-129) 07/12/18 05:15 62.0 umol/L (25-60) H 07/07/18 15:15 734 units/L (55-170) H 07/09/18 16:12 CK-MB (CK-2) 13.0 ng/mL (0.0-4.0) H 07/09/18 04:00 CK-MB (CK-2) Rel Index 1.3 (0-4) 07/09/18 04:00 1.430 ng/mL (0.00-0.029) H* 07/09/18 04:00 12.60 mg/dL (0.00-1.30) H 07/09/18 16:12 5.8 g/dL (6.3-8.2) L 07/12/18 05:15 2.7 g/dL (3.9-5) L 07/12/18 05:15 0.9 % 07/12/18 05:15 Triglycerides 42 mg/dL (2-149) 07/10/18 04:23 Cholesterol 193 mg/dL (50-199) 07/07/18 14:45 127 mg/dL (50-130) 07/07/18 14:45 71 mg/dL (40-59) H 07/07/18 14:45 2.71 % 07/07/18 14:45 TSH 8.870 mlU/mL (0.270-4.200) H 07/07/18 14:45 Free T4 0.89 ng/dL (0.76-1.46) 07/07/18 14:45 4.2 ug/dL (4.0-12.0) 07/09/18 10:16 120.1 mcg/dL () 07/09/18 16:15 Yellow (Yellow) 07/07/18 18:07 Clear (Clear) 07/07/18 18:07 6.0 (5.0-7.0) 07/07/18 18:07 Ur Specific Gideon 1.010 (1.003-1.030) 07/07/18 18:07 30 mg/dl mg/dL (Negative) 07/07/18 18:07 50 mg/dL (Negative) 07/07/18 18:07 Neg mg/dL (Negative) 07/07/18 18:07 Mod (Negative) 07/07/18 18:07 Neg (Negative) 07/07/18 18:07 Neg (Negative) 07/07/18 18:07 < 2.0 mg/dL (<2.0) 07/07/18 18:07 Ur Leukocyte Esterase Neg (Negative) 07/07/18 18:07 2.0 /HPF (0.0-6.0) 07/07/18 18:07 3.0 /HPF (0.0-6.0) 07/07/18 18:07 Few /HPF 07/07/18 18:07 Salicylates < 0.3 mg/dL (2.8-20.0) L 07/07/18 14:45 Acetaminophen < 5.0 ug/mL (10.0-30.0) L 07/07/18 14:45 Plasma/Serum Alcohol < 0.01 % (0-0.07) 07/07/18 14:45 Lymph Enumerat CD4/CD8 0.88 (0.86-5.00) 07/09/18 10:16 % CD3 Cells 70 % (57-85) 07/09/18 10:16 1266 cells/uL (840-3060) 07/09/18 10:16 % CD4 Cells 33 % (30-61) 07/09/18 10:16 612 cells/uL (490-1740) 07/09/18 10:16 % CD8 Cells 38 % (12-42) 07/09/18 10:16 696 cells/uL (180-1170) 07/09/18 10:16 % CD19 Cells 12 % (6-29) 07/09/18 10:16 216 cells/uL (110-660) 07/09/18 10:16 HIV-1 RNA PCR copies/ml <20 Copies/mL 07/09/18 10:16 <1.30 Log cps/mL 07/09/18 10:16 Influenza A (Rapid) Negative (Negative) 07/09/18 18:59 Influenza A (RT-PCR) Negative (Negative) 07/09/18 Unknown Influenza B (Rapid) Negative (Negative) 07/09/18 18:59 Influenza B (RT-PCR) Negative (Negative) 07/09/18 Unknown Blood Type O POSITIVE 07/07/18 14:45 Antibody Screen Negative 07/07/18 14:45 Active Medications - Current Medications Current Medications: Generic Name Dose Route Start Last Admin Trade Name Freq PRN Reason Stop Dose Admin Abacavir Sulfate 300 mg 07/08/18 10:00 07/13/18 09:50 Ziagen PO 300 mg Q12HR KATIANA Administration Albuterol 2.5 mg 07/07/18 16:55 Proventil IH Q3HRT PRN Shortness Of Breath Lipase/Protease/Amylase 1 each 07/08/18 15:[address] 10,500 Unit FEEDTUBE PRN PRN For Clogged Feeding Tube Apixaban 10 mg 07/21/18 00:01 Eliquis PO Q12HR KATIANA Protocol Aspirin 81 mg 07/13/18 12:00 Baby Aspirin PO QDAY KATIANA Atorvastatin Calcium 20 mg 07/10/18 22:00 07/12/18 22:37 Lipitor PO 20 mg QHS KATIANA Administration Cefuroxime Axetil 500 mg 07/12/18 14:00 07/13/18 09:24 Ceftin PO 07/14/18 23:59 500 mg Q12HR KATIANA Administration Docusate Sodium 100 mg 07/11/18 12:00 07/13/18 09:25 Colace PO Not Given BID KATIANA Famotidine 20 mg 07/08/18 10:00 07/13/18 09:25 Pepcid IV 20 mg BID KATIANA Administration Hydrophilic Ointment 1 applic 07/07/18 15:10 Vaseline Lip Therapy TP Q2HR PRN Dry Lips Sodium Chloride 1,000 mls @ 75 mls/hr 07/11/18 15:00 07/13/18 09:20 Nacl 0.9% 1000 Ml IV 75 mls/hr DIRECT KATIANA Administration Ibuprofen 400 mg 07/09/18 20:32 07/09/18 21:04 Motrin PO 400 mg Q6H PRN Administration Fever >101 Insulin Human Lispro 0 unit 07/08/18 14:00 07/13/18 08:17 Humalog SUB-Q Not Given Q6HR [facility] Protocol Lamivudine 150 mg 07/08/18 10:00 07/13/18 09:23 Epivir PO 150 mg Q12HR KATIANA Administration Metoprolol Tartrate 12.5 mg 07/12/18 11:49 07/13/18 09:24 Lopressor PO 12.5 mg BID KATIANA Administration Multi-Ingred Cream/Lotion/Oil/Oint 1 applic 07/07/18 15:10 Artificial Tears Ophth Oint OU Q4HR PRN Dry Eye(s) Ondansetron HCl 4 mg 07/10/18 14:54 07/10/18 15:12 Zofran IV 4 mg Q8H PRN Administration Nausea And Vomiting Simple Syrup 15 ml 07/08/18 15:34 Simple Syrup FEEDTUBE PRN PRN Hypoglycemia Simple Syrup 30 ml 07/08/18 15:34 Simple Syrup FEEDTUBE PRN PRN Hypoglycemia Sodium Bicarbonate 325 mg 07/08/18 15:34 Sodium Bicarbonate FEEDTUBE PRN PRN For Clogged Feeding Tube Sodium Chloride 10 ml 07/07/18 22:00 07/13/18 09:26 Sodium Chloride Flush Syringe 10 Ml IV 10 ml BID KATIANA Administration Sodium Chloride 10 ml 07/07/18 16:55 Sodium Chloride Flush Syringe 10 Ml IV PRN PRN LINE FLUSH Nutrition/Malnutrition Assess - Dietary Evaluation Nutrition/Malnutrition Findings: Nutrition Notes Start: 07/08/18 15:18 Freq: Status: Active Protocol: Document 07/11/18 10:38 CP (Rec: 07/11/18 10:40 CP [id number]) Co-Sign 07/11/18 10:38 LP Nutrition Notes Initial or Follow up Brief Note Current Diagnosis Acute Kidney Injury,Heart Failure,Respiratory Failure Other Pertinent Diagnosis HIV, NV Current Diet NPO Subjective/Other Information Pt is being extubated today as discussed in rounds. RN stated that she will order a cardiac diet for the pt. Nutrition Intervention Follow-Up By: 07/16/18 Additional Comments F/U: Diet advancement/PO intake
[2018-07-13] MEDS: BABY ASPIRIN PO SCH (12:36)
[2018-07-13] MEDS: ELIQUIS PO SCH ×2 (13:14→23:29)
--- NOTE | 2018-07-13 14:52 | Hem/Onc Progress Note ---
Assessment and Plan 1. Bilateral leg deep vein thrombosis. 2. Pulmonary embolism based on CTA. 3. The patient was on heparin. This has been changed to Eliquis. 4. HIV, on medication. 5. History of cardiac arrest. 6. History of respiratory failure.- was on vent 7. h/o Renal impairment. 8. h/o Liver function abnormality. 9. h/o Bacteremia, status post treatment. I will follow the patient during inpatient stay and then in the clinic setting. pt had cardiac arrest - hence he would need termite helper anticoagulation - Patient Problems (1) Acute pulmonary embolism Current Visit: Yes Status: Acute Subjective Date of service: 07/13/18 Principal diagnosis: dvt - PE Interval history: on eliquis - d/w RN Objective - Constitutional Vitals: Last Vital Signs Temp 98.9 F 07/13/18 12:21 Pulse 69 07/13/18 12:21 Resp 18 07/13/18 12:21 BP 146/85 07/13/18 12:21 Pulse Ox 91 07/13/18 12:21 Pain Intensity (0-10): denies any pain General appearance: no acute distress - EENT Eyes: EOM intact ENT: hearing intact, clear oral mucosa Lymph node exam: negative cervical - Neck Neck: normal ROM - Respiratory Respiratory effort: Positive: normal Respiratory: bilateral: CTA - Cardiovascular Heart Sounds: Present: S1 & S2 Extremities: No edema, normal temperature - Gastrointestinal General gastrointestinal: Present: soft, non-tender Rectal Exam: deferred - Genitourinary Male genitourinary: Present: deferred - Integumentary Integumentary: warm - Musculoskeletal Musculoskeletal: strength equal bilaterally - Neurologic Neurologic: moves all extremities - Labs Lab Results: Laboratory Results - last 24 hr 07/09/18 07/12/18 07/12/18 16:15 20:16 23:45 Hgb Hct Plt Count Heparin Anti-Xa Level 0.28 L POC Glucose 97 Total Cortisol 120.1 07/13/18 07/13/18 07/13/18 04:25 06:50 12:46 Hgb 12.2 Hct 36.8 Plt Count 141 Heparin Anti-Xa Level POC Glucose 72 88 Total Cortisol Medications & Allergies - Medications Allergies/Adverse Reactions: Allergies lactose Adverse Reaction (Verified 07/12/18 11:52) Unknown Home Medications: Home Medications Medication Instructions Recorded Confirmed Last Taken Type Abacavir/Dolutegravir/Lamivudi 1 each PO DAILY 02/28/16 02/28/16 Unknown History [Triumeq Tablet] Active Medications: Generic Name Dose Route Start Last Admin Trade Name Freq PRN Reason Stop Dose Admin Abacavir Sulfate 300 mg 07/08/18 10:00 07/13/18 09:50 Ziagen PO 300 mg Q12HR KATIANA Administration Albuterol 2.5 mg 07/07/18 16:55 Proventil IH Q3HRT PRN Shortness Of Breath Lipase/Protease/Amylase 1 each 07/08/18 15:[address] 10,500 Unit FEEDTUBE PRN PRN For Clogged Feeding Tube Apixaban 10 mg 07/13/18 13:00 07/13/18 13:14 Eliquis PO 10 mg Q12HR KATIANA Administration Protocol Aspirin 81 mg 07/13/18 12:00 07/13/18 12:36 Baby Aspirin PO 81 mg QDAY KATIANA Administration Atorvastatin Calcium 20 mg 07/10/18 22:00 07/12/18 22:37 Lipitor PO 20 mg QHS KATIANA Administration Cefuroxime Axetil 500 mg 07/12/18 14:00 07/13/18 09:24 Ceftin PO 07/14/18 23:59 500 mg Q12HR KATIANA Administration Docusate Sodium 100 mg 07/11/18 12:00 07/13/18 09:25 Colace PO Not Given BID KATIANA Famotidine 20 mg 07/08/18 10:00 07/13/18 09:25 Pepcid IV 20 mg BID KATIANA Administration Hydrophilic Ointment 1 applic 07/07/18 15:10 Vaseline Lip Therapy TP Q2HR PRN Dry Lips Sodium Chloride 1,000 mls @ 75 mls/hr 07/11/18 15:00 07/13/18 09:20 Nacl 0.9% 1000 Ml IV 75 mls/hr DIRECT KATIANA Administration Ibuprofen 400 mg 07/09/18 20:32 07/09/18 21:04 Motrin PO 400 mg Q6H PRN Administration Fever >101 Insulin Human Lispro 0 unit 07/08/18 14:00 07/13/18 13:13 Humalog SUB-Q Not Given Q6HR KATIANA Protocol Lamivudine 150 mg 07/08/18 10:00 07/13/18 09:23 Epivir PO 150 mg Q12HR KATIANA Administration Metoprolol Tartrate 12.5 mg 07/12/18 11:49 07/13/18 09:24 Lopressor PO 12.5 mg BID KATIANA Administration Multi-Ingred Cream/Lotion/Oil/Oint 1 applic 07/07/18 15:10 Artificial Tears Ophth Oint OU Q4HR PRN Dry Eye(s) Ondansetron HCl 4 mg 07/10/18 14:54 07/10/18 15:12 Zofran IV 4 mg Q8H PRN Administration Nausea And Vomiting Simple Syrup 15 ml 07/08/18 15:34 Simple Syrup FEEDTUBE PRN PRN Hypoglycemia Simple Syrup 30 ml 07/08/18 15:34 Simple Syrup FEEDTUBE PRN PRN Hypoglycemia Sodium Bicarbonate 325 mg 07/08/18 15:34 Sodium Bicarbonate FEEDTUBE PRN PRN For Clogged Feeding Tube Sodium Chloride 10 ml 07/07/18 22:00 07/13/18 09:26 Sodium Chloride Flush Syringe 10 Ml IV 10 ml BID KATIANA Administration Sodium Chloride 10 ml 07/07/18 16:55 Sodium Chloride Flush Syringe 10 Ml IV PRN PRN LINE FLUSH
[2018-07-14 06:32] LABS: Calcium 7.6 mg/dL (8.4-10.2)
--- NOTE | 2018-07-14 08:20 | Progress Note ---
Assessment and Plan - Patient Problems (1) ARF (acute renal failure) with tubular necrosis Current Visit: Yes Status: Acute Plan to address problem: Acute kidney injury status post cardiac arrest is probably acute tubular necrosis. Kidney function improving. Follow-up electrolytes and renal function in the morning. (2) Cardiac arrest with successful resuscitation Current Visit: Yes Status: Acute Plan to address problem: Status post V. fib arrest. Continue management by architecture faculty member (3) CKD (chronic kidney disease) stage 3, GFR 30-59 ml/min Current Visit: Yes Status: Chronic Plan to address problem: Presumed baseline chronic kidney disease. (4) HIV (human immunodeficiency virus infection) Current Visit: Yes Status: Chronic Qualifiers: HIV symptom status: unspecified Qualified Code(s): B20 - Human immunodeficiency virus [HIV] disease Plan to address problem: Being followed by infectious disease specialist. Continue antiretroviral medications adjusted to current eGFR Subjective Date of service: 07/14/18 Principal diagnosis: dvt - PE Interval history: Pt awake, alert in NAD Objective - Vital Signs Vital signs: Vital Signs - 12hr 07/13/18 07/13/18 07/13/18 21:32 21:53 21:56 Temperature 99.4 F Pulse Rate 64 Respiratory Rate Blood Pressure 144/81 Blood Pressure [Left] O2 Sat by Pulse 97 Oximetry 07/13/18 07/13/18 07/13/18 21:58 22:00 23:00 Temperature 99.4 F Pulse Rate 73 84 64 Respiratory 19 24 Rate Blood Pressure Blood Pressure 144/81 [Left] O2 Sat by Pulse 96 99 98 Oximetry 07/13/18 07/14/18 07/14/18 23:54 03:55 05:05 Temperature 98.3 F 97.9 F Pulse Rate 63 66 Respiratory 17 16 Rate Blood Pressure 159/88 141/85 Blood Pressure [Left] O2 Sat by Pulse 96 96 98 Oximetry - General Appearance General appearance: well-developed, well-nourished, appears stated age EENT: ATNC, PERRL, mucous membranes moist Neck: no JVD Respiratory: Present: Clear to Ascultation Cardiology: regular, S1S2 Gastrointestinal: normoactive bowel sounds Integumentary: no rash, other (no edema ) Neurologic: no focal deficit, alert and oriented x3, strength 5/5, CN 3-12 intact Psychiatric: mood/affect appropriate, cooperative - Lab 07/13/18 04:25 07/14/18 04:15 Most recent lab results Calcium 7.6 mg/dL (8.4-10.2) L 07/14/18 04:15 Magnesium 1.80 mg/dL (1.7-2.3) 07/11/18 04:54 Medications & Allergies - Medications Allergies/Adverse Reactions: Allergies lactose Adverse Reaction (Verified 07/12/18 11:52) Unknown Home Medications: Home Medications Medication Instructions Recorded Confirmed Last Taken Type Abacavir/Dolutegravir/Lamivudi 1 each PO DAILY 02/28/16 07/14/18 Unknown History [Triumeq Tablet] Active Medications: Generic Name Dose Route Start Last Admin Trade Name Freq PRN Reason Stop Dose Admin Abacavir Sulfate 300 mg 07/08/18 10:00 07/13/18 23:03 Ziagen PO 300 mg Q12HR KATIANA Administration Albuterol 2.5 mg 07/07/18 16:55 Proventil IH Q3HRT PRN Shortness Of Breath Lipase/Protease/Amylase 1 each 07/08/18 15:[address] 10,500 Unit FEEDTUBE PRN PRN For Clogged Feeding Tube Apixaban 10 mg 07/13/18 13:00 07/13/18 23:29 Eliquis PO 10 mg Q12HR KATIANA Administration Protocol Aspirin 81 mg 07/13/18 12:00 07/13/18 12:36 Baby Aspirin PO 81 mg QDAY KATIANA Administration Atorvastatin Calcium 20 mg 07/10/18 22:00 07/13/18 23:03 Lipitor PO 20 mg QHS KATIANA Administration Cefuroxime Axetil 500 mg 07/12/18 14:00 07/13/18 23:03 Ceftin PO 07/14/18 23:59 500 mg Q12HR KATIANA Administration Docusate Sodium 100 mg 07/11/18 12:00 07/13/18 23:31 Colace PO Not Given BID KATIANA Famotidine 20 mg 07/08/18 10:00 07/13/18 23:04 Pepcid IV 20 mg BID KATIANA Administration Hydrophilic Ointment 1 applic 07/07/18 15:10 Vaseline Lip Therapy TP Q2HR PRN Dry Lips Sodium Chloride 1,000 mls @ 75 mls/hr 07/11/18 15:00 07/13/18 23:27 Nacl 0.9% 1000 Ml IV 75 mls/hr DIRECT KATIANA Administration Ibuprofen 400 mg 07/09/18 20:32 07/09/18 21:04 Motrin PO 400 mg Q6H PRN Administration Fever >101 Insulin Human Lispro 0 unit 07/08/18 14:00 07/13/18 20:09 Humalog SUB-Q Not Given Q6HR [facility] Protocol Lamivudine 150 mg 07/08/18 10:00 07/13/18 23:03 Epivir PO 150 mg Q12HR KATIANA Administration Metoprolol Tartrate 12.5 mg 07/12/18 11:49 07/13/18 23:02 Lopressor PO 12.5 mg BID KATIANA Administration Multi-Ingred Cream/Lotion/Oil/Oint 1 applic 07/07/18 15:10 Artificial Tears Ophth Oint OU Q4HR PRN Dry Eye(s) Ondansetron HCl 4 mg 07/10/18 14:54 07/10/18 15:12 Zofran IV 4 mg Q8H PRN Administration Nausea And Vomiting Simple Syrup 15 ml 07/08/18 15:34 Simple Syrup FEEDTUBE PRN PRN Hypoglycemia Simple Syrup 30 ml 07/08/18 15:34 Simple Syrup FEEDTUBE PRN PRN Hypoglycemia Sodium Bicarbonate 325 mg 07/08/18 15:34 Sodium Bicarbonate FEEDTUBE PRN PRN For Clogged Feeding Tube Sodium Chloride 10 ml 07/07/18 22:00 07/13/18 23:04 Sodium Chloride Flush Syringe 10 Ml IV 10 ml BID KATIANA Administration Sodium Chloride 10 ml 07/07/18 16:55 Sodium Chloride Flush Syringe 10 Ml IV PRN PRN LINE FLUSH
[2018-07-14] MEDS: HumaLOG SUB-Q SCH ×3 (08:32→19:31)
--- NOTE | 2018-07-14 08:44 | Progress Note ---
Assessment and Plan Assessment and plan: 58 year old man who presented to the emergency room. He was at a local store when he suddenly experienced loss of consciousness. He was brought by the EMS with cardiac arrest. He received CPR, he was in pulseless v-fib. He was shocked receive chest compressions and medications. He had return of circulation. Past medical history includes HIV sp Cardiac arrest - Patient was shocked and chest compression was done and resuscitated successfully - Cardiology consulted and patient is on anticoagulation, metoprolol, amiodarone and aspirin PE - VQ scan was done and showed high probability PE, CTA showed multiple non occlusive PE - Patient was on heparin, now on eliquis - Hematology and vascular consulted - IR recommend no intervention SIRS, fever, lactic acidosis, suspect septic shock, Bacteremia MSSA - blood culture showed MSSA and patient is on PO ceftin per ID - UA and cxr neg HIV - Resume his HIV medications Acute respiratory failure on mv <96 hrs - Patient extubated on 07/10 Hypokalemia, repleted Acute kidney injury likely due to ATN - Cr this morning was 1.7 - Resolved with IV fluids Transaminitis likely to shock liver - Improving MYOCARDIAL INFARCTION, elevated troponin after CPR - Cardiology is following, likely type 2 secondary to PE SUBCLINICAL HYPOTHYROIDISM, ELEVATED TSH, NORMAL FREE T4 - No treatment needed Right hip pain; x-ray of the hip was negative PT/OT Disposition; possible DC after PT recommendations. History Interval history: Review of systems Constitutional: No fevers, no malaise, no joint pains CVS: No chest pain, no orthopnea, no dyspnea on exertion, no pedal edema GI: No abdominal pain, no diarrhea, no vomiting, no constipation Respiratory: no wheezing, no coughing Hospitalist Physical - Physical exam Narrative exam: General.: Appears well, no distress, nontoxic HEENT: Moist mucous membranes, extraocular muscles intact, no lymphadenopathy Neck: supple Cardiac: S1-S2 heard Lungs: clear to auscultation bilaterally Abdomen: soft , nontender, nondistended, bowel sounds positive Extremities: no edema clubbing or cyanosis Skin: no rash or lesions Neurologic: no gross focal deficits Psych: calm, and cooperative - Constitutional Vitals: Temp Pulse Resp BP Pulse Ox 98.8 F 66 18 159/87 98 07/14/18 08:26 07/14/18 03:55 07/14/18 08:26 07/14/18 08:26 07/14/18 05:05 General appearance: Present: no acute distress Results - Labs CBC & Chem 7: 07/13/18 04:25 07/14/18 04:15 Labs: Laboratory Last Values WBC 10.3 K/mm3 (4.5-11.0) 07/12/18 05:15 RBC 3.92 M/mm3 (3.65-5.03) 07/12/18 05:15 Hgb 12.2 gm/dl (11.8-15.2) 07/13/18 04:25 Hct 36.8 % (35.5-45.6) 07/13/18 04:25 MCV 89 fl (84-94) 07/12/18 05:15 MCH 30 pg (28-32) 07/12/18 05:15 MCHC 34 % (32-34) 07/12/18 05:15 RDW 14.8 % (13.2-15.2) 07/12/18 05:15 Plt Count 141 K/mm3 (140-440) 07/13/18 04:25 Lymph % (Auto) 11.0 % (13.4-35.0) L 07/12/18 05:15 [place] % (Auto) 6.4 % (0.0-7.3) 07/12/18 05:15 Eos % (Auto) 0.0 % (0.0-4.3) 07/12/18 05:15 Baso % (Auto) 0.0 % (0.0-1.8) 07/12/18 05:15 Lymph # 1.1 K/mm3 (1.2-5.4) L 07/12/18 05:15 [place] # 0.7 K/mm3 (0.0-0.8) 07/12/18 05:15 Eos # 0.0 K/mm3 (0.0-0.4) 07/12/18 05:15 Baso # 0.0 K/mm3 (0.0-0.1) 07/12/18 05:15 Add Manual Diff Complete 07/07/18 14:45 Total Counted 100 07/07/18 14:45 Seg Neutrophils % 82.6 % (40.0-70.0) H 07/12/18 05:15 Seg Neuts % (Manual) 29.0 % (40.0-70.0) L 07/07/18 14:45 0 % 07/07/18 14:45 66.0 % (13.4-35.0) H 07/07/18 14:45 Reactive Lymphs % (Man) 0 % 07/07/18 14:45 3.0 % (0.0-7.3) 07/07/18 14:45 1.0 % (0.0-4.3) 07/07/18 14:45 1.0 % (0.0-1.8) 07/07/18 14:45 0 % 07/07/18 14:45 0 % 07/07/18 14:45 0 % 07/07/18 14:45 0 % 07/07/18 14:45 Nucleated RBC % Not Reportable 07/07/18 14:45 Seg Neutrophils # 8.5 K/mm3 (1.8-7.7) H 07/12/18 05:15 Seg Neutrophils # Man 2.7 K/mm3 (1.8-7.7) 07/07/18 14:45 Band Neutrophils # 0.0 K/mm3 07/07/18 14:45 Abs Lymphs (Manual) 1817 cells/uL (850-3900) 07/09/18 10:16 6.1 K/mm3 (1.2-5.4) H 07/07/18 14:45 Abs React Lymphs (Man) 0.0 K/mm3 07/07/18 14:45 0.3 K/mm3 (0.0-0.8) 07/07/18 14:45 0.1 K/mm3 (0.0-0.4) 07/07/18 14:45 0.1 K/mm3 (0.0-0.1) 07/07/18 14:45 0.0 K/mm3 07/07/18 14:45 0.0 K/mm3 07/07/18 14:45 0.0 K/mm3 07/07/18 14:45 Blast Cells # 0.0 K/mm3 07/07/18 14:45 WBC Morphology Not Reportable 07/07/18 14:45 Hypersegmented Neuts Not Reportable 07/07/18 14:45 Hyposegmented Neuts Not Reportable 07/07/18 14:45 Hypogranular Neuts Not Reportable 07/07/18 14:45 1+ 07/07/18 14:45 Not Reportable 07/07/18 14:45 Not Reportable 07/07/18 14:45 Not Reportable 07/07/18 14:45 Not Reportable 07/07/18 14:45 Not Reportable 07/07/18 14:45 Appears normal 07/07/18 14:45 Not Reportable 07/07/18 14:45 Plt Clumps, EDTA Not Reportable 07/07/18 14:45 Not Reportable 07/07/18 14:45 Not Reportable 07/07/18 14:45 Not Reportable 07/07/18 14:45 Plt Morphology Comment Not Reportable 07/07/18 14:45 RBC Morphology Not Reportable 07/07/18 14:45 Dimorphic RBCs Not Reportable 07/07/18 14:45 Not Reportable 07/07/18 14:45 Not Reportable 07/07/18 14:45 Few 07/07/18 14:45 Not Reportable 07/07/18 14:45 Not Reportable 07/07/18 14:45 Not Reportable 07/07/18 14:45 Not Reportable 07/07/18 14:45 Not Reportable 07/07/18 14:45 Not Reportable 07/07/18 14:45 Not Reportable 07/07/18 14:45 Not Reportable 07/07/18 14:45 1+ 07/07/18 14:45 Not Reportable 07/07/18 14:45 Not Reportable 07/07/18 14:45 Not Reportable 07/07/18 14:45 Not Reportable 07/07/18 14:45 Not Reportable 07/07/18 14:45 Not Reportable 07/07/18 14:45 Not Reportable 07/07/18 14:45 Acanthocytes (Spur) Not Reportable 07/07/18 14:45 Rouleaux Not Reportable 07/07/18 14:45 Not Reportable 07/07/18 14:45 Not Reportable 07/07/18 14:45 Not Reportable 07/07/18 14:45 Not Reportable 07/07/18 14:45 Hem Pathologist Commnt No 07/07/18 14:45 PT 16.3 Sec. (12.2-14.9) H 07/12/18 05:15 INR 1.23 (0.87-1.13) H 07/12/18 05:15 APTT 26.0 Sec. (24.2-36.6) 07/08/18 Unknown 3341.55 ng/mlDDU (0-234) H 07/09/18 10:16 Heparin Anti-Xa Level 0.28 U.I./ml (0.3-0.7) L 07/12/18 20:16 POC ABG pH 7.321 (7.35-7.45) L 07/10/18 12:05 POC ABG pCO2 38.6 (35-45) 07/10/18 12:05 POC ABG pO2 89 (80-105) 07/10/18 12:05 POC ABG HCO3 19.9 (22-26 mml/L) 07/10/18 12:05 POC ABG Total CO2 21 (23-27mmol/L) 07/10/18 12:05 POC ABG O2 Sat 96 07/10/18 12:05 POC ABG Base Excess -6 ((-2) - (+3)mmol/L) 07/10/18 12:05 28 % 07/10/18 12:05 Sodium 141 mmol/L (137-145) 07/14/18 04:15 Potassium 3.6 mmol/L (3.6-5.0) 07/14/18 04:15 Chloride 107.5 mmol/L (98-107) H 07/14/18 04:15 Carbon Dioxide 23 mmol/L (22-30) 07/14/18 04:15 14 mmol/L 07/14/18 04:15 BUN 18 mg/dL (9-20) 07/14/18 04:15 1.4 mg/dL (0.8-1.5) 07/14/18 04:15 Estimated GFR 52 ml/min 07/14/18 04:15 13 % 07/14/18 04:15 Glucose 90 mg/dL (75-100) 07/14/18 04:15 POC Glucose 91 (70-105) 07/14/18 07:31 Lactic Acid 1.90 mmol/L (0.7-2.0) 07/08/18 06:58 Calcium 7.6 mg/dL (8.4-10.2) L 07/14/18 04:15 Magnesium 1.80 mg/dL (1.7-2.3) 07/11/18 04:54 0.40 mg/dL (0.1-1.2) 07/12/18 05:15 AST 40 units/L (5-40) 07/12/18 05:15 ALT 77 units/L (7-56) H 07/12/18 05:15 44 units/L (35-129) 07/12/18 05:15 62.0 umol/L (25-60) H 07/07/18 15:15 734 units/L (55-170) H 07/09/18 16:12 CK-MB (CK-2) 13.0 ng/mL (0.0-4.0) H 07/09/18 04:00 CK-MB (CK-2) Rel Index 1.3 (0-4) 07/09/18 04:00 1.430 ng/mL (0.00-0.029) H* 07/09/18 04:00 12.60 mg/dL (0.00-1.30) H 07/09/18 16:12 5.8 g/dL (6.3-8.2) L 07/12/18 05:15 2.7 g/dL (3.9-5) L 07/12/18 05:15 0.9 % 07/12/18 05:15 Triglycerides 42 mg/dL (2-149) 07/10/18 04:23 Cholesterol 193 mg/dL (50-199) 07/07/18 14:45 127 mg/dL (50-130) 07/07/18 14:45 71 mg/dL (40-59) H 07/07/18 14:45 2.71 % 07/07/18 14:45 TSH 8.870 mlU/mL (0.270-4.200) H 07/07/18 14:45 Free T4 0.89 ng/dL (0.76-1.46) 07/07/18 14:45 4.2 ug/dL (4.0-12.0) 07/09/18 10:16 120.1 mcg/dL () 07/09/18 16:15 Yellow (Yellow) 07/07/18 18:07 Clear (Clear) 07/07/18 18:07 6.0 (5.0-7.0) 07/07/18 18:07 Ur Specific [place] 1.010 (1.003-1.030) 07/07/18 18:07 30 mg/dl mg/dL (Negative) 07/07/18 18:07 50 mg/dL (Negative) 07/07/18 18:07 Neg mg/dL (Negative) 07/07/18 18:07 Mod (Negative) 07/07/18 18:07 Neg (Negative) 07/07/18 18:07 Neg (Negative) 07/07/18 18:07 < 2.0 mg/dL (<2.0) 07/07/18 18:07 Ur Leukocyte Esterase Neg (Negative) 07/07/18 18:07 2.0 /HPF (0.0-6.0) 07/07/18 18:07 3.0 /HPF (0.0-6.0) 07/07/18 18:07 Few /HPF 07/07/18 18:07 Salicylates < 0.3 mg/dL (2.8-20.0) L 07/07/18 14:45 Acetaminophen < 5.0 ug/mL (10.0-30.0) L 07/07/18 14:45 Plasma/Serum Alcohol < 0.01 % (0-0.07) 07/07/18 14:45 Lymph Enumerat CD4/CD8 0.88 (0.86-5.00) 07/09/18 10:16 % CD3 Cells 70 % (57-85) 07/09/18 10:16 1266 cells/uL (840-3060) 07/09/18 10:16 % CD4 Cells 33 % (30-61) 07/09/18 10:16 612 cells/uL (490-1740) 07/09/18 10:16 % CD8 Cells 38 % (12-42) 07/09/18 10:16 696 cells/uL (180-1170) 07/09/18 10:16 % CD19 Cells 12 % (6-29) 07/09/18 10:16 216 cells/uL (110-660) 07/09/18 10:16 HIV-1 RNA PCR copies/ml <20 Copies/mL 07/09/18 10:16 <1.30 Log cps/mL 07/09/18 10:16 Influenza A (Rapid) Negative (Negative) 07/09/18 18:59 Influenza A (RT-PCR) Negative (Negative) 07/09/18 Unknown Influenza B (Rapid) Negative (Negative) 07/09/18 18:59 Influenza B (RT-PCR) Negative (Negative) 07/09/18 Unknown Blood Type O POSITIVE 07/07/18 14:45 Antibody Screen Negative 07/07/18 14:45 Active Medications - Current Medications Current Medications: Generic Name Dose Route Start Last Admin Trade Name Freq PRN Reason Stop Dose Admin Abacavir Sulfate 300 mg 07/08/18 10:00 07/13/18 23:03 Ziagen PO 300 mg Q12HR KATIANA Administration Albuterol 2.5 mg 07/07/18 16:55 Proventil IH Q3HRT PRN Shortness Of Breath Lipase/Protease/Amylase 1 each 07/08/18 15:[address] 10,500 Unit FEEDTUBE PRN PRN For Clogged Feeding Tube Apixaban 10 mg 07/13/18 13:00 07/13/18 23:29 Eliquis PO 10 mg Q12HR KATIANA Administration Protocol Aspirin 81 mg 07/13/18 12:00 07/13/18 12:36 Baby Aspirin PO 81 mg QDAY KATIANA Administration Atorvastatin Calcium 20 mg 07/10/18 22:00 07/13/18 23:03 Lipitor PO 20 mg QHS KATIANA Administration Cefuroxime Axetil 500 mg 07/12/18 14:00 07/13/18 23:03 Ceftin PO 07/14/18 23:59 500 mg Q12HR KATIANA Administration Docusate Sodium 100 mg 07/11/18 12:00 07/13/18 23:31 Colace PO Not Given BID KATIANA Famotidine 20 mg 07/08/18 10:00 07/13/18 23:04 Pepcid IV 20 mg BID KATIANA Administration Hydrophilic Ointment 1 applic 07/07/18 15:10 Vaseline Lip Therapy TP Q2HR PRN Dry Lips Sodium Chloride 1,000 mls @ 75 mls/hr 07/11/18 15:00 07/13/18 23:27 Nacl 0.9% 1000 Ml IV 75 mls/hr DIRECT KATIANA Administration Ibuprofen 400 mg 07/09/18 20:32 07/09/18 21:04 Motrin PO 400 mg Q6H PRN Administration Fever >101 Insulin Human Lispro 0 unit 07/08/18 14:00 07/14/18 08:32 Humalog SUB-Q Not Given Q6HR [facility] Protocol Lamivudine 150 mg 07/08/18 10:00 07/13/18 23:03 Epivir PO 150 mg Q12HR KATIANA Administration Metoprolol Tartrate 12.5 mg 07/12/18 11:49 07/13/18 23:02 Lopressor PO 12.5 mg BID KATIANA Administration Multi-Ingred Cream/Lotion/Oil/Oint 1 applic 07/07/18 15:10 Artificial Tears Ophth Oint OU Q4HR PRN Dry Eye(s) Ondansetron HCl 4 mg 07/10/18 14:54 07/10/18 15:12 Zofran IV 4 mg Q8H PRN Administration Nausea And Vomiting Simple Syrup 15 ml 07/08/18 15:34 Simple Syrup FEEDTUBE PRN PRN Hypoglycemia Simple Syrup 30 ml 07/08/18 15:34 Simple Syrup FEEDTUBE PRN PRN Hypoglycemia Sodium Bicarbonate 325 mg 07/08/18 15:34 Sodium Bicarbonate FEEDTUBE PRN PRN For Clogged Feeding Tube Sodium Chloride 10 ml 07/07/18 22:00 07/13/18 23:04 Sodium Chloride Flush Syringe 10 Ml IV 10 ml BID KATIANA Administration Sodium Chloride 10 ml 07/07/18 16:55 Sodium Chloride Flush Syringe 10 Ml IV PRN PRN LINE FLUSH Nutrition/Malnutrition Assess - Dietary Evaluation Nutrition/Malnutrition Findings: Nutrition Notes Start: 07/08/18 15:18 Freq: Status: Active Protocol: Document 07/11/18 10:38 CP (Rec: 07/11/18 10:40 CP [id number]) Co-Sign 07/11/18 10:38 LP Nutrition Notes Initial or Follow up Brief Note Current Diagnosis Acute Kidney Injury,Heart Failure,Respiratory Failure Other Pertinent Diagnosis HIV, [place] Current Diet NPO Subjective/Other Information Pt is being extubated today as discussed in rounds. RN stated that she will order a cardiac diet for the pt. Nutrition Intervention Follow-Up By: 07/16/18 Additional Comments F/U: Diet advancement/PO intake
[2018-07-14] MEDS: TIVICAY PO SCH (09:28)
[2018-07-14] MEDS: ELIQUIS PO SCH ×2 (09:28→22:00)
[2018-07-14] MEDS: LOPRESSOR PO SCH ×2 (09:29→21:57)
[2018-07-14] MEDS: BABY ASPIRIN PO SCH (09:29)
[2018-07-14] MEDS: CEFTIN PO SCH ×2 (09:29→21:57)
[2018-07-14] MEDS: ZIAGEN PO SCH ×2 (09:30→22:53)
[2018-07-14] MEDS: EPIVIR PO SCH ×2 (09:30→22:52)
[2018-07-14] MEDS: COLACE PO SCH ×2 (09:30→22:52)
[2018-07-14] MEDS: SODIUM CHLORIDE FLUSH SYRINGE 10 ML IV SCH ×2 (09:31→22:53)
[2018-07-14] MEDS: PEPCID IV SCH ×2 (09:31→21:57)
--- NOTE | 2018-07-14 10:44 | Progress Note ---
Assessment and Plan 58yo AAM: 1. Acute cardiopulmonary arrest most likely secondary to high volume burden bilateral PE * Unlikely primary cardiac etiology * tte revealed nl lv fxn w/o sig valvular pathology * no objective evidence of VF on chart from ER, ? PEA arrest * cont sytemic anticoagulation, baby asa * consider cardiac ischemic w/u once he convalesces from this acute episode (in office) * clinically vastly improved * d/w pt and family at length 2. DARCY/CKD 3. HIV 4. Unprovoked B PE * heme on board * ? hypercoag w/u * on NOAC Stable cv status d/w pt and family - Patient Problems (1) ARF (acute renal failure) with tubular necrosis Current Visit: Yes Status: Acute (2) Acute pulmonary embolism Current Visit: Yes Status: Acute (3) Acute respiratory failure Current Visit: Yes Status: Acute Qualifiers: Respiratory failure complication: unspecified whether with hypoxia or hypercapnia Qualified Code(s): J96.00 - Acute respiratory failure, unspecified whether with hypoxia or hypercapnia (4) DVT (deep venous thrombosis) Current Visit: Yes Status: Acute (5) HIV (human immunodeficiency virus infection) Current Visit: Yes Status: Chronic Qualifiers: HIV symptom status: unspecified Qualified Code(s): B20 - Human immunodefi ciency virus [HIV] disease Subjective Date of service: 07/14/18 Principal diagnosis: dvt - PE Interval history: feels well Objective Vital Signs Temp Pulse Resp BP BP Pulse Ox 07/14/18 09:29 66 140/85 07/14/18 08:26 98.8 F 18 159/87 07/14/18 05:05 98 07/14/18 03:55 97.9 F 66 16 141/85 96 07/13/18 23:54 98.3 F 63 17 159/88 96 07/13/18 23:00 64 24 98 07/13/18 22:00 84 19 99 07/13/18 21:58 99.4 F 73 144/81 96 07/13/18 21:56 99.4 F 64 07/13/18 21:53 144/81 07/13/18 21:32 97 07/13/18 20:00 19 99 07/13/18 19:52 62 97 07/13/18 19:51 99.4 F 67 16 161/102 97 07/13/18 17:11 98.5 F 65 18 153/91 99 07/13/18 12:21 98.9 F 69 18 146/85 91 - Physical Examination General: Appears Well, No Apparent Distress HEENT: Positive: PERRL, Normocephaly, Mucus Membranes Moist Neck: Positive: neck supple, trachea midline Neuro: Positive: Grossly Intact, Cranial Nerve 2-12 Intact Abdomen: Negative: Tender Skin: Negative: Rash, Wound Musculoskeletal: No Pain Extremities: Absent: edema - Labs and Meds Comprehensive Metabolic Panel 07/14/18 Range/Units 04:15 Sodium 141 (137-145) mmol/L Potassium 3.6 (3.6-5.0) mmol/L Chloride 107.5 H (98-107) mmol/L Carbon Dioxide 23 (22-30) mmol/L BUN 18 (9-20) mg/dL Creatinine 1.4 (0.8-1.5) mg/dL Glucose 90 (75-100) mg/dL Calcium 7.6 L (8.4-10.2) mg/dL - Imaging and Cardiology EKG: report reviewed, image reviewed Echo: report reviewed (EF 50-55%, mod LVH, mild MR, trivial pericardial effusion. ) - EKG Sinus rhythms and dysrhythmias: sinus rhythm Repolarization changes or abnormalities: ST or T wave suggestive of ischemia - Allied health notes Allied health notes reviewed: nursing
[2018-07-14] MEDS: NACL 0.9% 1000 ML 1,000 ML IV SCH (10:48)
--- NOTE | 2018-07-14 15:52 | Progress Note ---
Assessment and Plan Acute hypoxemic respiratory failure, on mechanical ventilatory support. Acute syncopal episode/loss of consciousness, etiology unclear with a negative CT scan of the head and neck I should mention. Human immunodeficiency virus positive. Obesity. Acute kidney injury. Mixed acidosis at presentation. Status post cardiac arrest with return of spontaneous circulation. History of congestive heart failure according to the notes. - continue BIPAP scheduled qhs - outpatient PSG - continue full anticoagulation for VTE - continue bronchodilators per protocol with pulmonary hygiene per RT - prn supplemental oxygen to keep O2 sats > 90% - continue GI prophylaxis - complete Anti-infectives per ID rec's - continue ART per ID prescription - Monitor renal indices closely - Avoid nephrotoxic agents, adjust all medications for CrCL - Strict intake and output monitoring - Accuchecks with glycemic control. Target glucose of 140-180 mg/dL - Maintenance of sleep -wake cycle - PT/OT/increase ambulation as tolerated - Influenza and pneumonia vaccination per protocol ..care plan discussed at length with patient's family at bedside CODE STATUS: FULL CODE Subjective Date of service: 07/14/18 Principal diagnosis: Acute hypoxemic Resp failure; Syncope; HIV +ve; Obesity; DARCY. Interval history: Patient is seen today for: Acute hypoxemic respiratory failure, on mechanical ventilatory support; Acute syncopal episode/loss of consciousness, etiology unclear with a negative CT scan of the head; Human immunodeficiency virus positive; Obesity; Acute kidney injury. Seen and examined at bedside; 24hour events reviewed; nursing and respiratory care staff consulted; no adverse overnight events reported to me; tolerated BIPAP much better; No N/V/F/C; no new issues respiratory-garcia and denies any bleeding Objective Vital Signs - 12hr 07/14/18 07/14/18 07/14/18 03:55 05:05 08:26 Temperature 97.9 F 98.8 F Pulse Rate 66 Pulse Rate [ Apical] Pulse Rate [ Left Dorsalis Pedis] Pulse Rate [ Left Radial] Pulse Rate [ Right Dorsalis Pedis] Pulse Rate [ Right Radial] Respiratory 16 18 Rate Blood Pressure 141/85 159/87 O2 Sat by Pulse 96 98 Oximetry 07/14/18 07/14/18 07/14/18 09:29 10:00 11:45 Temperature 98.6 F Pulse Rate 66 65 Pulse Rate [ 66 Apical] Pulse Rate [ 66 Left Dorsalis Pedis] Pulse Rate [ 66 Left Radial] Pulse Rate [ 66 Right Dorsalis Pedis] Pulse Rate [ 66 Right Radial] Respiratory 18 18 Rate Blood Pressure 140/85 149/87 O2 Sat by Pulse 99 Oximetry Constitutional: no acute distress, other (middle aged, obese AAM , normocephalic and atraumatic) Eyes: non-icteric ENT: oropharynx moist, other (mallampati 3) Neck: supple, no lymphadenopathy, no JVD, other (no thyromegaly) Effort: normal Ascultation: Bilateral: clear, diminished breath sounds Percussion: Bilateral: not dull Cardiovascular: regular rate and rhythm, other (No R/M) Gastrointestinal: normoactive bowel sounds, soft, non-tender, non-distended Integumentary: normal Extremities: no cyanosis, no edema, pulses normal, no ischemia or petechiae Neurologic: non-focal exam (grossly), pupils equal and round, CN II-XII normal, motor strength normal and Psychiatric: mood appropriate, affect normal CBC and BMP: 07/13/18 04:25 07/14/18 04:15 ABG, PT/INR, D-dimer: ABG POC ABG pH 7.321 (7.35-7.45) L 07/10/18 12:05 POC ABG pCO2 38.6 (35-45) 07/10/18 12:05 POC ABG pO2 89 (80-105) 07/10/18 12:05 POC ABG HCO3 19.9 (22-26 mml/L) 07/10/18 12:05 POC ABG Total CO2 21 (23-27mmol/L) 07/10/18 12:05 POC ABG O2 Sat 96 07/10/18 12:05 PT/INR, D-dimer PT 16.3 Sec. (12.2-14.9) H 07/12/18 05:15 INR 1.23 (0.87-1.13) H 07/12/18 05:15 3341.55 ng/mlDDU (0-234) H 07/09/18 10:16 Abnormal lab findings: Abnormal Labs 07/07/18 07/07/18 07/07/18 14:45 14:45 14:45 WBC Hgb Hct Plt Count Lymph % (Auto) [place] % (Auto) Lymph # [place] # Seg Neutrophils % Seg Neuts % (Manual) 29.0 L Lymphocytes % (Manual) 66.0 H Seg Neutrophils # Lymphocytes # (Manual) 6.1 H PT 15.5 H INR 1.16 H D-Dimer Heparin Anti-Xa Level POC ABG pH POC ABG pCO2 POC ABG pO2 Sodium Potassium 3.1 L Chloride Carbon Dioxide 17 L BUN Creatinine 1.9 H Glucose 218 H POC Glucose Lactic Acid Calcium AST 352 H ALT 394 H Ammonia Total Creatine Kinase CK-MB (CK-2) Troponin T 0.561 H* C-Reactive Protein Total Protein Albumin 3.5 L HDL Cholesterol 71 H TSH Salicylates Acetaminophen 07/07/18 07/07/18 07/07/18 14:45 14:45 14:45 WBC Hgb Hct Plt Count Lymph % (Auto) [place] % (Auto) Lymph # [place] # Seg Neutrophils % Seg Neuts % (Manual) Lymphocytes % (Manual) Seg Neutrophils # Lymphocytes # (Manual) PT INR D-Dimer Heparin Anti-Xa Level POC ABG pH POC ABG pCO2 POC ABG pO2 Sodium Potassium Chloride Carbon Dioxide BUN Creatinine Glucose POC Glucose Lactic Acid Calcium AST ALT Ammonia Total Creatine Kinase CK-MB (CK-2) Troponin T C-Reactive Protein Total Protein Albumin HDL Cholesterol TSH 8.870 H Salicylates < 0.3 L Acetaminophen < 5.0 L 07/07/18 07/07/18 07/07/18 15:15 15:15 15:30 WBC Hgb Hct Plt Count Lymph % (Auto) [place] % (Auto) Lymph # [place] # Seg Neutrophils % Seg Neuts % (Manual) Lymphocytes % (Manual) Seg Neutrophils # Lymphocytes # (Manual) PT INR D-Dimer Heparin Anti-Xa Level POC ABG pH 7.199 L POC ABG pCO2 60.0 H POC ABG pO2 325 H Sodium Potassium Chloride Carbon Dioxide BUN Creatinine Glucose POC Glucose Lactic Acid 5.30 H* Calcium AST ALT Ammonia 62.0 H Total Creatine Kinase CK-MB (CK-2) Troponin T C-Reactive Protein Total Protein Albumin HDL Cholesterol TSH Salicylates Acetaminophen 07/07/18 07/07/18 07/07/18 17:12 19:12 20:18 WBC Hgb Hct Plt Count Lymph % (Auto) [place] % (Auto) Lymph # [place] # Seg Neutrophils % Seg Neuts % (Manual) Lymphocytes % (Manual) Seg Neutrophils # Lymphocytes # (Manual) PT INR D-Dimer Heparin Anti-Xa Level POC ABG pH POC ABG pCO2 POC ABG pO2 193 H Sodium Potassium Chloride Carbon Dioxide BUN Creatinine Glucose POC Glucose Lactic Acid 5.30 H* 2.10 H* Calcium AST ALT Ammonia Total Creatine Kinase CK-MB (CK-2) Troponin T C-Reactive Protein Total Protein Albumin HDL Cholesterol TSH Salicylates Acetaminophen 07/07/18 07/07/18 07/07/18 22:56 22:56 Unknown WBC Hgb Hct Plt Count Lymph % (Auto) [place] % (Auto) Lymph # [place] # Seg Neutrophils % Seg Neuts % (Manual) Lymphocytes % (Manual) Seg Neutrophils # Lymphocytes # (Manual) PT INR D-Dimer Heparin Anti-Xa Level POC ABG pH POC ABG pCO2 POC ABG pO2 Sodium Potassium Chloride Carbon Dioxide BUN Creatinine Glucose POC Glucose Lactic Acid 5.00 H* Calcium AST ALT Ammonia Total Creatine Kinase CK-MB (CK-2) Troponin T 1.380 H* D 1.990 H* D C-Reactive Protein Total Protein Albumin HDL Cholesterol TSH Salicylates Acetaminophen 07/08/18 07/08/18 07/08/18 04:09 04:09 04:09 WBC Hgb Hct Plt Count Lymph % (Auto) [place] % (Auto) 11.9 H Lymph # [place] # 0.9 H Seg Neutrophils % Seg Neuts % (Manual) Lymphocytes % (Manual) Seg Neutrophils # Lymphocytes # (Manual) PT INR D-Dimer Heparin Anti-Xa Level POC ABG pH POC ABG pCO2 POC ABG pO2 Sodium Potassium Chloride Carbon Dioxide 21 L BUN Creatinine 1.6 H Glucose 71 L POC Glucose Lactic Acid 4.60 H* Calcium 8.2 L AST 321 H ALT 313 H Ammonia Total Creatine Kinase CK-MB (CK-2) Troponin T C-Reactive Protein Total Protein 5.9 L Albumin 3.3 L HDL Cholesterol TSH Salicylates Acetaminophen 07/08/18 07/08/18 07/08/18 04:41 18:20 Unknown WBC Hgb Hct Plt Count Lymph % (Auto) [place] % (Auto) Lymph # [place] # Seg Neutrophils % Seg Neuts % (Manual) Lymphocytes % (Manual) Seg Neutrophils # Lymphocytes # (Manual) PT 15.9 H INR 1.19 H D-Dimer Heparin Anti-Xa Level 0.18 L POC ABG pH POC ABG pCO2 POC ABG pO2 144 H Sodium Potassium Chloride Carbon Dioxide BUN Creatinine Glucose POC Glucose Lactic Acid Calcium AST ALT Ammonia Total Creatine Kinase CK-MB (CK-2) Troponin T C-Reactive Protein Total Protein Albumin HDL Cholesterol TSH Salicylates Acetaminophen 07/09/18 07/09/18 07/09/18 03:43 04:00 04:30 WBC Hgb Hct Plt Count Lymph % (Auto) [place] % (Auto) Lymph # [place] # Seg Neutrophils % Seg Neuts % (Manual) Lymphocytes % (Manual) Seg Neutrophils # Lymphocytes # (Manual) PT INR D-Dimer Heparin Anti-Xa Level 0.26 L POC ABG pH 7.331 L POC ABG pCO2 POC ABG pO2 Sodium Potassium Chloride Carbon Dioxide BUN Creatinine Glucose 105 H POC Glucose Lactic Acid Calcium 7.6 L AST 151 H ALT 192 H Ammonia Total Creatine Kinase 952 H CK-MB (CK-2) 13.0 H Troponin T 1.430 H* C-Reactive Protein Total Protein 5.6 L Albumin 2.9 L HDL Cholesterol TSH Salicylates Acetaminophen 07/09/18 07/09/18 07/09/18 05:53 10:16 16:12 WBC Hgb Hct Plt Count Lymph % (Auto) [place] % (Auto) Lymph # [place] # Seg Neutrophils % Seg Neuts % (Manual) Lymphocytes % (Manual) Seg Neutrophils # Lymphocytes # (Manual) PT INR D-Dimer 3341.55 H Heparin Anti-Xa Level POC ABG pH POC ABG pCO2 POC ABG pO2 Sodium Potassium Chloride Carbon Dioxide BUN Creatinine Glucose POC Glucose 106 H Lactic Acid Calcium AST ALT Ammonia Total Creatine Kinase CK-MB (CK-2) Troponin T C-Reactive Protein 12.60 H Total Protein Albumin HDL Cholesterol TSH Salicylates Acetaminophen 07/09/18 07/09/18 07/09/18 16:12 16:38 18:24 WBC Hgb Hct Plt Count Lymph % (Auto) [place] % (Auto) Lymph # [place] # Seg Neutrophils % Seg Neuts % (Manual) Lymphocytes % (Manual) Seg Neutrophils # Lymphocytes # (Manual) PT INR D-Dimer Heparin Anti-Xa Level POC ABG pH 7.335 L POC ABG pCO2 POC ABG pO2 69 L Sodium Potassium Chloride Carbon Dioxide BUN Creatinine Glucose POC Glucose 126 H Lactic Acid Calcium AST ALT Ammonia Total Creatine Kinase 734 H CK-MB (CK-2) Troponin T C-Reactive Protein Total Protein Albumin HDL Cholesterol TSH Salicylates Acetaminophen 07/09/18 07/10/1819 18:59 00:15 04:42 WBC Hgb Hct Plt Count Lymph % (Auto) [place] % (Auto) Lymph # [place] # Seg Neutrophils % Seg Neuts % (Manual) Lymphocytes % (Manual) Seg Neutrophils # Lymphocytes # (Manual) PT INR D-Dimer Heparin Anti-Xa Level 0.23 L POC ABG pH 7.270 L POC ABG pCO2 POC ABG pO2 78 L Sodium Potassium Chloride Carbon Dioxide BUN Creatinine Glucose POC Glucose 129 H Lactic Acid Calcium AST ALT Ammonia Total Creatine Kinase CK-MB (CK-2) Troponin T C-Reactive Protein Total Protein Albumin HDL Cholesterol TSH Salicylates Acetaminophen 07/10/18 07/10/18 07/10/18 05:41 09:00 09:00 WBC 11.3 H Hgb Hct Plt Count 115 L Lymph % (Auto) 6.8 L [place] % (Auto) Lymph # 0.8 L [place] # Seg Neutrophils % 88.3 H Seg Neuts % (Manual) Lymphocytes % (Manual) Seg Neutrophils # 10.0 H Lymphocytes # (Manual) PT INR D-Dimer Heparin Anti-Xa Level POC ABG pH POC ABG pCO2 POC ABG pO2 Sodium 133 L Potassium Chloride 107.2 H Carbon Dioxide 18 L BUN 24 H Creatinine 1.7 H Glucose 138 H POC Glucose 147 H Lactic Acid Calcium 7.8 L AST 76 H ALT 128 H Ammonia Total Creatine Kinase CK-MB (CK-2) Troponin T C-Reactive Protein Total Protein 6.0 L Albumin 2.5 L HDL Cholesterol TSH Salicylates Acetaminophen 07/10/18 07/10/18 07/10/18 12:05 12:49 17:07 WBC Hgb Hct Plt Count Lymph % (Auto) [place] % (Auto) Lymph # [place] # Seg Neutrophils % Seg Neuts % (Manual) Lymphocytes % (Manual) Seg Neutrophils # Lymphocytes # (Manual) PT INR D-Dimer Heparin Anti-Xa Level POC ABG pH 7.321 L POC ABG pCO2 POC ABG pO2 Sodium Potassium Chloride Carbon Dioxide BUN Creatinine Glucose POC Glucose 157 H 138 H Lactic Acid Calcium AST ALT Ammonia Total Creatine Kinase CK-MB (CK-2) Troponin T C-Reactive Protein Total Protein Albumin HDL Cholesterol TSH Salicylates Acetaminophen 07/10/18 07/11/18 07/11/18 23:37 04:54 04:54 WBC 12.9 H Hgb Hct Plt Count 123 L Lymph % (Auto) 7.6 L [place] % (Auto) Lymph # 1.0 L [place] # Seg Neutrophils % 87.1 H Seg Neuts % (Manual) Lymphocytes % (Manual) Seg Neutrophils # 11.3 H Lymphocytes # (Manual) PT INR D-Dimer Heparin Anti-Xa Level POC ABG pH POC ABG pCO2 POC ABG pO2 Sodium Potassium Chloride Carbon Dioxide 20 L BUN 25 H Creatinine Glucose 113 H POC Glucose 120 H Lactic Acid Calcium AST ALT Ammonia Total Creatine Kinase CK-MB (CK-2) Troponin T C-Reactive Protein Total Protein Albumin HDL Cholesterol TSH Salicylates Acetaminophen 07/11/18 07/11/18 07/11/18 04:54 05:42 10:43 WBC Hgb Hct Plt Count Lymph % (Auto) [place] % (Auto) Lymph # [place] # Seg Neutrophils % Seg Neuts % (Manual) Lymphocytes % (Manual) Seg Neutrophils # Lymphocytes # (Manual) PT INR D-Dimer Heparin Anti-Xa Level 0.22 L POC ABG pH POC ABG pCO2 POC ABG pO2 Sodium Potassium Chloride Carbon Dioxide BUN Creatinine Glucose POC Glucose 108 H 108 H Lactic Acid Calcium AST ALT Ammonia Total Creatine Kinase CK-MB (CK-2) Troponin T C-Reactive Protein Total Protein Albumin HDL Cholesterol TSH Salicylates Acetaminophen 07/11/18 07/11/18 07/12/18 12:32 19:57 05:15 WBC Hgb 11.6 L Hct 34.7 L Plt Count 133 L Lymph % (Auto) 11.0 L [place] % (Auto) Lymph # 1.1 L [place] # Seg Neutrophils % 82.6 H Seg Neuts % (Manual) Lymphocytes % (Manual) Seg Neutrophils # 8.5 H Lymphocytes # (Manual) PT INR D-Dimer Heparin Anti-Xa Level 0.17 L 0.18 L POC ABG pH POC ABG pCO2 POC ABG pO2 Sodium Potassium Chloride Carbon Dioxide BUN Creatinine Glucose POC Glucose Lactic Acid Calcium AST ALT Ammonia Total Creatine Kinase CK-MB (CK-2) Troponin T C-Reactive Protein Total Protein Albumin HDL Cholesterol TSH Salicylates Acetaminophen 07/12/18 07/12/18 07/12/18 05:15 05:15 20:16 WBC Hgb Hct Plt Count Lymph % (Auto) [place] % (Auto) Lymph # [place] # Seg Neutrophils % Seg Neuts % (Manual) Lymphocytes % (Manual) Seg Neutrophils # Lymphocytes # (Manual) PT 16.3 H INR 1.23 H D-Dimer Heparin Anti-Xa Level 0.29 L 0.28 L POC ABG pH POC ABG pCO2 POC ABG pO2 Sodium Potassium Chloride 109.3 H Carbon Dioxide BUN 27 H Creatinine 1.6 H Glucose 114 H POC Glucose Lactic Acid Calcium 8.1 L AST ALT 77 H Ammonia Total Creatine Kinase CK-MB (CK-2) Troponin T C-Reactive Protein Total Protein 5.8 L Albumin 2.7 L HDL Cholesterol TSH Salicylates Acetaminophen 07/13/18 07/14/18 21:37 04:15 WBC Hgb Hct Plt Count Lymph % (Auto) [place] % (Auto) Lymph # [place] # Seg Neutrophils % Seg Neuts % (Manual) Lymphocytes % (Manual) Seg Neutrophils # Lymphocytes # (Manual) PT INR D-Dimer Heparin Anti-Xa Level POC ABG pH POC ABG pCO2 POC ABG pO2 Sodium Potassium Chloride 107.5 H Carbon Dioxide BUN Creatinine Glucose POC Glucose 111 H Lactic Acid Calcium 7.6 L AST ALT Ammonia Total Creatine Kinase CK-MB (CK-2) Troponin T C-Reactive Protein Total Protein Albumin HDL Cholesterol TSH Salicylates Acetaminophen Allied health notes reviewed: nursing
--- NOTE | 2018-07-14 16:01 | Discharge Summary ---
Providers - Providers Date of Admission: 07/07/18 16:55 Attending physician: GEOVANNA VIRAMONTES MD 07/07/18 15:10 Consult to Dietitian/Nutrition [CONS] Routine Physician Instructions: Reason For Exam: Reason for Consult: Evaluate nutritional intake 07/07/18 16:59 Consult to Physician [CONS] Routine Comment: Consulting Provider: PITO HUSAIN Physician Instructions: Reason For Exam: respiratory failure 07/07/18 19:47 Consult to Cardiology [CONS] Routine Consulting Provider: SABRINA GOODEN Reason For Exam: cardiac arrest 07/08/18 12:49 PICC Line Insertion [Consult to PICC Line RN] [CONS] Routine Reason For Exam: vasopressor administration Type Line:: PICC 07/08/18 14:56 Consult to Dietitian/Nutrition [CONS] Stat Physician Instructions: Reason For Exam: Reason for Consult: Write/Manage Tube Feeding 07/09/18 07:19 Consult to Physician [CONS] Routine Comment: Consulting Provider: BAO WARE Physician Instructions: Reason For Exam: HIV, FEver 07/09/18 07:20 Consult to Physician [CONS] Routine Comment: Consulting Provider: CHUCKY MEEKS Physician Instructions: Reason For Exam: darcy 07/11/18 12:04 Physical Therapy Evaluation and Treat [CONS] Routine Comment: Reason For Exam: Post-extubation 07/11/18 12:05 Occupational Therapy Evaluate and Treat [CONS] Routine Comment: Reason For Exam: Post-Extubation 07/11/18 14:38 Consult to Physician [CONS] Routine Comment: Consulting Provider: LAZARUS ROLLINS Physician Instructions: Reason For Exam: Pulmonary embolism 07/11/18 14:41 Consult to Physician [CONS] Routine Comment: Consulting Provider: IKE POON Physician Instructions: Reason For Exam: Pulmonary embolus 07/12/18 09:38 Physical Therapy Evaluation and Treat [CONS] Routine Comment: Reason For Exam: Pt needs to ambulate [facility] Hospital[facility] Condition: Serious Hospital course: 58 year old man who presented to the emergency room. He was at a local store when he suddenly experienced loss of consciousness. He was brought by the EMS with cardiac arrest. He received CPR, he was in pulseless v-fib. He was shocked receive chest compressions and medications. He had return of circulation. Past medical history includes HIV he presented with Cardiac arrest - Patient was shocked and chest compression was done and resuscitated successfully, he was intubated, and was successfully extubated on 07/10 - Cardiology consulted and patient is on anticoagulation, metoprolol, amiodarone and aspirin - he was found to have bilat DVT and bilat PE, he was put on Heparin ggt, then transitioned to oral anticoagulation - He had MSSA bacteremia, and completed abx while in hospital -he was continued on his HIV meds, renal function improved with IVF - his K was repleted, he is recommended to have repeat thyroid studies in 3 months -he did have NSVT, seen by cardiology, metoprolol was recommended Diagnosis cardiac arrest bilat DVT bilat PE acute resp failure on MV< 96 hours HIV DARCY due to ATN Shock liver type 2 AL due to PE and cardiac arrest subclinical hypothyroidism Disposition: TO HOME OR SELFCARE Time spent for discharge: 33 mins Core Measure Documentation - Palliative Care Palliative Care/ Comfort Measures: Not Applicable - Core Measures Any of the following diagnoses?: none Exam - Constitutional Vitals: Temp Pulse Resp BP Pulse Ox 98.6 F 66 18 149/87 99 07/14/18 11:45 07/14/18 10:00 07/14/18 11:45 07/14/18 11:45 07/14/18 10:00 General appearance: Present: no acute distress, well-nourished - EENT Eyes: Present: PERRL ENT: hearing intact, clear oral mucosa - Neck Neck: Present: supple, normal ROM - Respiratory Respiratory effort: normal Respiratory: bilateral: CTA - Cardiovascular Heart Sounds: Present: S1 & S2. Absent: rub, click - Extremities Extremities: pulses symmetrical, No edema Peripheral Pulses: within normal limits - Abdominal General gastrointestinal: Present: soft, non-tender, non-distended, normal bowel sounds Male genitourinary: Present: normal - Integumentary Integumentary: Present: clear, warm, dry - Musculoskeletal Musculoskeletal: gait normal, strength equal bilaterally - Psychiatric Psychiatric: appropriate mood/affect, intact judgment & insight - Neurologic Neurologic: CNII-XII intact, moves all extremities Plan Additional Instructions: Please follow up with your doctors at the [facility]. -you will need to see a playroom attendant. -you will need PSA. -you also need Colonoscopy scheduled Follow up with: MILADY GOMES MD [Primary Care Provider] - 7 Days Prescriptions: AtorvaSTATin [Lipitor] 20 mg PO QHS #30 tablet Aspirin EC [Aspirin Enteric Coated TAB] 81 mg PO QDAY #30 tablet. Apixaban [Eliquis starter pack] 5 mg PO BID 30 Days #1 tab.ds.pk Metoprolol [Lopressor TAB] 25 mg PO BID #60 tablet
[2018-07-15] MEDS: HumaLOG SUB-Q SCH ×2 (00:07→05:09)
[2018-07-15 06:27] LABS: Hematocrit 37.3 % (35.5-45.6); Hemoglobin 12.6 gm/dl (11.8-15.2)
--- NOTE | 2018-07-15 07:13 | Hem/Onc Progress Note ---
Assessment and Plan 1. Bilateral leg deep vein thrombosis. 2. Pulmonary embolism based on CTA. 3. The patient was on heparin. This has been changed to Eliquis. 4. HIV, on medication. 5. History of cardiac arrest. 6. History of respiratory failure.- was on vent 7. h/o Renal impairment. 8. h/o Liver function abnormality. 9. h/o Bacteremia, status post treatment. I will follow the patient during inpatient stay and then in the clinic setting. pt had cardiac arrest - found to have PE - hence he would need exterminator an ticoagulation - Patient Problems (1) Acute pulmonary embolism Current Visit: Yes Status: Acute Subjective Date of service: 07/15/18 Principal diagnosis: DVt and PE Interval history: on eliquis - no bleeding Objective - Constitutional Vitals: Last Vital Signs Temp 98.4 F 07/14/18 23:50 Pulse 63 07/15/18 04:00 Resp 16 07/15/18 04:00 BP 153/82 07/15/18 04:00 Pulse Ox 96 07/15/18 04:00 Pain Intensity (0-10): denies any pain General appearance: no acute distress Performance status: 3-limited selfcare - EENT Eyes: EOM intact ENT: hearing intact, clear oral mucosa Lymph node exam: negative cervical - Neck Neck: normal ROM - Respiratory Respiratory effort: Positive: normal Respiratory: bilateral: CTA - Cardiovascular Heart Sounds: Present: S1 & S2 Extremities: No edema - Gastrointestinal General gastrointestinal: Present: soft, non-tender Rectal Exam: deferred - Genitourinary Male genitourinary: Present: deferred - Integumentary Integumentary: warm - Musculoskeletal Musculoskeletal: strength equal bilaterally - Neurologic Neurologic: moves all extremities - Labs Lab Results: Laboratory Results - last 24 hr 07/14/18 07/14/18 07/14/18 07:31 12:07 17:31 Hgb Hct Plt Count POC Glucose 91 87 85 07/14/18 07/15/18 19:48 04:39 Hgb 12.6 Hct 37.3 Plt Count 157 POC Glucose 133 H Medications & Allergies - Medications Allergies/Adverse Reactions: Allergies lactose Adverse Reaction (Verified 07/12/18 11:52) Unknown Home Medications: Home Medications Medication Instructions Recorded Confirmed Last Taken Type Abacavir/Dolutegravir/Lamivudi 1 each PO DAILY 02/28/16 07/14/18 Unknown History [Triumeq 600-50-300 mg Tablet] Apixaban [Eliquis starter pack] 5 mg PO BID 30 Days #1 tab.ds.pk 07/14/18 Unknown Rx Aspirin EC [Aspirin Enteric Coated 81 mg PO QDAY #30 tablet. 07/14/18 Unknown Rx TAB] AtorvaSTATin [Lipitor] 20 mg PO QHS #30 tablet 07/14/18 Unknown Rx Metoprolol [Lopressor TAB] 12.5 mg PO BID #30 tablet 07/14/18 Unknown Rx Active Medications: Generic Name Dose Route Start Last Admin Trade Name Freq PRN Reason Stop Dose Admin Abacavir Sulfate 300 mg 07/08/18 10:00 07/14/18 22:53 Ziagen PO Not Given Q12HR KATIANA Albuterol 2.5 mg 07/07/18 16:55 Proventil IH Q3HRT PRN Shortness Of Breath Lipase/Protease/Amylase 1 each 07/08/18 15:34 Pancreaze 10,500 Unit FEEDTUBE PRN PRN For Clogged Feeding Tube Apixaban 10 mg 07/13/18 13:00 07/14/18 22:00 Eliquis PO 10 mg Q12HR KATIANA Administration Protocol Aspirin 81 mg 07/13/18 12:00 07/14/18 09:29 Baby Aspirin PO 81 mg QDAY KATIANA Administration Atorvastatin Calcium 20 mg 07/10/18 22:00 07/14/18 21:58 Lipitor PO 20 mg QHS KATIANA Administration Docusate Sodium 100 mg 07/11/18 12:00 07/14/18 22:52 Colace PO Not Given BID KATIANA Famotidine 20 mg 07/08/18 10:00 07/14/18 21:57 Pepcid IV 20 mg BID KATIANA Administration Hydrophilic Ointment 1 applic 07/07/18 15:10 Vaseline Lip Therapy TP Q2HR PRN Dry Lips Sodium Chloride 1,000 mls @ 75 mls/hr 07/11/18 15:00 07/14/18 10:48 Nacl 0.9% 1000 Ml IV 75 mls/hr DIRECT KATIANA Administration Ibuprofen 400 mg 07/09/18 20:32 07/09/18 21:04 Motrin PO 400 mg Q6H PRN Administration Fever >101 Insulin Human Lispro 0 unit 07/08/18 14:00 07/15/18 05:09 Humalog SUB-Q Not Given Q6HR [facility] Protocol Lamivudine 150 mg 07/08/18 10:00 07/14/18 22:52 Epivir PO Not Given Q12HR [facility] Metoprolol Tartrate 12.5 mg 07/12/18 11:49 07/14/18 21:57 Lopressor PO 12.5 mg BID [facility] Administration Multi-Ingred Cream/Lotion/Oil/Oint 1 applic 07/07/18 15:10 Artificial Tears Ophth Oint OU Q4HR PRN Dry Eye(s) Ondansetron HCl 4 mg 07/10/18 14:54 07/10/18 15:12 Zofran IV 4 mg Q8H PRN Administration Nausea And Vomiting Simple Syrup 15 ml 07/08/18 15:34 Simple Syrup FEEDTUBE PRN PRN Hypoglycemia Simple Syrup 30 ml 07/08/18 15:34 Simple Syrup FEEDTUBE PRN PRN Hypoglycemia Sodium Bicarbonate 325 mg 07/08/18 15:34 Sodium Bicarbonate FEEDTUBE PRN PRN For Clogged Feeding Tube Sodium Chloride 10 ml 07/07/18 22:00 07/14/18 22:53 Sodium Chloride Flush Syringe 10 Ml IV 10 ml BID KATIANA Administration Sodium Chloride 10 ml 07/07/18 16:55 Sodium Chloride Flush Syringe 10 Ml IV PRN PRN LINE FLUSH
--- NOTE | 2018-07-15 08:52 | Progress Note ---
Assessment and Plan - Patient Problems (1) Acute kidney injury Current Visit: Yes Status: Acute Plan to address problem: Acute kidney injury status post cardiac arrest is probably acute tubular necrosis. Kidney function improving. Follow-up electrolytes and renal function.Patient was been followed at [facility] for stage II/Early sttage III CKD prior to admission he states. I suspect he may be close to his baseline. He can follow up at the [facility] or with us. He already has an apoointment at the [facility] in 2 weeks. Discharge planning per primary attending (2) Cardiac arrest with successful resuscitation Current Visit: Yes Status: Acute Plan to address problem: Status post V. fib arrest. 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 (4) HIV (human immunodeficiency virus infection) Current Visit: Yes Status: Chronic Qualifiers: HIV symptom status: unspecified Qualified Code(s): B20 - Human immunodeficiency virus [HIV] disease Plan to address problem: Being followed by infectious disease specialist. Continue antiretroviral medications doses renally adjusted (5) Acute pulmonary embolism Current Visit: Yes Status: Acute Plan to address problem: Bilateral LE DVT. Patient on Eliquis Subjective Date of service: 07/15/18 Principal diagnosis: DVt and PE Interval history: Patient seen sitting up in bed. On oxygen via nasal cannula. Feels better. Just had breakfast. Family at bedside. Shortness of breath improving. Denies any pain. Objective - Exam Narrative Exam: Middle-age, male sitting up in bed on BiPAP HEENT: NCAT, pink oral mucous membrane Neck: Supple, no venous distention CVS: S1S2 RRR with no murmur, rub or gallop Chest: Diminished breath sounds in the lower zones Abdomen: Protuberant, soft, nontender, no organomegaly, bowel sounds are present Extremities: No edema Neuro: Awake, alert no focal deficits - Vital Signs Vital signs: Vital Signs - 12hr 07/14/18 07/14/18 07/14/18 22:00 23:50 23:51 Temperature 98.4 F Pulse Rate 69 69 Respiratory 16 Rate Blood Pressure 114/81 Blood Pressure [Left] O2 Sat by Pulse 94 97 99 Oximetry 07/15/18 07/15/18 00:02 04:00 Temperature Pulse Rate 69 63 Respiratory 23 16 Rate Blood Pressure Blood Pressure 153/82 [Left] O2 Sat by Pulse 100 96 Oximetry - Lab 07/15/18 04:39 07/14/18 04:15 Most recent lab results Calcium 7.6 mg/dL (8.4-10.2) L 07/14/18 04:15 Magnesium 1.80 mg/dL (1.7-2.3) 07/11/18 04:54 Medications & Allergies - Medications Allergies/Adverse Reactions: Allergies lactose Adverse Reaction (Verified 07/12/18 11:52) Unknown Home Medications: Home Medications Medication Instructions Recorded Confirmed Last Taken Type Abacavir/Dolutegravir/Lamivudi 1 each PO DAILY 02/28/16 07/14/18 Unknown History [Triumeq 600-50-300 mg Tablet] Apixaban [Eliquis starter pack] 5 mg PO BID 30 Days #1 tab.ds.pk 07/14/18 Unknown Rx Aspirin EC [Aspirin Enteric Coated 81 mg PO QDAY #30 tablet. 07/14/18 Unknown Rx TAB] AtorvaSTATin [Lipitor] 20 mg PO QHS #30 tablet 07/14/18 Unknown Rx Metoprolol [Lopressor TAB] 12.5 mg PO BID #30 tablet 07/14/18 Unknown Rx Active Medications: Generic Name Dose Route Start Last Admin Trade Name Freq PRN Reason Stop Dose Admin Abacavir Sulfate 300 mg 07/08/18 10:00 07/14/18 22:53 Ziagen PO Not Given Q12HR KATIANA Albuterol 2.5 mg 07/07/18 16:55 Proventil IH Q3HRT PRN Shortness Of Breath Lipase/Protease/Amylase 1 each 07/08/18 15:34 Pancreaze 10,500 Unit FEEDTUBE PRN PRN For Clogged Feeding Tube Apixaban 10 mg 07/13/18 13:00 07/14/18 22:00 Eliquis PO 10 mg Q12HR KATIANA Administration Protocol Aspirin 81 mg 07/13/18 12:00 07/14/18 09:29 Baby Aspirin PO 81 mg QDAY KATIAAN Administration Atorvastatin Calcium 20 mg 07/10/18 22:00 07/14/18 21:58 Lipitor PO 20 mg QHS KATIANA Administration Docusate Sodium 100 mg 07/11/18 12:00 07/14/18 22:52 Colace PO Not Given BID REPLACED BY [facility] Famotidine 20 mg 07/08/18 10:00 07/14/18 21:57 Pepcid IV 20 mg BID KATIANA Administration Hydrophilic Ointment 1 applic 07/07/18 15:10 Vaseline Lip Therapy TP Q2HR PRN Dry Lips Sodium Chloride 1,000 mls @ 75 mls/hr 07/11/18 15:00 07/14/18 10:48 Nacl 0.9% 1000 Ml IV 75 mls/hr DIRECT KATIANA Administration Insulin Human Lispro 0 unit 07/08/18 14:00 07/15/18 05:09 Humalog SUB-Q Not Given Q6HR REPLACED BY [facility] Protocol Lamivudine 150 mg 07/08/18 10:00 07/14/18 22:52 Epivir PO Not Given Q12HR REPLACED BY [facility] Metoprolol Tartrate 12.5 mg 07/12/18 11:49 07/14/18 21:57 Lopressor PO 12.5 mg BID REPLACED BY [facility] Administration Multi-Ingred Cream/Lotion/Oil/Oint 1 applic 07/07/18 15:10 Artificial Tears Ophth Oint OU Q4HR PRN Dry Eye(s) Ondansetron HCl 4 mg 07/10/18 14:54 07/10/18 15:12 Zofran IV 4 mg Q8H PRN Administration Nausea And Vomiting Simple Syrup 15 ml 07/08/18 15:34 Simple Syrup FEEDTUBE PRN PRN Hypoglycemia Simple Syrup 30 ml 07/08/18 15:34 Simple Syrup FEEDTUBE PRN PRN Hypoglycemia Sodium Bicarbonate 325 mg 07/08/18 15:34 Sodium Bicarbonate FEEDTUBE PRN PRN For Clogged Feeding Tube Sodium Chloride 10 ml 07/07/18 22:00 07/14/18 22:53 Sodium Chloride Flush Syringe 10 Ml IV 10 ml BID KATIANA Administration Sodium Chloride 10 ml 07/07/18 16:55 Sodium Chloride Flush Syringe 10 Ml IV PRN PRN LINE FLUSH
--- NOTE | 2018-07-15 10:13 | Progress Note ---
Assessment and Plan 58yo AAM: 1. Acute cardiopulmonary arrest most likely secondary to high volume burden bilateral PE * Unlikely primary cardiac etiology * tte revealed nl lv fxn w/o sig valvular pathology * no objective evidence of VF on chart from ER, ? PEA arrest * cont sytemic anticoagulation, baby asa * consider cardiac ischemic w/u once he convalesces from this acute episode (in office) * clinically vastly improved * d/w pt and family at length 2. DARCY/CKD 3. HIV 4. Unprovoked B PE * heme on board * ? hypercoag w/u * on NOAC 5. NSVT Currently stable cardiac status. Pt was noted to have NSVT yesterday afternoon while ambulating around the unit, pt was asymptomatic. Pt does report a longstanding history of intermittent palpitations, mostly which occur while working out at the gym. He likely has been experiencing PVCs/occasional NSVT on a chronic basis. Can consider OP holter study. Will increase lopressor for more adequate BP and HR control and obtain BMP and Mg. Pending electrolytes WNL, pt may discharge home from cardiology standpoint. Recommend pt follow up in our office with Dr. CM Padilla within 1-2 weeks of hospital discharge ([phone]). d/w pt and family The patient has been seen in conjunction with Dr. Harris who agrees with the assessment and plan of care. - Patient Problems (1) Cardiac arrest with successful resuscitation Current Visit: Yes Status: Acute (2) Acute pulmonary embolism Current Visit: Yes Status: Acute (3) DVT (deep venous thrombosis) Current Visit: Yes Status: Acute (4) Non-STEMI (non-ST elevated myocardial infarction) Current Visit: Yes Status: Acute (5) Acute respiratory failure Current Visit: Yes Status: Acute Qualifiers: Respiratory failure complication: unspecified whether with hypoxia or hypercapnia Qualified Code(s): J96.00 - Acute respiratory failure, unspecified whether with hypoxia or hypercapnia (6) Acute kidney injury Current Visit: Yes Status: Acute (7) Hypotension Current Visit: Yes Status: Resolved Qualifiers: Hypotension type: unspecified hypotension type Qualified Code(s): I95.9 - Hypotension, unspecified (8) HIV (human immunodeficiency virus infection) Current Visit: Yes Status: Chronic Qualifiers: HIV symptom status: unspecified Qualified Code(s): B20 - Human immunodeficiency virus [HIV] disease (9) Elevated TSH Current Visit: Yes Status: Chronic (10) Elevated LFTs Current Visit: Yes Status: Acute (11) Acidosis Current Visit: Yes Status: Acute Subjective Date of service: 07/15/18 Principal diagnosis: DVt and PE Interval history: pt resting up in chair, no current complaints. pt was noted to have NSVT yesterday afternoon while ambulating, pt asymptomatic. Objective Last Vital Signs Temp 97.7 F 07/15/18 09:02 Pulse 69 07/15/18 09:00 Resp 18 07/15/18 09:00 BP 152/87 07/15/18 09:00 Pulse Ox 94 07/15/18 09:00 - Physical Examination General: Appears Well, No Apparent Distress HEENT: Positive: PERRL, Normocephaly, Mucus Membranes Moist Neck: Positive: neck supple, trachea midline Cardiac: Positive: Reg Rate and Rhythm, S1/S2 Lungs: Positive: Decreased Breath Sounds Neuro: Positive: Grossly Intact, Cranial Nerve 2-12 Intact Abdomen: Negative: Tender Skin: Negative: Rash, Wound Musculoskeletal: No Pain Extremities: Absent: edema - Labs and Meds CBC 07/15/18 Range/Units 04:39 Hgb 12.6 (11.8-15.2) gm/dl Hct 37.3 (35.5-45.6) % Plt Count 157 (140-440) K/mm3 - Imaging and Cardiology EKG: report reviewed, image reviewed Echo: report reviewed (EF 50-55%, mod LVH, mild MR, trivial pericardial effusion. ) - EKG Sinus rhythms and dysrhythmias: sinus rhythm Repolarization changes or abnormalities: ST or T wave suggestive of ischemia - Allied health notes Allied health notes reviewed: nursing
[2018-07-15] MEDS: COLACE PO SCH (10:15)
[2018-07-15] MEDS: EPIVIR PO SCH (10:17)
[2018-07-15] MEDS: PEPCID IV SCH ×2 (10:17→10:23)
[2018-07-15] MEDS: TIVICAY PO SCH (10:20)
[2018-07-15] MEDS: ZIAGEN PO SCH (10:21)
[2018-07-15] MEDS: ELIQUIS PO SCH (10:22)
[2018-07-15] MEDS: BABY ASPIRIN PO SCH (10:23)
[2018-07-15] MEDS: SODIUM CHLORIDE FLUSH SYRINGE 10 ML IV SCH (10:24)
[2018-07-15 10:43] LABS: Calcium 8.4 mg/dL (8.4-10.2)
[2018-07-15] MEDS ORDERED: LOPRESSOR PO SCH (11:00)
[2018-07-15 12:37] VITALS: BP 147/87
[2018-07-15] MEDS ORDERED: PEPCID PO SCH (22:00)
[2018-07-21] MEDS ORDERED: ELIQUIS PO SCH (00:01)
== END 2018-07-15 14:25 | disposition home or self-care (01) | DRG 974 ==
LOC: ED 14:57 → CC1 16:55 → 4A 07-12 16:24
PROVIDERS: ADMIT Internal Medicine; ATTEND Internal Medicine
PROC: 5A1945Z Respiratory Ventilation, 24-96 Consecutive Hours (ICD-10-PCS; principal; 2018-07-07)
PROC: 0BH17EZ Insertion of Endotracheal Airway into Trachea, Via Natural or Artificial Opening (ICD-10-PCS; 2018-07-07)
PROC: 06HM33Z Insertion of Infusion Device into Right Femoral Vein, Percutaneous Approach (ICD-10-PCS; 2018-07-07)
PROC: B54BZZA Ultrasonography of Right Lower Extremity Veins, Guidance (ICD-10-PCS; 2018-07-07)
PROC: 0HQ0XZZ Repair Scalp Skin, External Approach (ICD-10-PCS; 2018-07-07)
PROC: 5A12012 Performance of Cardiac Output, Single, Manual (ICD-10-PCS; 2018-07-07)
PROC: 4A033R1 Measurement of Arterial Saturation, Peripheral, Percutaneous Approach (ICD-10-PCS; 2018-07-09)
PROC: 02HV33Z Insertion of Infusion Device into Superior Vena Cava, Percutaneous Approach (ICD-10-PCS; 2018-07-09)
PROC: 5A09557 Assistance with Respiratory Ventilation, Greater than 96 Consecutive Hours, Continuous Positive Airway Pressure (ICD-10-PCS; 2018-07-10)
DX: B20 Human immunodeficiency virus [HIV] disease (principal); A41.01 Sepsis due to Methicillin susceptible Staphylococcus aureus; I46.9 Cardiac arrest, cause unspecified; N17.0 Acute kidney failure with tubular necrosis; I26.99 Other pulmonary embolism without acute cor pulmonale; R65.21 Severe sepsis with septic shock; K72.00 Acute and subacute hepatic failure without coma; J96.01 Acute respiratory failure with hypoxia; I21.4 Non-ST elevation (NSTEMI) myocardial infarction; I82.403 Acute embolism and thrombosis of unspecified deep veins of lower extremity, bilateral; R74.0 Nonspecific elevation of levels of transaminase and lactic acid dehydrogenase [LDH]; E87.6 Hypokalemia; E02 Subclinical iodine-deficiency hypothyroidism; E66.9 Obesity, unspecified; N18.3 Chronic kidney disease, stage 3 (moderate); Z79.899 Other long term (current) drug therapy; Z90.49 Acquired absence of other specified parts of digestive tract; Z68.32 Body mass index [BMI] 32.0-32.9, adult
CPT/HCPCS: 36415; 36600; 70450; 71045; 71275; 72125; 74018; 78582; 80048; 80053; 80061; 80320; 81001; 82024; 82140; 82533; 82550; 82553; 82803; 82962; 83735; 84436; 84439; 84443; 84478; 84484; 85007; 85014; 85018; 85025; 85049; 85379; 85520; 85610; 85730; 86140; 86850; 86900; 86901; 87040; 87070; 87076; 87186; 87205; 87400; 87536; 93005; 93010; 93306; 93970; 94002; 94003; 94660; 94760; G0378; 87502; A9270-GY; A9540; A9558; G0480; J0282; J0692; J0696; J1644; J1720; J2250; J2405; J2704; J3010; J3246; J3370; J3480; J7030; J7040; J7060; Q9967